=== PATIENT | female | born 1945 | race Caucasian/White ===

== ENCOUNTER → 2017-01-10 | Outpatient (CLI) | payer MEDICARE, OTHER ==
[2016-10-02 11:21] VITALS: BP 122/63
[~2017-01-10] MED LIST: APIX5TAB PO; ATOR20TA58 PO; INSU100C SQ; INSU100V8 SQ; METF500T4 PO; METO25TA9 PO; OLME40TA PO; OLME5TAB4 PO; QUET1TAB PO; QUET300T5 PO; ROPI1TAB2 PO; VORT20TA PO; VORT5TAB PO
--- NOTE | 2017-01-10 10:26 | RAD ---
DATE: 01/10/2017 EXAM: DIGITAL SCREEN BILAT W/CAD HISTORY: Routine screening COMPARISON: 12/28/2015 This study was interpreted with the benefit of Computerized Aided Detection (CAD). FINDINGS: There are scattered fibroglandular densities in the breasts. Stable small nodules are again noted in the left breast. No new or enlarging breast densities are seen. A couple of benign type calcifications are noted. No suspicious microcalcifications have developed. Small lymph node type densities are partially visualized in the left axillary region. IMPRESSION: Stable mammograms without evidence of malignancy. BI-RADS CATEGORY: 2 BENIGN FINDING(S) RECOMMENDED FOLLOW-UP: 12M 12 MONTH FOLLOW-UP PQRS compliance statement: Patient information was entered into a reminder system with a target due date for the next mammogram. Mammography is a sensitive method for finding small breast cancers, but it does not detect them all and is not a substitute for careful clinical examination. A negative mammogram does not negate a clinically suspicious finding and should not result in delay in biopsying a clinically suspicious abnormality. "Our facility is accredited by the [employer] Mammography Program."
== END | disposition home or self-care (01) ==
LOC: MAMMO 09:00
PROVIDERS: ATTEND Family Medicine
DX: Z12.31 Encounter for screening mammogram for malignant neoplasm of breast (principal)
CPT/HCPCS: G0202; 77067

== ENCOUNTER → 2017-06-25 | Outpatient (CLI) | payer MEDICARE, OTHER ==
[2016-10-02 11:21] VITALS: BP 122/63
[~2017-06-25] MED LIST changes: +METO-239 PO; -METO25TA9 PO; -OLME40TA PO; +OLME40TA12 PO
--- NOTE | 2017-06-25 12:20 | CARD ---
APPROVED REPORT EXAM: Two-dimensional and M-mode echocardiogram with Doppler and color Doppler. Other Information Quality : Average Rhythm : NSR INDICATION Atrial Fibrillation 2D DIMENSIONS RVDd2.6 (2.9-3.5cm)Left Atrium(2D)3.7 (1.6-4.0cm) IVSd1.5 (0.7-1.1cm)Aortic Root(2D)2.8 (2.0-3.7cm) LVDd4.1 (3.9-5.9cm)LVOT Diameter2.0 (1.8-2.4cm) PWd1.5 (0.7-1.1cm)LVDs3.0 (2.5-4.0cm) FS (%) 26.5 %SV38.4 ml LVEF(%)52.4 (>50%) Aortic Valve AoV Peak Ralph.285.8cm/sAoV VTI63.8cm AO Peak GR.41.0mmHgLVOT Peak Ralph.86.6cm/s LVOT VTI 18.14cmAO Mean GR.25mmHg DIOR (VMAX)0.23vl7GOD (VTI)0.80cm2 AI P 1/2 Esps309lu Mitral Valve MV E Iqwupoly24.0cm/sMV DECEL LYAQ839at MV A Imtxkgog459.7cm/sMV E Mean Gr.2mmHg MV XDP58soM/A Ratio0.7 MV A Yaomvgrx055fjIAI (PHT)2.35cm2 TDI E/Lateral E'12.9E/Medial E'18.5 Pulmonary Valve PV Peak Rzovflij78.3cm/sPV Peak Grad.2mmHg RVOT VTI11.2cm Tricuspid Valve TR P. Izwufzpz104lt/sRAP NHQBXMLO2lrUw TR Peak Gr.49urDhIUZZ13xdMq Pulmonary Vein S1 Gnkjsbqk84.4cm/sD2 Wkgmohvq59.4cm/s LEFT VENTRICLE The left ventricle is normal size. There is mild concentric left ventricular hypertrophy. Left ventri dayanara systolic function is low normal. The Ejection Fraction is 50-55%. There is normal LV segmental wa ll motion. Tissue Doppler imaging reveals mild left ventricular diastolic dysfunction. Transmitral Do ppler flow pattern is Grade I-abnormal relaxation pattern. There is no ventricular septal defect visu alized. RIGHT VENTRICLE The right ventricle is normal size. The right ventricular systolic function is normal. ATRIA The left atrium size is normal. The right atrium size is normal. The interatrial septum is intact wit h no evidence for an atrial septal defect or patent foramen ovale as noted on 2-D or Doppler imaging. AORTIC VALVE The aortic valve is calcified and displays decreased opening. The aortic valve is trileaflet. Doppler and Color Flow revealed trace to mild aortic regurgitation. Calculated aortic valve area is 0.8 cm2 with maximum pressure gradient of 41 mmHg and mean pressure gradient of 25 mmHg. Based on doppler tra cings, there is mild to moderate aortic stenosis, visually the valve appears moderately stenotic. The DIOR may be underestimated due to suboptimal image planes. MITRAL VALVE The mitral valve leaflets are calcified. There is no mitral valve stenosis. Doppler and Color Flow re vealed mild mitral regurgitation. TRICUSPID VALVE The tricuspid valve is normal in structure and function. Doppler and Color Flow revealed trace tricus pid regurgitation. The PA pressure was estimated at 29 mmHg. There is no tricuspid valve stenosis. PULMONIC VALVE The pulmonic valve is not well visualized. Doppler and Color Flow revealed no pulmonic valvular regur gitation. There is no pulmonic valvular stenosis. GREAT VESSELS The aortic root is normal in size. The ascending aorta is normal in size. Normal pulmonary venous isha w (Doppler). The IVC is normal in size and collapses >50% with inspiration. PERICARDIAL EFFUSION There is no evidence of significant pericardial effusion. Critical Notification Critical Value: No <Conclusion> Left ventricle systolic function is low normal. The Ejection Fraction is 50-55%. There is normal LV segmental wall motion. Calculated aortic valve area is 0.8 cm2 with maximum pressure gradient of 41 mmHg and mean pressure g radient of 25 mmHg. Based on doppler tracings, there is mild to moderate aortic stenosis, visually th e valve appears moderately stenotic. The DIOR may be underestimated due to suboptimal image planes. Doppler and Color Flow revealed mild mitral regurgitation. Doppler and Color Flow revealed trace to mild aortic regurgitation.
== END | disposition home or self-care (01) ==
LOC: ECHO 07:40
PROVIDERS: ATTEND Internal Medicine Cardiovascular Disease
DX: I08.3 Combined rheumatic disorders of mitral, aortic and tricuspid valves (principal); I48.0 Paroxysmal atrial fibrillation
CPT/HCPCS: 93306

== ENCOUNTER → 2018-01-07 | Outpatient (CLI) | payer MEDICARE, OTHER ==
[2018-01-07 11:01] LABS: FOLATE 20.78 ng/ml (3.2-20.0)
[2018-01-07 11:01] LABS: VITAMIN-B12 285 pg/mL (247-911)
[2018-01-07 12:24] LABS: SEDIMENTATION RATE 7 (0-25)
[2018-01-09 09:19] LABS: ALBUM 3.5 g/dL (2.9-4.4); ALPHA 1 0.3 g/dL (0.0-0.4); BETA 1.4 g/dL (0.7-1.3); GAMMA 1.2 g/dL (0.4-1.8); M-SPIKE Not Observed g/dL (Not Observed); PROTEIN TOTAL 7.4 g/dL (6.0-8.5); SPEP AG RATIO 0.9 (0.7-1.7)
== END | disposition home or self-care (01) ==
LOC: LAB 10:15
DX: G62.9 Polyneuropathy, unspecified (principal)
CPT/HCPCS: 36415; 82607; 82746; 84165; 85651

== ENCOUNTER → 2018-01-29 | Outpatient (CLI) | payer MEDICARE, OTHER | END | disposition home or self-care (01) | LOC: MAMMO 13:40 | DX: Z12.31 Encounter for screening mammogram for malignant neoplasm of breast (principal); I10 Essential (primary) hypertension; E11.9 Type 2 diabetes mellitus without complications; E78.5 Hyperlipidemia, unspecified | CPT/HCPCS: 77063; 77067 ==

== ENCOUNTER → 2018-02-12 | Outpatient (CLI) | payer MEDICARE, OTHER ==
[2018-02-12] MEDS: REGADENOSON 0.4 MG/5 ML DISP.SYRIN. IV (09:48)
== END | disposition home or self-care (01) ==
LOC: NM 15:02
DX: R07.89 Other chest pain (principal); I10 Essential (primary) hypertension; E11.9 Type 2 diabetes mellitus without complications
CPT/HCPCS: 78452; 93017; 96374; 96375; 96376; A9500; J2785

== ENCOUNTER 2018-05-29 06:29 | Outpatient (CLI) | payer MEDICARE, OTHER ==
[~2018-05-29] VITALS: Ht 165.1 cm; Wt 69.9 kg
[2018-05-29] VITALS (14 sets, daily range): BP systolic 128–190; BP diastolic 62–86
[~2018-05-29 06:29] MED LIST changes: +ACET325T9 PO; +AMLO5TAB4 PO; +ARIP2TAB3 PO; +BUPR150T15 PO; +CEFP200T PO; +DESV50TA PO; +FLEC50TA PO; +HYDR-2762 PO; -METF500T4 PO; +METF500T5 PO; +PROM118S5 PO
[2018-05-29] MEDS ORDERED: AMIT25TA PO (07:06)
[2018-05-29] MEDS ORDERED: LORA0.5T96 PO (07:06)
[2018-05-29] MEDS ORDERED: CYAN10005 PO (07:06)
[2018-05-29] MEDS ORDERED: ASPI325T8 PO (07:06)
[2018-05-29] MEDS ORDERED: DULO60CA6 PO (07:06)
[2018-05-29 07:11] LABS: HEMATOCRIT 44.4 % (36.0-47.0); HEMOGLOBIN 15.2 g/dL (12.0-15.5); RED BLOOD COUNT 5.1 x10^6/uL (3.50-5.40); RED CELL DISTRIBUTION WIDTH 13.2 % (11.5-14.5); WHITE BLOOD COUNT 7.4 x10^3/uL (4.0-11.0)
[2018-05-29 07:23] LABS: PROTHROMBIN TIME PATIENT 13.4 SEC (11.7-14.0)
[2018-05-29 07:28] LABS: CALCIUM 9.9 mg/dL (8.5-10.1); CREATININE 0.9 mg/dL (0.6-1.0); GFR 61.9; POTASSIUM 4.2 mmol/L (3.5-5.1)
[2018-05-29] MEDS ORDERED: LIDOCAINE 1% PF 30 ML VIAL. ONE (07:28)
[2018-05-29] MEDS ORDERED: IODIXANOL 320 MG/ML 100 ML VIAL. ONE ×2 (07:28→07:46)
[2018-05-29] MEDS ORDERED: fentaNYL PF VIAL 100 MCG/2 ML VIAL ONE (07:49)
[2018-05-29] MEDS ORDERED: NITROGLYCERIN 200 MCG/2 ML SYRINGE FOR CATH/VASC LAB. ONE (07:49)
[2018-05-29] MEDS ORDERED: MIDAZOLAM HCL/PF 5 MG/5 ML VIAL. ONE (07:49)
[2018-05-29] MEDS ORDERED: HEPARIN for IV BOLUS 10,000 UNIT/10 ML VIAL. ONE (07:49)
[2018-05-29] MEDS ORDERED: VERAPAMIL 5 MG/2 ML VIAL. ONE (07:49)
[2018-05-29] MEDS ORDERED: NITROGLYCERIN 200 MCG/2 ML SYRINGE FOR CATH/VASC LAB. IART ONE (08:00)
[2018-05-29] MEDS ORDERED: HEPARIN for IV BOLUS 10,000 UNIT/10 ML VIAL. IART ONE (08:00)
[2018-05-29] MEDS ORDERED: MIDAZOLAM HCL/PF 5 MG/5 ML VIAL. IV ONE (08:00)
[2018-05-29] MEDS ORDERED: VERAPAMIL 5 MG/2 ML VIAL. IART ONE (08:00)
[2018-05-29] MEDS ORDERED: IODIXANOL 320 MG/ML 100 ML VIAL. IART ONE (08:00)
[2018-05-29] MEDS ORDERED: LIDOCAINE 1% PF 30 ML VIAL. INJ ONE (08:00)
[2018-05-29] MEDS ORDERED: fentaNYL PF VIAL 100 MCG/2 ML VIAL IV ONE (08:00)
--- NOTE | 2018-05-29 08:59 | PDOC ---
MODERATE SEDATION ASSESSMENT RISKS/ALTERNATIVES Risks/Alternatives Risks and alternatives of this type of sedation and procedure discussed with: RISK/ALTERNATIVES: Patient H & P ON CHART H & P H & P on chart and reviewed for co-morbid conditions and appropriate labs. H&P ON CHART: Yes STATUS PREG STATUS ASSESSED: N/A MEDS/ALLERGIES REVIEWED Meds/Allergies Reviewed Medications and Allergies including time and route of recently administered narcotics and sedatives. MEDS/ALLERGIES REVIEWED: Yes ASA RATING ASA RATING: II AIRWAY ASSESSMENT Airway Assessment Airway patency, oral function limitations, presence of caps, crowns, dentures, partials, and ability to extend neck assessed. AIRWAY ASSESSMENT: Yes MALLAMPATI SCORE MALLAMPATI SCORE: II PRE-SEDATION ASSESSMENT PRE-SEDATION ASSESSMENT: Yes DONALD CASTRO MD May 29, 2018 08:59
[2018-05-29] MEDS ORDERED: CONTRAST GIVEN. MC PRN (09:00)
--- NOTE | 2018-05-29 09:29 | CARD ---
MR#: [id number] Date of Study: 05/29/2018 Ordering Physician: DONALD CASTRO Referring Physician: DONALD CASTRO Tech: RT Edwige (R) APPROVED REPORT Technologist: Radha Andres RT (R) Nurse: Keesha Hurley R.N. Procedure(s) performed: Left heart catheterization and selective coronary angiography via right trans radial approach Moderate sedation: 37 minutes INDICATION The indication(s) include : Preoperative evaluation, severe aortic stenosis scheduled for surgical ao rtic valve replacement. PROCEDURE NARRATIVE After explaining the risks, benefits and alternative options, informed consent was obtained from grant ent. Patient was brought to the cardiac Diabetes Physician and right wrist was prepped and draped in the usual fashion after confirming a positive modified Johnson's test. Arterial access was obtained in the righ t radial artery and a 6 [place] sheath was inserted. 6 [place] JL 3.5 and 6 [place] JR4 catheters were used to perform selective angiography of the left and right coronary arteries after initial attempts to engage these vessels using 6 [place] Otis catheter were unsuccessful.. Patient tolerated the pro cedure well. Hemostasis was achieved using TR band. There were no immediate complications. The fol lowing findings were noted. FINDINGS 1Coronary angiography: a. The left main coronary artery arose from the left sinus of Valsalva, gave rise to the left anteri or descending and left circumflex arteries and did not show any significant stenosis. b. The left anterior descending artery itself did not show any significant stenosis. The diagonal br anch showed 50% proximal segment stenosis. c. The left circumflex artery was a codominant vessel that did not show any significant stenosis. d. The right coronary artery was a codominant vessel arising from the right sinus of Valsalva that d id showed 80% stenosis in the proximal to midsegment. Conclusion Single-vessel coronary artery disease Recommendations Consider saphenous vein graft to the right coronary artery during surgical aortic valve replacement p rocedure. We will discuss with CT surgery. Signed by : Donald Castro, Electronically Approved : 05/29/2018 09:27:56
[2018-05-29] MEDS ORDERED: IV 1/2 NORMAL SALINE 1,000 ML IV SCH (09:30)
== END 2018-05-29 12:00 | disposition home or self-care (01) ==
LOC: CCL 06:29
PROVIDERS: ATTEND Internal Medicine Cardiovascular Disease
DX: I25.10 Atherosclerotic heart disease of native coronary artery without angina pectoris (principal); I35.0 Nonrheumatic aortic (valve) stenosis; Z79.01 Long term (current) use of anticoagulants; Z88.8 Allergy status to other drugs, medicaments and biological substances; Z98.42 Cataract extraction status, left eye; Z98.41 Cataract extraction status, right eye; Z96.1 Presence of intraocular lens; Z98.890 Other specified postprocedural states; E78.00 Pure hypercholesterolemia, unspecified; I48.91 Unspecified atrial fibrillation; I10 Essential (primary) hypertension; K21.9 Gastro-esophageal reflux disease without esophagitis; F31.9 Bipolar disorder, unspecified; F41.9 Anxiety disorder, unspecified; Z87.01 Personal history of pneumonia (recurrent); E11.42 Type 2 diabetes mellitus with diabetic polyneuropathy; K31.84 Gastroparesis; Z90.49 Acquired absence of other specified parts of digestive tract; Z90.710 Acquired absence of both cervix and uterus; Z87.440 Personal history of urinary (tract) infections; M19.90 Unspecified osteoarthritis, unspecified site; Z79.82 Long term (current) use of aspirin; Z79.4 Long term (current) use of insulin; Z79.899 Other long term (current) drug therapy; Z93.1 Gastrostomy status
CPT/HCPCS: 36415; 80048; 85027; 85610; 85730; 93454; 99152; 99153; C1769; C1892; J1644; J2250; J3010; J3490

== ENCOUNTER → 2018-06-16 | Outpatient (CLI) | payer MEDICARE, OTHER ==
[2018-05-29 12:06] VITALS: BP 157/85
[~2018-06-16] MED LIST changes: +AMIT25TA PO; +ASPI325T8 PO; +CYAN10005 PO; +DULO60CA6 PO; +LORA0.5T96 PO; +METF500T16 PO; -METF500T5 PO; +ROPI2TAB4 PO
[2018-06-16 12:17] LABS: BASO # 0.1 x10^3/uL (0.0-0.2); BASO % 1 % (0-3); EOS % 0 % (0-3); HEMATOCRIT 44.9 % (36.0-47.0); HEMOGLOBIN 15.5 g/dL (12.0-15.5); LYMPH # 2.5 x10^3/uL (1.0-4.8); LYMPH % 30 % (24-48); MEAN CORPUSCULAR HEMOGLOBIN 30 pg (25-35); MEAN CORPUSCULAR HGB CONC 34 g/dL (31-37); MEAN CORPUSCULAR VOLUME 87 fL (79-100); MONO # 0.4 x10^3/uL (0.0-1.1); MONO % 5 % (0-9); NEUT # 5.3 x10^3uL (1.8-7.7); NEUT % 64 % (31-73); PLATELET COUNT 162 x10^3/uL (140-400); RED BLOOD COUNT 5.19 x10^6/uL (3.50-5.40); RED CELL DISTRIBUTION WIDTH 13.3 % (11.5-14.5); WHITE BLOOD COUNT 8.4 x10^3/uL (4.0-11.0)
--- NOTE | 2018-06-16 12:22 | RAD ---
EXAM: CT Chest without IV contrast CLINICAL HISTORY: PRE OP AORTIC VALVE REPLACEMENT COMPARISON: Chest x-ray 04/18/2018 TECHNIQUE: CT of the chest without intravenous contrast. Axial, coronal and sagittal reformatted images were generated. ---PQRS compliance statement - One or more of the following individualized dose reduction techniques were utilized for this study: 1. Automated exposure control 2. Adjustment of the mA and/or kV according to patient size 3. Use of iterative reconstruction technique--- FINDINGS: Lack of intravenous contrast limits evaluation of solid organs, vasculature, and lymph nodes. Chest: Heart is not enlarged. Coronary artery calcifications are seen. No pericardial effusion. Prominent atherosclerotic calcifications are seen at the aortic root. The aortic root measures 2.7 cm in diameter. The ascending aorta measures approximately 3.1 cm at the level of the right pulmonary artery. The pulmonary artery trunk measures 2.8 cm. Atherosclerotic calcifications of the aorta are seen. No mediastinal or hilar lymphadenopathy by size criteria. Calcified mediastinal lymph nodes are seen. No axillary lymphadenopathy. No pleural effusion or pneumothorax. A 3 mm middle lobe lung nodule (image 38) is seen. A 3 mm fissural lung nodule is seen (image 34). A 4 mm right upper lobe lung nodule (image 30) is seen. 4 mm pleural-based right lower lobe lung nodule is noted. 3 mm left lower lobe lung nodule (image 39). Biapical pleural/parenchymal scarring/thickening is seen. Visualized Upper abdomen: Calcified splenic granuloma. Subcentimeter hypodense right hepatic lobe lesion is too small to characterize. Bones: Degenerative changes of the spine are seen. No definite aggressive osseous lesion is identified. IMPRESSION: 1. Atherosclerotic calcifications of the coronary arteries and aorta is seen prominent in the aortic root. 2. Numerous bilateral lung nodules are seen, 4 mm and smaller. Per Fleischner Society guidelines for incidentally found solid nodules measuring less than 6 mm, no follow-up is necessary if patient is considered at low risk for lung cancer. If patient is considered to be at high risk, such as with history of smoking, then CT follow-up in about 12 months can be considered. 3. Changes of chronic granulomatous disease with splenic granulomas and calcified mediastinal lymph nodes. Electronically signed by: Berny Stover MD (06/16/2018 12:18 PM) [id number]
[2018-06-16 12:32] LABS: ALBUMIN 3.7 g/dL (3.4-5.0); CREATININE 1.1 mg/dL (0.6-1.0); GFR 49.1; POTASSIUM 4.7 mmol/L (3.5-5.1); TOTAL BILIRUBIN 0.5 mg/dL (0.2-1.0); TOTAL PROTEIN 7.5 g/dL (6.4-8.2)
[2018-06-16 12:42] LABS: FREE T4 0.82 ng/dL (0.76-1.46); THYROID STIM HORMONE (TSH) 1.935 uIU/mL (0.358-3.74)
--- NOTE | 2018-06-16 13:41 | RAD ---
Chest, 2 views, 06/16/2018: HISTORY: Preop evaluation for aortic valve replacement surgery Comparison is made to a study from 04/18/2018. The heart size is normal. There appear to be minimal scattered parenchymal scars. No acute infiltrate is seen. There is a calcified lymph node in the lower mediastinum. There is no evidence of pleural fluid. IMPRESSION: No acute cardiopulmonary abnormality is detected. Electronically signed by: Evans Donovan MD (06/16/2018 1:38 PM) [facility]
[2018-06-16 14:12] LABS: ALBUMIN 3.8 g/dL (3.4-5.0); DIRECT BILIRUBIN 0.2 mg/dL (0.0-0.2); TOTAL BILIRUBIN 0.6 mg/dL (0.2-1.0); TOTAL PROTEIN 7.2 g/dL (6.4-8.2)
--- NOTE | 2018-06-16 16:56 | RAD ---
Carotid ultrasound, 06/16/2018: HISTORY: Preop evaluation for cardiac surgery Duplex evaluation of the carotid arteries and neck was performed including grayscale, color-flow and spectral Doppler analysis. There is mild intimal thickening bilaterally. No prominent focal plaque formation is seen. The peak systolic velocity in the right internal carotid artery is 67 cm/s with an end-diastolic velocity of 20 cm/s and an internal carotid to common carotid artery ratio of 0.9. On the left the peak systolic velocity in the internal carotid artery is 53 cm per sec with an end-diastolic velocity of 14 cm/s and an internal carotid to common carotid artery ratio of 0.6. These Doppler findings do not suggest significant stenosis. Antegrade flow is present in both vertebral arteries in the neck. IMPRESSION: No duplex evidence of a significant carotid stenosis in the neck. Note: Stenosis calculations for CT, MRA and conventional angiography are based upon determination of the distal ICA diameter in accordance with the NASCET methodology. Stenosis calculations for Doppler studies are derived from validated velocity criteria which are known to correlate with NASCET methodology of determining stenosis. Electronically signed by: Evans Donovan MD (06/16/2018 4:52 PM) [facility]
== END | disposition home or self-care (01) ==
LOC: SURGPAT 10:21
PROVIDERS: ATTEND Thoracic Surgery (Cardiothoracic Vascular Surgery)
DX: Z01.818 Encounter for other preprocedural examination (principal); I35.0 Nonrheumatic aortic (valve) stenosis; I25.10 Atherosclerotic heart disease of native coronary artery without angina pectoris; D71 Functional disorders of polymorphonuclear neutrophils; R91.8 Other nonspecific abnormal finding of lung field; I11.0 Hypertensive heart disease with heart failure; I50.9 Heart failure, unspecified; E11.9 Type 2 diabetes mellitus without complications; E78.00 Pure hypercholesterolemia, unspecified; J44.9 Chronic obstructive pulmonary disease, unspecified; I48.0 Paroxysmal atrial fibrillation; K21.9 Gastro-esophageal reflux disease without esophagitis; Z79.4 Long term (current) use of insulin; Z87.440 Personal history of urinary (tract) infections; Z87.891 Personal history of nicotine dependence; Z90.49 Acquired absence of other specified parts of digestive tract; Z90.710 Acquired absence of both cervix and uterus; Z68.26 Body mass index [BMI] 26.0-26.9, adult
CPT/HCPCS: 36415; 71046; 71250; 80053; 80076; 83036; 84439; 84443; 85025; 87641; 93880

== ENCOUNTER 2018-08-03 14:05 | Inpatient (IN) | payer MEDICARE, OTHER ==
[~2018-08-03] VITALS: Ht 165.1 cm; Wt 69.7 kg
[~2018-08-03 14:05] MED LIST changes: +FURO-69 PO; +INSU100I13 SQ; +METO25TA4 PO; +OXYC1TAB7 PO
[2018-08-03 16:12] LABS: BASO # 0.2 x10^3/uL (0.0-0.2); BASO % 2 % (0-3); EOS # 0.3 x10^3/uL (0.0-0.7); EOS % 3 % (0-3); HEMATOCRIT 36.1 % (36.0-47.0); HEMOGLOBIN 11.9 g/dL (12.0-15.5); LYMPH # 2.4 x10^3/uL (1.0-4.8); LYMPH % 27 % (24-48); MEAN CORPUSCULAR HEMOGLOBIN 27 pg (25-35); MEAN CORPUSCULAR HGB CONC 33 g/dL (31-37); MEAN CORPUSCULAR VOLUME 82 fL (79-100); MONO # 0.5 x10^3/uL (0.0-1.1); MONO % 5 % (0-9); NEUT # 5.6 x10^3uL (1.8-7.7); NEUT % 63 % (31-73); PLATELET COUNT 235 x10^3/uL (140-400); RED CELL DISTRIBUTION WIDTH 15.1 % (11.5-14.5); WHITE BLOOD COUNT 8.8 x10^3/uL (4.0-11.0)
[2018-08-03] MEDS ORDERED: INSULIN LISPRO 15 UNIT SQ PRN (16:30)
[2018-08-03 16:35] LABS: ALBUMIN 3.4 g/dL (3.4-5.0); ALBUMIN/GLOBULIN RATIO 0.8 (1.0-1.7); CALCIUM 9.7 mg/dL (8.5-10.1); CREATININE 0.9 mg/dL (0.6-1.0); GFR 61.9; POTASSIUM 4.4 mmol/L (3.5-5.1); TOTAL BILIRUBIN 0.5 mg/dL (0.2-1.0); TOTAL PROTEIN 7.7 g/dL (6.4-8.2)
[2018-08-03 16:55] LABS: BILIRUBIN,URINE NEGATIVE (NEG); CLARITY,URINE CLEAR; COLOR,URINE YELLOW; NITRITE,URINE NEGATIVE (NEG); PROTEIN,URINE NEGATIVE (NEG-TRACE); UROBILINOGEN,URINE 0.2 mg/dL (0.2 mg/dL)
[2018-08-03] MEDS ORDERED: DEXTROSE 50% 25 GM / 50ML DISP.SYRIN. IV PRN (17:00)
[2018-08-03 17:03] LABS: BARBITURATES NEG (NEG); BENZODIAZEPINES NEG (NEG); CANNABINOIDS NEG (NEG); METHADONE NEG (NEG); OPIATES NEG (NEG); PHENCYCLIDINE NEG (NEG)
--- NOTE | 2018-08-03 17:14 | RAD ---
CT head without intravenous contrast History: Fall, closed head injury, hallucinations. Comparison: CT head January 18, 2018. Technique: Axial images are obtained of the head from the skull base through the vertex without IV contrast. Exposure: One or more of the following individualized dose reduction techniques were utilized for this examination: 1. Automated exposure control 2. Adjustment of the mA and/or kV according to patient size 3. Use of iterative reconstruction technique Findings: The ventricles are appropriate in size, shape, and location for the patient's age. No obvious intracranial mass, mass-effect, midline shift, hemorrhage or obvious acute infarction is identified. Basilar cisterns are patent. Bone windows demonstrate no acute calvarial abnormality. The visualized paranasal sinuses appear clear. Previous partial right mastoidectomy is seen. Impression: No acute intracranial process. Please note that CT can be relatively insensitive to acute ischemic infarction for up to 24 hours after symptom onset. Electronically signed by: Ben Connolly MD (08/03/2018 5:10 PM) [id number]
[2018-08-03 17:23] LABS: BACTERIA,URINE 0 /HPF (0-FEW); RBC,URINE 0 /HPF (0-2); SQUAMOUS EPITHELIAL CELL,UR MOD /LPF
[2018-08-03 17:29] LABS: AMPHETAMINE/METHAMPHETAMINE NEG (NEG); COCAINE NEG (NEG)
--- NOTE | 2018-08-03 17:54 | PDOC2 ---
NEUROLOGY CONSULT Date of Admission Date of Admission DATE: 08/03/18 TIME: 17:42 Reason for Consult Reason for Consult: IMPRESSION: Metabolic encephalopathy. Hallucinations. Fall. Hypoxia. Chest pain. Pneumonia. AFib. CHF. CAD s/p CABG. Severe aortic stenosis. DM. HTN. HLD. GERD. Peripheral neuropathy. Degenerative spine disease. RECOMMENDATIONS/PLAN: HCT. CCT. EEG Lab: see orders. Treat medical and cardiac diseases. OT/PT. Discussed with her daughter at bedside on . HISTORY OF THE PRESENT ILLNESS: 72-y-old female patient with above medical and cardiac diseases had a fall while walking with her walker from inside of her house. She reported did not LOC, no projectile vomiting after fall. She felt her leg were weak after CABG and did not have much exercise for several months. She had hallucinations as seeing people and animals in room and people talked but she did not know what they were taking about. No focalized sensory or motor deficits noted. Per her daughter, she had hallucinations before after taking Narcotics and psychiatric medications, but were resolved. PAST MEDICAL HISTORY Cardiovascular: AFIB, CAD, HTN, Hyperlipidemia, Aortic stenosis Pulmonary: Asthma CENTRAL NERVOUS SYSTEM: Other (none) GI: GERD, Other (diabetic gastroparesis) Heme/Onc: Anemia NOS (post-operative) Hepatobiliary: No pertinent hx Psych: Anxiety, Depression Musculoskeletal: Osteoarthritis Rheumatologic: No pertinent hx Infectious disease: No pertinent hx ENT: Other (diabetic retinopathy) Renal/: No pertinent hx Endocrine: Diabetes (type II, poorly controlled) Dermatology: No pertinent hx PAST SURGICAL HISTORY Cholecystectomy, Cataract Removal, Hysterectomy, Other (right shoulder; PEG with removal; breast biopsies; repair of deviated septum) FAMILY HISTORY Adopted ALLERGY: Reviewed. MEDICATIONS: Refer to MAR SOCIAL HISTORY: Lives with her daughter at home. Denies current smoking, drinking, and illicit drug use. REVIEW OF SYSTEMS: Constitutional: No malnutrition, weight loss, cachexia. Head: No traumatic brain or head injury. Skin: No edema, or rash. Ear: No infection. Eyes: No vision loss or color blindness. Nose: No bleeding or purulent discharges. Hearing: Hearing decrease. Neck: No injury. Breast: No history of cancer, masses,or discharges. Cardiac: CAD, s/p CABG, AFib, HTN, HLD. Pulmonary: Hypoxia. GI: GERD. Urinary/genital: UTI. Endocrinologic: Diabetes Mellitus. Skeletomuscular: No muscular atrophy, deformity. Neurological: see HP. Psychiatric: Denies drug use/abuse. Otherwise, not [id number] review of systems. PHYSICAL EXAMINATION: General appearance is in subacute distress. HEENT: Normocephalic and nontraumatic. Eyes, nose, ears, and throat are unremarkable. Neck is supple. No lymphadenopathy. No bruits are heard over the carotid artery. No crepitus. Cardiovascular: S1, S2, regular rate and rhythm. Pulmonary: Clear to auscultation bilaterally. Abdomen: Bowel sounds are positive. Abdomen is soft, nontender, and nondistended. Extremities: No rash, lesions, or edema. No restriction of range of motion NEUROLOGICAL EXAMINATION: Awake. Oriented partially to time, but knew place and person. PERRL. EOMI. CN: no focal findings. Muscle tone: within normal. Muscle strength: 5- DTR: 2 UE, 2- at knee. Plantar reflex: Flexor response bilaterally Gait: not examined in bed. Sensory exam: no abnormal findings. No cerebellar signs elicited. F-T-N test fine. Current Medications Current Medications Current Medications Aspirin (Mack Aspirin) 325 mg DAILY PO ; Start 08/04/18 at 09:00 Cyanocobalamin (Vitamin B-12) 1,000 mcg DAILY PO ; Start 08/04/18 at 09:00 Insulin Glargine (Lantus) 35 units QHS SQ ; Start 08/03/18 at 21:00 Metoprolol Tartrate (Lopressor) 25 mg BID PO ; Start 08/03/18 at 21:00 Oxycodone/ Acetaminophen (Percocet 5/325) 1 tab PRN Q4HRS PRN PO MODERATE- SEVERE PAIN; Start 08/03/18 at 16:30 Aripiprazole (Abilify) 2 mg DAILY PO ; Start 08/04/18 at 09:00 Desvenlafaxine Succinate (Pristiq Er) 50 mg BID PO ; Start 08/03/18 at 21:00 Duloxetine HCl (Cymbalta) 120 mg DAILY PO ; Start 08/04/18 at 09:00 Non-Formulary Medication (Insulin Lispro (Humalog)) 15 unit DAILY PRN SQ SEE COMMENTS; Start 08/03/18 at 16:30; Stop 08/03/18 at 16:57; Status DC Metformin HCl (Glucophage) 500 mg QHS PO ; Start 08/03/18 at 21:00 Ropinirole HCl (Requip) 2 mg TID PO ; Start 08/03/18 at 21:00 Insulin Human Lispro (HumaLOG) 0-5 UNITS TIDWMEALS SQ ; Start 08/03/18 at 17:00 Dextrose (Dextrose 50%-Water Syringe) 12.5 gm PRN Q15MIN PRN IV SEE COMMENTS; Start 08/03/18 at 17:00 Bupropion HCl (Wellbutrin Sr) 150 mg BID PO ; Start 08/03/18 at 21:00 Celecoxib (CeleBREX) 200 mg DAILY PO ; Start 08/04/18 at 09:00 Atorvastatin Calcium (Lipitor) 20 mg QHS PO ; Start 08/03/18 at 21:00 Amitriptyline HCl (Elavil) 10 mg QHS PO ; Start 08/03/18 at 21:00 Losartan Potassium (Cozaar) 100 mg DAILY PO ; Start 08/04/18 at 09:00 Active Scripts Active Oxycodone-Acetaminophen 5-325 (Oxycodone Hcl/Acetaminophen) 1 Each Tablet 1 Tab PO PRN Q4HRS PRN Metoprolol Tartrate 25 Mg Tablet 25 Mg PO BID 30 Days Reported Lantus Solostar (Insulin Glargine,Hum.rec.anlog) 100 Unit/1 Ml Insuln.pen 35 Unit SQ QHS Ropinirole Hcl 2 Mg Tablet 2 Mg PO TID 30 Days Cymbalta (Duloxetine Hcl) 60 Mg Capsule.dr 120 Mg PO DAILY Vitamin B-12 (Cyanocobalamin (Vitamin B-12)) 1,000 Mcg Tablet 1 Tab PO DAILY Aspirin 325 Mg Tablet 1 Tab PO DAILY Abilify (Aripiprazole) 2 Mg Tablet 2 Mg PO DAILY Pristiq Er (Desvenlafaxine Succinate) 50 Mg Tab.er.24h 1 Tab PO BID Humalog (Insulin Lispro) 100 Unit/1 Ml Cartridge 15 Unit SQ DAILY PRN Metformin Hcl 500 Mg Tablet 1 Tab PO HS Allergies Allergies: Allergies Coded Allergies Type Severity Reaction Last Updated Verified adhesive tape Allergy Severe TEARS SKIN 06/23/18 Yes nitrous oxide Allergy Severe EYE DAMAGE 06/23/18 Yes zolpidem Allergy Intermediate 06/23/18 Yes ROS Review of System The patient denies any associated fevers, chills, headache, ear pain, rhinorrhea , sore throat, stiff neck, productive cough, chest pain, shortness of breath, back or flank pain, abdominal pain, nausea, vomiting, diarrhea, constipation, dysuria, rash, numbness, weakness, tingling, incontinence, difficulty ambulating, or diaphoresis. Physical Exam Physical Exam General: Well developed, well nourished, no acute distress, well appearing HEENT: Pupils equally round and reactive to light, EOMI, no discharge, normal conjunctiva Neck: Supple, no nuchal rigidity, no JVD, trachea midline, no tenderness Cardiac: RRR, no murmurs, no gallops, no rubs Chest/Lungs: CTAB, no wheeze, no rhonchi, no crackles Abdomen: soft, non-distended, no guarding, no peritoneal signs, non-tender Back: No tenderness Extremities: no edema, pulses intact, non-tender,capillary refill <3 sec bilateral upper and lower extremities, Neuro: Alert and oriented x 4, no focal deficits, normal speech Labs Labs Laboratory Tests Test 08/03/18 16:00 08/03/18 16:13 08/03/18 16:45 White Blood Count 8.8 x10^3/uL (4.0-11.0) Red Blood Count 4.40 x10^6/uL (3.50-5.40) Hemoglobin 11.9 g/dL (12.0-15.5) Hematocrit 36.1 % (36.0-47.0) Mean Corpuscular Volume 82 fL (79-100) Mean Corpuscular Hemoglobin 27 pg (25-35) Mean Corpuscular Hemoglobin Concent 33 g/dL (31-37) Red Cell Distribution Width 15.1 % (11.5-14.5) Platelet Count 235 x10^3/uL (140-400) Neutrophils (%) (Auto) 63 % (31-73) Lymphocytes (%) (Auto) 27 % (24-48) Monocytes (%) (Auto) 5 % (0-9) Eosinophils (%) (Auto) 3 % (0-3) Basophils (%) (Auto) 2 % (0-3) Neutrophils # (Auto) 5.6 x10^3uL (1.8-7.7) Lymphocytes # (Auto) 2.4 x10^3/uL (1.0-4.8) Monocytes # (Auto) 0.5 x10^3/uL (0.0-1.1) Eosinophils # (Auto) 0.3 x10^3/uL (0.0-0.7) Basophils # (Auto) 0.2 x10^3/uL (0.0-0.2) Sodium Level 136 mmol/L (136-145) Potassium Level 4.4 mmol/L (3.5-5.1) Chloride Level 99 mmol/L (98-107) Carbon Dioxide Level 30 mmol/L (21-32) Anion Gap 7 (6-14) Blood Urea Nitrogen 16 mg/dL (7-20) Creatinine 0.9 mg/dL (0.6-1.0) Estimated GFR (Cockcroft-Gault) 61.9 BUN/Creatinine Ratio 18 (6-20) Glucose Level 196 mg/dL (70-99) Calcium Level 9.7 mg/dL (8.5-10.1) Total Bilirubin 0.5 mg/dL (0.2-1.0) Aspartate Amino Transf (AST/SGOT) 12 U/L (15-37) Alanine Aminotransferase (ALT/SGPT) 16 U/L (14-59) Alkaline Phosphatase 123 U/L (46-116) Creatine Kinase 37 U/L (26-192) Total Protein 7.7 g/dL (6.4-8.2) Albumin 3.4 g/dL (3.4-5.0) Albumin/Globulin Ratio 0.8 (1.0-1.7) Glucose (Fingerstick) 183 mg/dL (70-99) Urine Collection Type Unknown Urine Color Yellow Urine Clarity Clear Urine pH 7.0 Urine Specific [place] 1.010 Urine Protein Negative mg/dL (NEG-TRACE) Urine Glucose (UA) Negative mg/dL (NEG) Urine Ketones (Stick) Negative mg/dL (NEG) Urine Blood Negative (NEG) Urine Nitrite Negative (NEG) Urine Bilirubin Negative (NEG) Urine Urobilinogen Dipstick 0.2 mg/dL (0.2 mg/dL) Urine Leukocyte Esterase Trace (NEG) Urine RBC 0 /HPF (0-2) Urine WBC 1-4 /HPF (0-4) Urine Squamous Epithelial Cells Mod /LPF Urine Bacteria 0 /HPF (0-FEW) Urine Opiates Screen Neg (NEG) Urine Methadone Screen Neg (NEG) Urine Barbiturates Neg (NEG) Urine Phencyclidine Screen Neg (NEG) Urine Amphetamine/Methamphetamine Neg (NEG) Urine Benzodiazepines Screen Neg (NEG) Urine Cocaine Screen Neg (NEG) Urine Cannabinoids Screen Neg (NEG) Urine Ethyl Alcohol Neg (NEG) Laboratory Tests Test 08/03/18 16:00 08/03/18 16:13 08/03/18 16:45 White Blood Count 8.8 x10^3/uL (4.0-11.0) Red Blood Count 4.40 x10^6/uL (3.50-5.40) Hemoglobin 11.9 g/dL (12.0-15.5) Hematocrit 36.1 % (36.0-47.0) Mean Corpuscular Volume 82 fL (79-100) Mean Corpuscular Hemoglobin 27 pg (25-35) Mean Corpuscular Hemoglobin Concent 33 g/dL (31-37) Red Cell Distribution Width 15.1 % (11.5-14.5) Platelet Count 235 x10^3/uL (140-400) Neutrophils (%) (Auto) 63 % (31-73) Lymphocytes (%) (Auto) 27 % (24-48) Monocytes (%) (Auto) 5 % (0-9) Eosinophils (%) (Auto) 3 % (0-3) Basophils (%) (Auto) 2 % (0-3) Neutrophils # (Auto) 5.6 x10^3uL (1.8-7.7) Lymphocytes # (Auto) 2.4 x10^3/uL (1.0-4.8) Monocytes # (Auto) 0.5 x10^3/uL (0.0-1.1) Eosinophils # (Auto) 0.3 x10^3/uL (0.0-0.7) Basophils # (Auto) 0.2 x10^3/uL (0.0-0.2) Sodium Level 136 mmol/L (136-145) Potassium Level 4.4 mmol/L (3.5-5.1) Chloride Level 99 mmol/L (98-107) Carbon Dioxide Level 30 mmol/L (21-32) Anion Gap 7 (6-14) Blood Urea Nitrogen 16 mg/dL (7-20) Creatinine 0.9 mg/dL (0.6-1.0) Estimated GFR (Cockcroft-Gault) 61.9 BUN/Creatinine Ratio 18 (6-20) Glucose Level 196 mg/dL (70-99) Calcium Level 9.7 mg/dL (8.5-10.1) Total Bilirubin 0.5 mg/dL (0.2-1.0) Aspartate Amino Transf (AST/SGOT) 12 U/L (15-37) Alanine Aminotransferase (ALT/SGPT) 16 U/L (14-59) Alkaline Phosphatase 123 U/L (46-116) Creatine Kinase 37 U/L (26-192) Total Protein 7.7 g/dL (6.4-8.2) Albumin 3.4 g/dL (3.4-5.0) Albumin/Globulin Ratio 0.8 (1.0-1.7) Glucose (Fingerstick) 183 mg/dL (70-99) Urine Collection Type Unknown Urine Color Yellow Urine Clarity Clear Urine pH 7.0 Urine Specific [place] 1.010 Urine Protein Negative mg/dL (NEG-TRACE) Urine Glucose (UA) Negative mg/dL (NEG) Urine Ketones (Stick) Negative mg/dL (NEG) Urine Blood Negative (NEG) Urine Nitrite Negative (NEG) Urine Bilirubin Negative (NEG) Urine Urobilinogen Dipstick 0.2 mg/dL (0.2 mg/dL) Urine Leukocyte Esterase Trace (NEG) Urine RBC 0 /HPF (0-2) Urine WBC 1-4 /HPF (0-4) Urine Squamous Epithelial Cells Mod /LPF Urine Bacteria 0 /HPF (0-FEW) Urine Opiates Screen Neg (NEG) Urine Methadone Screen Neg (NEG) Urine Barbiturates Neg (NEG) Urine Phencyclidine Screen Neg (NEG) Urine Amphetamine/Methamphetamine Neg (NEG) Urine Benzodiazepines Screen Neg (NEG) Urine Cocaine Screen Neg (NEG) Urine Cannabinoids Screen Neg (NEG) Urine Ethyl Alcohol Neg (NEG) ROLAND KING MD Aug 03, 2018 17:54
[2018-08-03] MEDS: INSULIN LISPRO 300 UNITS/3 ML INSULN.PEN. SQ SCH (18:08)
[2018-08-03 19:00] VITALS: BP 147/74
[2018-08-03] MEDS: METOPROLOL TART IMMED RELEASE 25 MG TABLET. PO SCH (21:05)
[2018-08-03] MEDS: rOPINIRole 1 MG TABLET. PO SCH (21:05)
[2018-08-03] MEDS: ATORVASTATIN CALCIUM 20 MG TABLET PO SCH (21:05)
[2018-08-03] MEDS: AMITRIPTYLINE HCL 10 MG TABLET. PO SCH (21:05)
[2018-08-03] MEDS: buPROPion SR 150 MG TABLET.SA PO SCH (21:05)
[2018-08-03] MEDS: metFORMIN 500 MG TABLET PO SCH (21:06)
[2018-08-03] MEDS: oxyCODONE/APAP 5/325 1 TAB TABLET PO PRN (21:07)
[2018-08-03] MEDS: INSULIN GLARGINE 300 UNITS/3 ML INSULN.PEN. SQ SCH (21:08)
--- NOTE | 2018-08-03 21:38 | HP ---
ADMIT DATE: 08/03/2018 CHIEF COMPLAINT AND HISTORY OF PRESENT ILLNESS: This 72-year-old white female who is well known to me, follows up in the office. The patient was seen with her daughter on the day of admission. 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 Since that point in time had been having some hallucinations, predominantly has been sort of seeing cats in the room that were not there as well as seeing things move that were not really moving. There was no loss of consciousness with the fall and there was no neurological change on her examination focally. However, with the mental status changes as well as the head injury, it was felt necessary to admit her for screening for infection, subdural hematoma, etc., and get neurological consultation. PAST MEDICAL HISTORY: Well documented in old charts, includes AFib. She has had a recent valve replacement with CABG. She has neuropathy, gastroparesis, depression, atrial fibrillation, diabetes, hypertension. MEDICATIONS: Brought with the patient, listed on the computer and have been addressed. ALLERGIES: SHE IS ALLERGIC TO AMBIEN. SOCIAL HISTORY: She is , nonsmoker, nondrinker, lives at home with her daughter and her , does not use drugs. FAMILY HISTORY: Noncontributory. REVIEW OF SYSTEMS: As mentioned above. PHYSICAL EXAMINATION: GENERAL: She is well-developed, well-nourished white female, in no acute distress. VITAL SIGNS: Stable. She is afebrile. HEAD, EYES, EARS, NOSE AND THROAT: Positive for glasses. There is some small amount of swelling in her left occipital scalp area from where she hit her head earlier. NECK: Supple, without any thyromegaly. CHEST: Clear to auscultation and percussion. HEART: Regular rate and rhythm without S3, S4 or murmur. ABDOMEN: Soft, nontender, without hepatosplenomegaly, mass. EXTREMITIES: Without cyanosis, clubbing, edema. NEUROLOGIC: Her neurological exam is nonfocal. IMPRESSION: Fall with head trauma, new onset hallucinations. PLAN: The patient has been admitted, Neuro has been consulted. Labs will be checked along with CT scanning of the head and the patient will be monitored, managed and treated appropriately. ZEINA RUBIO MD DR: MANUEL/carlo JOB#: [id number] / [id number]
[2018-08-03] MEDS: DESVENLAFAXINE 25 MG TAB.ER.24H PO SCH (21:43)
[2018-08-03 23:00] VITALS: BP 156/51
[2018-08-04 03:14] VITALS: BP 149/75
[2018-08-04 07:00] VITALS: BP 148/72
[2018-08-04] MEDS: INSULIN LISPRO 300 UNITS/3 ML INSULN.PEN. SQ SCH ×3 (08:00→18:37)
[2018-08-04] MEDS: DESVENLAFAXINE 25 MG TAB.ER.24H PO SCH (08:13)
[2018-08-04] MEDS: rOPINIRole 1 MG TABLET. PO SCH ×2 (08:13→17:06)
[2018-08-04] MEDS: buPROPion SR 150 MG TABLET.SA PO SCH (08:14)
[2018-08-04] MEDS: ARIPiprazole 2 MG TABLET PO SCH (08:14)
[2018-08-04] MEDS: CYANOCOBALAMIN (VITAMIN B-12) 1,000 MCG TABLET. PO SCH (08:58)
[2018-08-04] MEDS: CELECOXIB 100 MG CAPSULE. PO SCH (08:58)
[2018-08-04] MEDS: ASPIRIN 325 MG TABLET PO SCH (08:58)
[2018-08-04] MEDS: METOPROLOL TART IMMED RELEASE 25 MG TABLET. PO SCH (08:59)
[2018-08-04] MEDS: LOSARTAN POTASSIUM 50 MG TABLET. PO SCH (08:59)
--- NOTE | 2018-08-04 09:23 | PN ---
DATE: 08/04/2018 LOCATION: Room 536 SUBJECTIVE: The patient is awake and alert, has had no further hallucinations since admission that she is aware of. OBJECTIVE: VITAL SIGNS: Stable. She is afebrile. CHEST: Clear. HEART: Regular. ABDOMEN: Benign. NEUROLOGIC: Nonfocal. Lab survey is essentially normal with no evidence of infectious or toxicology issues, urinary tract infection, etc. CT scanning of the head is negative for acute event. Neurology consult is in and EEG is planned for today. IMPRESSION: 1. Mental status change with hallucinations of uncertain etiology following a fall with closed head trauma. 2. Multiple other problems including atherosclerotic heart disease, status post valve replacement, diabetes, neuropathy, depression. PLAN: Follow Neuro's lead after EEG. If there are no further hallucinations, then she would be ready for discharge relatively soon. ZEINA RUBIO MD DR: MANUEL/carlo JOB#: [id number] / [id number]
[2018-08-04 11:00] VITALS: BP 144/67
[2018-08-04] MEDS: DULoxetine HCL 30 MG CAPSULE.DR PO SCH (12:01)
[2018-08-04] MEDS: CHOLECALCIFEROL (VITAMIN D3) 5,000 UNIT CAPSULE PO SCH (12:01)
[2018-08-04] MEDS: CALCIUM CARBONATE 500 MG TABLET PO SCH (12:02)
--- NOTE | 2018-08-04 12:13 | EEG ---
DATE OF SERVICE: 08/04/2018 EEG NUMBER: [id number]. OBJECTIVE: This is a 72-year-old female patient with history of mental status changes and hallucination. EEG was requested to evaluate cerebral activity and to help rule out seizure. METHODS: Twenty electrodes were applied according to the international 10-20 electrode placement system. EKG monitoring, hyperventilation, intermittent photic stimulation, monopolar and bipolar montages are routinely utilized. The record was obtained on a digital system with video monitoring. FINDINGS: 1. Background: The patient was recorded in the awake and drowsy states. No actual sleep state was recorded. The overall background amplitude is 10-20 microvolts. A posterior dominant rhythm of 7-9 Hz is observed, but most time is in the 8 Hz range. 2. Abnormalities: No specific epileptiform discharge or electrographic seizure is seen. No focal or diffuse slowing. The amplitude is slightly higher in the right hemispherical area than the left side. 3. Activation: Hyperventilation was performed with good efforts and normal response. Intermittent photic stimulation was performed with photic driving. IMPRESSION: This EEG is a borderline study for the awake and drowsy states. No actual sleep state was recorded. The amplitude seems slightly higher in the right hemispherical area than the left side. No focal, lateralizing, specific epileptiform discharge or electrographic seizure is seen. ROLAND KING MD DR: CARLO/carlo JOB#: [id number] / [id number] REGAN
[2018-08-04 15:00] VITALS: BP 167/78
--- NOTE | 2018-08-04 15:14 | RAD ---
EXAM: CT CERVICAL SPINE WITHOUT IV CONTRAST CLINICAL HISTORY: Fall, evaluate for neck fracture, neck pain COMPARISON: None available. TECHNIQUE: Helical CT of the cervical spine was performed. Axial, coronal and sagittal reformatted images were also performed. PQRS compliance statement - One or more of the following individualized dose reduction techniques were utilized for this study: 1. Automated exposure control 2. Adjustment of the mA and/or kV according to patient size 3. Use of iterative reconstruction technique FINDINGS: Vertebral body heights are preserved. There is no evidence of acute cervical spine fracture. There is moderate C4-5, C5-6 and C6-7 intervertebral disc height loss. Small posterior endplate osteophytes are seen at these levels. No spondylolisthesis. Facet degenerative changes are seen with prominent at the left C7-T1. Straightening of the normal cervical lordosis. No spondylolisthesis. C2-C3: No significant central canal stenosis or neural foraminal narrowing. C3-C4: Very small central disc protrusion causes minimal if any central canal stenosis and no significant neural foraminal narrowing. C4-C5: Posterior disc osteophyte complex causes moderate central canal stenosis and mild bilateral neural foraminal narrowing. C5-C6: Posterior disc osteophyte complex with bilateral uncovertebral hypertrophy results in moderate central canal stenosis, moderate left neural foraminal narrowing and mild right neural foraminal narrowing. C6-C7: Posterior disc osteophyte complex, eccentric to the left with associated left uncovertebral hypertrophy causes mild central canal stenosis and mild left neural foraminal narrowing. C7-T1: No significant central canal stenosis or neural foraminal narrowing. IMPRESSION: 1. No evidence for acute fracture or subluxation. 2. Multilevel degenerative changes of the cervical spine most prominent at C4-5, C5-6 and C6-7 as described in detail above. Electronically signed by: Berny Stover MD (08/04/2018 3:11 PM) [id number]
--- NOTE | 2018-08-04 15:53 | PDOC ---
PROGRESS NOTES Assessment Assessment Metabolic encephalopathy. Hallucinations, visual and auditory. Fall. Hypoxia. Chest pain. Pneumonia. AFib. CHF. CAD s/p CABG. Severe aortic stenosis. DM. HTN. HLD. GERD. Peripheral neuropathy. Degenerative spine disease. RECOMMENDATIONS/PLAN: Brain MRI w/o contrast. Treat medical and cardiac diseases. OT/PT. Discussed with her daughter at bedside on . EEG on 08/03/18: No seizure activity. HISTORY OF THE PRESENT ILLNESS: 72-y-old female patient with above medical and cardiac diseases had a fall while walking with her walker from inside of her house. She reported did not LOC, no projectile vomiting after fall. She felt her leg were weak after CABG and did not have much exercise for several months. She had hallucinations as seeing people and animals in room and people talked but she did not know what they were taking about. No focalized sensory or motor deficits noted. Per her daughter, she had hallucinations before after taking Narcotics and psychiatric medications, but were resolved. She stated on 08/04/18 that she still had visual hallucinations 2 times this morning. PAST MEDICAL HISTORY Cardiovascular: AFIB, CAD, HTN, Hyperlipidemia, Aortic stenosis Pulmonary: Asthma CENTRAL NERVOUS SYSTEM: Other (none) GI: GERD, Other (diabetic gastroparesis) Heme/Onc: Anemia NOS (post-operative) Hepatobiliary: No pertinent hx Psych: Anxiety, Depression Musculoskeletal: Osteoarthritis Rheumatologic: No pertinent hx Infectious disease: No pertinent hx ENT: Other (diabetic retinopathy) Renal/: No pertinent hx Endocrine: Diabetes (type II, poorly controlled) Dermatology: No pertinent hx PAST SURGICAL HISTORY Cholecystectomy, Cataract Removal, Hysterectomy, Other (right shoulder; PEG with removal; breast biopsies; repair of deviated septum) FAMILY HISTORY Adopted ALLERGY: Reviewed. MEDICATIONS: Refer to MAR SOCIAL HISTORY: Lives with her daughter at home. Denies current smoking, drinking, and illicit drug use. REVIEW OF SYSTEMS: Constitutional: No malnutrition, weight loss, cachexia. Head: No traumatic brain or head injury. Skin: No edema, or rash. Ear: No infection. Eyes: No vision loss or color blindness. Nose: No bleeding or purulent discharges. Hearing: Hearing decrease. Neck: No injury. Breast: No history of cancer, masses,or discharges. Cardiac: CAD, s/p CABG, AFib, HTN, HLD. Pulmonary: Hypoxia. GI: GERD. Urinary/genital: UTI. Endocrinologic: Diabetes Mellitus. Skeletomuscular: No muscular atrophy, deformity. Neurological: see HP. Psychiatric: Denies drug use/abuse. Otherwise, not [id number] review of systems. PHYSICAL EXAMINATION: General appearance is in subacute distress. HEENT: Normocephalic and nontraumatic. Eyes, nose, ears, and throat are unremarkable. Neck is supple. No lymphadenopathy. No bruits are heard over the carotid artery. No crepitus. Cardiovascular: S1, S2, regular rate and rhythm. Pulmonary: Clear to auscultation bilaterally. Abdomen: Bowel sounds are positive. Abdomen is soft, nontender, and nondistended. Extremities: No rash, lesions, or edema. No restriction of range of motion NEUROLOGICAL EXAMINATION: Awake. Oriented partially to time, but knew place and person. PERRL. EOMI. CN: no focal findings. Muscle tone: within normal. Muscle strength: 5- DTR: 2 UE, 2- at knee. Plantar reflex: Flexor response bilaterally Gait: not examined in bed. Sensory exam: no abnormal findings. No cerebellar signs elicited. F-T-N test fine. Objective Objective Vital Signs Date Time Temp Pulse Resp B/P (MAP) Pulse Ox O2 Delivery O2 Flow Rate FiO2 08/04/18 15:00 97.9 79 18 167/78 (107) 97 Room Air 97.9 Intake and Output 08/04/18 07:00 Intake Total 300 ml Output Total 300 ml Balance 0 ml Intake Oral 300 ml Output Urine Total 300 ml # Voids 4 Vitals Signs Vitals VS - Last 72 Hours, by Label Date Time Temp Pulse Resp B/P (MAP) Pulse Ox O2 Delivery O2 Flow Rate FiO2 08/04/18 15:00 97.9 79 18 167/78 (107) 97 Room Air 97.9 08/04/18 11:00 97.5 75 18 144/67 (92) 98 Room Air 97.5 08/04/18 08:59 74 148/72 08/04/18 08:59 74 148/72 08/04/18 08:00 Room Air 08/04/18 07:00 96.8 74 17 148/72 (97) 95 Room Air 96.8 08/04/18 03:14 97.7 73 20 149/75 (99) 93 Room Air 97.7 08/03/18 23:00 98.1 82 20 156/51 (86) 95 Room Air 98.1 08/03/18 22:07 95 08/03/18 21:07 Room Air 08/03/18 21:05 89 147/74 08/03/18 20:00 Room Air 08/03/18 19:00 98.0 89 20 147/74 (98) 95 Room Air 98.0 Laboratory Laboratory Laboratory Tests Test 08/03/18 16:00 08/03/18 16:13 08/03/18 16:45 08/03/18 20:31 White Blood Count 8.8 x10^3/uL (4.0-11.0) Red Blood Count 4.40 x10^6/uL (3.50-5.40) Hemoglobin 11.9 g/dL (12.0-15.5) Hematocrit 36.1 % (36.0-47.0) Mean Corpuscular Volume 82 fL (79-100) Mean Corpuscular Hemoglobin 27 pg (25-35) Mean Corpuscular Hemoglobin Concent 33 g/dL (31-37) Red Cell Distribution Width 15.1 % (11.5-14.5) Platelet Count 235 x10^3/uL (140-400) Neutrophils (%) (Auto) 63 % (31-73) Lymphocytes (%) (Auto) 27 % (24-48) Monocytes (%) (Auto) 5 % (0-9) Eosinophils (%) (Auto) 3 % (0-3) Basophils (%) (Auto) 2 % (0-3) Neutrophils # (Auto) 5.6 x10^3uL (1.8-7.7) Lymphocytes # (Auto) 2.4 x10^3/uL (1.0-4.8) Monocytes # (Auto) 0.5 x10^3/uL (0.0-1.1) Eosinophils # (Auto) 0.3 x10^3/uL (0.0-0.7) Basophils # (Auto) 0.2 x10^3/uL (0.0-0.2) Sodium Level 136 mmol/L (136-145) Potassium Level 4.4 mmol/L (3.5-5.1) Chloride Level 99 mmol/L (98-107) Carbon Dioxide Level 30 mmol/L (21-32) Anion Gap 7 (6-14) Blood Urea Nitrogen 16 mg/dL (7-20) Creatinine 0.9 mg/dL (0.6-1.0) Estimated GFR (Cockcroft-Gault) 61.9 BUN/Creatinine Ratio 18 (6-20) Glucose Level 196 mg/dL (70-99) Calcium Level 9.7 mg/dL (8.5-10.1) Total Bilirubin 0.5 mg/dL (0.2-1.0) Aspartate Amino Transf (AST/SGOT) 12 U/L (15-37) Alanine Aminotransferase (ALT/SGPT) 16 U/L (14-59) Alkaline Phosphatase 123 U/L (46-116) Creatine Kinase 37 U/L (26-192) Total Protein 7.7 g/dL (6.4-8.2) Albumin 3.4 g/dL (3.4-5.0) Albumin/Globulin Ratio 0.8 (1.0-1.7) 25-Hydroxy Vitamin D Total 16.1 ng/mL (30-100) Glucose (Fingerstick) 183 mg/dL (70-99) 230 mg/dL (70-99) Urine Collection Type Unknown Urine Color Yellow Urine Clarity Clear Urine pH 7.0 Urine Specific [place] 1.010 Urine Protein Negative mg/dL (NEG-TRACE) Urine Glucose (UA) Negative mg/dL (NEG) Urine Ketones (Stick) Negative mg/dL (NEG) Urine Blood Negative (NEG) Urine Nitrite Negative (NEG) Urine Bilirubin Negative (NEG) Urine Urobilinogen Dipstick 0.2 mg/dL (0.2 mg/dL) Urine Leukocyte Esterase Trace (NEG) Urine RBC 0 /HPF (0-2) Urine WBC 1-4 /HPF (0-4) Urine Squamous Epithelial Cells Mod /LPF Urine Bacteria 0 /HPF (0-FEW) Urine Opiates Screen Neg (NEG) Urine Methadone Screen Neg (NEG) Urine Barbiturates Neg (NEG) Urine Phencyclidine Screen Neg (NEG) Urine Amphetamine/Methamphetamine Neg (NEG) Urine Benzodiazepines Screen Neg (NEG) Urine Cocaine Screen Neg (NEG) Urine Cannabinoids Screen Neg (NEG) Urine Ethyl Alcohol Neg (NEG) Test 08/04/18 07:13 08/04/18 11:13 Glucose (Fingerstick) 121 mg/dL (70-99) 199 mg/dL (70-99) Medication Medications Current Medications Amitriptyline HCl (Elavil) 10 mg QHS PO Last administered on 08/03/18at 21:05; Start 08/03/18 at 21:00 Aripiprazole (Abilify) 2 mg DAILY PO Last administered on 08/04/18at 08:14; Start 08/04/18 at 09:00 Aspirin (Mack Aspirin) 325 mg DAILY PO Last administered on 08/04/18at 08:58; Start 08/04/18 at 09:00 Atorvastatin Calcium (Lipitor) 20 mg QHS PO Last administered on 08/03/18 21: 05; Start 08/03/18 at 21:00 Bupropion HCl (Wellbutrin Sr) 150 mg BID PO Last administered on 08/04/18 08: 14; Start 08/03/18 at 21:00 Calcium Carbonate/ Glycine (Oscal) 500 mg BID PO Last administered on at 12:02; Start 08/04/18 at 11:00 Celecoxib (CeleBREX) 200 mg DAILY PO Last administered on 08/04/18at 08:58; Start 08/04/18 at 09:00 Cyanocobalamin (Vitamin B-12) 1,000 mcg DAILY PO Last administered on 08:58; Start 08/04/18 at 09:00 Desvenlafaxine Succinate (Pristiq Er) 50 mg BID PO Last administered on at 08:13; Start 08/03/18 at 21:00 Dextrose (Dextrose 50%-Water Syringe) 12.5 gm PRN Q15MIN PRN IV SEE COMMENTS; Start 08/03/18 at 17:00 Duloxetine HCl (Cymbalta) 120 mg DAILY PO Last administered on 08/04/18at 12:01 ; Start 08/04/18 at 09:00 Insulin Glargine (Lantus) 35 units QHS SQ Last administered on 08/03/18at 21:08 ; Start 08/03/18 at 21:00 Insulin Human Lispro (HumaLOG) 0-5 UNITS TIDWMEALS SQ Last administered on at 12:10; Start 08/03/18 at 17:00 Losartan Potassium (Cozaar) 100 mg DAILY PO Last administered on 08/04/18at 08: 59; Start 08/04/18 at 09:00 Metformin HCl (Glucophage) 500 mg QHS PO Last administered on 08/03/18at 21:06 ; Start 08/03/18 at 21:00 Metoprolol Tartrate (Lopressor) 25 mg BID PO Last administered on 08/04/18at 08 :59; Start 08/03/18 at 21:00 Non-Formulary Medication (Insulin Lispro (Humalog)) 15 unit DAILY PRN SQ SEE COMMENTS; Start 08/03/18 at 16:30; Stop 08/03/18 at 16:57; Status DC Oxycodone/ Acetaminophen (Percocet 5/325) 1 tab PRN Q4HRS PRN PO MODERATE- SEVERE PAIN Last administered on 08/03/18at 21:07; Start 08/03/18 at 16:30 Ropinirole HCl (Requip) 2 mg TID PO Last administered on 08/04/18at 08:13; Start 08/03/18 at 21:00 Vitamin D (Vitamin D3) 5,000 unit DAILY PO Last administered on 08/04/18at 12: 01; Start 08/04/18 at 11:00 Comment Review of Relevant I have reviewed the following items raul (where applicable) has been applied. ROLAND KING MD Aug 04, 2018 15:53
[2018-08-04 19:00] VITALS: BP 158/63
[2018-08-04 23:00] VITALS: BP 153/66
[2018-08-05] VITALS (8 sets, daily range): BP systolic 138–171; BP diastolic 63–80
[2018-08-05] MEDS: oxyCODONE/APAP 5/325 1 TAB TABLET PO PRN ×2 (00:07→21:50)
[2018-08-05] MEDS: ATORVASTATIN CALCIUM 20 MG TABLET PO SCH ×2 (00:07→21:51)
[2018-08-05] MEDS: AMITRIPTYLINE HCL 10 MG TABLET. PO SCH ×2 (00:07→21:50)
[2018-08-05] MEDS: CALCIUM CARBONATE 500 MG TABLET PO SCH ×3 (00:08→21:50)
[2018-08-05] MEDS: buPROPion SR 150 MG TABLET.SA PO SCH ×3 (00:08→21:49)
[2018-08-05] MEDS: rOPINIRole 1 MG TABLET. PO SCH ×4 (00:08→21:51)
[2018-08-05] MEDS: metFORMIN 500 MG TABLET PO SCH ×2 (00:08→21:50)
[2018-08-05] MEDS: DESVENLAFAXINE 25 MG TAB.ER.24H PO SCH ×3 (00:08→21:49)
[2018-08-05] MEDS: METOPROLOL TART IMMED RELEASE 25 MG TABLET. PO SCH ×3 (00:11→21:51)
[2018-08-05] MEDS: INSULIN GLARGINE 300 UNITS/3 ML INSULN.PEN. SQ SCH ×2 (00:14→21:59)
[2018-08-05] MEDS: INSULIN LISPRO 300 UNITS/3 ML INSULN.PEN. SQ SCH ×3 (08:00→17:00)
[2018-08-05] MEDS: ARIPiprazole 2 MG TABLET PO SCH (09:40)
[2018-08-05] MEDS: CELECOXIB 100 MG CAPSULE. PO SCH (09:41)
[2018-08-05] MEDS: CHOLECALCIFEROL (VITAMIN D3) 5,000 UNIT CAPSULE PO SCH (09:41)
[2018-08-05] MEDS: CYANOCOBALAMIN (VITAMIN B-12) 1,000 MCG TABLET. PO SCH (09:41)
[2018-08-05] MEDS: ASPIRIN 325 MG TABLET PO SCH (09:42)
[2018-08-05] MEDS: DULoxetine HCL 30 MG CAPSULE.DR PO SCH (09:42)
--- NOTE | 2018-08-05 12:02 | RAD ---
MRI of the brain without contrast 08/05/2018 Clinical History: Weakness. Recent falls. Mental status changes. Hallucinations. Technique: Unenhanced T1-weighted sagittal and axial, T2-weighted axial and coronal and FLAIR, gradient echo and diffusion-weighted axial images of the brain were obtained. Findings: Comparison is made to the patient's CT scan of the head dated 08/03/2018. There is generalized parenchymal atrophy. Patchy, confluent and multiple small focal areas of increased signal intensity are seen within the periventricular and subcortical white matter of both cerebral hemispheres along with the viola on the FLAIR and T2-weighted images consistent with areas of small vessel ischemic disease. Two rounded areas of markedly decreased signal intensity are seen involving the right cerebral hemispheres on the gradient echo images. These measure 4 to 5 mm in greatest diameter. There is no surrounding edema or associated mass effect. These are felt to most likely represent cavernous angiomas. A 1 cm oval-shaped area of restricted diffusion is seen involving the anterior right parietal lobe. This is consistent with an area of acute ischemia/infarction. There is mild surrounding edema without evidence significant mass effect. No additional acute parenchymal abnormality is seen. No extra-axial fluid collection is noted. Mild mucosal thickening is seen scattered throughout the paranasal sinuses. There is a minimal right mastoid effusion. Normal flow voids are seen within the major vascular structures surrounding the brain parenchyma. Impression: 1 cm area of restricted diffusion is seen involving the right parietal lobe consistent with an area of acute ischemia/infarction. There is mild surrounding edema without evidence of significant mass effect. The patient's nurse was notified of this finding. Electronically signed by: Tone Mckeon MD (08/05/2018 11:59 AM) [email or web address]
--- NOTE | 2018-08-05 14:53 | RAD ---
Carotid ultrasound, 08/05/2018: HISTORY: CVA Duplex evaluation of the carotid arteries and neck was performed including grayscale, color-flow and spectral Doppler analysis. There is mild smooth plaquing at both carotid bifurcations. The peak systolic velocity in the right internal carotid artery is 83 cm/s with an end-diastolic velocity of 13 cm/s and an internal carotid to common carotid artery ratio 1.1. On the left the peak systolic velocity in the internal carotid artery is 79 cm/s with an end-diastolic velocity of 20 cm/s and an internal carotid to common carotid artery ratio of 0.9. These Doppler findings do not suggest significant stenosis. Antegrade flow is present in both vertebral arteries in the neck. IMPRESSION: Mild atherosclerotic plaquing at both carotid bifurcations with underlying luminal narrowing in the 0-50 percent diameter range bilaterally. Note: Stenosis calculations for CT, MRA and conventional angiography are based upon determination of the distal ICA diameter in accordance with the NASCET methodology. Stenosis calculations for Doppler studies are derived from validated velocity criteria which are known to correlate with NASCET methodology of determining stenosis. Electronically signed by: Evans Donovan MD (08/05/2018 2:50 PM) [facility]
--- NOTE | 2018-08-05 15:19 | PDOC ---
PROGRESS NOTES Assessment Assessment Metabolic encephalopathy. Acute/subacute 1 cm right parietal infarct. Hallucinations, visual and auditory. Fall. Hypoxia. Chest pain. Pneumonia. AFib. CHF. CAD s/p CABG. Severe aortic stenosis. DM. HTN. HLD. GERD. Mild pulmonary hypertension. Peripheral neuropathy. Degenerative spine disease. RECOMMENDATIONS/PLAN: Continue ASA 325 mg daily. Continue Lipitor 20 mg HS. Continue Vit D and Ca++ supplement. Treat medical and cardiac diseases. OT/PT. Rehab as needed. Discussed with her daughter at bedside on . EEG on 08/03/18: No seizure activity. Brain MRI on 08/05/18: see above stroke. CT: no acute findings. CTA: negative. Echo performed on 07/26/18: SONAM 35. HISTORY OF THE PRESENT ILLNESS: 72-y-old female patient with above medical and cardiac diseases had a fall while walking with her walker from inside of her house. She reported did not LOC, no projectile vomiting after fall. She felt her leg were weak after CABG and did not have much exercise for several months. She had hallucinations as seeing people and animals in room and people talked but she did not know what they were taking about. No focalized sensory or motor deficits noted. Per her daughter, she had hallucinations before after taking Narcotics and psychiatric medications, but were resolved. She stated on 08/04/18 that she still had visual hallucinations 2 times this morning. PAST MEDICAL HISTORY Cardiovascular: AFIB, CAD, HTN, Hyperlipidemia, Aortic stenosis Pulmonary: Asthma CENTRAL NERVOUS SYSTEM: Other (none) GI: GERD, Other (diabetic gastroparesis) Heme/Onc: Anemia NOS (post-operative) Hepatobiliary: No pertinent hx Psych: Anxiety, Depression Musculoskeletal: Osteoarthritis Rheumatologic: No pertinent hx Infectious disease: No pertinent hx ENT: Other (diabetic retinopathy) Renal/: No pertinent hx Endocrine: Diabetes (type II, poorly controlled) Dermatology: No pertinent hx PAST SURGICAL HISTORY Cholecystectomy, Cataract Removal, Hysterectomy, Other (right shoulder; PEG with removal; breast biopsies; repair of deviated septum) FAMILY HISTORY Adopted ALLERGY: Reviewed. MEDICATIONS: Refer to MAR SOCIAL HISTORY: Lives with her daughter at home. Denies current smoking, drinking, and illicit drug use. REVIEW OF SYSTEMS: Constitutional: No malnutrition, weight loss, cachexia. Head: No traumatic brain or head injury. Skin: No edema, or rash. Ear: No infection. Eyes: No vision loss or color blindness. Nose: No bleeding or purulent discharges. Hearing: Hearing decrease. Neck: No injury. Breast: No history of cancer, masses,or discharges. Cardiac: CAD, s/p CABG, AFib, HTN, HLD. Pulmonary: Hypoxia. GI: GERD. Urinary/genital: UTI. Endocrinologic: Diabetes Mellitus. Skeletomuscular: No muscular atrophy, deformity. Neurological: see HP. Psychiatric: Denies drug use/abuse. Otherwise, not [id number] review of systems. PHYSICAL EXAMINATION: General appearance is in subacute distress. HEENT: Normocephalic and nontraumatic. Eyes, nose, ears, and throat are unremarkable. Neck is supple. No lymphadenopathy. No bruits are heard over the carotid artery. No crepitus. Cardiovascular: S1, S2, seemed irregular rate and rhythm. Pulmonary: Clear to auscultation bilaterally. Abdomen: Bowel sounds are positive. Abdomen is soft, nontender, and nondistended. Extremities: No rash, lesions, or edema. No restriction of range of motion NEUROLOGICAL EXAMINATION: Awake. Oriented partially to time, but knew place and person. PERRL. EOMI. CN: no focal findings. Muscle tone: within normal. Muscle strength: 5- DTR: 2 UE, 2- at knee. Plantar reflex: Flexor response bilaterally Gait: Able to walk with a walker. Sensory exam: no abnormal findings. No cerebellar signs elicited. F-T-N test fine. Objective Objective Vital Signs Date Time Temp Pulse Resp B/P (MAP) Pulse Ox O2 Delivery O2 Flow Rate FiO2 08/05/18 11:00 98.2 77 18 165/70 (101) 98 Room Air 98.2 Intake and Output 08/05/18 07:00 Intake Total 1700 ml Balance 1700 ml Intake Oral 1700 ml # Voids 9 Vitals Signs Vitals VS - Last 72 Hours, by Label Date Time Temp Pulse Resp B/P (MAP) Pulse Ox O2 Delivery O2 Flow Rate FiO2 08/05/18 11:00 98.2 77 18 165/70 (101) 98 Room Air 98.2 08/05/18 09:41 83 165/77 08/05/18 08:00 Room Air 08/05/18 07:00 98.2 83 18 165/77 (106) 100 Room Air 98.2 08/05/18 03:00 97.9 76 18 155/74 (101) 96 Room Air 97.9 08/05/18 01:07 18 94 Room Air 08/05/18 00:11 81 158/63 08/05/18 00:07 18 94 Room Air 08/04/18 23:00 98.5 78 18 153/66 (95) 96 Room Air 98.5 08/04/18 20:00 Room Air 08/04/18 19:00 98.1 81 18 158/63 (94) 94 Room Air 98.1 08/04/18 15:00 97.9 79 18 167/78 (107) 97 Room Air 97.9 08/04/18 11:00 97.5 75 18 144/67 (92) 98 Room Air 97.5 08/04/18 08:59 74 148/72 08/04/18 08:59 74 148/72 08/04/18 08:00 Room Air 08/04/18 07:00 96.8 74 17 148/72 (97) 95 Room Air 96.8 Laboratory Laboratory Laboratory Tests Test 08/04/18 16:18 08/04/18 21:49 08/05/18 08:07 08/05/18 12:40 Glucose (Fingerstick) 159 mg/dL (70-99) 151 mg/dL (70-99) 76 mg/dL (70-99) 133 mg/dL (70-99) Comment Review of Relevant I have reviewed the following items raul (where applicable) has been applied. ROLAND KING MD Aug 05, 2018 15:19
[2018-08-05] MEDS: LOSARTAN POTASSIUM 50 MG TABLET. PO SCH (17:41)
--- NOTE | 2018-08-05 22:40 | PN ---
DATE: 08/05/2018 LOCATION: She is in room 536. SUBJECTIVE: The patient is awake, alert, in bed, expecting an MRI of the head today. OBJECTIVE: VITAL SIGNS: Stable. She is afebrile. Sugars have been decent. CHEST: Clear. HEART: Regular. ABDOMEN: Benign. Nursing notes that she is extremely unsteady on her feet when trying to get up out of the bed, fell backwards at least 4-5 times despite even having a hold of a walker. Imaging of her cervical spine by CT yesterday shows evidence of degenerative disease. EEG showed no seizure activity. Her only hallucinations at this point in time are things moving, that should not be, like the right hand of Rayo on the crucifix in her room; if she looks at it for a while, it begins to move. She has, however, not seen anything that is not there since admission like she was at home, including people and cats. IMPRESSION: 1. Mental status change with hallucinations of uncertain etiology, following fall with a closed head trauma. 2. Atherosclerotic heart disease. 3. Status post valve replacement. 4. Diabetes. 5. Neuropathy. 6. Depression. 7. Mobility deficits. PLAN: Agree with neurological workup. Therapy will evaluate for safety and try to figure out how to be able to have her get up and around safely. ZEINA RUBIO MD DR: MANUEL/carlo JOB#: [id number] / [id number]
[2018-08-06 03:00] VITALS: BP 128/55
[2018-08-06 07:00] VITALS: BP 177/78
[2018-08-06] MEDS: ARIPiprazole 2 MG TABLET PO SCH (10:24)
[2018-08-06] MEDS: CELECOXIB 100 MG CAPSULE. PO SCH (10:24)
[2018-08-06] MEDS: ASPIRIN 325 MG TABLET PO SCH (10:25)
[2018-08-06] MEDS: METOPROLOL TART IMMED RELEASE 25 MG TABLET. PO SCH ×2 (10:25→21:15)
[2018-08-06] MEDS: rOPINIRole 1 MG TABLET. PO SCH ×3 (10:25→21:16)
[2018-08-06] MEDS: DESVENLAFAXINE 25 MG TAB.ER.24H PO SCH ×2 (10:25→21:16)
[2018-08-06] MEDS: DULoxetine HCL 30 MG CAPSULE.DR PO SCH (10:26)
[2018-08-06] MEDS: LOSARTAN POTASSIUM 50 MG TABLET. PO SCH (10:27)
[2018-08-06] MEDS: buPROPion SR 150 MG TABLET.SA PO SCH (10:27)
[2018-08-06] MEDS: CHOLECALCIFEROL (VITAMIN D3) 5,000 UNIT CAPSULE PO SCH (10:27)
[2018-08-06] MEDS: CYANOCOBALAMIN (VITAMIN B-12) 1,000 MCG TABLET. PO SCH (10:27)
[2018-08-06] MEDS: CALCIUM CARBONATE 500 MG TABLET PO SCH ×2 (10:28→21:15)
[2018-08-06] MEDS: INSULIN LISPRO 300 UNITS/3 ML INSULN.PEN. SQ SCH ×3 (10:30→17:00)
[2018-08-06 11:00] VITALS: BP 176/84
--- NOTE | 2018-08-06 11:18 | PDOC2 ---
GABRIELA VALERIO FISHER HAND LINE 08/06/18 1118: CARDIAC CONSULT DATE OF CONSULT Date of Consult DATE: 08/06/18 TIME: 11:06 REASON FOR CONSULT Reason for Consult: History of AFIB, CVA Need for anticoagulation therapy? REFERRING PHYSICIAN Referring Physician: Dr. Lino SOURCE Source: Chart review, Patient HISTORY OF PRESENT ILLNESS HISTORY OF PRESENT ILLNESS This is a 72 yo female know to use from outpatient clinic. Presented secondary to fall and mental status changes. Patient reports experiencing multiple falls over the last 6 months. Occurring more frequently, now. Most recently, fell in the bathroom and hit the back of her head. Denies any LOC. Has been experiencing hallucinations since, which is why she came to the hospital for further evaluation. Reports her legs generally get weak/give out and she falls. Has no warning prior to fall. Denies any precipitating dizziness, diaphoresis, palpitations, or chest pain. Sustained yet another fall yesterday, hitting head. No LOC. Brain MRI notable for acute infarct of the right parietal lobe. Consultation was obtained given history of PAFIB and acute CVA; need for anticoagulation therapy. PAST MEDICAL HISTORY Past Medical History Cardiovascular: PAFIB, CAD, HTN, Hyperlipidemia, Aortic stenosis Pulmonary: Asthma CENTRAL NERVOUS SYSTEM: Other (none) GI: GERD, Other (diabetic gastroparesis) Heme/Onc: Anemia NOS (post-operative) Hepatobiliary: No pertinent hx Psych: Anxiety, Depression Musculoskeletal: Osteoarthritis Rheumatologic: No pertinent hx Infectious disease: No pertinent hx ENT: Other (diabetic retinopathy) Renal/: No pertinent hx Endocrine: Diabetes (type II, poorly controlled) Dermatology: No pertinent hx PAST SURGICAL HISTORY Past Surgical History Cholecystectomy, Cataract Removal, Hysterectomy, Other (right shoulder; PEG with removal; breast biopsies; repair of deviated septum, bioprosthetic aortic valve replacement with bypass surgery last month.) FAMILY HISTORY Family History Adopted SOCIAL HISTORY Social History Smoke: No ALCOHOL: none Drugs: None Lives: with Family ALLERGIES ALLERGIES: Coded Allergies: adhesive tape (Verified Allergy, Severe, TEARS SKIN, 06/23/18) zolpidem (Verified Allergy, Intermediate, 06/23/18) nitrous oxide (Verified Adverse Reaction, Severe, EYE DAMAGE, 08/06/18) HAS HOLE IN EYE FROM MACULAR DEGENERATION ROS Review of System 14 point ROS conducted with pertinent positives noted above in HPI. PHYSICAL EXAM General: Alert, Oriented X3, Cooperative, No acute distress HEENT: Mucous membr. moist/pink Lungs: Clear to auscultation Heart: Regular rate, Normal S1, Normal S2, Other (3/6 systolic murmur) Abdomen: Soft, No tenderness Extremities: No edema, Normal pulses Skin: No breakdown, No significant lesion Neuro: Normal speech, Sensation intact Psych/Mental Status: Mental status NL, Mood NL MUSCULOSKELETAL: Osteoarthritic changes both hands VITALS VITALS Vital Signs Date Time Temp Pulse Resp B/P (MAP) Pulse Ox O2 Delivery O2 Flow Rate FiO2 08/06/18 10:27 91 177/78 08/06/18 07:00 97.8 18 96 Room Air 97.8 LABS Lab: Laboratory Tests Test 08/05/18 12:40 08/05/18 17:30 08/05/18 20:23 08/06/18 01:31 Glucose (Fingerstick) 133 mg/dL (70-99) 151 mg/dL (70-99) 147 mg/dL (70-99) 55 mg/dL (70-99) Test 08/06/18 01:44 08/06/18 07:35 Glucose (Fingerstick) 153 mg/dL (70-99) 177 mg/dL (70-99) ECHOCARDIOGRAM ECHOCARDIOGRAM <Conclusion> The left ventricle is normal size. The left ventricular systolic function is normal and the ejection fraction is within normal range. The Ejection Fraction is 55-60%. There is mild to moderate concentric left ventricular hypertrophy. Normal function of a bioprothetic aortic valve. Calculated aortic valve area is 2.13 cm2 with maximum pressure gradient of 22 mmHg and mean pressure gradient of 12 mmHg. Doppler and Color-flow revealed mild mitral regurgitation. Doppler and Color Flow revealed mild tricuspid regurgitation. There is mild pulmonary hypertension. The PA pressure was estimated at 35 mmHg. DATE: 07/26/18 1432 STRESS TEST STRESS TEST Conclusion 1. Regadenoson cardioisotope stress test did not show any evidence of ischemia or infarct. 2. Normal left ventricular systolic function with ejection fraction calculated at 73%. 3. Low risk for cardiac events. DATE: 02/12/18 1205 HEART CATH HEART CATH FINDINGS 1Coronary angiography: a. The left main coronary artery arose from the left sinus of Valsalva, gave rise to the left anterior descending and left circumflex arteries and did not show any significant stenosis. b. The left anterior descending artery itself did not show any significant stenosis. The diagonal branch showed 50% proximal segment stenosis. c. The left circumflex artery was a codominant vessel that did not show any significant stenosis. d. The right coronary artery was a codominant vessel arising from the right sinus of Valsalva that did showed 80% stenosis in the proximal to midsegment. Conclusion Single-vessel coronary artery disease Recommendations Consider saphenous vein graft to the right coronary artery during surgical aortic valve replacement procedure. We will discuss with CT surgery. DATE: 05/29/18926 ASSESSMENT/PLAN ASSESSMENT/PLAN 1. Mechanical fall with head injury; reporting multiple recent falls 2. Metabolic encephalopathy; continues to have hallucinations. 3. Acute right parietal lobe CVA; neuro following 4. PAFIB; presently SR with controlled rate 5. CAD s/p single-vessel CABG with SVG to RCA (06/2018). Stable. 6. Severe s/p bioprosthetic AVR (06/2018) 7. Hypertension; slightly elevated 8. Hyperlipidemia; statin 9. Diabetes, II. as per PCP 10. Anxiety/depression. Continue present treatment Recommendations Continue secondary prevention measures Follow neuro recommendations Not a candidate for OAC given weakness/multiple recent falls and head injury/ mass effect. Recommend ASA for stroke prevention Consider referral to [facility] for Watchman device for JENN closure DONALD CASTRO MD 08/06/18 1728: CARDIAC CONSULT ASSESSMENT/PLAN ASSESSMENT/PLAN Patient seen and examined. Agree with IMPACT HAMMER OPERATOR's assessment and plan. Agree that patient is not a good candidate for long-term anticoagulation secondary to fall risk Plan for outpatient consideration of left atrial appendage closure for stroke prophylaxis Continue management of acute CVA per neurology team Recent 2-D echo showed normal LV function and normally functioning bioprosthetic aortic valve CAD status clinically stable Thank you for your consultation GABRIELA VALERIO APRN Aug 06, 2018 11:18 DONALD CASTRO MD Aug 06, 2018 17:28
[2018-08-06 15:00] VITALS: BP_SYST 152; BP_SYST 164; BP_SYST 170; BP_DIAS 66; BP_DIAS 72; BP_DIAS 78
--- NOTE | 2018-08-06 15:38 | PDOC ---
PROGRESS NOTES Assessment Assessment Metabolic encephalopathy. Acute/subacute 1 cm right parietal infarct. Hallucinations, visual and auditory. Fall. Hypoxia. Chest pain. Pneumonia. AFib. CHF. CAD s/p CABG. Severe aortic stenosis. DM. HTN. HLD. GERD. Mild pulmonary hypertension. Peripheral neuropathy. Degenerative spine disease. RECOMMENDATIONS/PLAN: Continue ASA 325 mg daily. Continue Lipitor 20 mg HS. Continue Vit D and Ca++ supplement. Treat medical and cardiac diseases. Rehab. Discussed with her daughter at bedside on . EEG on 08/03/18: No seizure activity. Brain MRI on 08/05/18: see above stroke. CT: no acute findings. CTA: negative. Echo performed on 07/26/18: PA 35. HISTORY OF THE PRESENT ILLNESS: 72-y-old female patient with above medical and cardiac diseases had a fall while walking with her walker from inside of her house. She reported did not LOC, no projectile vomiting after fall. She felt her leg were weak after CABG and did not have much exercise for several months. She had hallucinations as seeing people and animals in room and people talked but she did not know what they were taking about. No focalized sensory or motor deficits noted. Per her daughter, she had hallucinations before after taking Narcotics and psychiatric medications, but were resolved. She stated on 08/04/18 that she still had visual hallucinations 2 times this morning. PAST MEDICAL HISTORY Cardiovascular: AFIB, CAD, HTN, Hyperlipidemia, Aortic stenosis Pulmonary: Asthma CENTRAL NERVOUS SYSTEM: Other (none) GI: GERD, Other (diabetic gastroparesis) Heme/Onc: Anemia NOS (post-operative) Hepatobiliary: No pertinent hx Psych: Anxiety, Depression Musculoskeletal: Osteoarthritis Rheumatologic: No pertinent hx Infectious disease: No pertinent hx ENT: Other (diabetic retinopathy) Renal/: No pertinent hx Endocrine: Diabetes (type II, poorly controlled) Dermatology: No pertinent hx PAST SURGICAL HISTORY Cholecystectomy, Cataract Removal, Hysterectomy, Other (right shoulder; PEG with removal; breast biopsies; repair of deviated septum) FAMILY HISTORY Adopted ALLERGY: Reviewed. MEDICATIONS: Refer to [facility] SOCIAL HISTORY: Lives with her daughter at home. Denies current smoking, drinking, and illicit drug use. REVIEW OF SYSTEMS: Constitutional: No malnutrition, weight loss, cachexia. Head: No traumatic brain or head injury. Skin: No edema, or rash. Ear: No infection. Eyes: No vision loss or color blindness. Nose: No bleeding or purulent discharges. Hearing: Hearing decrease. Neck: No injury. Breast: No history of cancer, masses,or discharges. Cardiac: CAD, s/p CABG, AFib, HTN, HLD. Pulmonary: Hypoxia. GI: GERD. Urinary/genital: UTI. Endocrinologic: Diabetes Mellitus. Skeletomuscular: No muscular atrophy, deformity. Neurological: see HP. Psychiatric: Denies drug use/abuse. Otherwise, not [id number] review of systems. PHYSICAL EXAMINATION: General appearance is in subacute distress. HEENT: Normocephalic and nontraumatic. Eyes, nose, ears, and throat are unremarkable. Neck is supple. No lymphadenopathy. No bruits are heard over the carotid artery. No crepitus. Cardiovascular: S1, S2, seemed irregular rate and rhythm. Pulmonary: Clear to auscultation bilaterally. Abdomen: Bowel sounds are positive. Abdomen is soft, nontender, and nondistended. Extremities: No rash, lesions, or edema. No restriction of range of motion NEUROLOGICAL EXAMINATION: Awake. Oriented to time, place and person. PERRL. EOMI. CN: no focal findings. Muscle tone: within normal. Muscle strength: 5 UE, 4+ LE DTR: 2 UE, 2- at knee. Plantar reflex: Flexor response bilaterally Gait: Able to walk with a walker. Sensory exam: no abnormal findings. No cerebellar signs elicited. F-T-N test fine. Objective Objective Vital Signs Date Time Temp Pulse Resp B/P (MAP) Pulse Ox O2 Delivery O2 Flow Rate FiO2 08/06/18 11:00 97.8 79 18 176/84 (114) 99 Room Air 97.8 Intake and Output 08/06/18 07:00 Intake Total 1080 ml Output Total 800 ml Balance 280 ml Intake Oral 1080 ml Output Urine Total 800 ml # Voids 6 Vitals Signs Vitals VS - Last 72 Hours, by Label Date Time Temp Pulse Resp B/P (MAP) Pulse Ox O2 Delivery O2 Flow Rate FiO2 08/06/18 11:00 97.8 79 18 176/84 (114) 99 Room Air 97.8 08/06/18 10:27 91 177/78 08/06/18 10:25 91 177/78 08/06/18 07:00 97.8 91 18 177/78 (111) 96 Room Air 97.8 08/06/18 03:00 97.9 82 17 128/55 (79) 95 Room Air 97.9 08/05/18 23:10 80 153/63 (93) 94 Room Air 08/05/18 23:05 79 149/72 (97) 95 Room Air 08/05/18 23:00 97.1 81 17 171/80 (110) 95 Room Air 97.1 08/05/18 22:50 18 99 Room Air 08/05/18 21:51 90 174/89 08/05/18 21:50 18 99 Room Air 08/05/18 20:00 Room Air 08/05/18 19:00 98.3 83 17 138/77 (97) 96 Room Air 98.3 08/05/18 17:41 89 177/90 08/05/18 15:00 98.2 79 18 166/73 (104) 99 Room Air 98.2 08/05/18 11:00 98.2 77 18 165/70 (101) 98 Room Air 98.2 08/05/18 09:41 83 165/77 08/05/18 08:00 Room Air 08/05/18 07:00 98.2 83 18 165/77 (106) 100 Room Air 98.2 Laboratory Laboratory Laboratory Tests Test 08/05/18 17:30 08/05/18 20:23 08/06/18 01:31 08/06/18 01:44 Glucose (Fingerstick) 151 mg/dL (70-99) 147 mg/dL (70-99) 55 mg/dL (70-99) 153 mg/dL (70-99) Test 08/06/18 07:35 08/06/18 11:47 Glucose (Fingerstick) 177 mg/dL (70-99) 138 mg/dL (70-99) Comment Review of Relevant I have reviewed the following items raul (where applicable) has been applied. ROLAND KING MD Aug 06, 2018 15:38
[2018-08-06 19:00] VITALS: BP_SYST 134; BP_SYST 165; BP_SYST 175; BP_DIAS 57; BP_DIAS 79; BP_DIAS 88
[2018-08-06] MEDS: INSULIN GLARGINE 300 UNITS/3 ML INSULN.PEN. SQ SCH (21:00)
[2018-08-06] MEDS: metFORMIN 500 MG TABLET PO SCH (21:15)
[2018-08-06] MEDS: AMITRIPTYLINE HCL 10 MG TABLET. PO SCH (21:16)
[2018-08-06] MEDS: ATORVASTATIN CALCIUM 20 MG TABLET PO SCH (21:22)
--- NOTE | 2018-08-06 22:03 | PN ---
DATE: 08/06/2018 LOCATION: She is in room 536. SUBJECTIVE: The patient is awake, alert, getting ready to eat breakfast. Denies any specific complaints; however, feels like her balance is significantly worse than it was a week ago and is very unsteady on her feet. Nursing is present and states she is a 2-person transfer. OBJECTIVE: VITAL SIGNS: Stable. She is afebrile. Blood pressures have a tendency to be more on the high side. She is taking herb for the same and may need more meds before discharge for her blood pressure. CHEST: Clear. HEART: Regular. ABDOMEN: Benign. NEUROLOGIC: Nonfocal. Sugars have been good with some hypoglycemia this morning per nursing. Brain MRI yesterday showed a right parietal infarct 1 cm that is new. Carotid Doppler showed no significant narrowing. She does have a history of AFib, but I believe it was after her CABG and valve replacement and question with the CVA is whether she needs to be still on any sort of anticoagulation for the same and I will ask Cardiology for their opinion on the same here today. She has been placed on night monitor because of the same. Physical therapy assessments and visits are ongoing with recommendations for discharge to an acute rehab facility following discharge. IMPRESSION: 1. Acute parietal cerebrovascular accident as likely cause of presentation with mental status change and hallucinations and marked decrease in balance, which she had a significant problem before with her diabetic neuropathy. 2. Atherosclerotic heart disease. 3. Status post valve replacement. 4. Diabetes. 5. Neuropathy. 6. Depression. PLAN: Continue therapy at this point in time. We will ask Cardiology for needs for anticoagulation. night monitor is in place. Therapy is ongoing and expect acute rehabilitation following discharge. ZEINA RUBIO MD DR: MANUEL/carlo JOB#: [id number] / [id number]
[2018-08-06 23:00] VITALS: BP 163/78
[2018-08-07 02:58] VITALS: BP 160/80
[2018-08-07 07:00] VITALS: BP 182/77
[2018-08-07] MEDS: INSULIN LISPRO 300 UNITS/3 ML INSULN.PEN. SQ SCH ×3 (08:00→17:00)
[2018-08-07] MEDS: ARIPiprazole 2 MG TABLET PO SCH (09:18)
[2018-08-07] MEDS: CALCIUM CARBONATE 500 MG TABLET PO SCH ×2 (09:18→20:56)
[2018-08-07] MEDS: CYANOCOBALAMIN (VITAMIN B-12) 1,000 MCG TABLET. PO SCH (09:19)
[2018-08-07] MEDS: DESVENLAFAXINE 25 MG TAB.ER.24H PO SCH ×2 (09:19→20:57)
[2018-08-07] MEDS: rOPINIRole 1 MG TABLET. PO SCH ×3 (09:19→20:56)
[2018-08-07] MEDS: CELECOXIB 100 MG CAPSULE. PO SCH (09:19)
[2018-08-07] MEDS: ASPIRIN 325 MG TABLET PO SCH (09:19)
[2018-08-07] MEDS: CHOLECALCIFEROL (VITAMIN D3) 5,000 UNIT CAPSULE PO SCH (09:19)
[2018-08-07] MEDS: METOPROLOL TART IMMED RELEASE 25 MG TABLET. PO SCH ×2 (09:20→20:57)
[2018-08-07] MEDS: DULoxetine HCL 30 MG CAPSULE.DR PO SCH (09:20)
[2018-08-07] MEDS: LOSARTAN POTASSIUM 50 MG TABLET. PO SCH (09:21)
[2018-08-07] MEDS: amLODIPine BESYLATE 2.5 MG TABLET PO SCH (09:26)
--- NOTE | 2018-08-07 10:31 | PDOC ---
PRATIBHA MURDOCK DEWATERING FILTERING SUPERVISOR 08/07/18 1031: CARDIO Progress Notes Date and Time Date of Service 08/07/2018 Time of Evaluation 1020 Subjective Subjective: No Chest Pain, No shortness of breath, No Palpitations Vitals Vitals Vital Signs Date Time Temp Pulse Resp B/P (MAP) Pulse Ox O2 Delivery O2 Flow Rate FiO2 08/07/18 09:26 93 182/77 08/07/18 07:00 97.8 18 99 Room Air 97.8 Weight Weight [ ] Input and Output Intake and Output Intake and Output 08/07/18 07:00 Intake Total 900 ml Output Total 200 ml Balance 700 ml Intake Oral 900 ml Output Urine Total 200 ml # Voids 3 Laboratory Labs Laboratory Tests Test 08/06/18 11:47 08/06/18 16:20 08/06/18 20:53 08/07/18 08:19 Glucose (Fingerstick) 138 mg/dL (70-99) 63 mg/dL (70-99) 154 mg/dL (70-99) 89 mg/dL (70-99) Microbiology Micro Microbiology 08/03/18 Urine Culture - Final, Complete 08/03/18 Urine Culture Result 1 (MANUEL) - Final, Complete Physical Exam HEENT: Neck Supple W Full Motion Chest: Symmetric LUNGS: Clear to Auscultation Heart: S1S2, RRR (SR) Assessment Assessment BP 180 may increase norvasc. Acute CVA with edema 1. Mechanical fall with closed head injury/cerebral edema; reporting multiple recent falls 2. Metabolic encephalopathy; continues to have hallucinations. and remains to have it 3. Acute right parietal lobe CVA; neuro following 4. PAFIB; maintaining SR 5. CAD s/p single-vessel CABG with SVG to RCA (06/2018). Stable. 6. Severe s/p bioprosthetic AVR (06/2018), stable 7. Hypertension; labile 8. Hyperlipidemia; statin 9. Diabetes, II. as per PCP 10. Anxiety/depression. Continue present treatment Recommendations 1. LAAO recommend, referral as an outpt 2. Continue secondary prevention measures 3. Follow neuro recommendations 4. Recommend ASA for stroke prevention, poor candidate for OAC/NOAC 5. If BP remains labile then may increase norvasc. 7. follow up as an outpt. DONALD CASTRO MD 08/07/18 1537: CARDIO Progress Notes Assessment Assessment Patient seen and examined. Agree with LEARNING DESIGN SPECIALIST's assessment and plan. Patient is not a good candidate for long-term anticoagulation secondary to fall risk Plan for outpatient consideration of left atrial appendage closure for stroke prophylaxis Continue management of acute CVA per neurology team Recent 2-D echo showed normal LV function and normally functioning bioprosthetic aortic valve CAD status clinically stable Continue current medical regimen PRATIBHA MURDOCK APRN Aug 07, 2018 10:31 DONALD CASTRO MD Aug 07, 2018 15:37
[2018-08-07 11:00] VITALS: BP 155/64
[2018-08-07 15:00] VITALS: BP 154/71
--- NOTE | 2018-08-07 16:09 | PDOC ---
PROGRESS NOTES Assessment Assessment Metabolic encephalopathy. Acute/subacute 1 cm right parietal infarct. Hallucinations, visual and auditory. Fall. Hypoxia. Chest pain. Pneumonia. AFib. CHF. CAD s/p CABG. Severe aortic stenosis. DM. HTN. HLD. GERD. Mild pulmonary hypertension. Peripheral neuropathy. Degenerative spine disease. RECOMMENDATIONS/PLAN: Continue ASA 325 mg daily. Continue Lipitor 20 mg HS. Continue Vit D and Ca++ supplement. Treat medical and cardiac diseases. Rehab. Discussed with her daughter in great detail at bedside on 08/07/2018. EEG on 08/03/18: No seizure activity. Brain MRI on 08/05/18: see above stroke. CT: no acute findings. CTA: negative. Echo performed on 07/26/18: PA 35. HISTORY OF THE PRESENT ILLNESS: 72-y-old female patient with above medical and cardiac diseases had a fall while walking with her walker from inside of her house. She reported did not LOC, no projectile vomiting after fall. She felt her leg were weak after CABG and did not have much exercise for several months. She had hallucinations as seeing people and animals in room and people talked but she did not know what they were taking about. No focalized sensory or motor deficits noted. Per her daughter, she had hallucinations before after taking Narcotics and psychiatric medications, but were resolved. She stated on 08/04/18 that she still had visual hallucinations 2 times in the morning. PAST MEDICAL HISTORY Cardiovascular: AFIB, CAD, HTN, Hyperlipidemia, Aortic stenosis Pulmonary: Asthma CENTRAL NERVOUS SYSTEM: Other (none) GI: GERD, Other (diabetic gastroparesis) Heme/Onc: Anemia NOS (post-operative) Hepatobiliary: No pertinent hx Psych: Anxiety, Depression Musculoskeletal: Osteoarthritis Rheumatologic: No pertinent hx Infectious disease: No pertinent hx ENT: Other (diabetic retinopathy) Renal/: No pertinent hx Endocrine: Diabetes (type II, poorly controlled) Dermatology: No pertinent hx PAST SURGICAL HISTORY Cholecystectomy, Cataract Removal, Hysterectomy, Other (right shoulder; PEG with removal; breast biopsies; repair of deviated septum) FAMILY HISTORY Adopted ALLERGY: Reviewed. MEDICATIONS: Refer to MAR SOCIAL HISTORY: Lives with her daughter at home. Denies current smoking, drinking, and illicit drug use. REVIEW OF SYSTEMS: Constitutional: No malnutrition, weight loss, cachexia. Head: No traumatic brain or head injury. Skin: No edema, or rash. Ear: No infection. Eyes: No vision loss or color blindness. Nose: No bleeding or purulent discharges. Hearing: Hearing decrease. Neck: No injury. Breast: No history of cancer, masses,or discharges. Cardiac: CAD, s/p CABG, AFib, HTN, HLD. Pulmonary: Hypoxia. GI: GERD. Urinary/genital: UTI. Endocrinologic: Diabetes Mellitus. Skeletomuscular: No muscular atrophy, deformity. Neurological: see HP. Psychiatric: Denies drug use/abuse. Otherwise, not [id number] review of systems. PHYSICAL EXAMINATION: General appearance is in no acute distress. HEENT: Normocephalic and nontraumatic. Eyes, nose, ears, and throat are unremarkable. Neck is supple. No lymphadenopathy. No bruits are heard over the carotid artery. No crepitus. Cardiovascular: S1, S2, seemed irregular rate and rhythm. Pulmonary: Clear to auscultation bilaterally. Abdomen: Bowel sounds are positive. Abdomen is soft, nontender, and nondistended. Extremities: No rash, lesions, or edema. No restriction of range of motion NEUROLOGICAL EXAMINATION: Awake. Oriented to time, place and person. PERRL. EOMI. CN: no focal findings. Muscle tone: within normal. Muscle strength: 5 UE, 4+ LE DTR: 2 UE, 2- at knee. Plantar reflex: Flexor response bilaterally Gait: Able to walk with a walker. Sensory exam: no abnormal findings. No cerebellar signs elicited. F-T-N test fine. Objective Objective Vital Signs Date Time Temp Pulse Resp B/P (MAP) Pulse Ox O2 Delivery O2 Flow Rate FiO2 08/07/18 15:00 98.5 83 18 154/71 (98) 95 Room Air 98.5 Intake and Output 08/07/18 07:00 Intake Total 900 ml Output Total 200 ml Balance 700 ml Intake Oral 900 ml Output Urine Total 200 ml # Voids 3 Vitals Signs Vitals VS - Last 72 Hours, by Label Date Time Temp Pulse Resp B/P (MAP) Pulse Ox O2 Delivery O2 Flow Rate FiO2 08/07/18 15:00 98.5 83 18 154/71 (98) 95 Room Air 98.5 08/07/18 11:00 98.0 80 20 155/64 (94) 98 Room Air 98.0 08/07/18 09:26 93 182/77 08/07/18 09:21 93 182/77 08/07/18 09:20 93 182/77 08/07/18 08:00 Room Air 08/07/18 07:00 97.8 93 18 182/77 (112) 99 Room Air 97.8 08/07/18 02:58 98.3 82 18 160/80 (106) 96 Room Air 98.3 08/06/18 23:00 98.5 84 18 163/78 (106) 96 Room Air 98.5 08/06/18 21:15 94 153/63 08/06/18 20:00 Room Air 08/06/18 19:00 98.5 97 18 175/88 (117) 94 Room Air 98.5 08/06/18 19:00 99 134/57 (82) 08/06/18 19:00 95 165/79 (107) 08/06/18 15:00 91 152/72 (98) 95 08/06/18 15:00 90 170/66 (100) 97 08/06/18 15:00 97.7 82 18 164/78 (106) 96 Room Air 97.7 08/06/18 11:00 97.8 79 18 176/84 (114) 99 Room Air 97.8 08/06/18 10:27 91 177/78 08/06/18 10:25 91 177/78 08/06/18 07:00 97.8 91 18 177/78 (111) 96 Room Air 97.8 Laboratory Laboratory Laboratory Tests Test 08/06/18 16:20 08/06/18 20:53 08/07/18 08:19 08/07/18 11:52 Glucose (Fingerstick) 63 mg/dL (70-99) 154 mg/dL (70-99) 89 mg/dL (70-99) 153 mg/dL (70-99) Microbiology 08/03/18 Urine Culture - Final, Complete 08/03/18 Urine Culture Result 1 (MANUEL) - Final, Complete Medication Medications Current Medications Amlodipine Besylate (Norvasc) 2.5 mg DAILY PO Last administered on 08/07/18at 09:26; Start 08/07/18 at 09:00 Comment Review of Relevant I have reviewed the following items raul (where applicable) has been applied. ROLAND KING MD Aug 07, 2018 16:09
[2018-08-07 19:00] VITALS: BP 149/68
--- NOTE | 2018-08-07 19:54 | PN ---
DATE: 08/07/2018 LOCATION: She is in room 536. SUBJECTIVE: The patient is awake, alert, is aware of her extreme difficulties with ambulation, is sore on her left wrist and has bruising there from one of the most recent falls. OBJECTIVE: GENERAL: The patient has continued to have hallucinations throughout the day, yesterday seeing Rayo and at other times seeing myself and her daughter in the room when we are not there. She is awake, alert; however, completely oriented at this point in time. VITAL SIGNS: Stable. She is afebrile. Blood pressures were still somewhat elevated and low dose amlodipine will be added. CHEST: Clear. HEART: Regular. ABDOMEN: Benign. Cardiology consult recommended no anticoagulation due to the high fall risk and a possible Watchman procedure at some point as an outpatient. Therapy believes that she would be best served in an inpatient rehab setting and we will ask social insurance analyst to evaluate for the same. IMPRESSION: 1. Right parietal cerebrovascular accident. 2. Hallucinations. 3. Diabetes with good blood sugars. 4. Status post aortic valve replacement with tissue valve. 5. Atherosclerotic heart disease. 6. Neuropathy. 7. Depression. PLAN: We will evaluate for inpatient rehab. Wellbutrin has been held, although for the possibility of it causing hallucinations, which I doubt as she has taken in the past without problems, but has been recently restarted. ZEINA RUBIO MD DR: MANUEL/carlo JOB#: [id number] / [id number]
[2018-08-07] MEDS: AMITRIPTYLINE HCL 10 MG TABLET. PO SCH (20:56)
[2018-08-07] MEDS: metFORMIN 500 MG TABLET PO SCH (20:57)
[2018-08-07] MEDS: oxyCODONE/APAP 5/325 1 TAB TABLET PO PRN (20:57)
[2018-08-07] MEDS: ATORVASTATIN CALCIUM 20 MG TABLET PO SCH (20:58)
[2018-08-07] MEDS: INSULIN GLARGINE 300 UNITS/3 ML INSULN.PEN. SQ SCH (21:05)
[2018-08-07 23:00] VITALS: BP 150/78
[2018-08-08 03:00] VITALS: BP 139/77
[2018-08-08 07:00] VITALS: BP 136/70
[2018-08-08] MEDS: INSULIN LISPRO 300 UNITS/3 ML INSULN.PEN. SQ SCH ×2 (08:00→12:10)
[2018-08-08] MEDS: DULoxetine HCL 30 MG CAPSULE.DR PO SCH (08:33)
[2018-08-08] MEDS: amLODIPine BESYLATE 2.5 MG TABLET PO SCH (08:33)
[2018-08-08] MEDS: ASPIRIN 325 MG TABLET PO SCH (08:33)
[2018-08-08] MEDS: CHOLECALCIFEROL (VITAMIN D3) 5,000 UNIT CAPSULE PO SCH (08:33)
[2018-08-08] MEDS: CALCIUM CARBONATE 500 MG TABLET PO SCH (08:33)
[2018-08-08] MEDS: CELECOXIB 100 MG CAPSULE. PO SCH (08:33)
[2018-08-08] MEDS: rOPINIRole 1 MG TABLET. PO SCH (08:33)
[2018-08-08] MEDS: DESVENLAFAXINE 25 MG TAB.ER.24H PO SCH (08:34)
[2018-08-08] MEDS: LOSARTAN POTASSIUM 50 MG TABLET. PO SCH (08:34)
[2018-08-08] MEDS: CYANOCOBALAMIN (VITAMIN B-12) 1,000 MCG TABLET. PO SCH (08:34)
[2018-08-08] MEDS: METOPROLOL TART IMMED RELEASE 25 MG TABLET. PO SCH (08:34)
[2018-08-08] MEDS: ARIPiprazole 2 MG TABLET PO SCH (08:35)
--- NOTE | 2018-08-08 09:45 | PDOC ---
Provider Note Provider Note [id number] FROILAN CHILDERS MD Aug 08, 2018 09:45
--- NOTE | 2018-08-08 09:47 | DISCH ---
DISCHARGE DISCHARGE INFORMATION: CONDITION ON DISCHARGE: Stable CODE STATUS: Code Status: Full CORRECTION: SNF STAY <30 DAYS: Yes POST DISCHARGE ORDERS: ACTIVITY ORDERS: Activity as tolerated WEIGHT BEARING STATUS: No restrictions DIET AFTER DISCHARGE: ADA WOUND/INCISION CARE: No wound care needed CHECKS AFTER DISCHARGE: CHECKS AFTER DISCHARGE: Check blood press - daily, Check blood sugar, ac/hs, Weigh Yourself Daily FOLLOW-UP: PHYSICIAN FOLLOW-UP: PRN TREATMENT/EQUIPMENT ORDERS: ADAPTIVE EQUIPMENT NEEDED: None Physical Therapy For: Evalulation/Treatment Occupational Therapy For: Evaluation/Treatment DISCHARGE MEDICATIONS: Home Meds Active Scripts Oxycodone Hcl/Acetaminophen (OXYCODONE-ACETAMINOPHEN 5-325) 1 Each Tablet, 1 TAB PO PRN Q4HRS PRN for MILD PAIN, #10 TAB 0 Refills Prov:ADELINA CARTER MEDICAL AFFAIRS MANAGER 06/30/18 Metoprolol Tartrate (METOPROLOL TARTRATE) 25 Mg Tablet, 25 MG PO BID for 30 Days , #60 TAB 3 Refills Prov:ADELINA CARTER MEDICAL AFFAIRS MANAGER 06/30/18 Reported Medications Insulin Glargine,Hum.rec.anlog (LANTUS SOLOSTAR) 100 Unit/1 Ml Insuln.pen, 35 UNIT SQ QHS, #15 ML 3 Refills 07/24/18 Ropinirole Hcl (ROPINIROLE HCL) 2 Mg Tablet, 2 MG PO TID for 30 Days, #90 TAB 06/16/18 Duloxetine Hcl (CYMBALTA) 60 Mg Capsule.dr, 120 MG PO DAILY, CAP 05/29/18 Cyanocobalamin (Vitamin B-12) (VITAMIN B-12) 1,000 Mcg Tablet, 1 TAB PO DAILY, # 30 TAB 5 Refills 05/29/18 Aspirin (ASPIRIN) 325 Mg Tablet, 1 TAB PO DAILY, #90 TAB 3 Refills 05/29/18 Aripiprazole (ABILIFY) 2 Mg Tablet, 2 MG PO DAILY, TAB 01/19/18 Desvenlafaxine Succinate (PRISTIQ ER) 50 Mg Tab.er.24h, 1 TAB PO BID, #30 TAB 5 Refills 01/19/18 Insulin Lispro (HUMALOG) 100 Unit/1 Ml Cartridge, 15 UNIT SQ DAILY PRN for SEE COMMENTS, EACH 07/11/16 Metformin Hcl (METFORMIN HCL) 500 Mg Tablet, 1 TAB PO HS for RESTLESS LEG, #60 TAB 3 Refills 07/11/16 FROILAN CHILDERS MD Aug 08, 2018 09:47
[2018-08-08 11:00] VITALS: BP 159/71
--- NOTE | 2018-08-08 12:05 | DS ---
DATE OF DISCHARGE: 08/08/2018 HOSPITAL SUMMARY: This is a 72-year-old white female who came in with some mild left-sided weakness and there was a 1 cm right parietal infarct noted. The initial CT scan was normal. The MRI showed a 1 cm area of infarct in the right parietal lobe. Carotid Dopplers showed no surgical stenosis. Chemistry profile was unremarkable, except for somewhat labile blood sugars. Vitamin D level mildly low at 16. GFR was 61. CBC was normal. Urine drug screen was negative. Urine culture had no growth. She was seen by Neurology and Cardiology and because of some hallucinations, Dr. Lino stopped the Wellbutrin, though she appears to be lucid and very conversant at this time. She is on Pristiq, high-dose Cymbalta and Abilify as well as the Wellbutrin, so this may be a medication/serotonin issue and I will reduce the Cymbalta dose to 60 mg as well. FINAL DIAGNOSES: 1. Acute cerebrovascular accident with left-sided hemiparesis. 2. Type 2 diabetes mellitus, insulin dependent. 3. Auditory and visual hallucinations, likely medication induced. OPERATIONS, PROCEDURES AND COMPLICATIONS: None. CONSULTATIONS: Dr. Wilson and Dr. Webb. DISPOSITION: She will continue on aspirin daily, even though the stroke occurred on the aspirin. She has a history of paroxysmal atrial fibrillation and has been off Eliquis since open heart surgery and this was not resumed during the hospital stay, which she remains in sinus rhythm at this time. Cymbalta dose reduced to 60 mg; otherwise, all medications remain the same. Diabetic diet. Activity as tolerated. Prognosis is guarded. FROILAN CHILDERS MD DR: JANE/carlo JOB#: [id number] / [id number]
[2018-08-08] MEDS ORDERED: INSULIN GLARGINE 300 UNITS/3 ML INSULN.PEN. SQ SCH (21:00)
[2018-08-09] MEDS ORDERED: DULoxetine HCL 30 MG CAPSULE.DR PO SCH (09:00)
== END 2018-08-08 13:55 | DRG 64 ==
LOC: 5 NORTH 14:56
PROVIDERS: ADMIT Family Medicine; ATTEND Family Medicine
DX: I63.9 Cerebral infarction, unspecified (principal); G93.41 Metabolic encephalopathy; J18.9 Pneumonia, unspecified organism; G81.94 Hemiplegia, unspecified affecting left nondominant side; S09.90XA Unspecified injury of head, initial encounter; W18.39XA Other fall on same level, initial encounter; M19.90 Unspecified osteoarthritis, unspecified site; E11.319 Type 2 diabetes mellitus with unspecified diabetic retinopathy without macular edema; I48.0 Paroxysmal atrial fibrillation; E78.5 Hyperlipidemia, unspecified; F32.9 Major depressive disorder, single episode, unspecified; I27.20 Pulmonary hypertension, unspecified; I25.10 Atherosclerotic heart disease of native coronary artery without angina pectoris; R09.02 Hypoxemia; F41.9 Anxiety disorder, unspecified; I11.0 Hypertensive heart disease with heart failure; Y93.01 Activity, walking, marching and hiking; R29.6 Repeated falls; E11.42 Type 2 diabetes mellitus with diabetic polyneuropathy; I50.9 Heart failure, unspecified; J45.909 Unspecified asthma, uncomplicated; K21.9 Gastro-esophageal reflux disease without esophagitis; I35.0 Nonrheumatic aortic (valve) stenosis; Z95.1 Presence of aortocoronary bypass graft; Y99.8 Other external cause status; Y92.091 Bathroom in other non-institutional residence as the place of occurrence of the external cause; Z90.49 Acquired absence of other specified parts of digestive tract; Z90.710 Acquired absence of both cervix and uterus; Z98.49 Cataract extraction status, unspecified eye; Z79.4 Long term (current) use of insulin; Z95.3 Presence of xenogenic heart valve; Z86.73 Personal history of transient ischemic attack (TIA), and cerebral infarction without residual deficits; Z79.82 Long term (current) use of aspirin; Z88.8 Allergy status to other drugs, medicaments and biological substances; Z79.899 Other long term (current) drug therapy
CPT/HCPCS: 36415; 70450; 70551; 72125; 80053; 80307; 81001; 82306; 82550; 82962; 85025; 87086; 93880; 95816; J1815; J7042; 97110; 97116; 97530; 97535; G0479

== ENCOUNTER → 2018-12-17 | Outpatient (CLI) | payer MEDICARE, OTHER ==
[~2018-12-17] MED LIST changes: +AMIT10TA PO; +ASPI-630 PO; +CALC500T31 PO; +GABA600T7 PO; -HYDR-2762 PO; +HYDR-2765 PO; +INSU100V13 SQ; +LOSA100T14 PO; +METO50TA6 PO; +REGADENOSON 0.4 MG/5 ML DISP.SYRIN. IV ONE
[2018-12-17 09:42] LABS: CALCIUM 9.8 mg/dL (8.5-10.1); CREATININE 1.2 mg/dL (0.6-1.0); GFR 44.3; POTASSIUM 4.7 mmol/L (3.5-5.1)
--- NOTE | 2018-12-17 10:11 | CARD ---
MR#: [id number] Date of Study: 12/17/2018 Ordering Physician: DONALD CASTRO, Referring Physician: DONALD CASTRO, Tech: Kera Su APPROVED REPORT EXAM: Two-dimensional and M-mode echocardiogram with Doppler and color Doppler. Other Information Quality : AverageHR: 118bpm INDICATION Atrial Fibrillation Aortic Valve Replacemnent Surgery/Intervention Status/Post Aortic Valve Replacement: Bioprosthetic Type: Bovine Date: 06/23/18 RISK FACTORS Hypertension Hyperlipidemia Diabetes 2D DIMENSIONS RVDd2.4 (2.9-3.5cm)Left Atrium(2D)3.0 (1.6-4.0cm) IVSd1.3 (0.7-1.1cm)Aortic Root(2D)2.8 (2.0-3.7cm) LVDd3.8 (3.9-5.9cm)LVOT Diameter2.0 (1.8-2.4cm) PWd1.0 (0.7-1.1cm)LVDs2.7 (2.5-4.0cm) FS (%) 29.3 %SV34.3 ml LVEF(%)57.0 (>50%) Aortic Valve AoV Peak Ralph.265.2cm/sAoV VTI39.3cm AO Peak GR.28.1mmHgLVOT Peak Ralph.178.4cm/s LVOT VTI 28.47cmAO Mean GR.15mmHg DIOR (VMAX)1.99jn1ZDJ (VTI)2.19cm2 Pulmonary Valve PV Peak Hdlzhpbp830.7cm/sPV Peak Grad.7mmHg Tricuspid Valve TR P. Jkmecduy569qu/sRAP RGVZMQVU3ilEs TR Peak Gr.33ntKwPOCD63ejUg Pulmonary Vein S1 Tjetgmci77.3cm/sD2 Xuavccqq91.1cm/s PVa miyqnguz27ppjt LEFT VENTRICLE The left ventricle is normal size. There is mild to moderate concentric left ventricular hypertrophy. The left ventricular systolic function is normal and the ejection fraction is within normal range. T he Ejection Fraction is 60-65%. There is normal LV segmental wall motion. Septal motion suggestive of prior CABG. Diastology indeterminate due to atrial fibrillation. RIGHT VENTRICLE The right ventricle is normal size. There is normal right ventricular wall thickness. The right ventr icular systolic function is normal. ATRIA The left atrium size is normal. The right atrium size is normal. The interatrial septum is intact wit h no evidence for an atrial septal defect or patent foramen ovale as noted on 2-D or Doppler imaging. AORTIC VALVE Doppler and Color Flow revealed no significant aortic regurgitation. There is no significant aortic v alvular stenosis. Calculated aortic valve area is 2 cm2 with maximum pressure gradient of 28 mmHg and mean pressure gradient of 15 mmHg. There is a bovine aortic valve prosthesis. The prosthesis is not well visualized. MITRAL VALVE The mitral valve is thickened but opens well. There is no evidence of mitral valve prolapse. There is no mitral valve stenosis. Doppler and Color-flow revealed trace mitral regurgitation. TRICUSPID VALVE The tricuspid valve is normal in structure and function. Doppler and Color Flow revealed trace tricus pid regurgitation. There is no tricuspid valve stenosis. PULMONIC VALVE Doppler and Color Flow revealed no pulmonic valvular regurgitation. There is no pulmonic valvular theresa nosis. GREAT VESSELS The aortic root is normal in size. The IVC is normal in size and collapses >50% with inspiration. PERICARDIAL EFFUSION There is no evidence of significant pericardial effusion. Critical Notification Critical Value: No <Conclusion> The left ventricular systolic function is normal and the ejection fraction is within normal range. Th e Ejection Fraction is 60-65%. There is normal LV segmental wall motion. Septal motion suggestive of prior CABG. There is no significant aortic valvular stenosis. Calculated aortic valve area is 2 cm2 with maximum pressure gradient of 28 mmHg and mean pressure gradient of 15 mmHg. Signed by : Joe Cardenas, Electronically Approved : 12/17/2018 10:11:23
--- NOTE | 2018-12-17 13:05 | RAD ---
MR#: [id number] Date of Study: 12/17/2018 Ordering Physician: DONALD CASTRO, Referring Physician: STEPHANIE BLAKELY Tech: CATHI Page, ARRT (R) (N) APPROVED REPORT Test Type: Pharmacological Stress Nurse/Tech: Frieda Gilman RN Test Indications: Paroxysmal Afib Cardiac History: Hypertension, Diabetes, 06/2018 Aortic Valve replacement and Bypass, Stroke Medications: See Electronic Medical Record Medical History: See Electronic Medical Record Resting ECG: Sinus Tachycardia Resting Heart Rate: 114 bpm Resting Blood Pressure: 185/85mmHg Pretest Chest Pain: No chest pain Nurse/Tech Notes S1S2, Lungs CTA Consent: The procedure was explained to the patient in lay terms. Informed consent was witnessed. Ankur eout was entered into CH4[facility]. History and Stress Test performed by RT Annabelle (Maik) (N) Pharm. Details Pharmacologic stress testing was performed using 0.4mg per 5ml of regadenoson given intravenously ove r 7-10 seconds. Stress Symptoms Dyspnea, chest pain 3/10 throbbing pain center of chest, chest pain and dyspnea resolved by the end o f test. POST EXERCISE Reason for Termination: Infusion complete Max HR: 124 bpm Max Blood Pressure: 167/82mmHg Blood Pressure response to exercise: Normal blood pressure response during stress. Chest Pain: Yes. 3/10 throbbing pain center of chest, resolved by end of test. Arrhythmia: No. ST Change: No. INTERPRETATION Stress EKG Conclusion: Baseline EKG showed sinus rhythm, LAFB and LVH. Non diagnostic changes at pea k stress. No arrhythmias. Imaging Protocol IMAGE PROTOCOL: Rest Tc-99m/stress Tc-99m 1 day Rest: Stress: Viability: Radiopharm.Tc99m BakmaiasvIc24d Sestamibi Vtdy40qVb 31mCi Img Date 12/17/2018 12/17/2018 Inj-Img Gaxx39vdq. 60min. Rest Admin Site:IV - Left AntecubitalAdministrator:RT Annabelle (Maik)(N) Stress Admin Site: IV - Left AntecubitalAdministrator: Lorne Roe, RT (R)(N) STRESS DATA End Diast. Vol.42.0mlLVEDV index BSA24.0ml End Syst. Vol.12.0mlLVESV index BSA7.0ml Myocardial Mass83.0gEject. Qsuqcffc59.0% Stress Scores Regional WT2.00Summed WT21.00 Regional WM0.00Summed WM14.00 Study quality was good. Left Ventricular size was Normal at Rest and Stress. Lung uptake was . Left Ventricular ejection fraction is 64%. The rest and stress images show normal perfusion, normal contraction and thickening. LV Perf. Quant 17 Seg. SSS0.00 17 Seg. SRS0.00 17 Seg. SDS0.00 Stress Defect Extent (% LAD)0.00Rest Defect Extent (% LAD)0.00Rev. Defect Extent (% LAD)0.00 Stress Defect Extent (% LCX) 0.00Rest Defect Extent (% LCX)0.00Rev. Defect Extent (% LCX)0.00 Stress Defect Extent (% RCA)0.00Rest Defect Extent (% RCA)0.00Rev. Defect Extent (% RCA)0.00 Stress Defect Extent (% RASHARD)0.00Rest Defect Extent (% RASHARD)0.00Rev. Defect Extent (% RASHARD)0.00 Conclusion 1. Regadenoson cardioisotope stress test did not show any evidence of ischemia or infarct. 2. Normal left ventricular systolic function with ejection fraction calculated at 64%. 3. Low risk for cardiac events. Signed by : Donald Castro, Electronically Approved : 12/17/2018 13:04:03
== END | disposition home or self-care (01) ==
LOC: EDBD → ECHO 08:07
PROVIDERS: ATTEND Internal Medicine Cardiovascular Disease
DX: I48.0 Paroxysmal atrial fibrillation (principal); I10 Essential (primary) hypertension; E11.9 Type 2 diabetes mellitus without complications; Z95.2 Presence of prosthetic heart valve
CPT/HCPCS: 36415; 78452; 80048; 84443; 93017; 93306; 96374; A9500; J2785

== ENCOUNTER → 2018-12-17 | Outpatient (CLI) | payer MEDICARE, OTHER ==
[~2018-12-17] MED LIST changes: -REGADENOSON 0.4 MG/5 ML DISP.SYRIN. IV ONE
--- NOTE | 2018-12-17 09:47 | RAD ---
AP and Lateral Views of the Chest 12/17/2018 12:00 AM Indication: short of breath and chest pain Comparison: Chest radiograph July 24, 2018 Findings: Diffuse interstitial coarsening is stable. There is no pneumothorax or pleural effusion. No focal consolidative infiltrate is seen. Heart size is normal. Prior median sternotomy and aortic valve repair noted. Probable calcified granuloma in the right upper lung is unchanged. No acute osseous abnormalities are seen. IMPRESSION: No radiographic evidence of acute cardiopulmonary process Electronically signed by: Artie Cabezas MD (12/17/2018 9:44 AM) [facility]
== END | disposition home or self-care (01) ==
LOC: EDBD → RAD 08:19
PROVIDERS: ATTEND Family Medicine
DX: R07.9 Chest pain, unspecified (principal); R06.02 Shortness of breath
CPT/HCPCS: 71046

== ENCOUNTER → 2018-12-22 | Outpatient (CLI) | payer MEDICARE, OTHER ==
--- NOTE | 2018-12-22 14:16 | RAD ---
DATE: 12/22/2018 EXAM: MAMMO SHIRLEY MARCELINA STERLING, BREAST RIGHT HISTORY: Medial right breast pain COMPARISON: 01/29/2018 This study was interpreted with the benefit of Computerized Aided Detection (CAD). Breast Density: SCATTERED The breast parenchyma shows scattered fibroglandular densities. Breast parenchyma level B. FINDINGS: 2-D and 3-D tomosynthesis imaging was performed in CC and MLO projections. 2 smooth left breast nodules are unchanged. No new or enlarging breast densities are seen. Benign type calcifications are present. No suspicious microcalcifications have developed. Right breast ultrasound, 12/22/2018: A targeted ultrasound exam of the medial aspect of the right breast was performed in the region of the patient's pain. No mass or unusual fluid collection is seen. IMPRESSION: 1. Stable mammograms without evidence of malignancy. 2. The targeted ultrasound exam of the right breast reveals no abnormality BI-RADS CATEGORY: 2 BENIGN FINDING(S) RECOMMENDED FOLLOW-UP: 12M 12 MONTH FOLLOW-UP PQRS compliance statement: Patient information was entered into a reminder system with a target due date for the next mammogram. Mammography is a sensitive method for finding small breast cancers, but it does not detect them all and is not a substitute for careful clinical examination. A negative mammogram does not negate a clinically suspicious finding and should not result in delay in biopsying a clinically suspicious abnormality. "Our facility is accredited by the [employer] Mammography Program."
== END | disposition home or self-care (01) ==
LOC: EDBD → MAMMO 12:34
PROVIDERS: ATTEND Family Medicine
DX: N63.20 Unspecified lump in the left breast, unspecified quadrant (principal); N64.4 Mastodynia
CPT/HCPCS: 76641; 77066; G0279; 77062

== ENCOUNTER 2018-12-29 23:02 | Emergency (ER) | payer MEDICARE, OTHER ==
[~2018-12-29] VITALS: Ht 165.1 cm; Wt 72.6 kg
[~2018-12-29 23:02] MED LIST changes: -AMIT10TA PO; -ASPI-630 PO; -CALC500T31 PO; -GABA600T7 PO; -INSU100V13 SQ; -LOSA100T14 PO; -METO50TA6 PO
[2018-12-29 23:10] VITALS: BP 160/71
[2018-12-29] MEDS ORDERED: LIDOCAINE 1%/EPI 1:100,000 20 ML VIAL. INJ ONE (23:45)
[2018-12-29] MEDS ORDERED: HYDROcodone/APAP 5/325MG 1 TAB TABLET ONE (23:58)
[2018-12-30] MEDS ORDERED: TRANEXAMIC ACID 1,000 MG/10 ML VIAL. TOP ONE
[2018-12-30] MEDS ORDERED: HYDROcodone/APAP 5/325MG 1 TAB TABLET PO ONE (00:30)
--- NOTE | 2018-12-30 04:43 | PHYS DOC ---
Past Medical History Past Medical History: A-Fib, Depression, Diabetes-Type II, Hypertension, Other Additional Past Medical Histor: gastroparesis, HEART MURMUR, NEUROPATHY , CABG , VALVE REPLACE Past Surgical History: Cholecystectomy, Hysterectomy, Other Additional Past Surgical Histo: G-tube, CATARACT SURGEY, RT SHOULDER, DEVIATED SEPTUM, CABG Alcohol Use: None Drug Use: None Adult General Chief Complaint Chief Complaint: POST-OP PROBLEM HPI HPI Patient is a 73 year old f with cc of bleeding from recently told tooth a few hours ago she has been on Dasia Karley for a few days. She tried to put pressure on it but still bleeding. Mild to moderate dull jaw pain no fever no complaints Review of Systems Review of Systems Constitutional: Denies fever or chills [] Eyes: Denies change in visual acuity, redness, or eye pain [] HENT: Denies nasal congestion or sore throat [] Respiratory: Denies cough or shortness of breath [] Cardiovascular: No additional information not addressed in HPI [] GI: Denies abdominal pain, nausea, vomiting, bloody stools or diarrhea [] Musculoskeletal: Denies back pain or joint pain [] All other systems were reviewed and found to be within normal limits, except as documented in this note. Current Medications Current Medications Current Medications Medications (Trade) Dose Ordered Sig/Juan Miguel Start Time Stop Time Status Last Admin Dose Admin Acetaminophen/ Hydrocodone Bitart (Lortab 5/325) 1 tab STK-MED ONCE 12/29/18 23:58 12/29/18 23:59 DC Lidocaine/ Epinephrine (LIDOCAINE 1%-EPI 1:100,000 Multi-Dose) 20 ml 1X ONCE 12/29/18 23:45 12/29/18 23:46 DC 12/30/18 00:20 20 ML Tranexamic Acid (Cyklokapron) 1,000 mg 1X ONCE 12/30/18 00:00 12/30/18 00:01 DC 12/30/18 00:30 1,000 MG Allergies Allergies Allergies Coded Allergies Type Severity Reaction Last Updated Verified adhesive tape Allergy Severe TEARS SKIN 06/23/18 Yes zolpidem Allergy Intermediate 06/23/18 Yes nitrous oxide Adverse Reaction Severe EYE DAMAGE 08/06/18 Yes Physical Exam Physical Exam Constitutional: Well developed, well nourished, no acute distress, non-toxic appearance. [] HENT: Normocephalic, atraumatic, there is recent tooth extraction noted on bilateral upper maxillary molar areas right upper molar there is a root it is actively bleeding Eyes: PERRLA, EOMI, conjunctiva normal, no discharge. [] Neck: Normal range of motion, no tenderness, supple, no stridor. [] Pulmonary: Normal respiratory effort no increased work of breathing no obvious chest wall trauma Back: No tenderness, no CVA tenderness. [] Extremities: No tenderness, no cyanosis, no clubbing, ROM intact, no edema. [] Neurologic: Alert and oriented X 3, normal motor function, normal sensory function, no focal deficits noted. [] Psychologic: Affect normal, judgement normal, mood normal. [] Current Patient Data Vital Signs Vital Signs Date Time Temp Pulse Resp B/P (MAP) Pulse Ox O2 Delivery O2 Flow Rate FiO2 12/30/18 00:01 20 97 Room Air 12/29/18 23:10 96.6 72 160/71 (100) 96.6 Lab Values Laboratory Tests Test 12/30/18 01:49 Glucose (Fingerstick) 271 mg/dL (70-99) H EKG EKG [] Radiology/Procedures Radiology/Procedures [] Course & Med Decision Making Course & Med Decision Making Pertinent Labs and Imaging studies reviewed. (See chart for details) []We performed manual pressure for a total 40 minutes with a combination of TX A and Gelfoam and ultimately did achieve good hemostasis patient was reassured counseling minimize any trauma for the next 12-24 hours. Dragon Disclaimer Dragon Disclaimer This electronic medical record was generated, in whole or in part, using a voice recognition dictation system. Departure Departure Impression: Primary Impression: Gums, bleeding Disposition: HOME, SELF-CARE Condition: STABLE Additional Instructions: Thank you for coming to the emergency room the bleeding has stopped please do not eat or drink anything or touch the area for at least 12 hours VALENTÍN BULLARD MD Dec 30, 2018 04:43
[2019-02-03] MEDS ORDERED: INSU100I13 SQ (08:29)
== END 2018-12-30 01:53 | disposition home or self-care (01) ==
LOC: EDBD → ER 23:02
DX: K06.8 Other specified disorders of gingiva and edentulous alveolar ridge (principal); R68.84 Jaw pain; I48.91 Unspecified atrial fibrillation; F32.9 Major depressive disorder, single episode, unspecified; I10 Essential (primary) hypertension; E11.43 Type 2 diabetes mellitus with diabetic autonomic (poly)neuropathy; Z90.49 Acquired absence of other specified parts of digestive tract; Z90.710 Acquired absence of both cervix and uterus; Z95.1 Presence of aortocoronary bypass graft; Z88.8 Allergy status to other drugs, medicaments and biological substances; K31.84 Gastroparesis
CPT/HCPCS: 82962; 96372; 99284; J3490

== ENCOUNTER 2019-02-01 10:35 | Inpatient (IN) | payer MEDICARE, OTHER ==
[~2019-02-01] VITALS: Ht 165.1 cm; Wt 72.7 kg
[2019-02-01 12:30] VITALS: BP 154/76
[2019-02-01] MEDS ORDERED: DEXTROSE 50% 25 GM / 50ML DISP.SYRIN. IV PRN (12:45)
[2019-02-01] MEDS ORDERED: AMIT10TA PO (13:06)
[2019-02-01] MEDS ORDERED: ASPI-630 PO (13:06)
[2019-02-01] MEDS ORDERED: APIX5TAB PO (13:06)
[2019-02-01] MEDS ORDERED: ATOR20TA58 PO (13:06)
[2019-02-01] MEDS ORDERED: GABA600T7 PO (13:06)
[2019-02-01] MEDS ORDERED: CALC500T31 PO (13:06)
[2019-02-01] MEDS ORDERED: LOSA100T14 PO (13:06)
[2019-02-01] MEDS ORDERED: METO50TA6 PO (13:06)
[2019-02-01] MEDS ORDERED: INSU100V13 SQ (13:23)
--- NOTE | 2019-02-01 13:26 | NUR ---
Pt arrived to unit as direct admission from Physician's office. Pt stated she fell yesterday over walker. Feels weak today and went to doctor's office. Who after listening to her heart and lungs, advised her to come straight to hospital. Pt oriented to room and unit routines. Applied heart monitor, pt in sinus rhythm. No complaints of chest pain or shortness of breath. Will continue to monitor.
[2019-02-01] MEDS: INSULIN LISPRO 300 UNITS/3 ML INSULN.PEN. SQ SCH ×2 (13:59→17:41)
[2019-02-01 14:00] LABS: BASO # 0.1 x10^3/uL (0.0-0.2); BASO % 1 % (0-3); EOS % 0 % (0-3); HEMATOCRIT 45.6 % (36.0-47.0); HEMOGLOBIN 15.1 g/dL (12.0-15.5); LYMPH # 3.4 x10^3/uL (1.0-4.8); LYMPH % 33 % (24-48); MEAN CORPUSCULAR HEMOGLOBIN 29 pg (25-35); MEAN CORPUSCULAR HGB CONC 33 g/dL (31-37); MEAN CORPUSCULAR VOLUME 86 fL (79-100); MONO # 0.5 x10^3/uL (0.0-1.1); MONO % 5 % (0-9); NEUT # 6.3 x10^3uL (1.8-7.7); NEUT % 62 % (31-73); PLATELET COUNT 145 x10^3/uL (140-400); RED CELL DISTRIBUTION WIDTH 14.1 % (11.5-14.5); WHITE BLOOD COUNT 10.3 x10^3/uL (4.0-11.0)
[2019-02-01] MEDS: CALCIUM CARBONATE 500 MG TABLET PO SCH (14:00)
[2019-02-01] MEDS: CYANOCOBALAMIN (VITAMIN B-12) 1,000 MCG TABLET. PO SCH (14:00)
[2019-02-01] MEDS: METOPROLOL TART IMMED RELEASE 50 MG TABLET. PO SCH ×2 (14:00→21:11)
[2019-02-01] MEDS: AMITRIPTYLINE HCL 10 MG TABLET. PO SCH (14:00)
[2019-02-01] MEDS: DULoxetine HCL 30 MG CAPSULE.DR PO SCH (14:00)
[2019-02-01] MEDS: LOSARTAN POTASSIUM 50 MG TABLET. PO SCH (14:00)
[2019-02-01] MEDS: ASPIRIN CHEWABLE 81 MG TABLET. PO SCH (14:00)
[2019-02-01] MEDS: ARIPiprazole 2 MG TABLET PO SCH (14:00)
[2019-02-01 14:06] LABS: CALCIUM 10.6 mg/dL (8.5-10.1); CREATININE 1.3 mg/dL (0.6-1.0); GFR 40.4; POTASSIUM 5.4 mmol/L (3.5-5.1)
--- NOTE | 2019-02-01 14:26 | PDOC2 ---
GABRIELA VALERIO PARADI TENDER 02/01/19 1426: CARDIAC CONSULT DATE OF CONSULT Date of Consult DATE: 02/01/19 TIME: 14:18 REASON FOR CONSULT Reason for Consult: Suspected arrhythmia REFERRING PHYSICIAN Referring Physician: Dr. Lino SOURCE Source: Chart review, Patient HISTORY OF PRESENT ILLNESS HISTORY OF PRESENT ILLNESS This is a 73 yo female, who presented as a direct admit from Dr. Lino secondary to weakness, fall, hyperglycemia, and suspected arrhythmia. Patient reports history of intermittent dizziness since having aortic valve surgery last year. Yesterday, patient reports that every time she got up to walk and take a couple of steps, she would have dizziness and palpitations. Her legs would weaken and give out. Blood sugars and blood pressures have been elevated. Yesterday, HR was noted at 49 at one period when she was dizzy. BS was 599 this morning. Denies any chest pain, SOA, diaphoresis, or nausea/vomiting. HR is presently near 100 at rest. Reports compliance with medications. PAST MEDICAL HISTORY Past Medical History Cardiovascular: PAFIB, CAD, HTN, Hyperlipidemia, Aortic stenosis Pulmonary: Asthma CENTRAL NERVOUS SYSTEM: Other (none) GI: GERD, Other (diabetic gastroparesis) Heme/Onc: Anemia NOS (post-operative) Hepatobiliary: No pertinent hx Psych: Anxiety, Depression Musculoskeletal: Osteoarthritis Rheumatologic: No pertinent hx Infectious disease: No pertinent hx ENT: Other (diabetic retinopathy) Renal/: No pertinent hx Endocrine: Diabetes (type II, poorly controlled) Dermatology: No pertinent hx PAST SURGICAL HISTORY Past Surgical History Cholecystectomy, Cataract Removal, Hysterectomy, Other (right shoulder; PEG with removal; breast biopsies; repair of deviated septum, bioprosthetic aortic valve replacement with bypass surgery last month.) FAMILY HISTORY Family History: Adopted SOCIAL HISTORY Social History Smoke: No ALCOHOL: none Drugs: None Lives: with Family CURRENT MEDICATIONS CURRENT MEDICATIONS Current Medications Medications (Trade) Dose Ordered Sig/Juan Miguel Route PRN Reason Start Time Stop Time Status Last Admin Dose Admin Insulin Human Lispro (HumaLOG) 15 units TIDWMEALS SQ 02/01/19 14:00 02/01/19 13:59 ALLERGIES ALLERGIES: Coded Allergies: adhesive tape (Verified Allergy, Severe, TEARS SKIN, 06/23/18) zolpidem (Verified Allergy, Intermediate, 06/23/18) nitrous oxide (Verified Adverse Reaction, Severe, EYE DAMAGE, 08/06/18) HAS HOLE IN EYE FROM MACULAR DEGENERATION ROS Review of System 14 point ROS conducted with pertinent positives noted above in HPI. PHYSICAL EXAM PHYSICAL EXAM General: Alert, Oriented X3, Cooperative, No acute distress HEENT: Mucous membr. moist/pink Lungs: Clear to auscultation Heart: Regular rate, Normal S1, Normal S2, Other (3/6 systolic murmur) Abdomen: Soft, No tenderness Extremities: No edema, Normal pulses Skin: No breakdown, No significant lesion Neuro: Normal speech, Sensation intact Psych/Mental Status: Mental status NL, Mood NL MUSCULOSKELETAL: Osteoarthritic changes both hands VITALS VITALS Vital Signs Date Time Temp Pulse Resp B/P (MAP) Pulse Ox O2 Delivery O2 Flow Rate FiO2 02/01/19 12:30 97.6 93 18 154/76 (102) 97 Room Air 97.6 LABS Lab: Laboratory Tests Test 02/01/19 12:22 02/01/19 13:55 Glucose (Fingerstick) 414 mg/dL (70-99) White Blood Count 10.3 x10^3/uL (4.0-11.0) Red Blood Count 5.30 x10^6/uL (3.50-5.40) Hemoglobin 15.1 g/dL (12.0-15.5) Hematocrit 45.6 % (36.0-47.0) Mean Corpuscular Volume 86 fL (79-100) Mean Corpuscular Hemoglobin 29 pg (25-35) Mean Corpuscular Hemoglobin Concent 33 g/dL (31-37) Red Cell Distribution Width 14.1 % (11.5-14.5) Platelet Count 145 x10^3/uL (140-400) Neutrophils (%) (Auto) 62 % (31-73) Lymphocytes (%) (Auto) 33 % (24-48) Monocytes (%) (Auto) 5 % (0-9) Eosinophils (%) (Auto) 0 % (0-3) Basophils (%) (Auto) 1 % (0-3) Neutrophils # (Auto) 6.3 x10^3uL (1.8-7.7) Lymphocytes # (Auto) 3.4 x10^3/uL (1.0-4.8) Monocytes # (Auto) 0.5 x10^3/uL (0.0-1.1) Eosinophils # (Auto) 0.0 x10^3/uL (0.0-0.7) Basophils # (Auto) 0.1 x10^3/uL (0.0-0.2) Sodium Level 133 mmol/L (136-145) Potassium Level 5.4 mmol/L (3.5-5.1) Chloride Level 96 mmol/L (98-107) Carbon Dioxide Level 33 mmol/L (21-32) Anion Gap 4 (6-14) Blood Urea Nitrogen 26 mg/dL (7-20) Creatinine 1.3 mg/dL (0.6-1.0) Estimated GFR (Cockcroft-Gault) 40.4 Glucose Level 400 mg/dL (70-99) Calcium Level 10.6 mg/dL (8.5-10.1) ECHOCARDIOGRAM ECHOCARDIOGRAM <Conclusion> The left ventricle is normal size. The left ventricular systolic function is normal and the ejection fraction is within normal range. The Ejection Fraction is 55-60%. There is mild to moderate concentric left ventricular hypertrophy. Normal function of a bioprothetic aortic valve. Calculated aortic valve area is 2.13 cm2 with maximum pressure gradient of 22 mmHg and mean pressure gradient of 12 mmHg. Doppler and Color-flow revealed mild mitral regurgitation. Doppler and Color Flow revealed mild tricuspid regurgitation. There is mild pulmonary hypertension. The PA pressure was estimated at 35 mmHg. DATE: 07/26/18 1432 STRESS TEST STRESS TEST Conclusion 1. Regadenoson cardioisotope stress test did not show any evidence of ischemia or infarct. 2. Normal left ventricular systolic function with ejection fraction calculated at 73%. 3. Low risk for cardiac events. DATE: 02/12/18 1205 HEART CATH HEART CATH FINDINGS 1Coronary angiography: a. The left main coronary artery arose from the left sinus of Valsalva, gave rise to the left anterior descending and left circumflex arteries and did not show any significant stenosis. b. The left anterior descending artery itself did not show any significant stenosis. The diagonal branch showed 50% proximal segment stenosis. c. The left circumflex artery was a codominant vessel that did not show any significant stenosis. d. The right coronary artery was a codominant vessel arising from the right sinus of Valsalva that did showed 80% stenosis in the proximal to midsegment. Conclusion Single-vessel coronary artery disease Recommendations Consider saphenous vein graft to the right coronary artery during surgical aortic valve replacement procedure. We will discuss with CT surgery. DATE: 05/29/1827 ASSESSMENT/PLAN ASSESSMENT/PLAN 1. Weakness/falls/dizziness 2. PAFIB; presently SR. Patient reports tachycardiac/palpitations yesterday with activity. On Eliquis for stroke prophylaxis 3. CAD s/p single-vessel CABG with SVG to RCA (06/2018). Stable 4. Severe s/p bioprosthetic AVR (06/2018) 5. PAM 6. Hyperkalemia 7. Hypertension; slightly elevated 8. Hyperlipidemia; statin 9. Diabetes, II. uncontrolled. as per PCP 10. H/o right parietal lobe CVA Recommendations EKG TSH Orthostatic HR/BP If no significant orthostatic hypotension noted, increase BB for better rate control Echo to assess LV systolic function and aortic valve Secondary prevention measures Overall poor candidate for OAC given recurrent fall. Eliquis was initially discontinued, but resume due to acute CVA. R/b of ASA versus and Eliquis discussed with patient. Would like to discuss further with PCP. Consider outpatient referral for JENN closure device. DONALD CASTRO MD 02/01/192056: CARDIAC CONSULT ASSESSMENT/PLAN ASSESSMENT/PLAN Patient seen and examined. Agree with PROGRAM DIRECTOR AIR TALENT's assessment and plan. Check orthostatics CAD and AVR status appear stable Check 2D echo to assess bioprosthetic valve function Plan outpatient event monitor to assess arrhythmia burden Agree with outpatient referral for JENN closure by EP Thank you for your consultation GABRIELA VALERIO APRN Feb 01, 2019 14:26 DONALD CASTRO MD Feb 01, 2019 20:57
--- NOTE | 2019-02-01 14:33 | EKG ---
[facility] [address] [place] [address] Test Date: 2019-02-01 Test Time: 14:27:12 Pat Name: TEJAS RICE Department: Room: 207 1 Gender: F Preventive Maintenance Coordinator: JYOTI : 1945 Requested By: ZEINA RUBIO Order Number: [id number] Reading MD: Joe Cardenas MD Measurements Intervals [place] Rate: 92 P: -58 DC: 126 QRS: -42 QRSD: 104 T: 131 QT: 358 QTc: 447 Interpretive Statements SUPRAVENTRICULAR RHYTHM LEFT ATRIAL ABNORMALITY ABNORMAL LEFT AXIS DEVIATION LVH WITH REPOLARIZATION ABNORMALITY CANNOT RULE OUT LATERAL ISCHEMIA Electronically Signed On 02-05-2019 14:53:17 CDT by Joe Cardenas MD
[2019-02-01 15:00] VITALS: BP 133/63
[2019-02-01] MEDS: rOPINIRole 1 MG TABLET. PO SCH ×2 (15:28→21:10)
[2019-02-01] MEDS: GABAPENTIN 300 MG CAPSULE. PO SCH ×2 (15:28→21:11)
[2019-02-01 17:03] LABS: BILIRUBIN,URINE NEGATIVE (NEG); CLARITY,URINE CLEAR; COLOR,URINE YELLOW; NITRITE,URINE NEGATIVE (NEG); PROTEIN,URINE NEGATIVE (NEG-TRACE); UROBILINOGEN,URINE 0.2 mg/dL (0.2 mg/dL)
[2019-02-01 17:14] LABS: BACTERIA,URINE FEW /HPF (0-FEW); RBC,URINE 0 /HPF (0-2); SQUAMOUS EPITHELIAL CELL,UR OCC /LPF
[2019-02-01] MEDS: metFORMIN 500 MG TABLET PO SCH (17:38)
[2019-02-01 18:15] LABS: CHOLESTEROL/HDL RATIO 4.9
[2019-02-01 19:40] VITALS: BP 117/56
--- NOTE | 2019-02-01 20:24 | HP ---
ADMIT DATE: CHIEF COMPLAINT AND HISTORY OF PRESENT ILLNESS: This is a 73-year-old white female is well known to me from followup in the office. The patient was seen in the office on the day of admission with several complaints including a fall, the day prior to admission, she was quite weak at times with walking with shortness of breath with exertion, had noticed her balance seemed to be worse. She had had another fall a few days prior to the one yesterday. After one of the falls, she checked her vital signs on her machine and found her pulse to be at 149. She has had other times where she is seen recently at this level or higher. Her average blood sugar as we were trying to adjust insulin levels over the last 7 days has been 489. With this combination, we thought that she probably was having some sort of arrhythmia, likely AFib, which she has had before. She was admitted for telemetry monitoring, cardiological consultation and insulin adjustment to try to get her sugars under control. PAST MEDICAL HISTORY: Remarkable for longstanding diabetes mellitus, which has been less than optimally controlled at times due to her depression and not taking medicines on a regular basis. She has a history of paroxysmal AFib. She is status post aortic valve replacement with a tissue valve. She has hyperlipidemia, hypertension, musculoskeletal chest pain following her open heart surgery. She has bipolar depression. She has peripheral neuropathy with balance issues as a result of that as well as some restless legs syndrome. MEDICATIONS: Brought with the patient, listed on the computer and have been addressed. I am going to increase her long-acting insulin at 50 units at bedtime, first orders. ALLERGIES: HER ALLERGIES INCLUDE INSULIN. SOCIAL HISTORY: She is , nonsmoker, nondrinker, does not use drugs. Lives at home with her daughter and son in [facility]. FAMILY HISTORY: Noncontributory. REVIEW OF SYSTEMS: Those mentioned above. PHYSICAL EXAMINATION: GENERAL: She is well-developed, well-nourished white female, in no acute distress at rest in my office. VITAL SIGNS: Blood pressure is 159/95, pulse is 92 and regular, O2 sat is 99. HEENT: Look for glasses. NECK: Supple, without any thyromegaly. CHEST: Clear to auscultation and percussion. HEART: Regular rate and rhythm without S3, S4 or murmur. ABDOMEN: Soft, nontender, without hepatosplenomegaly or masses. EXTREMITIES: Without cyanosis, clubbing or edema. NEUROLOGIC: Other than the neuropathy findings are intact. IMPRESSION: 1. Recent falls with decreased balance and spells of shortness of breath and weakness associated with tachycardia as evidenced by her blood pressure machine at home, likely related to atrial fibrillation with her history. 2. Extreme hyperglycemia as the patient reportedly taking her medicines as directed. 3. Multiple other problems listed above. PLAN: The patient will be admitted. Insulin will be adjusted to control sugars. Cardiology will be asked to see her in consultation. Therapy will be asked to evaluate her. She will be maintained on telemetry, looking for any arrhythmias and the patient will be monitored, managed and treated appropriately. ZEINA RUBIO MD DR: MANUEL/carlo JOB#: [id number] / [id number]
[2019-02-01] MEDS ORDERED: INSULIN GLARGINE 300 UNITS/3 ML INSULN.PEN. SQ SCH (21:00)
[2019-02-01] MEDS: APIXABAN 5 MG TABLET. PO SCH (21:10)
[2019-02-01] MEDS: ATORVASTATIN CALCIUM 20 MG TABLET PO SCH (21:10)
[2019-02-01] MEDS: DESVENLAFAXINE 25 MG TAB.ER.24H PO SCH (21:10)
[2019-02-01 22:50] VITALS: BP 130/66
[2019-02-02] VITALS (13 sets, daily range): BP systolic 84–167; BP diastolic 49–75
[2019-02-02] MEDS: rOPINIRole 1 MG TABLET. PO SCH ×3 (09:00→20:26)
[2019-02-02] MEDS: DULoxetine HCL 30 MG CAPSULE.DR PO SCH (09:00)
[2019-02-02] MEDS: ARIPiprazole 2 MG TABLET PO SCH (09:00)
[2019-02-02] MEDS: LOSARTAN POTASSIUM 50 MG TABLET. PO SCH (09:03)
[2019-02-02] MEDS: CALCIUM CARBONATE 500 MG TABLET PO SCH (09:03)
[2019-02-02] MEDS: GABAPENTIN 300 MG CAPSULE. PO SCH ×3 (09:04→20:25)
[2019-02-02] MEDS: APIXABAN 5 MG TABLET. PO SCH ×2 (09:04→20:25)
[2019-02-02] MEDS: METOPROLOL TART IMMED RELEASE 50 MG TABLET. PO SCH ×2 (09:04→20:31)
[2019-02-02] MEDS: metFORMIN 500 MG TABLET PO SCH ×2 (09:04→17:00)
[2019-02-02] MEDS: CYANOCOBALAMIN (VITAMIN B-12) 1,000 MCG TABLET. PO SCH (09:04)
[2019-02-02] MEDS: AMITRIPTYLINE HCL 10 MG TABLET. PO SCH (09:05)
[2019-02-02] MEDS: DESVENLAFAXINE 25 MG TAB.ER.24H PO SCH ×2 (09:05→20:25)
[2019-02-02] MEDS: ASPIRIN CHEWABLE 81 MG TABLET. PO SCH (09:05)
[2019-02-02] MEDS: INSULIN LISPRO 300 UNITS/3 ML INSULN.PEN. SQ SCH ×3 (09:12→16:57)
--- NOTE | 2019-02-02 11:27 | CARD ---
MR#: [id number] Date of Study: 02/02/2019 Ordering Physician: GABRIELA VALERIO, Referring Physician: ZEINA RUBIO Tech: Justa Allen [facility] APPROVED REPORT EXAM: LIMITED Two-dimensional and M-mode echocardiogram with Doppler and color Doppler. Other Information Quality : AverageHR: 98bpm Rhythm : Other INDICATION Aortic Valve Disease 2D DIMENSIONS RVDd2.7 (2.9-3.5cm)Left Atrium(2D)3.2 (1.6-4.0cm) IVSd1.5 (0.7-1.1cm)Aortic Root(2D)2.4 (2.0-3.7cm) LVDd3.3 (3.9-5.9cm)LVOT Diameter1.8 (1.8-2.4cm) PWd1.0 (0.7-1.1cm)LVDs2.2 (2.5-4.0cm) FS (%) 33.8 %SV27.3 ml LVEF(%)63.9 (>50%) Aortic Valve AoV Peak Ralph.256.6cm/sAoV VTI39.7cm AO Peak GR.26.3mmHgLVOT Peak Ralph.138.4cm/s AO Mean GR.16mmHgAVA (VMAX)1.33cm2 DIOR (VTI)1.40cm2 Mitral Valve MV E Suaujrjp86.8cm/sMV E Peak Gr.6mmHg MV DECEL [id number] A Ortjoqqf117.4cm/s MV E Mean Gr.3mmHgE/A Ratio0.5 LEFT VENTRICLE The left ventricle cavity is small. There is mild to moderate concentric left ventricular hypertrophy . The left ventricular systolic function is normal. The Ejection Fraction is 60-65%. Septal motion co nsistent with post-operative state. RIGHT VENTRICLE The right ventricle is normal size. There is normal right ventricular wall thickness. The right ventr icular systolic function is normal. ATRIA The left atrium size is normal. The right atrium size is normal. The interatrial septum is intact wit h no evidence for an atrial septal defect or patent foramen ovale as noted on 2-D or Doppler imaging. AORTIC VALVE Aortic valve is prosthetic. Doppler and Color Flow revealed no significant aortic regurgitation. Ther e is no significant aortic valvular stenosis. Calculated aortic valve area is 1.4cm2 with maximum pre ssure gradient of 26 mmHg and mean pressure gradient of 17 mmHg. There is a Bovine aortic valve prost hesis. The prosthetic aortic valve appears well seated. Bioprosthesis leaflets are not well visualize d. MITRAL VALVE Mitral annular calcification is moderate. There is no evidence of mitral valve prolapse. There is no mitral valve stenosis. TRICUSPID VALVE The tricuspid valve is normal in structure and function. Doppler and Color Flow revealed no tricuspid valve regurgitation noted. There is no tricuspid valve prolapse or vegetation. There is no tricuspid valve stenosis. PULMONIC VALVE The pulmonic valve is not well visualized. GREAT VESSELS The aortic root is normal in size. The ascending aorta is normal in size. PERICARDIAL EFFUSION There is no evidence of significant pericardial effusion. Critical Notification Critical Value: No <Conclusion> The left ventricular systolic function is normal. The Ejection Fraction is 60-65%. Septal motion consistent with post-operative state. Bioprosthetic aortic valve appears well seated and functioning well. There is no evidence of significant pericardial effusion. Signed by : Mateus Webb, Electronically Approved : 02/02/2019 11:26:49
--- NOTE | 2019-02-02 12:16 | PDOC ---
PRATIBHA MURDOCK SNOW TECHNICIAN 02/02/19 1216: CARDIO Progress Notes Date and Time Date of Service 02/02/2019 Time of Evaluation 1200 Subjective Subjective: No Chest Pain, No shortness of breath, No Palpitations Vitals Vitals Vital Signs Date Time Temp Pulse Resp B/P (MAP) Pulse Ox O2 Delivery O2 Flow Rate FiO2 02/02/19 11:03 102 95/55 (68) 02/02/19 11:01 97.9 16 98 Room Air 97.9 Weight Weight [ ] Input and Output Intake and Output Intake and Output 02/02/19 07:00 Intake Total 200 ml Output Total 225 ml Balance -25 ml Intake Oral 200 ml Output Urine Total 225 ml Laboratory Labs Laboratory Tests Test 02/01/19 12:22 02/01/19 13:55 02/01/19 15:54 02/01/19 16:34 Glucose (Fingerstick) 414 mg/dL (70-99) 366 mg/dL (70-99) White Blood Count 10.3 x10^3/uL (4.0-11.0) Red Blood Count 5.30 x10^6/uL (3.50-5.40) Hemoglobin 15.1 g/dL (12.0-15.5) Hematocrit 45.6 % (36.0-47.0) Mean Corpuscular Volume 86 fL (79-100) Mean Corpuscular Hemoglobin 29 pg (25-35) Mean Corpuscular Hemoglobin Concent 33 g/dL (31-37) Red Cell Distribution Width 14.1 % (11.5-14.5) Platelet Count 145 x10^3/uL (140-400) Neutrophils (%) (Auto) 62 % (31-73) Lymphocytes (%) (Auto) 33 % (24-48) Monocytes (%) (Auto) 5 % (0-9) Eosinophils (%) (Auto) 0 % (0-3) Basophils (%) (Auto) 1 % (0-3) Neutrophils # (Auto) 6.3 x10^3uL (1.8-7.7) Lymphocytes # (Auto) 3.4 x10^3/uL (1.0-4.8) Monocytes # (Auto) 0.5 x10^3/uL (0.0-1.1) Eosinophils # (Auto) 0.0 x10^3/uL (0.0-0.7) Basophils # (Auto) 0.1 x10^3/uL (0.0-0.2) Sodium Level 133 mmol/L (136-145) Potassium Level 5.4 mmol/L (3.5-5.1) Chloride Level 96 mmol/L (98-107) Carbon Dioxide Level 33 mmol/L (21-32) Anion Gap 4 (6-14) Blood Urea Nitrogen 26 mg/dL (7-20) Creatinine 1.3 mg/dL (0.6-1.0) Estimated GFR (Cockcroft-Gault) 40.4 Glucose Level 400 mg/dL (70-99) Calcium Level 10.6 mg/dL (8.5-10.1) Triglycerides Level 244 mg/dL (0-150) Cholesterol Level 168 mg/dL (0-200) LDL Cholesterol, Calculated 85 mg/dL (0-100) VLDL Cholesterol, Calculated 49 mg/dL (0-40) Non-HDL Cholesterol Calculated 134 mg/dL (0-129) HDL Cholesterol 34 mg/dL (40-60) Cholesterol/HDL Ratio 4.9 Thyroid Stimulating Hormone (TSH) 0.644 uIU/mL (0.358-3.74) Urine Color Yellow Urine Clarity Clear Urine pH 5.0 Urine Specific [place] >=1.030 Urine Protein Negative mg/dL (NEG-TRACE) Urine Glucose (UA) >=1000 mg/dL (NEG) Urine Ketones (Stick) Negative mg/dL (NEG) Urine Blood Negative (NEG) Urine Nitrite Negative (NEG) Urine Bilirubin Negative (NEG) Urine Urobilinogen Dipstick 0.2 mg/dL (0.2 mg/dL) Urine Leukocyte Esterase Negative (NEG) Urine RBC 0 /HPF (0-2) Urine WBC 1-4 /HPF (0-4) Urine Squamous Epithelial Cells Occ /LPF Urine Bacteria Few /HPF (0-FEW) Test 02/01/19 20:54 02/02/19 07:20 Glucose (Fingerstick) 217 mg/dL (70-99) 249 mg/dL (70-99) Physical Exam HEENT: Neck Supple W Full Motion Chest: Symmetric LUNGS: Clear to Auscultation Heart: S1S2, RRR Abdomen: Soft N/T Extremities: No Calf Tenderness Neurology: alert, oriented, follow commands Assessment Assessment 1. Weakness/falls/dizziness: possibly r/t to orthostasis + 2. PAFIB; presently SR. Patient reports tachycardiac/palpitations yesterday with activity. On Eliquis for stroke prophylaxis 3. CAD s/p single-vessel CABG with SVG to RCA (06/2018). Stable 4. Severe s/p bioprosthetic AVR (06/2018): EF nml, AV stable. 5. PAM/hyperkalemia 6. Hypertension; controlled 8. Hyperlipidemia; statin 9. Diabetes, II. uncontrolled. as per PCP 10. H/o right parietal lobe CVA Recommendations 1. Compression stockings, abd binder. IVF. Decrease losartan and note BP trend. 2. BMP and Mg stat. Hold ARB and metop if BP is low and K is still up. Check Mg 3. Secondary prevention measures 4. Overall poor candidate for OAC given recurrent falls. Eliquis was initially discontinued, but resume due to acute CVA. Continue eliquis for now 5. Will refer to EP for JENN closure device as she is not a good candidate for alf anticoagulation. DONALD CASTRO MD 02/03/19 0952: CARDIO Progress Notes Assessment Assessment Patient seen and examined 02/02/19. Agree with STENCILING MACHINE TENDER's assessment and plan. CAD, AVR status clinically stable Maintaining sinus rhythm Plan for outpatient referral to EP for JENN occlusion PRATIBHA MURDOCK SNOW TECHNICIAN Feb 02, 2019 12:16 DONALD CASTRO MD Feb 03, 2019 09:52
[2019-02-02 13:06] LABS: CALCIUM 10.5 mg/dL (8.5-10.1); CREATININE 1.2 mg/dL (0.6-1.0); GFR 44.3
--- NOTE | 2019-02-02 14:53 | NUR ---
SS following for discharge planning. SS reviewed pt chart. Pt is from home and is currently on room air. PT/OT ordered. SS will await PT/OT evaluations and recommendations and will proceed accordingly.
--- NOTE | 2019-02-02 14:58 | PN ---
DATE: 02/02/2019 LOCATION: She is in room 207. SUBJECTIVE: The patient is awake, alert, has no current symptoms, lying in bed. OBJECTIVE: VITAL SIGNS: Stable. She is afebrile. No significant arrhythmias since admission. Initial CBC was within normal limits. Blood sugar on admission was 414 and does come down overnight with increase in the amount of insulin with a fasting sugar of 249 this morning. This will be increased once again. CHEST: Clear. HEART: Regular. ABDOMEN: Benign. Cardiology help appreciated. ASSESSMENT: 1. Spells of weakness and fall, likely related arrhythmia with tachycardia during the spells. 2. Extreme hyperglycemia, improving. PLAN: Await cardiology's final input, therapy to evaluate increased her long-acting insulin tonight further up this to 60. ZEINA RUBIO MD DR: MANUEL/carlo JOB#: [id number] / [id number]
[2019-02-02] MEDS ORDERED: ANTI-COAG MONITOR BY PHARMACY. MC PRN (15:30)
[2019-02-02] MEDS ORDERED: MAGNESIUM SULFATE 2GM 50 ML IV ONE (15:30)
[2019-02-02] MEDS: ATORVASTATIN CALCIUM 20 MG TABLET PO SCH (20:26)
[2019-02-02] MEDS: INSULIN GLARGINE 300 UNITS/3 ML INSULN.PEN. SQ SCH (20:39)
[2019-02-03] VITALS (9 sets, daily range): BP systolic 121–163; BP diastolic 57–82
[2019-02-03] MEDS: INSULIN LISPRO 300 UNITS/3 ML INSULN.PEN. SQ SCH ×3 (08:00→17:00)
[2019-02-03] MEDS ORDERED: INSU100I13 SQ (08:29)
--- NOTE | 2019-02-03 08:30 | SNU/HH DC ---
DISCHARGE ORDERS DISCHARGE INFORMATION: DISCHARGE DATE: Feb 03, 2019 CONDITION ON DISCHARGE: Stable CODE STATUS: Code Status: Full PRISON: SNF STAY <30 DAYS: Yes HOSPICE: HOSPICE: No HOSPICE EVAL & TREAT: No LTAC: ADMIT TO LTAC: No POST DISCHARGE ORDERS: ACTIVITY ORDERS: Activity as tolerated WEIGHT BEARING STATUS: No restrictions DIET AFTER DISCHARGE: ADA WOUND/INCISION CARE: No wound care needed CHECKS AFTER DISCHARGE: CHECKS AFTER DISCHARGE: Check blood press - daily, Check blood sugar, ac/hs, Weigh Yourself Daily TREATMENT/EQUIPMENT ORDERS: ADAPTIVE EQUIPMENT NEEDED: None Physical Therapy For: Evalulation/Treatment Occupational Therapy For: Evaluation/Treatment DISCHARGE MEDICATIONS: Home Meds Reported Medications Insulin Detemir (LEVEMIR) 100 Unit/1 Ml Vial, 50 UNIT SQ HS for , VIAL 02/01/19 Amitriptyline Hcl (AMITRIPTYLINE HCL) 10 Mg Tablet, 10 MG PO DAILY for , TAB 02/01/19 Calcium Carbonate (CALCIUM CARBONATE) 500 Mg Tablet, 500 MG PO DAILY for , TAB 02/01/19 Metoprolol Tartrate (METOPROLOL TARTRATE) 50 Mg Tablet, 50 MG PO BID for FOR HYPERTENSION, #60 TAB 0 Refills 02/01/19 Apixaban (ELIQUIS) 5 Mg Tablet, 5 MG PO BID for , TAB 02/01/19 Losartan Potassium (LOSARTAN POTASSIUM) 100 Mg Tablet, 100 MG PO DAILY for HYPERTENSION, TAB 02/01/19 Atorvastatin Calcium (ATORVASTATIN CALCIUM) 20 Mg Tablet, 20 MG PO HS for FOR CHOLESTEROL, #30 TAB 0 Refills 02/01/19 Gabapentin (GABAPENTIN) 600 Mg Tablet, 300 MG PO TID for NEUROGENIC PAIN, TAB 02/01/19 Aspirin (ASPIRIN) 81 Mg Tab.chew, 81 MG PO DAILY for , TAB.CHEW 02/01/19 Insulin Glargine,Hum.rec.anlog (LANTUS SOLOSTAR) 100 Unit/1 Ml Insuln.pen, 35 UNIT SQ QHS, #15 ML 3 Refills 07/24/18 Ropinirole Hcl (ROPINIROLE HCL) 2 Mg Tablet, 2 MG PO TID for 30 Days, #90 TAB 06/16/18 Cyanocobalamin (Vitamin B-12) (VITAMIN B-12) 1,000 Mcg Tablet, 1 TAB PO DAILY, #30 TAB 5 Refills 05/29/18 Aripiprazole (ABILIFY) 2 Mg Tablet, 2 MG PO DAILY, TAB 01/19/18 Desvenlafaxine Succinate (PRISTIQ ER) 50 Mg Tab.er.24h, 100 MG PO BID for , #30 TAB 5 Refills 01/19/18 Insulin Lispro (HUMALOG) 100 Unit/1 Ml Cartridge, 15 UNIT SQ TIDAC PRN for SEE COMMENTS, EACH 07/11/16 Metformin Hcl (METFORMIN HCL) 500 Mg Tablet, 1 TAB PO BID for , #60 TAB 3 Refills 07/11/16 Discontinued Reported Medications Aspirin (ASPIRIN) 325 Mg Tablet, 1 TAB PO DAILY, #90 TAB 3 Refills 05/29/18 ZEINA RUBIO MD Feb 03, 2019 08:30
[2019-02-03] MEDS: rOPINIRole 1 MG TABLET. PO SCH ×3 (08:48→20:56)
[2019-02-03] MEDS: CYANOCOBALAMIN (VITAMIN B-12) 1,000 MCG TABLET. PO SCH (08:48)
[2019-02-03] MEDS: ASPIRIN CHEWABLE 81 MG TABLET. PO SCH (08:48)
[2019-02-03] MEDS: CALCIUM CARBONATE 500 MG TABLET PO SCH (08:48)
[2019-02-03] MEDS: metFORMIN 500 MG TABLET PO SCH ×2 (08:48→17:26)
[2019-02-03] MEDS: DESVENLAFAXINE 25 MG TAB.ER.24H PO SCH ×2 (08:48→20:56)
[2019-02-03] MEDS: AMITRIPTYLINE HCL 10 MG TABLET. PO SCH (08:49)
[2019-02-03] MEDS: APIXABAN 5 MG TABLET. PO SCH ×2 (08:49→20:56)
[2019-02-03] MEDS: METOPROLOL TART IMMED RELEASE 50 MG TABLET. PO SCH ×2 (08:49→20:56)
[2019-02-03] MEDS: LOSARTAN POTASSIUM 25 MG TABLET. PO SCH (08:50)
[2019-02-03] MEDS: GABAPENTIN 300 MG CAPSULE. PO SCH ×3 (08:50→20:56)
[2019-02-03] MEDS: ARIPiprazole 2 MG TABLET PO SCH (09:47)
--- NOTE | 2019-02-03 11:05 | NUR ---
SS following up with discharge planning. PT/OT recommended senior care unit. Discharge order on the chart for senior care unit. SS met with pt to discuss senior care unit. Pt reported that her first choice is [facility], ; fax [phone], and her second choice is [facility], ; fax [phone]. SS phoned and faxed referral to both facilities and both facilities accepted. Pt will need one more midnight in the hospital. Komal from [facility] reported that they could accept pt tomorrow, 02/04/2019. Pt's RN notified.
--- NOTE | 2019-02-03 11:49 | PDOC ---
CARDIO Progress Notes Date and Time Date of Service 02/03/19 Time of Evaluation 1050 Subjective Subjective: No Chest Pain, No shortness of breath, No Palpitations Vitals Vitals Vital Signs Date Time Temp Pulse Resp B/P (MAP) Pulse Ox O2 Delivery O2 Flow Rate FiO2 02/03/19 10:55 98.1 64 14 121/57 (78) 97 98.1 02/03/19 08:00 Room Air Weight Weight [ ] Input and Output Intake and Output Intake and Output 02/03/19 07:00 Intake Total 1200 ml Output Total 700 ml Balance 500 ml Intake Oral 1200 ml Output Urine Total 700 ml # Voids 2 Laboratory Labs Laboratory Tests Test 02/02/19 12:05 02/02/19 12:40 02/02/19 15:23 02/02/19 16:33 Glucose (Fingerstick) 209 mg/dL (70-99) 84 mg/dL (70-99) 123 mg/dL (70-99) Sodium Level 138 mmol/L (136-145) Potassium Level 4.0 mmol/L (3.5-5.1) Chloride Level 100 mmol/L (98-107) Carbon Dioxide Level 32 mmol/L (21-32) Anion Gap 6 (6-14) Blood Urea Nitrogen 25 mg/dL (7-20) Creatinine 1.2 mg/dL (0.6-1.0) Estimated GFR (Cockcroft-Gault) 44.3 Glucose Level 207 mg/dL (70-99) Calcium Level 10.5 mg/dL (8.5-10.1) Magnesium Level 1.6 mg/dL (1.8-2.4) Test 02/02/19 20:32 02/03/19 08:16 02/03/19 11:22 Glucose (Fingerstick) 241 mg/dL (70-99) 121 mg/dL (70-99) 179 mg/dL (70-99) Physical Exam HEENT: Neck Supple W Full Motion Chest: Symmetric LUNGS: Clear to Auscultation Heart: S1S2, RRR Abdomen: Soft N/T Extremities: No Calf Tenderness Neurology: alert, oriented, follow commands Assessment Assessment 1. Weakness/falls/dizziness 2. Orthostatic hypotension 2. PAFIB; presently SR. On Eliquis for stroke prophylaxis 3. CAD s/p single-vessel CABG with SVG to RCA (06/2018). Stable 4. Severe s/p bioprosthetic AVR (06/2018): EF nml, AV stable. 5. PAM/hyperkalemia. improved 6. Hypertension; controlled 8. Hyperlipidemia; statin 9. Diabetes, II. uncontrolled. as per PCP 10. H/o right parietal lobe CVA Recommendations Secondary prevention measures BB for rate control Compression stockings. Abdominal binder PRN Continue Eliquis for now; will refer to EP for JENN closure device as she is not a good candidate for fpc anticoagulation. GABRIELA VALERIO APRN Feb 03, 2019 11:49
--- NOTE | 2019-02-03 13:58 | PN ---
DATE: 02/03/2019 SUBJECTIVE: She is in room 207. SUBJECTIVE: The patient is awake, alert, denies any current complaints. OBJECTIVE: VITAL SIGNS: Stable. She is afebrile. She has had some significant orthostatic changes on testing and has an abdominal binder in place per Cardiology today for the same. She has had no arrhythmias to date. CHEST: Clear. HEART: Regular. ABDOMEN: Benign. LABORATORY DATA: Sugars have been much better and we would leave her current doses of insulin. She did get as low as 84 yesterday and felt somewhat hypoglycemic with this. IMPRESSION: 1. Weakness with falls and tachycardia, orthostatic versus arrhythmia driven. 2. Diabetes with extreme hyperglycemia, much improved. PLAN: Continue present care. We will put in a SNU evaluation as Therapy recommends the same. Otherwise, same. ZEINA RUBIO MD DR: MANUEL/carlo JOB#: [id number] / [id number]
[2019-02-03] MEDS: ATORVASTATIN CALCIUM 20 MG TABLET PO SCH (20:56)
[2019-02-03] MEDS: INSULIN GLARGINE 300 UNITS/3 ML INSULN.PEN. SQ SCH (21:00)
[2019-02-03] MEDS: ACETAMINOPHEN 325 MG TABLET. PO PRN (23:33)
[2019-02-04 03:00] VITALS: BP 155/92
[2019-02-04 07:00] VITALS: BP 135/58
--- NOTE | 2019-02-04 07:57 | PDOC ---
Provider Note Provider Note [id number] FROILAN CHILDERS MD Feb 04, 2019 07:57
[2019-02-04] MEDS: INSULIN LISPRO 300 UNITS/3 ML INSULN.PEN. SQ SCH ×3 (08:00→17:31)
[2019-02-04] MEDS: GABAPENTIN 300 MG CAPSULE. PO SCH ×2 (08:41→14:07)
[2019-02-04] MEDS: ARIPiprazole 2 MG TABLET PO SCH (08:41)
[2019-02-04] MEDS: ASPIRIN CHEWABLE 81 MG TABLET. PO SCH (08:41)
[2019-02-04] MEDS: rOPINIRole 1 MG TABLET. PO SCH ×2 (08:41→14:07)
[2019-02-04] MEDS: DESVENLAFAXINE 25 MG TAB.ER.24H PO SCH (08:41)
[2019-02-04] MEDS: AMITRIPTYLINE HCL 10 MG TABLET. PO SCH (08:42)
[2019-02-04] MEDS: CYANOCOBALAMIN (VITAMIN B-12) 1,000 MCG TABLET. PO SCH (08:42)
[2019-02-04] MEDS: LOSARTAN POTASSIUM 25 MG TABLET. PO SCH (08:42)
[2019-02-04] MEDS: metFORMIN 500 MG TABLET PO SCH ×2 (08:42→17:05)
[2019-02-04] MEDS: APIXABAN 5 MG TABLET. PO SCH (08:42)
[2019-02-04] MEDS: METOPROLOL TART IMMED RELEASE 50 MG TABLET. PO SCH (08:42)
[2019-02-04] MEDS: CALCIUM CARBONATE 500 MG TABLET PO SCH (08:43)
--- NOTE | 2019-02-04 10:20 | NUR ---
SS following up with discharge planning. Discharge order on the chart for [facility]. Dr. Burroughs finalized medications but has not completed the discharge continuing plan of care since medications have been finalized to show the correct medications. SS will await updated discharge continuing plan of care and will proceed accordingly. Case chemical waste management technician and management notified.
[2019-02-04 10:45] VITALS: BP 119/56
--- NOTE | 2019-02-04 11:13 | DS ---
DATE OF DISCHARGE: 02/04/2019 HOSPITAL SUMMARY: A 73-year-old white female with history of atrial fibrillation, came in with weakness and fatigue and blood pressure was mildly low. Her potassium was elevated at 5.4 on admission with BUN of 26, creatinine 1.3 and these improved with just reducing the losartan dose. TSH normal. Blood sugars were high on admission, but increasing insulin doses brought her sugars down very nicely. No new x-rays were done. She was seen by Cardiology and medications were continued and she was felt to be appropriate for rehab transfer for supportive care. She takes Eliquis for chronic atrial fibrillation and is considering a left atrial closure procedure as she is not a particularly good candidate for long-term anticoagulation. FINAL DIAGNOSES: 1. Severe hyperkalemia secondary to medications. 2. Poorly controlled type 2 diabetes mellitus. 3. Paroxysmal atrial fibrillation. OPERATIONS, PROCEDURES, COMPLICATIONS: None. CONSULTATIONS: Dr. Cobb's group. DISPOSITION: All meds remain the same, Eliquis for anticoagulation and insulin is ordered, rehab transfer when bed available. FROILAN CHILDERS MD DR: JANE/carlo JOB#: [id number] / [id number]
[2019-02-04] MEDS: ACETAMINOPHEN 325 MG TABLET. PO PRN (14:07)
[2019-02-04 15:00] VITALS: BP 138/63
--- NOTE | 2019-02-04 15:00 | NUR ---
SS following up with discharge planning. SS received notification from [facility] that bed is no longer available. SS met with pt and daughter in room and notified and they reported that they would now like to go to [facility], ; fax [phone]. [facility] and they reported that they would accept paper medication reconciliation for pt. Pt's RN completed tov orders. SS phoned and faxed discharge orders to [facility], ; fax [phone]. Pt will discharge today and go to [facility] at 1700[facility] Pt, pt's daughter, and pt's RN notified.
--- NOTE | 2019-02-04 18:32 | NUR ---
At 1815 called [facility] to receive update on transportation. Received return call that transportation dispatcher is 30 minutes away.
--- NOTE | 2019-02-04 19:14 | NUR ---
Discharge Note: NIKOLAS RICE JONESBOROUGH Discharge instructions reviewed with [facility]. All questions have been answered and understanding verbalized. Discontinued lines and drains: Peripheral IV intact. Patient discharged to [facility] with via Wheelchair
== END 2019-02-04 19:00 | DRG 682 ==
LOC: 2 NORTH 12:00
PROVIDERS: ADMIT Family Medicine; ATTEND Family Medicine
DX: N17.9 Acute kidney failure, unspecified (principal); E11.00 Type 2 diabetes mellitus with hyperosmolarity without nonketotic hyperglycemic-hyperosmolar coma (NKHHC); F31.30 Bipolar disorder, current episode depressed, mild or moderate severity, unspecified; E87.5 Hyperkalemia; I48.0 Paroxysmal atrial fibrillation; I95.1 Orthostatic hypotension; E11.65 Type 2 diabetes mellitus with hyperglycemia; F41.9 Anxiety disorder, unspecified; M19.90 Unspecified osteoarthritis, unspecified site; I10 Essential (primary) hypertension; E78.5 Hyperlipidemia, unspecified; G25.81 Restless legs syndrome; J45.909 Unspecified asthma, uncomplicated; K21.9 Gastro-esophageal reflux disease without esophagitis; K31.84 Gastroparesis; E11.43 Type 2 diabetes mellitus with diabetic autonomic (poly)neuropathy; I25.10 Atherosclerotic heart disease of native coronary artery without angina pectoris; I48.2 Chronic atrial fibrillation; E11.319 Type 2 diabetes mellitus with unspecified diabetic retinopathy without macular edema; E11.42 Type 2 diabetes mellitus with diabetic polyneuropathy; T50.905A Adverse effect of unspecified drugs, medicaments and biological substances, initial encounter; Y92.89 Other specified places as the place of occurrence of the external cause; Z95.3 Presence of xenogenic heart valve; Z88.8 Allergy status to other drugs, medicaments and biological substances; Z90.710 Acquired absence of both cervix and uterus; Z98.49 Cataract extraction status, unspecified eye; Z95.1 Presence of aortocoronary bypass graft; Z91.048 Other nonmedicinal substance allergy status; Z79.01 Long term (current) use of anticoagulants; Z86.73 Personal history of transient ischemic attack (TIA), and cerebral infarction without residual deficits
CPT/HCPCS: 36415; 80048; 80061; 81001; 82962; 83735; 84443; 85025; 93005; 93308; 93320; 93325; J1815; J3475; 97110; 97116; 97530; 97535

== ENCOUNTER → 2019-03-18 | Outpatient (CLI) | payer MEDICARE, OTHER ==
[~2019-03-18] MED LIST changes: +AMIT10TA PO; +ASPI-630 PO; +CALC500T31 PO; +CONTRAST GIVEN. MC PRN; +GABA600T7 PO; +INSU100V13 SQ; +IOHEXOL 240 MG/ML 50ML VIAL. PO ONE; +IOHEXOL 300 MG/ML 100ML VIAL. IV ONE; +LOSA100T14 PO; +METO50TA6 PO
--- NOTE | 2019-03-18 15:12 | RAD ---
CT ABD PELV W/ORAL IV CONTRAST Indication: Left lower quadrant pain for 2 months. Exposure: One or more of the following individualized dose reduction techniques were utilized for this examination: 1. Automated exposure control 2. Adjustment of the mA and/or kV according to patient size 3. Use of iterative reconstruction technique. Technique: Intravenous contrast was given. Oral contrast was given. No prior study for comparison FINDINGS: Lung bases are clear. Mild coronary calcifications. Liver unremarkable. Spleen unremarkable with small granulomatous calcifications. No adrenal mass. Pancreas appears unremarkable. Kidneys demonstrate symmetric enhancement. Kidneys demonstrate a slightly lobulated morphology. No evidence of hydronephrosis. No evidence of adrenal mass. Gallbladder not visualized. Aorta is calcified without aneurysm. No significant pathologic lymph node enlargement. No significant small bowel distention. Colonic diverticulosis. Moderate retained stool in the colon. No evidence of acute colitis. The appendix appears normal. No significant effusion or evidence of pneumoperitoneum. Urinary bladder appears unremarkable. No evidence of pelvic mass. Vertebral body height is intact. There are mild degenerative changes of the spine. Mild degenerative changes at the skeletal pelvis. IMPRESSION: 1. Diverticulosis without evidence of acute colitis. 2. Mild retained stool throughout the colon and rectum. Electronically signed by: Ben Camara MD (03/18/2019 3:09 PM) [facility]
== END | disposition home or self-care (01) ==
LOC: CT 13:12
PROVIDERS: ATTEND Family Medicine
DX: K57.30 Diverticulosis of large intestine without perforation or abscess without bleeding (principal); K56.41 Fecal impaction; I25.10 Atherosclerotic heart disease of native coronary artery without angina pectoris; I70.0 Atherosclerosis of aorta; M47.819 Spondylosis without myelopathy or radiculopathy, site unspecified; E11.9 Type 2 diabetes mellitus without complications
CPT/HCPCS: 74177; Q9966; Q9967

== ENCOUNTER → 2019-04-23 | Outpatient (CLI) | payer MEDICARE, OTHER ==
[2019-04-06 12:54] VITALS: BP 165/70
[~2019-04-23] MED LIST changes: +ASPI81TA59 PO; +CELE200C PO; -CONTRAST GIVEN. MC PRN; +CYAN-25 PO; -CYAN10005 PO; +INSU100I27 SQ; -IOHEXOL 240 MG/ML 50ML VIAL. PO ONE; -IOHEXOL 300 MG/ML 100ML VIAL. IV ONE; +LOSA1TAB25 PO; +MIDO2.5T PO
--- NOTE | 2019-04-23 12:50 | RESP ---
DATE OF SERVICE: 04/23/2019 ATTENDING PHYSICIAN: Dr. Lino. The patient's FVC was 2.57, which is 83% predicted; FEV1 1.87, which is 80% predicted; FEF 25-75 was 69% predicted. The FEV1/FVC ratio was normal. No bronchodilators were given. Lung volume showed increased total lung capacity of 132% predicted and residual volume of 215% predicted. Diffusion capacity is normal. IMPRESSION: 1. Only small airway dysfunction observed on spirometry. 2. No bronchodilators given. 3. Lung volumes consistent with hyperinflation and air trapping. 4. Normal diffusion capacity. SANTOSH KEENE MD DR: BEN/carlo JOB#: [id number] / [id number] ZEINA Ghosh MD, SABATO MD
== END | disposition home or self-care (01) ==
LOC: PF 08:24
PROVIDERS: ATTEND Family Medicine
DX: R06.02 Shortness of breath (principal); Z77.22 Contact with and (suspected) exposure to environmental tobacco smoke (acute) (chronic); Z95.1 Presence of aortocoronary bypass graft
CPT/HCPCS: 94010; 94729

== ENCOUNTER 2019-04-26 08:36 | Outpatient (CLI) | payer MEDICARE, OTHER ==
[2019-04-26] VITALS (10 sets, daily range): BP systolic 103–145; BP diastolic 49–68
[~2019-04-26] VITALS: Ht 165.1 cm; Wt 70.3 kg
[2019-04-26 08:59] LABS: RED BLOOD COUNT 5.06 x10^6/uL (3.50-5.40); WHITE BLOOD COUNT 9.3 x10^3/uL (4.0-11.0)
[2019-04-26 09:06] LABS: CALCIUM 10.1 mg/dL (8.5-10.1); CREATININE 1.2 mg/dL (0.6-1.0); GFR 44.3; POTASSIUM 4.1 mmol/L (3.5-5.1)
[2019-04-26 09:18] LABS: PROTHROMBIN TIME PATIENT 14.1 SEC (11.7-14.0)
[2019-04-26] MEDS ORDERED: LIDOCAINE 1% PF 2 ML VIAL. ONE (10:10)
[2019-04-26] MEDS ORDERED: LIDOCAINE 1% Multi-Dose 20 ML VIAL. ONE (10:14)
[2019-04-26] MEDS ORDERED: fentaNYL PF VIAL 100 MCG/2 ML VIAL ONE (10:18)
[2019-04-26] MEDS ORDERED: MIDAZOLAM HCL/PF 5 MG/5 ML VIAL. ONE (10:18)
[2019-04-26] MEDS ORDERED: IODIXANOL 320 MG/ML 100 ML VIAL. ONE (10:32)
[2019-04-26] MEDS ORDERED: IODIXANOL 320 MG/ML 100 ML VIAL. IART ONE (10:45)
[2019-04-26] MEDS ORDERED: fentaNYL PF VIAL 100 MCG/2 ML VIAL IV ONE (10:45)
[2019-04-26] MEDS ORDERED: LIDOCAINE 1% Multi-Dose 20 ML VIAL. INJ ONE (10:45)
[2019-04-26] MEDS ORDERED: MIDAZOLAM HCL/PF 5 MG/5 ML VIAL. IV ONE (10:45)
--- NOTE | 2019-04-26 11:38 | CARD ---
MR#: [id number] Date of Study: 04/26/2019 Ordering Physician: DONALD CASTRO, Referring Physician: DONALD CASTRO Tech: RT Edwige (R) APPROVED REPORT Technologist: Radha Andres RT (R) Nurse: Keehsa Hurley R.N. Procedure(s) performed: Right and left heart catheterization, selective coronary and bypass graft ang iography Fluoro time: 9.6 min Dose: 91Kaff0 Contrast: 106cc Moderate sedation: 48min INDICATION The indication(s) include : Refractory dyspnea on exertion of uncertain etiology. [facility] Clinical Frailty Scale [facility] Clinical Frailty Scale: Mildly Frail Heart Failure Heart Failure: No PROCEDURE NARRATIVE After explaining the risks, benefits and alternative options, informed consent was obtained from grant ent. Patient was brought to the cardiac [facility] and her right groin was prepped and draped in the us ual fashion. 20 mL of 2% lidocaine was infiltrated into the skin and subcutaneous tissues for local a nesthesia. Arterial and venous accesses were obtained in the right common femoral artery and vein res pectively and 6 and 8 [place]er sheaths inserted. A 7.5 [place]er Deposit-Aj catheter was advanced under flu oroscopy guidance and intracardiac pressures, oxygen saturations and cardiac output by thermodilution method were measured. Subsequently, 6 [place]er JL 4 and 6 [place] JR4 catheters placed to perform selec tive angiography of the left and right coronary arteries. 6 [place] multipurpose catheter was used to engage what looked like stub of completely occluded saphenous vein graft to the right coronary artery and angiography was performed. 6 [place] pigtail catheter was positioned in the ascending aorta and a ortogram was performed to make sure we were not missing any grafts. Left ventriculography was not per formed since recent 2-D echo showed LVEF 55-60%. Patient part of the procedure well. Hemostasis was a chieved using Angio-Seal and manual compression. There were no immediate complications. FINDINGS A. RIGHT HEART CATHTERIZATION 1. Intracardiac pressures: Mean right atrial pressure 9 mmHg, right ventricular pressure 36/6 mmHg, pulmonary artery pressure 43/11 mmHg with a mean PA pressure of 25 mmHg and pulmonary capillary wedg e pressure of 13 mmHg. 2. Oxygen saturations: Right atrium 67.4%, pulmonary artery 69.3% and femoral arterial sheath 93.5% . No evidence of intracardiac shunt. 3. Cardiac output by thermodilution method 3.47 L/m and by Lanie method 3.4 L/m. B. LEFT HEART CATHETERIZATION Coronary and bypass graft angiography 1. The left main coronary artery arose from the left sinus of Valsalva, gave rise to the left anteri or descending and left circumflex arteries and did not show any significant stenosis. 2. The left anterior descending artery did not show any significant stenosis. 3. The left circumflex artery was a large caliber vessel and showed 30% stenosis in the second obtus e marginal branch. 4. The right coronary artery was a small to medium caliber vessel that showed 70% stenosis in the mi dsegment. 5. The saphenous vein graft to the right coronary artery is completely occluded proximally. Conclusion 1. 70% stenosis involving small to medium caliber right coronary artery with complete chronic occlus ion of saphenous vein graft to the right coronary artery. No significant lesions involving the left a nterior descending artery or the large caliber left circumflex artery were noted. 2. No significant pulmonary hypertension. 3. No evidence of intracardiac shunt. 4. Normal left ventricle systolic function on recent 2-D echo. Recommendations Medical Therapy Signed by : Donald Castro, Electronically Approved : 04/26/2019 11:38:21
[2019-04-26] MEDS ORDERED: IV 1/2 NORMAL SALINE 1,000 ML IV SCH (11:39)
--- NOTE | 2019-04-26 11:39 | PDOC ---
MODERATE SEDATION ASSESSMENT RISKS/ALTERNATIVES Risks/Alternatives Risks and alternatives of this type of sedation and procedure discussed with: RISK/ALTERNATIVES: Patient H & P ON CHART H & P H & P on chart and reviewed for co-morbid conditions and appropriate labs. H&P ON CHART: Yes STATUS PREG STATUS ASSESSED: N/A MEDS/ALLERGIES REVIEWED Meds/Allergies Reviewed Medications and Allergies including time and route of recently administered narcotics and sedatives. MEDS/ALLERGIES REVIEWED: Yes ASA RATING ASA RATING: III AIRWAY ASSESSMENT Airway Assessment Airway patency, oral function limitations, presence of caps, crowns, dentures, partials, and ability to extend neck assessed. AIRWAY ASSESSMENT: Yes MALLAMPATI SCORE MALLAMPATI SCORE: II PRE-SEDATION ASSESSMENT PRE-SEDATION ASSESSMENT: Yes DONALD CASTRO MD Apr 26, 2019 11:39
[2019-04-26] MEDS ORDERED: NITROGLYCERIN SUBLINGUAL 0.4 MG BOTTLE OF 25. SL PRN (11:45)
--- NOTE | 2019-04-26 13:15 | NUR ---
Nursing Pt from flat to sitting position, after 2 hour flat period. Pt alert and oriented x 3, c/o some pain at groin site. Groin site soft, no hematoma or bleeding noted. PAUL RN
--- NOTE | 2019-04-26 14:20 | NUR ---
Discharge Note: TEJAS RICE Discharge instructions and discharge home medications reviewed with Patient and a copy given. All questions have been answered and understanding verbalized. The following instructions and handouts were given: groin site care, sedation, angioseal information Discontinued lines and drains: IV site from R forearm intact. R groin site dressing dry and intact. Walker taken to car by daughter. Patient discharged to home with daughter via wheelchair. PAUL NOBLE Addendum: 04/26/19 at 1443 by EDI ARRIETA RN Amended: Links added.
== END 2019-04-26 14:30 | disposition home or self-care (01) ==
LOC: CCL 08:36
PROVIDERS: ATTEND Internal Medicine Cardiovascular Disease
DX: I25.810 Atherosclerosis of coronary artery bypass graft(s) without angina pectoris (principal); I10 Essential (primary) hypertension; E78.00 Pure hypercholesterolemia, unspecified; E11.40 Type 2 diabetes mellitus with diabetic neuropathy, unspecified; I48.91 Unspecified atrial fibrillation; F32.9 Major depressive disorder, single episode, unspecified; E11.319 Type 2 diabetes mellitus with unspecified diabetic retinopathy without macular edema; Z95.1 Presence of aortocoronary bypass graft; Z90.49 Acquired absence of other specified parts of digestive tract; Z90.710 Acquired absence of both cervix and uterus; Z98.49 Cataract extraction status, unspecified eye; Z96.1 Presence of intraocular lens; Z88.8 Allergy status to other drugs, medicaments and biological substances
CPT/HCPCS: 36415; 80048; 85027; 85610; 93461; 93567; 99152; 99153; C1760; C1769; C1773; C1892; J1644; J2250; J3010; Q9967; 93457; G0269; C1771

== ENCOUNTER → 2019-07-30 | Outpatient (CLI) | payer MEDICARE, OTHER ==
[2019-06-17 11:10] VITALS: BP 153/79
[~2019-07-30] MED LIST changes: +INSU100I11 SQ
--- NOTE | 2019-07-30 09:24 | RAD ---
LUMBAR SPINE WO CONTRAST Date: 07/30/2019 8:15 AM Indication: Low back pain with left lower extremity radiculopathy Comparison: Lumbar spine radiograph 03/29/2018. MRI 05/06/2014. Technique: Multi-planar multi-weighted magnetic resonance imaging of the lumbar spine was performed without intravenous contrast using the standard lumbar spine protocol. FINDINGS: The lumbar spine is normally aligned. No acute fracture. The intervertebral discs are normal. Scattered vertebral body hemangiomas. The conus terminates at a normal level. No abnormal signal is seen within the visualized distal spinal cord. No clumping of intrathecal nerve roots. No soft tissue abnormality in the visualized abdomen or pelvis. T12-L1: No facet arthropathy. No significant spinal stenosis or neural foraminal narrowing. L1-L2: No facet arthropathy. No significant spinal stenosis or neural foraminal narrowing. L2-L3: No facet arthropathy. No significant spinal stenosis or neural foraminal narrowing. L3-L4: Mild facet arthropathy. No significant spinal stenosis or neural foraminal narrowing. L4-L5: Disc bulge. Moderate facet arthropathy. Ligament flavum thickening. Mild spinal stenosis. A 4 mm synovial cyst projects into the left neural foramen from the facet joint and abuts the exiting left L4 nerve root. Mild left neural foraminal narrowing. L5-S1: Annular tear. Moderate facet arthropathy. No significant spinal stenosis or neural foraminal narrowing. IMPRESSION: Mild lumbar spondylosis, detailed level by level above. Of note, a small synovial cyst projecting into the left neural foramen at L4-5 abuts the exiting left L4 nerve root. Correlate for left L4 radiculopathy. Electronically signed by: Reece Zhang MD (07/30/2019 9:21 AM) [facility]
== END | disposition home or self-care (01) ==
LOC: MRI 08:16
PROVIDERS: ATTEND Family Medicine
DX: M51.16 Intervertebral disc disorders with radiculopathy, lumbar region (principal); M48.061 Spinal stenosis, lumbar region without neurogenic claudication; M12.88 Other specific arthropathies, not elsewhere classified, other specified site; M47.26 Other spondylosis with radiculopathy, lumbar region; M71.38 Other bursal cyst, other site
CPT/HCPCS: 72148

== ENCOUNTER → 2019-08-25 | Outpatient (CLI) | payer MEDICARE, OTHER ==
[2019-06-17 11:10] VITALS: BP 153/79
[~2019-08-25] MED LIST changes: +CLOP75TA PO; +DOCU-109 PO; +HYDR-3164 PO; +SOTA80TA48 PO
[2019-08-25 13:19] LABS: BASO # 0.1 x10^3/uL (0.0-0.2); BASO % 1 % (0-3); EOS % 0 % (0-3); HEMATOCRIT 43.8 % (36.0-47.0); HEMOGLOBIN 14.9 g/dL (12.0-15.5); LYMPH # 2.9 x10^3/uL (1.0-4.8); LYMPH % 33 % (24-48); MEAN CORPUSCULAR HEMOGLOBIN 29 pg (25-35); MEAN CORPUSCULAR HGB CONC 34 g/dL (31-37); MEAN CORPUSCULAR VOLUME 86 fL (79-100); MONO # 0.3 x10^3/uL (0.0-1.1); MONO % 4 % (0-9); NEUT # 5.4 x10^3/uL (1.8-7.7); NEUT % 62 % (31-73); PLATELET COUNT 157 x10^3/uL (140-400); RED BLOOD COUNT 5.09 x10^6/uL (3.50-5.40); RED CELL DISTRIBUTION WIDTH 13.5 % (11.5-14.5); WHITE BLOOD COUNT 8.7 x10^3/uL (4.0-11.0)
[2019-08-25 13:34] LABS: ALBUMIN 3.6 g/dL (3.4-5.0); ALBUMIN/GLOBULIN RATIO 0.9 (1.0-1.7); CALCIUM 9.5 mg/dL (8.5-10.1); GFR 54.7; POTASSIUM 3.4 mmol/L (3.5-5.1); TOTAL BILIRUBIN 0.8 mg/dL (0.2-1.0); TOTAL PROTEIN 7.7 g/dL (6.4-8.2)
[2019-08-27 00:07] LABS: HEMOGLOBIN A1C 8.7 % (4.8-5.6)
== END | disposition home or self-care (01) ==
LOC: SURGPAT 12:27
PROVIDERS: ATTEND Neurological Surgery
DX: Z01.818 Encounter for other preprocedural examination (principal); M71.38 Other bursal cyst, other site; M54.16 Radiculopathy, lumbar region; Z88.8 Allergy status to other drugs, medicaments and biological substances
CPT/HCPCS: 36415; 80053; 83036; 85025; 87641

== ENCOUNTER → 2019-09-21 | Outpatient (CLI) | payer MEDICARE, OTHER ==
[2019-08-30 14:51] VITALS: BP 156/86
--- NOTE | 2019-09-22 10:22 | RAD ---
Examination: CT CHEST WO CONTRAST History: Lung nodule Comparison/Correlation: 06/16/2018, 04/02/2019 CT chest without contrast Findings: Axial images of the chest were obtained without contrast. Sagittal and coronal reformatted images were provided. Sternal wires are present. Sternal wires are present. Prosthetic aortic valve is present. Mitral annular calcification noted. Loop recorder device is noted at the anterior left mid thoracic level. Tracheobronchial tree is unremarkable. No pneumothorax. No pleural or pericardial effusion. There is a 0.34 cm diameter at the anterior left apical region similar in size. Right apical pleural thickening is noted. Partially visualized upper abdomen is unremarkable. Nonenlarged upper abdominal lymph nodes are stable. The Calcified granulomas visible in the spleen. Calcific density anterior to the gastroesophageal junction is present. Bony structures are unremarkable. Impression: Groundglass infiltrate previously described involving the left upper lung as resolved. No suspicious new infiltrate. PQRS Compliance Statement: One or more of the following individualized dose reduction techniques were utilized for this examination: 1. Automated exposure control 2. Adjustment of the mA and/or kV according to patient size 3. Use of iterative reconstruction technique Electronically signed by: Jordan Latham MD (09/22/2019 10:19 AM) [facility]
== END ==
LOC: CT 11:23
PROVIDERS: ATTEND Internal Medicine Pulmonary Disease
DX: R91.1 Solitary pulmonary nodule (principal); I34.8 Other nonrheumatic mitral valve disorders; I13.0 Hypertensive heart and chronic kidney disease with heart failure and stage 1 through stage 4 chronic kidney disease, or unspecified chronic kidney disease; E11.22 Type 2 diabetes mellitus with diabetic chronic kidney disease; I50.9 Heart failure, unspecified; N18.3 Chronic kidney disease, stage 3 (moderate); E11.40 Type 2 diabetes mellitus with diabetic neuropathy, unspecified; E03.9 Hypothyroidism, unspecified
CPT/HCPCS: 71250

== ENCOUNTER → 2020-05-25 | Outpatient (CLI) | payer MEDICARE, OTHER ==
[2020-02-29 08:17] VITALS: BP 120/74
[~2020-05-25] MED LIST changes: +AMLO5TAB10 PO; -ROPI1TAB2 PO; +ROPI1TAB4 PO; +ROPI2TAB10 PO; -ROPI2TAB4 PO
--- NOTE | 2020-05-25 14:34 | RAD ---
DATE: 05/25/2020 9:12 AM EXAM: MAMMO SHIRLEY SCREENING BILATERAL HISTORY: Screening COMPARISON: 12/22/2018, 01/29/2018 Bilateral CC and MLO views of the breasts were performed. Bilateral breast tomosynthesis was performed in CC and MLO projections. FINDINGS: Breast Density: FATTY The Breast Parenchyma is primarily fatty replaced. Breast parenchyma level density A. Left breast event monitor newly evident No suspicious masses, microcalcifications or architectural distortion is present to suggest malignancy in either breast. The visualized axillae are unremarkable. IMPRESSION: No mammographic evidence of malignancy. BI-RADS CATEGORY: 1 NEGATIVE RECOMMENDED FOLLOW-UP: 12M 12 MONTH FOLLOW-UP Annual screening mammography is recommended, unless clinically indicated sooner based on symptoms or change in physical exam. PQRS compliance statement: Patient information was entered into a reminder system with a target due date for the next mammogram. Mammography is a sensitive method for finding small breast cancers, but it does not detect them all and is not a substitute for careful clinical examination. A negative mammogram does not negate a clinically suspicious finding and should not result in delay in biopsying a clinically suspicious abnormality. "Our facility is accredited by the [employer] Mammography Program."
== END | disposition home or self-care (01) ==
LOC: MAMMO 08:58
PROVIDERS: ATTEND Family Medicine
DX: Z12.31 Encounter for screening mammogram for malignant neoplasm of breast (principal)
CPT/HCPCS: 77063; 77067

== ENCOUNTER 2020-05-29 17:32 | Inpatient (IN) | payer MEDICARE, OTHER ==
[~2020-05-29] VITALS: Ht 165.1 cm; Wt 79.6 kg
[2020-05-29 18:48] LABS: BASO # 0.1 x10^3/uL (0.0-0.2); BASO % 1 % (0-3); EOS % 0 % (0-3); HEMATOCRIT 41.7 % (36.0-47.0); LYMPH # 3.1 x10^3/uL (1.0-4.8); LYMPH % 39 % (24-48); MEAN CORPUSCULAR HEMOGLOBIN 29 pg (25-35); MEAN CORPUSCULAR HGB CONC 34 g/dL (31-37); MEAN CORPUSCULAR VOLUME 88 fL (79-100); MONO # 0.4 x10^3/uL (0.0-1.1); MONO % 5 % (0-9); NEUT # 4.3 x10^3/uL (1.8-7.7); NEUT % 55 % (31-73); PLATELET COUNT 125 x10^3/uL (140-400); RED BLOOD COUNT 4.76 x10^6/uL (3.50-5.40); RED CELL DISTRIBUTION WIDTH 14.9 % (11.5-14.5); WHITE BLOOD COUNT 7.9 x10^3/uL (4.0-11.0)
--- NOTE | 2020-05-29 18:53 | PHYS DOC ---
Past Medical History Past Medical History: A-Fib, Depression, Diabetes-Type II, Hypertension, Other Additional Past Medical Histor: gastroparesis,HEART MURMUR,NEUROPATHY,VALVE REPLACE,MACULAR DEGENERATION Past Surgical History: Angioplasty, Cholecystectomy, Coronary Bypass Surgery, Hysterectomy, Other Additional Past Surgical Histo: G-tube,CATARACT,RT SHOULDER,DEVIATED SEPTUM,LOOP RECORDER Smoking Status: Never Smoker Alcohol Use: None Drug Use: None General Adult EDM: Chief Complaint: NEURO SYMPTOMS/DEFICITS HPI: HPI: Patient is a 74 year old female who presents with complaints of headache. Patient is a very pleasant 74-year-old female who is brought in by EMS after her daughter became concerned that she was having another stroke. Patient tells me that at 7 PM last night she was sitting in her chair when she developed a headache. She reports the headache is bifrontal, sharp and throbbing, associated with photophobia and nausea. Patient states that she has not ever had a headache like this before and infrequently gets headaches. Patient denied any fever, chills or sweats. Patient did state that when she stepped when she stood up she felt dizzy. Her dizziness is described as disequilibrium type. Patient also reported visual disturbances including her visual villanueva flipping over on themselves 180 degrees then 90 degrees and then double vision. Patient denied any scotoma, shapes colors or lines. The headache and the visual disturbances having at the same time. Those have now resolved but the headache continues. Patient has a history of coronary artery disease and has had a previous "TIA". Patient denies any cough, chest pain, abdominal pain, vomiting or diarrhea, fever, chills or sweats change in urination. Review of Systems: Review of Systems: Constitutional: Denies fever or chills. [] Eyes: Denies change in visual acuity. [] HENT: Denies nasal congestion or sore throat. [] Respiratory: Denies cough or shortness of breath. [] Cardiovascular: Denies chest pain or edema. [] GI: Denies abdominal pain, nausea, vomiting, bloody stools or diarrhea. [] : Denies dysuria. [] Musculoskeletal: Denies back pain or joint pain. [] Integument: Denies rash. [] Neurologic: See HPI. [] Endocrine: Denies polyuria or polydipsia. [] Lymphatic: Denies swollen glands. [] Psychiatric: Denies depression or anxiety. [] Heart Score: Risk Factors: Risk Factors: DM, Current or recent (<one month) smoker, HTN, HLP, family history of CAD, obesity. Risk Scores: Score 0 - 3: 2.5% MACE over next 6 weeks - Discharge Home Score 4 - 6: 20.3% MACE over next 6 weeks - Admit for Clinical Observation Score 7 - 10: 72.7% MACE over next 6 weeks - Early Invasive Strategies Allergies: Allergies: Allergies Coded Allergies Type Severity Reaction Last Updated Verified adhesive tape Allergy Severe TEARS SKIN 08/30/19 Yes zolpidem Allergy Intermediate 08/30/19 Yes nitrous oxide Adverse Reaction Severe EYE DAMAGE 08/30/19 Yes Physical Exam: PE: Constitutional: Well developed, well nourished, no acute distress, non-toxic appearance. [] HENT: Normocephalic, atraumatic, bilateral external ears normal, oropharynx moist, no oral exudates, nose normal. [] Eyes: PERRLA, EOMI, conjunctiva normal, no discharge. No nystagmus [] Neck: Normal range of motion, no tenderness, supple, no stridor. [] Cardiovascular:Heart rate regular rhythm, grade 1/6 systolic murmur, no S3 or S4, pulses 1 out of 2 dorsalis pedis bilaterally [] Lungs & Thorax: Bilateral breath sounds clear to auscultation [] Abdomen: Bowel sounds normal, soft, no tenderness, no masses, no pulsatile richard s. [] Skin: Warm, dry, no erythema, no rash. [] Back: No tenderness, no CVA tenderness. [] Extremities: No tenderness, no cyanosis, no clubbing, ROM intact, trace edema. [] Neurologic: Alert and oriented X 3, normal motor function, normal sensory function, no focal deficits noted. [] Psychologic: Affect normal, judgement normal, mood normal. [] Current Patient Data: Labs: Laboratory Tests Test 05/29/20 17:45 Glucose (Fingerstick) 314 mg/dL (70-99) H Vital Signs: Vital Signs Date Time Temp Pulse Resp B/P (MAP) Pulse Ox O2 Delivery O2 Flow Rate FiO2 05/29/20 17:32 98.3 74 16 199/88 (125) 97 Room Air 98.3 EKG: EKG: Heart rate 70 bpm, normal sinus rhythm, left axis deviation, left anterior fascicular block, LVH with repolarization abnormality, abnormal ECG [] Radiology/Procedures: Radiology/Procedures: [] Course & Med Decision Making: Course & Med Decision Making Pertinent Labs and Imaging studies reviewed. (See chart for details) 2034 -the patient was seen and reevaluated. Patient has had improvement on and almost complete resolution of her headache. However given the visual disturbances even though they do sound like a complex migraine we will go ahead and seek admission for MRI 2049-patient was seen and reevaluated. I discussed the case with Dr. Roland her primary care physician. He asked for a neuro consult. I discussed all pertinent CT laboratory and history and physical data. [] Dragon Disclaimer: Dragon Disclaimer: This electronic medical record was generated, in whole or in part, using a voice recognition dictation system. Departure Departure Impression: Primary Impression: Classic migraine with aura Qualified Codes: G43.119 - Migraine with aura, intractable, without status migrainosus Additional Impressions: Hypertensive urgency Diplopia Disposition: ADMITTED INPATIENT Condition: IMPROVED Referrals: ZEINA RUBIO MD (PCP) Justicifation of Admission Dx: Justifications for Admission: Justification of Admission Dx: Yes Hypertension: Cresendo Worsening of Sym NIHSS Stroke Scale NIH Stroke Scale: NIH Stroke Scale Response (Comments) Value Level of Consciousness: 0 Alert/Responsive 0 LOC Questions: 0 Answers both correctly 0 LOC Commands: 0 Performs both tasks 0 Best Gaze: 0 Normal 0 Visual: 0 No visual loss 0 Facial Palsy: 0 Normal, symmetrical 0 Motor - Left Arm 0 No drift 0 Motor - Right Arm 0 No drift 0 Motor - Left Leg 0 No drift 0 Motor: Right Leg 0 No drift 0 Limb Ataxia: 0 Absent 0 Sensory: 0 No loss 0 Best Language: 0 Normal 0 Dysathria: 0 Normal 0 Extinction and Inattention: 0 Normal 0 Total 0 FREIDA DON MD May 29, 2020 18:53
[2020-05-29 19:02] LABS: CALCIUM 9.3 mg/dL (8.5-10.1); CREATININE 0.9 mg/dL (0.6-1.0); GFR 61.5; POTASSIUM 4.5 mmol/L (3.5-5.1)
[2020-05-29 19:06] LABS: PROTHROMBIN TIME PATIENT 12.6 SEC (11.7-14.0)
[2020-05-29 19:08] LABS: ALBUMIN 3.1 g/dL (3.4-5.0); ALBUMIN/GLOBULIN RATIO 0.8 (1.0-1.7); TOTAL BILIRUBIN 0.4 mg/dL (0.2-1.0); TOTAL PROTEIN 6.8 g/dL (6.4-8.2)
--- NOTE | 2020-05-29 19:08 | RAD ---
STUDY: CT head without contrast INDICATION: Double vision. COMPARISON: 02/26/2020 TECHNIQUE: Axial CT imaging through the head without the use of intravenous contrast. Sagittal and coronal reformats were obtained. One or more of the following individualized dose reduction techniques were utilized for this examination: 1. Automated exposure control 2. Adjustment of the mA and/or kV according to patient size 3. Use of iterative reconstruction technique. FINDINGS: No acute intracranial hemorrhage. No mass effect, midline shift or hydrocephalus. Parenchymal volume loss with ex vacuo ventricular prominence is unchanged. No significant progression in the extent of scattered subcortical white matter low-attenuation. Intracranial atherosclerotic calcifications. No newly seen abnormality involving the orbits. Sequela of right mastoidectomy. Normally aerated mastoid air cells on the left. The middle ears are normally aerated. No layering fluid within the visualized paranasal sinuses. Intact calvarium. IMPRESSION: 1. No acute abnormality by CT to account for the patient's symptoms. 2. Chronic findings, as discussed above, are no different from 02/26/2020. Electronically signed by: FREDDY CORTES MD (05/29/2020 7:05 PM) [id number]
--- NOTE | 2020-05-29 19:16 | RAD ---
EXAM: CHEST PA LATERAL INDICATION: Reason: Stroke protocol / Spl. Instructions: / History: . TECHNIQUE: PA and lateral views COMPARISON: 06/10/2019 chest x-ray FINDINGS: Post AVR surgical changes are redemonstrated. A left atrial appendage occlusion device is newly appreciated. Stable event monitor in the left medial breast. The heart size is normal. The great vessels appear unremarkable. There is no hilar or mediastinal mass. The lungs are clear. There is no pleural effusion or pneumothorax. There are no significant osseous abnormalities. IMPRESSION: No active cardiopulmonary disease. Electronically signed by: India Lazcano MD (05/29/2020 7:12 PM) [facility] [place]
[2020-05-29 19:17] LABS: BILIRUBIN,URINE NEGATIVE (NEG); CLARITY,URINE CLEAR; COLOR,URINE YELLOW; NITRITE,URINE NEGATIVE (NEG); PROTEIN,URINE NEGATIVE (NEG-TRACE); UROBILINOGEN,URINE 0.2 mg/dL (0.2 mg/dL)
[2020-05-29 19:27] LABS: BACTERIA,URINE FEW /HPF (0-FEW); RBC,URINE 0 /HPF (0-2); SQUAMOUS EPITHELIAL CELL,UR MANY /LPF; WBC,URINE >40 /HPF (0-4)
[2020-05-29 19:28] LABS: HYALINE CASTS, URINE OCCASIONAL /HPF
[2020-05-29] MEDS ORDERED: LABETALOL 20 MG/4 ML DISP.SYRIN. IVP ONE (20:45)
[2020-05-29] MEDS ORDERED: INSULIN LISPRO 300 UNITS/3 ML VIAL. SQ ONE (20:45)
--- NOTE | 2020-05-29 23:30 | NUR ---
The patient, TEJAS RICE, 74 y/o, F admitted by ZEINA RUBIO MD, was given written information regarding hospital policies, unit procedures and contact persons. Patient was transferred to this room via wheelchair, assisted by ED staff. Valuables were checked and noted. patient is currently laying in bed talking on the room phone. patient denies any needs at this time. this RN will continue to monitor the patient at this time.
[2020-05-30 03:00] VITALS: BP 165/78
[2020-05-30 07:00] VITALS: BP 152/68
--- NOTE | 2020-05-30 07:54 | EKG ---
[facility] [address] [place] [address] Test Date: 2020-05-29 Test Time: 17:42:00 Pat Name: TEJAS RICE Department: Room: Gender: F Carver Hand: : 1945 Requested By: FREIDA DON Order Number: [id number] Reading MD: Measurements Intervals [place] Rate: 70 P: 52 DC: 184 QRS: -47 QRSD: 104 T: 93 QT: 408 QTc: 443 Interpretive Statements SINUS RHYTHM ABNORMAL LEFT AXIS DEVIATION LEFT ANTERIOR FASCICULAR BLOCK LVH WITH REPOLARIZATION ABNORMALITY ABNORMAL ECG RI6.02 No previous ECG available for comparison
--- NOTE | 2020-05-30 08:25 | HP ---
ADMIT DATE: ADMISSION HISTORY AND PHYSICAL CHIEF COMPLAINT AND HISTORY OF PRESENT ILLNESS: This 74-year-old white female is well known to me from followup in the office. The patient's symptoms started the day prior to admission where she in the afternoon was getting out of the chair and had double vision, was off balance and her daughter had trouble understanding her speech. She laid down after being helped to the bedroom by her daughter and within an hour or so, symptoms were pretty much resolved. She then had symptoms on the day of admission that were similar along with numbness of both arms or both sides of her lips and developed a right-sided headache, which was not pounding, but more pressure, but severe and unlike anything she has ever had before. She was admitted through the Emergency Room with the diagnosis of migraine, which she does not have a history of. PAST MEDICAL HISTORY: Remarkable for atrial fibrillation for which she has had a Watchman procedure. She has a history of depression, anxiety, type 2 diabetes, hypertension, neuropathy, diabetic retinopathy, macular degeneration, prior CABG with heart valve replacement, gastroparesis. PAST SURGICAL HISTORY: She has had a prior cholecystectomy, hysterectomy, cataract surgery, prior G-tube. MEDICATIONS: Brought with the patient, listed on the computer and have been addressed. ALLERGIES: SHE IS ALLERGIC TO NITROUS OXIDE, AMBIEN AND ADHESIVE TAPE. SOCIAL HISTORY: She is , nonsmoker, nondrinker, does not abuse drugs. Lives at home with her daughter who is very supportive. FAMILY HISTORY: Noncontributory. REVIEW OF SYSTEMS: As mentioned above. PHYSICAL EXAMINATION: GENERAL: She is a well-developed, well-nourished white female, in no acute distress. VITAL SIGNS: Blood pressures have been elevated since admission, otherwise vitals are stable. HEAD, EYES, EARS, NOSE AND THROAT: Remarkable for glasses. NECK: Supple without adenopathy or thyromegaly. CHEST: Clear to auscultation and percussion. HEART: Regular rate and rhythm without S3, S4, significant murmur. ABDOMEN: Soft, nontender, without hepatosplenomegaly or masses. EXTREMITIES: Without cyanosis, clubbing, edema. NEUROLOGIC: She is intact. LABORATORY DATA: Initial lab is primarily remarkable for a possible urinary tract infection, but she has no symptomatology related to the same. CBC is essentially unremarkable. CMP is remarkable for an albumin of 3.1 and elevated blood sugar of over 300 on admission. Coagulation studies are within normal limits. Urinalysis shows greater than 40 white blood cells per high-power field and she is leukocyte esterase positive. IMPRESSION: Neurological symptomatology as above, which would be consistent with a possible vertebrobasilar event. Headache does make migraine possible. This is all associated with some elevated blood pressure in addition. PLAN: Neurology consultation to help sort this out. Initial CT head is negative for bleed, etc. The patient will be monitored, managed and treated appropriately. ZEINA RUBIO MD DR: MANUEL/carlo JOB#: [id number] / [id number]
[2020-05-30] MEDS: GABAPENTIN 300 MG CAPSULE. PO SCH ×3 (09:00→21:47)
[2020-05-30] MEDS ORDERED: IOHEXOL 300 MG/ML 100ML VIAL. IV ONE (09:00)
[2020-05-30] MEDS ORDERED: CONTRAST GIVEN. MC PRN (09:15)
[2020-05-30 11:08] VITALS: BP 146/68
--- NOTE | 2020-05-30 12:13 | PDOC2 ---
NEUROLOGY CONSULT Date of Service DOS: DATE: 05/30/20 TIME: 12:02 Reason for Consult Reason for Consult: Stroke symptoms Referring Physician Referring Physician: Dr. Lino Source Source: Chart review, Patient History of Present Illness History of Present Illness The patient is a 74-year-old right-handed female brought in by emergency medical services to the emergency department yesterday. At 7 PM the night before she was sitting in her chair when she developed a headache, bifrontal, throbbing, with photophobia and nausea. She has never had migraines. When she got up she had some disequilibrium, visual disturbances with visual villanueva flipping over themselves 180, then 90, then diplopia. There was no numbness, weakness, dysarthria, dysphagia, or cognitive change. She has had a transient ischemic attack in the past, as well as a right parietal stroke.. I follow her in the office for diabetic neuropathy, orthostasis, and gait disorder. Past Medical History Cardiovascular: AFIB, CAD, HTN, Hyperlipidemia, Aortic stenosis CENTRAL NERVOUS SYSTEM: Periperal neuropathy, Other (Restless legs) GI: Other ( gastroparesis) ENT: Other ( diabetic retinopathy) Endocrine: Diabetes Past Surgical History Past Surgical History: Cholecystectomy, CABG, Hysterectomy, Other ( breast biopsy, jejunostomy, deviated septum, pyeloroplasty, diabetic retinopathy surgery, aortic valve replacement, loop recorder, lumbar) Family History Family History: No pertinent hx Social History Social History , no alcohol or tobacco Current Medications Current Medications Current Medications Insulin Human Lispro (HumaLOG) 5 units 1X ONCE SQ Last administered on 05/29/20at 20:53; Start 05/29/20 at 20:45; Stop 05/29/20 at 20:46; Status DC Labetalol HCl (Normodyne Iv Push) 20 mg 1X ONCE IVP Last administered on 05/29/20at 20:48; Start 05/29/20 at 20:45; Stop 05/29/20 at 20:46; Status DC Amlodipine Besylate (Norvasc) 5 mg DAILY PO ; Start 05/30/20 at 09:00 Aripiprazole (Abilify) 5 mg DAILY PO ; Start 05/30/20 at 09:00 Aspirin (Aspirin Chewable) 81 mg DAILY PO ; Start 05/30/20 at 09:00 Atorvastatin Calcium (Lipitor) 20 mg HS PO ; Start 05/30/20 at 21:00 Calcium Carbonate/ Glycine (Oscal) 500 mg DAILY PO ; Start 05/30/20 at 09:00 Metformin HCl (Glucophage) 500 mg BIDWMEALS PO ; Start 05/30/20 at 08:30 Sotalol HCl (Betapace) 80 mg BID PO ; Start 05/30/20 at 09:00 Desvenlafaxine Succinate (Pristiq Er) 100 mg BID PO ; Start 05/30/20 at 09:00 Gabapentin (Neurontin) 300 mg TID PO ; Start 05/30/20 at 09:00 Insulin Glargine (Lantus Syringe) 50 unit QHS SQ ; Start 05/30/20 at 21:00 Ropinirole HCl (Requip) 1 mg QHS PO ; Start 05/30/20 at 21:00 Iohexol (Omnipaque 300 Mg/ml) 75 ml 1X ONCE IV Last administered on 05/30/20at 09:00; Start 05/30/20 at 09:00; Stop 05/30/20 at 09:01; Status DC Info (CONTRAST GIVEN -- Rx MONITORING) 1 each PRN DAILY PRN MC SEE COMMENTS; Start 05/30/20 at 09:15; Stop 06/01/20 at 09:14 Active Scripts Active Amlodipine Besylate 5 Mg Tablet 5 Mg PO DAILY 30 Days Clopidogrel (Clopidogrel Bisulfate) 75 Mg Tablet 75 Mg PO DAILY 30 Days Reported Sotalol (Sotalol Hcl) 80 Mg Tablet 1 Tab PO BID Levemir Flextouch (Insulin Detemir) 100 Unit/1 Ml Insuln.pen 50 Unit SQ HS Calcium Carbonate 500 Mg Tablet 500 Mg PO DAILY Atorvastatin Calcium 20 Mg Tablet 20 Mg PO HS Gabapentin 600 Mg Tablet 300 Mg PO TID Aspirin 81 Mg Tab.chew 81 Mg PO DAILY Ropinirole Hcl 2 Mg Tablet 1 Mg PO HS 30 Days Abilify (Aripiprazole) 2 Mg Tablet 5 Mg PO DAILY Pristiq Er (Desvenlafaxine Succinate) 50 Mg Tab.er.24h 200 Mg PO DAILY Metformin Hcl 500 Mg Tablet 1 Tab PO BID Allergies Allergies: Coded Allergies: adhesive tape (Verified Allergy, Severe, TEARS SKIN, 08/30/19) zolpidem (Verified Allergy, Intermediate, 08/30/19) nitrous oxide (Verified Adverse Reaction, Severe, EYE DAMAGE, 08/30/19) HAS HOLE IN EYE FROM MACULAR DEGENERATION ROS Review of System Negative for fever, chills, weight loss, shortness of breath, chest pain, indigestion, hematochezia, melena, and dysuria. Full 14-point review of systems is negative. Physical Exam Physical Examination General: Well-developed, well-nourished white female in no acute distress HEENT: Normocephalic andatraumatic. Temporal arteriespulsatile and nontender.Fundosc opic exam unremarkable Neck: Supple without bruit, no meningismus Musculoskeletal: Stability:see neurologic. Gait exam:see neurologic. Tone:see neurologic.Strength:see neurologic. Neurological: Mental Status:intact, orientation, memory, attention span/concentration, language, fund of knowledge normal. Cranial Nerves:Pupils equal and reactive to light, extraocular movements areintact, visual villanueva are full to confrontation. Facial sensation is normal. There is no facial asymmetry. Vestibulo-ocular reflex is intact. Palate elevates and tongue protrudes in midline. All other cranial related problems are negative except as mentioned before.Reflexes:0-1+ and symmetric with flexor plantar responses. Motor:5/5 strength with normal tone and bulk. Coordination:Finger-nose finger and ahch-du-[id number] testing are normal. Rapid alternating movements and fine finger movements are intact. Gait: not tested, usually uses a walker. Sensory: stocking loss. Vitals VITALS Vital Signs Date Time Temp Pulse Resp B/P (MAP) Pulse Ox O2 Delivery O2 Flow Rate FiO2 05/30/20 11:08 97.9 72 18 146/68 (94) 95 Room Air 97.9 Labs Labs Laboratory Tests Test 05/29/20 17:45 05/29/20 17:55 05/29/20 19:05 05/29/20 20:52 Glucose (Fingerstick) 314 mg/dL (70-99) 218 mg/dL (70-99) White Blood Count 7.9 x10^3/uL (4.0-11.0) Red Blood Count 4.76 x10^6/uL (3.50-5.40) Hemoglobin 14.0 g/dL (12.0-15.5) Hematocrit 41.7 % (36.0-47.0) Mean Corpuscular Volume 88 fL (79-100) Mean Corpuscular Hemoglobin 29 pg (25-35) Mean Corpuscular Hemoglobin Concent 34 g/dL (31-37) Red Cell Distribution Width 14.9 % (11.5-14.5) Platelet Count 125 x10^3/uL (140-400) Neutrophils (%) (Auto) 55 % (31-73) Lymphocytes (%) (Auto) 39 % (24-48) Monocytes (%) (Auto) 5 % (0-9) Eosinophils (%) (Auto) 0 % (0-3) Basophils (%) (Auto) 1 % (0-3) Neutrophils # (Auto) 4.3 x10^3/uL (1.8-7.7) Lymphocytes # (Auto) 3.1 x10^3/uL (1.0-4.8) Monocytes # (Auto) 0.4 x10^3/uL (0.0-1.1) Eosinophils # (Auto) 0.0 x10^3/uL (0.0-0.7) Basophils # (Auto) 0.1 x10^3/uL (0.0-0.2) Prothrombin Time 12.6 SEC (11.7-14.0) Prothromb Time International Ratio 1.0 (0.8-1.1) Activated Partial Thromboplast Time 37 SEC (24-38) Sodium Level 138 mmol/L (136-145) Potassium Level 4.5 mmol/L (3.5-5.1) Chloride Level 100 mmol/L (98-107) Carbon Dioxide Level 32 mmol/L (21-32) Anion Gap 6 (6-14) Blood Urea Nitrogen 12 mg/dL (7-20) Creatinine 0.9 mg/dL (0.6-1.0) Estimated GFR (Cockcroft-Gault) 61.5 BUN/Creatinine Ratio 13 (6-20) Glucose Level 344 mg/dL (70-99) Calcium Level 9.3 mg/dL (8.5-10.1) Total Bilirubin 0.4 mg/dL (0.2-1.0) Aspartate Amino Transf (AST/SGOT) 17 U/L (15-37) Alanine Aminotransferase (ALT/SGPT) 25 U/L (14-59) Alkaline Phosphatase 99 U/L (46-116) Troponin I Quantitative < 0.017 ng/mL (0.000-0.055) Total Protein 6.8 g/dL (6.4-8.2) Albumin 3.1 g/dL (3.4-5.0) Albumin/Globulin Ratio 0.8 (1.0-1.7) Urine Collection Type Void Urine Color Yellow Urine Clarity Clear Urine pH 5.0 (<5.0-8.0) Urine Specific [place] 1.020 (1.000-1.030) Urine Protein Negative mg/dL (NEG-TRACE) Urine Glucose (UA) >=1000 mg/dL (NEG) Urine Ketones (Stick) Negative mg/dL (NEG) Urine Blood Negative (NEG) Urine Nitrite Negative (NEG) Urine Bilirubin Negative (NEG) Urine Urobilinogen Dipstick 0.2 mg/dL (0.2 mg/dL) Urine Leukocyte Esterase Moderate (NEG) Urine RBC 0 /HPF (0-2) Urine WBC >40 /HPF (0-4) Urine Squamous Epithelial Cells Many /LPF Urine Bacteria Few /HPF (0-FEW) Urine Hyaline Casts Occasional /HPF Urine Mucus Slight /LPF Test 05/30/20 08:21 05/30/20 11:21 Glucose (Fingerstick) 268 mg/dL (70-99) 233 mg/dL (70-99) Laboratory Tests Test 05/29/20 17:45 05/29/20 17:55 05/29/20 19:05 05/29/20 20:52 Glucose (Fingerstick) 314 mg/dL (70-99) 218 mg/dL (70-99) White Blood Count 7.9 x10^3/uL (4.0-11.0) Red Blood Count 4.76 x10^6/uL (3.50-5.40) Hemoglobin 14.0 g/dL (12.0-15.5) Hematocrit 41.7 % (36.0-47.0) Mean Corpuscular Volume 88 fL (79-100) Mean Corpuscular Hemoglobin 29 pg (25-35) Mean Corpuscular Hemoglobin Concent 34 g/dL (31-37) Red Cell Distribution Width 14.9 % (11.5-14.5) Platelet Count 125 x10^3/uL (140-400) Neutrophils (%) (Auto) 55 % (31-73) Lymphocytes (%) (Auto) 39 % (24-48) Monocytes (%) (Auto) 5 % (0-9) Eosinophils (%) (Auto) 0 % (0-3) Basophils (%) (Auto) 1 % (0-3) Neutrophils # (Auto) 4.3 x10^3/uL (1.8-7.7) Lymphocytes # (Auto) 3.1 x10^3/uL (1.0-4.8) Monocytes # (Auto) 0.4 x10^3/uL (0.0-1.1) Eosinophils # (Auto) 0.0 x10^3/uL (0.0-0.7) Basophils # (Auto) 0.1 x10^3/uL (0.0-0.2) Prothrombin Time 12.6 SEC (11.7-14.0) Prothromb Time International Ratio 1.0 (0.8-1.1) Activated Partial Thromboplast Time 37 SEC (24-38) Sodium Level 138 mmol/L (136-145) Potassium Level 4.5 mmol/L (3.5-5.1) Chloride Level 100 mmol/L (98-107) Carbon Dioxide Level 32 mmol/L (21-32) Anion Gap 6 (6-14) Blood Urea Nitrogen 12 mg/dL (7-20) Creatinine 0.9 mg/dL (0.6-1.0) Estimated GFR (Cockcroft-Gault) 61.5 BUN/Creatinine Ratio 13 (6-20) Glucose Level 344 mg/dL (70-99) Calcium Level 9.3 mg/dL (8.5-10.1) Total Bilirubin 0.4 mg/dL (0.2-1.0) Aspartate Amino Transf (AST/SGOT) 17 U/L (15-37) Alanine Aminotransferase (ALT/SGPT) 25 U/L (14-59) Alkaline Phosphatase 99 U/L (46-116) Troponin I Quantitative < 0.017 ng/mL (0.000-0.055) Total Protein 6.8 g/dL (6.4-8.2) Albumin 3.1 g/dL (3.4-5.0) Albumin/Globulin Ratio 0.8 (1.0-1.7) Urine Collection Type Void Urine Color Yellow Urine Clarity Clear Urine pH 5.0 (<5.0-8.0) Urine Specific [place] 1.020 (1.000-1.030) Urine Protein Negative mg/dL (NEG-TRACE) Urine Glucose (UA) >=1000 mg/dL (NEG) Urine Ketones (Stick) Negative mg/dL (NEG) Urine Blood Negative (NEG) Urine Nitrite Negative (NEG) Urine Bilirubin Negative (NEG) Urine Urobilinogen Dipstick 0.2 mg/dL (0.2 mg/dL) Urine Leukocyte Esterase Moderate (NEG) Urine RBC 0 /HPF (0-2) Urine WBC >40 /HPF (0-4) Urine Squamous Epithelial Cells Many /LPF Urine Bacteria Few /HPF (0-FEW) Urine Hyaline Casts Occasional /HPF Urine Mucus Slight /LPF Test 05/30/20 08:21 05/30/20 11:21 Glucose (Fingerstick) 268 mg/dL (70-99) 233 mg/dL (70-99) Images Images CT head without contrast INDICATION: Double vision. COMPARISON: 02/26/2020 TECHNIQUE: Axial CT imaging through the head without the use of intravenous contrast. Sagittal and coronal reformats were obtained. One or more of the following individualized dose reduction techniques were utilized for this examination: 1. Automated exposure control 2. Adjustment of the mA and/or kV according to patient size 3. Use of iterative reconstruction technique. FINDINGS: No acute intracranial hemorrhage. No mass effect, midline shift or hydrocephalus. Parenchymal volume loss with ex vacuo ventricular prominence is unchanged. No significant progression in the extent of scattered subcortical white matter low-attenuation. Intracranial atherosclerotic calcifications. No newly seen abnormality involving the orbits. Sequela of right mastoidectomy. Normally aerated mastoid air cells on the left. The middle ears are normally aerated. No layering fluid within the visualized paranasal sinuses. Intact calvarium. IMPRESSION: 1. No acute abnormality by CT to account for the patient's symptoms. 2. Chronic findings, as discussed above, are no different from 02/26/2020. Assessment/Plan Assessment/Plan Impression: Strange neurological symptoms explained by vertebrobasilar insufficiency or new onset migraine, no obvious metabolic disturbance to explain. She has returned her baseline exam. Diabetic neuropathy Restless legs Orthostatic hypotension Recommendations: She presented far outside the window to consider alteplase She cannot have an MRI because of her cardiac recorder CT angiogram Continue aspirin and statin She follows closely with her short piece handler, is due for a DHEERAJ repeat in July, I see no need to repeat that here. She is not a good candidate for long-term anticoagulation given her gait disorder, anyway. Thus, if patient is stable and CT angiogram unremarkable, she can be discharged as soon as later today Follow-up with me as scheduled on 07/21/20. Thank you for letting me help the patient's care. JAMES ABDI MD May 30, 2020 12:13
[2020-05-30] MEDS: ARIPiprazole 5 MG TABLET PO SCH (12:41)
[2020-05-30] MEDS: amLODIPine BESYLATE 5 MG TABLET PO SCH (12:41)
[2020-05-30] MEDS: SOTALOL 80 MG TABLET. PO SCH ×2 (12:41→21:47)
[2020-05-30] MEDS: ASPIRIN CHEWABLE 81 MG TABLET. PO SCH (12:41)
[2020-05-30] MEDS: metFORMIN 500 MG TABLET PO SCH ×2 (12:41→17:07)
[2020-05-30] MEDS: CALCIUM CARBONATE 500 MG TABLET PO SCH (12:41)
[2020-05-30] MEDS: DESVENLAFAXINE 25 MG TAB.ER.24H PO SCH ×2 (12:42→21:47)
--- NOTE | 2020-05-30 13:44 | RAD ---
EXAM: 1. CTA HEAD WITH AND WITHOUT CONTRAST. 2. CTA NECK WITH AND WITHOUT CONTRAST. HISTORY: Vertebrobasilar transient ischemic attack. TECHNIQUE: Computed tomographic angiography of the head and neck was performed before and after the intravenous administration of iodinated contrast. Three-dimensional reconstructions were also performed. One or more of the following individualized dose reduction techniques were utilized for this examination: 1. Automated exposure control. 2. Adjustment of the mA and/or kV according to patient size. 3. Use of iterative reconstruction technique. COMPARISON: None. FINDINGS: Angiographic findings: There is an aberrant right subclavian artery passing posterior to the esophagus. There is a common origin of the common carotid arteries. There are mild atherosclerotic calcifications along the aortic arch without arch vessel stenosis. Both common carotid arteries are patent without stenosis. Both internal carotid arteries are patent without stenosis. The external carotid systems are patent. There are moderate atherosclerotic calcifications along the left distal vertebral artery at the foramen magnum resulting in only mild stenosis. The left vertebral artery is dominant. Both contribute to the basilar. The basilar artery is patent. The left P1 segment is small. There is a dual supply to the left posterior cerebral artery from the P1 segment. There is moderate stenosis along the left posterior communicating artery. There is also moderate to severe stenosis along the left proximal P2 segment. The right posterior cerebral artery also has a dual supply mostly from the posterior communicating artery. There is no clear stenosis. There are mild atherosclerotic calcifications along the cavernous internal carotid arteries without stenosis. The middle cerebral arteries are patent. The anterior cerebral arteries are patent. The anterior communicating artery is visualized. Nonangiographic findings: There is no intracranial hemorrhage. Mild hypoattenuation within the periventricular white matter indicates mild chronic small vessel ischemic white matter change. The ventricles are normal in size and position. The paranasal sinuses appear clear. There are changes of bilateral cataract surgery. There are changes of right partial mastoidectomy. Bone windows reveal median sternotomy changes. The lung apices demonstrate biapical pleural-parenchymal scarring with small nodular foci measuring <4 mm, likely benign. The parotid glands and submandibular glands are unremarkable. Small nodules bilaterally in the thyroid measures <5 mm and are likely benign. There are no laryngeal or pharyngeal masses. There are no pathologically enlarged lymph nodes. IMPRESSION: 1. Mild stenosis along the left distal vertebral artery. 2. Multifocal stenosis along the left posterior communicating artery and P2 segment is up to moderate/severe. 3. Aberrant right subclavian artery passing posterior to the esophagus. Common origin of the common carotid arteries. PQRS Compliance Statement - Stenosis calculations for CT, MR and conventional angiography are based upon measurement of the distal ICA diameter in accordance with the NASCET methodology. Stenosis calculations for carotid ultrasound studies are derived from validated velocity criteria which are known to correlate with the NASCET methodology. Electronically signed by: Yesenia Licea MD (05/30/2020 1:41 PM) [id number]
[2020-05-30] MEDS ORDERED: ACETAMINOPHEN 325 MG TABLET. PO PRN (14:15)
[2020-05-30 15:00] VITALS: BP 147/84
--- NOTE | 2020-05-30 17:28 | NUR ---
SW following. Reviewed chart and discussed with RN. Pt from home with family. Spoke with pt who stated her daughter, son-in-law and 2 grandchildren live with her. Pt on oral medications. Pt on room air. PT recommendation is for HH at discharge. SW to follow.
[2020-05-30 19:00] VITALS: BP 177/74
--- NOTE | 2020-05-30 19:29 | NUR ---
Called Dr. Lino's office to make him aware patient was okay to discharge per neurology. No answer, left a message with the office. Still awaiting a call back.
[2020-05-30] MEDS ORDERED: INSULIN GLARGINE SYRINGE. SQ SCH (21:00)
[2020-05-30] MEDS ORDERED: rOPINIRole 1 MG TABLET. PO SCH (21:00)
[2020-05-30] MEDS ORDERED: ATORVASTATIN CALCIUM 20 MG TABLET PO SCH (21:00)
--- NOTE | 2020-05-30 21:54 | NUR ---
Pt does not want full dose of 50 units of Lantus this HS. She only wants 35 units. Pharmacy notified of new dose for this HS, new label sent up and dose verified with another RN.
[2020-05-30] MEDS ORDERED: INSULIN GLARGINE SYRINGE. SQ ONE (22:00)
[2020-05-30 23:00] VITALS: BP 153/87
[2020-05-31 07:00] VITALS: BP 139/66
[2020-05-31 08:28] LABS: CHOLESTEROL/HDL RATIO 3.6
[2020-05-31] MEDS: CALCIUM CARBONATE 500 MG TABLET PO SCH (08:45)
[2020-05-31] MEDS: ARIPiprazole 5 MG TABLET PO SCH (08:45)
[2020-05-31] MEDS: SOTALOL 80 MG TABLET. PO SCH (08:45)
[2020-05-31] MEDS: metFORMIN 500 MG TABLET PO SCH (08:45)
[2020-05-31] MEDS: DESVENLAFAXINE 25 MG TAB.ER.24H PO SCH (08:45)
[2020-05-31] MEDS: GABAPENTIN 300 MG CAPSULE. PO SCH (08:45)
[2020-05-31] MEDS: amLODIPine BESYLATE 5 MG TABLET PO SCH (08:45)
[2020-05-31] MEDS: ASPIRIN CHEWABLE 81 MG TABLET. PO SCH (08:45)
--- NOTE | 2020-05-31 10:10 | PDOC ---
PROGRESS NOTES Objective Vital Signs Date Time Temp Pulse Resp B/P (MAP) Pulse Ox O2 Delivery O2 Flow Rate FiO2 05/31/20 08:45 69 139/66 05/31/20 08:05 Room Air 05/31/20 07:00 97.9 17 97 97.9 Intake and Output 05/31/20 07:00 Output Total 351 ml Balance -351 ml Output Urine Total 351 ml # Voids 3 # Bowel Movements 1 Review of Relevant I have reviewed the following items raul (where applicable) has been applied. Labs Laboratory Tests Test 05/29/20 17:45 05/29/20 17:55 05/29/20 19:05 05/29/20 20:52 Glucose (Fingerstick) 314 mg/dL (70-99) 218 mg/dL (70-99) White Blood Count 7.9 x10^3/uL (4.0-11.0) Red Blood Count 4.76 x10^6/uL (3.50-5.40) Hemoglobin 14.0 g/dL (12.0-15.5) Hematocrit 41.7 % (36.0-47.0) Mean Corpuscular Volume 88 fL (79-100) Mean Corpuscular Hemoglobin 29 pg (25-35) Mean Corpuscular Hemoglobin Concent 34 g/dL (31-37) Red Cell Distribution Width 14.9 % (11.5-14.5) Platelet Count 125 x10^3/uL (140-400) Neutrophils (%) (Auto) 55 % (31-73) Lymphocytes (%) (Auto) 39 % (24-48) Monocytes (%) (Auto) 5 % (0-9) Eosinophils (%) (Auto) 0 % (0-3) Basophils (%) (Auto) 1 % (0-3) Neutrophils # (Auto) 4.3 x10^3/uL (1.8-7.7) Lymphocytes # (Auto) 3.1 x10^3/uL (1.0-4.8) Monocytes # (Auto) 0.4 x10^3/uL (0.0-1.1) Eosinophils # (Auto) 0.0 x10^3/uL (0.0-0.7) Basophils # (Auto) 0.1 x10^3/uL (0.0-0.2) Prothrombin Time 12.6 SEC (11.7-14.0) Prothromb Time International Ratio 1.0 (0.8-1.1) Activated Partial Thromboplast Time 37 SEC (24-38) Sodium Level 138 mmol/L (136-145) Potassium Level 4.5 mmol/L (3.5-5.1) Chloride Level 100 mmol/L (98-107) Carbon Dioxide Level 32 mmol/L (21-32) Anion Gap 6 (6-14) Blood Urea Nitrogen 12 mg/dL (7-20) Creatinine 0.9 mg/dL (0.6-1.0) Estimated GFR (Cockcroft-Gault) 61.5 BUN/Creatinine Ratio 13 (6-20) Glucose Level 344 mg/dL (70-99) Calcium Level 9.3 mg/dL (8.5-10.1) Total Bilirubin 0.4 mg/dL (0.2-1.0) Aspartate Amino Transf (AST/SGOT) 17 U/L (15-37) Alanine Aminotransferase (ALT/SGPT) 25 U/L (14-59) Alkaline Phosphatase 99 U/L (46-116) Troponin I Quantitative < 0.017 ng/mL (0.000-0.055) Total Protein 6.8 g/dL (6.4-8.2) Albumin 3.1 g/dL (3.4-5.0) Albumin/Globulin Ratio 0.8 (1.0-1.7) Urine Collection Type Void Urine Color Yellow Urine Clarity Clear Urine pH 5.0 (<5.0-8.0) Urine Specific [place] 1.020 (1.000-1.030) Urine Protein Negative mg/dL (NEG-TRACE) Urine Glucose (UA) >=1000 mg/dL (NEG) Urine Ketones (Stick) Negative mg/dL (NEG) Urine Blood Negative (NEG) Urine Nitrite Negative (NEG) Urine Bilirubin Negative (NEG) Urine Urobilinogen Dipstick 0.2 mg/dL (0.2 mg/dL) Urine Leukocyte Esterase Moderate (NEG) Urine RBC 0 /HPF (0-2) Urine WBC >40 /HPF (0-4) Urine Squamous Epithelial Cells Many /LPF Urine Bacteria Few /HPF (0-FEW) Urine Hyaline Casts Occasional /HPF Urine Mucus Slight /LPF Test 05/30/20 08:21 05/30/20 11:21 05/30/20 20:46 05/31/20 03:57 Glucose (Fingerstick) 268 mg/dL (70-99) 233 mg/dL (70-99) 186 mg/dL (70-99) Triglycerides Level 149 mg/dL (0-150) Cholesterol Level 153 mg/dL (0-200) LDL Cholesterol, Calculated 81 mg/dL (0-100) VLDL Cholesterol, Calculated 30 mg/dL (0-40) Non-HDL Cholesterol Calculated 111 mg/dL (0-129) HDL Cholesterol 42 mg/dL (40-60) Cholesterol/HDL Ratio 3.6 Test 05/31/20 07:32 Glucose (Fingerstick) 170 mg/dL (70-99) Laboratory Tests Test 05/30/20 11:21 05/30/20 20:46 05/31/20 03:57 05/31/20 07:32 Glucose (Fingerstick) 233 mg/dL (70-99) 186 mg/dL (70-99) 170 mg/dL (70-99) Triglycerides Level 149 mg/dL (0-150) Cholesterol Level 153 mg/dL (0-200) LDL Cholesterol, Calculated 81 mg/dL (0-100) VLDL Cholesterol, Calculated 30 mg/dL (0-40) Non-HDL Cholesterol Calculated 111 mg/dL (0-129) HDL Cholesterol 42 mg/dL (40-60) Cholesterol/HDL Ratio 3.6 Microbiology 05/29/20 Urine Culture - Final, Complete Medications Current Medications Insulin Human Lispro (HumaLOG) 5 units 1X ONCE SQ Last administered on 05/29/20at 20:53; Start 05/29/20 at 20:45; Stop 05/29/20 at 20:46; Status DC Labetalol HCl (Normodyne Iv Push) 20 mg 1X ONCE IVP Last administered on 05/29/20at 20:48; Start 05/29/20 at 20:45; Stop 05/29/20 at 20:46; Status DC Amlodipine Besylate (Norvasc) 5 mg DAILY PO Last administered on 05/31/20at 08:45; Start 05/30/20 at 09:00 Aripiprazole (Abilify) 5 mg DAILY PO Last administered on 05/31/20at 08:45; Start 05/30/20 at 09:00 Aspirin (Aspirin Chewable) 81 mg DAILY PO Last administered on 05/31/20 08:45; Start 05/30/20 at 09:00 Atorvastatin Calcium (Lipitor) 20 mg HS PO Last administered on 05/30/20at 21:47; Start 05/30/20 at 21:00 Calcium Carbonate/ Glycine (Oscal) 500 mg DAILY PO Last administered on 05/31/20 08:45; Start 05/30/20 at 09:00 Metformin HCl (Glucophage) 500 mg BIDWMEALS PO Last administered on 05/31/20at 08:45; Start 05/30/20 at 08:30 Sotalol HCl (Betapace) 80 mg BID PO Last administered on 05/31/20 08:45; Start 05/30/20 at 09:00 Desvenlafaxine Succinate (Pristiq Er) 100 mg BID PO Last administered on 05/31/20 08:45; Start 05/30/20 at 09:00 Gabapentin (Neurontin) 300 mg TID PO Last administered on 05/31/20at 08:45; Start 05/30/20 at 09:00 Insulin Glargine (Lantus Syringe) 50 unit QHS SQ ; Start 05/30/20 at 21:00 Ropinirole HCl (Requip) 1 mg QHS PO Last administered on 05/30/20 21:47; Start 05/30/20 at 21:00 Iohexol (Omnipaque 300 Mg/ml) 75 ml 1X ONCE IV Last administered on 05/30/20at 09:00; Start 05/30/20 at 09:00; Stop 05/30/20 at 09:01; Status DC Info (CONTRAST GIVEN -- Rx MONITORING) 1 each PRN DAILY PRN MC SEE COMMENTS; Start 05/30/20 at 09:15; Stop 06/01/20 at 09:14 Acetaminophen (Tylenol) 650 mg PRN Q6HRS PRN PO MILD PAIN / TEMP > 100.3'F Last administered on 05/30/20at 14:11; Start 05/30/20 at 14:15 Insulin Glargine (Lantus Syringe) 35 unit 1X ONCE SQ Last administered on 05/30/20at 22:00; Start 05/30/20 at 22:00; Stop 05/30/20 at 22:01; Status DC Active Scripts Active Amlodipine Besylate 5 Mg Tablet 5 Mg PO DAILY 30 Days Clopidogrel (Clopidogrel Bisulfate) 75 Mg Tablet 75 Mg PO DAILY 30 Days Reported Levemir Flextouch (Insulin Detemir) 100 Unit/1 Ml Insuln.pen 50 Unit SQ HS Calcium Carbonate 500 Mg Tablet 500 Mg PO DAILY Atorvastatin Calcium 20 Mg Tablet 20 Mg PO HS Gabapentin 600 Mg Tablet 300 Mg PO TID Aspirin 81 Mg Tab.chew 81 Mg PO DAILY Ropinirole Hcl 2 Mg Tablet 1 Mg PO HS 30 Days Abilify (Aripiprazole) 2 Mg Tablet 5 Mg PO DAILY Pristiq Er (Desvenlafaxine Succinate) 50 Mg Tab.er.24h 200 Mg PO DAILY Metformin Hcl 500 Mg Tablet 1 Tab PO BID Vitals/I & O Vital Sign - Last 24 Hours 05/30/20 05/30/20 05/30/20 05/30/20 11:08 12:41 12:41 15:00 Temp 97.9 98.1 97.9 98.1 Pulse 72 72 72 67 Resp 18 16 B/P (MAP) 146/68 (94) 146/68 146/68 147/84 (105) Pulse Ox 95 99 O2 Delivery Room Air Room Air 05/30/20 05/30/20 05/30/20 05/30/20 19:00 19:55 21:47 23:00 Temp 98.0 97.9 98.0 97.9 Pulse 71 71 64 Resp 20 20 B/P (MAP) 177/74 (108) 177/74 153/87 (109) Pulse Ox 97 97 O2 Delivery Room Air Room Air Room Air 05/31/20 05/31/20 05/31/20 05/31/20 07:00 08:05 08:45 08:45 Temp 97.9 97.9 Pulse 69 69 69 Resp 17 B/P (MAP) 139/66 (90) 139/66 139/66 Pulse Ox 97 O2 Delivery Room Air Room Air Intake and Output 05/30/20 05/30/20 05/31/20 15:00 23:00 07:00 Output Total 350 ml 1 ml Balance -350 ml -1 ml Justicifation of Admission Dx: Justifications for Admission: Justification of Admission Dx: Yes Hypertension: [place] Worsening of Sym JAMES ABDI MD May 31, 2020 10:09
--- NOTE | 2020-05-31 10:14 | PDOC ---
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 Diabetic neuropathy Restless legs Orthostatic hypotension Plan Add cl[facility]idogrel[facility] Continue aspirin and statin She follows closely with her credentialing assistant, is due for a DHEERAJ repeat in July, I see no need to repeat that here. She is not a good candidate for long-term anticoagulation given her gait disorder, anyway. I discussed with neurologist, Dr. Burns, yesterday, who recommended medical therapy and patient will follow-up in stroke clinic as an outpatient, she has phone number to make her own appointment Follow-up with me as scheduled on 07/21/20. Subjective Symptoms have all resolved Objective Vital Signs Date Time Temp Pulse Resp B/P (MAP) Pulse Ox O2 Delivery O2 Flow Rate FiO2 05/31/20 08:45 69 139/66 05/31/20 08:05 Room Air 05/31/20 07:00 97.9 17 97 97.9 Intake and Output 05/31/20 07:00 Output Total 351 ml Balance -351 ml Output Urine Total 351 ml # Voids 3 # Bowel Movements 1 PHYSICAL EXAM Alert. Oriented to time, place and person. PERRL. EOMI. CN: no focal findings. Muscle tone: normal. Muscle strength: 5/5 DTR: 0-1+ Plantar reflex: flexor Gait: not examined in bed. Sensory exam: stocking loss. No cerebellar signs elicited. Review of Relevant I have reviewed the following items raul (where applicable) has been applied. Labs Laboratory Tests Test 05/29/20 17:45 05/29/20 17:55 05/29/20 19:05 05/29/20 20:52 Glucose (Fingerstick) 314 mg/dL (70-99) 218 mg/dL (70-99) White Blood Count 7.9 x10^3/uL (4.0-11.0) Red Blood Count 4.76 x10^6/uL (3.50-5.40) Hemoglobin 14.0 g/dL (12.0-15.5) Hematocrit 41.7 % (36.0-47.0) Mean Corpuscular Volume 88 fL (79-100) Mean Corpuscular Hemoglobin 29 pg (25-35) Mean Corpuscular Hemoglobin Concent 34 g/dL (31-37) Red Cell Distribution Width 14.9 % (11.5-14.5) Platelet Count 125 x10^3/uL (140-400) Neutrophils (%) (Auto) 55 % (31-73) Lymphocytes (%) (Auto) 39 % (24-48) Monocytes (%) (Auto) 5 % (0-9) Eosinophils (%) (Auto) 0 % (0-3) Basophils (%) (Auto) 1 % (0-3) Neutrophils # (Auto) 4.3 x10^3/uL (1.8-7.7) Lymphocytes # (Auto) 3.1 x10^3/uL (1.0-4.8) Monocytes # (Auto) 0.4 x10^3/uL (0.0-1.1) Eosinophils # (Auto) 0.0 x10^3/uL (0.0-0.7) Basophils # (Auto) 0.1 x10^3/uL (0.0-0.2) Prothrombin Time 12.6 SEC (11.7-14.0) Prothromb Time International Ratio 1.0 (0.8-1.1) Activated Partial Thromboplast Time 37 SEC (24-38) Sodium Level 138 mmol/L (136-145) Potassium Level 4.5 mmol/L (3.5-5.1) Chloride Level 100 mmol/L (98-107) Carbon Dioxide Level 32 mmol/L (21-32) Anion Gap 6 (6-14) Blood Urea Nitrogen 12 mg/dL (7-20) Creatinine 0.9 mg/dL (0.6-1.0) Estimated GFR (Cockcroft-Gault) 61.5 BUN/Creatinine Ratio 13 (6-20) Glucose Level 344 mg/dL (70-99) Calcium Level 9.3 mg/dL (8.5-10.1) Total Bilirubin 0.4 mg/dL (0.2-1.0) Aspartate Amino Transf (AST/SGOT) 17 U/L (15-37) Alanine Aminotransferase (ALT/SGPT) 25 U/L (14-59) Alkaline Phosphatase 99 U/L (46-116) Troponin I Quantitative < 0.017 ng/mL (0.000-0.055) Total Protein 6.8 g/dL (6.4-8.2) Albumin 3.1 g/dL (3.4-5.0) Albumin/Globulin Ratio 0.8 (1.0-1.7) Urine Collection Type Void Urine Color Yellow Urine Clarity Clear Urine pH 5.0 (<5.0-8.0) Urine Specific [place] 1.020 (1.000-1.030) Urine Protein Negative mg/dL (NEG-TRACE) Urine Glucose (UA) >=1000 mg/dL (NEG) Urine Ketones (Stick) Negative mg/dL (NEG) Urine Blood Negative (NEG) Urine Nitrite Negative (NEG) Urine Bilirubin Negative (NEG) Urine Urobilinogen Dipstick 0.2 mg/dL (0.2 mg/dL) Urine Leukocyte Esterase Moderate (NEG) Urine RBC 0 /HPF (0-2) Urine WBC >40 /HPF (0-4) Urine Squamous Epithelial Cells Many /LPF Urine Bacteria Few /HPF (0-FEW) Urine Hyaline Casts Occasional /HPF Urine Mucus Slight /LPF Test 05/30/20 08:21 05/30/20 11:21 05/30/20 20:46 05/31/20 03:57 Glucose (Fingerstick) 268 mg/dL (70-99) 233 mg/dL (70-99) 186 mg/dL (70-99) Triglycerides Level 149 mg/dL (0-150) Cholesterol Level 153 mg/dL (0-200) LDL Cholesterol, Calculated 81 mg/dL (0-100) VLDL Cholesterol, Calculated 30 mg/dL (0-40) Non-HDL Cholesterol Calculated 111 mg/dL (0-129) HDL Cholesterol 42 mg/dL (40-60) Cholesterol/HDL Ratio 3.6 Test 05/31/20 07:32 Glucose (Fingerstick) 170 mg/dL (70-99) Laboratory Tests Test 05/30/20 11:21 05/30/20 20:46 05/31/20 03:57 05/31/20 07:32 Glucose (Fingerstick) 233 mg/dL (70-99) 186 mg/dL (70-99) 170 mg/dL (70-99) Triglycerides Level 149 mg/dL (0-150) Cholesterol Level 153 mg/dL (0-200) LDL Cholesterol, Calculated 81 mg/dL (0-100) VLDL Cholesterol, Calculated 30 mg/dL (0-40) Non-HDL Cholesterol Calculated 111 mg/dL (0-129) HDL Cholesterol 42 mg/dL (40-60) Cholesterol/HDL Ratio 3.6 Microbiology 05/29/20 Urine Culture - Final, Complete Medications Current Medications Insulin Human Lispro (HumaLOG) 5 units 1X ONCE SQ Last administered on 05/29/20at 20:53; Start 05/29/20 at 20:45; Stop 05/29/20 at 20:46; Status DC Labetalol HCl (Normodyne Iv Push) 20 mg 1X ONCE IVP Last administered on 05/29/20at 20:48; Start 05/29/20 at 20:45; Stop 05/29/20 at 20:46; Status DC Amlodipine Besylate (Norvasc) 5 mg DAILY PO Last administered on 05/31/20at 08:45; Start 05/30/20 at 09:00 Aripiprazole (Abilify) 5 mg DAILY PO Last administered on 05/31/20at 08:45; Start 05/30/20 at 09:00 Aspirin (Aspirin Chewable) 81 mg DAILY PO Last administered on 05/31/20at 08:45; Start 05/30/20 at 09:00 Atorvastatin Calcium (Lipitor) 20 mg HS PO Last administered on 05/30/20at 21:47; Start 05/30/20 at 21:00 Calcium Carbonate/ Glycine (Oscal) 500 mg DAILY PO Last administered on 05/31/20at 08:45; Start 05/30/20 at 09:00 Metformin HCl (Glucophage) 500 mg BIDWMEALS PO Last administered on 05/31/20at 08:45; Start 05/30/20 at 08:30 Sotalol HCl (Betapace) 80 mg BID PO Last administered on 05/31/20at 08:45; Start 05/30/20 at 09:00 Desvenlafaxine Succinate (Pristiq Er) 100 mg BID PO Last administered on 05/31/20at 08:45; Start 05/30/20 at 09:00 Gabapentin (Neurontin) 300 mg TID PO Last administered on 05/31/20at 08:45; Start 05/30/20 at 09:00 Insulin Glargine (Lantus Syringe) 50 unit QHS SQ ; Start 05/30/20 at 21:00 Ropinirole HCl (Requip) 1 mg QHS PO Last administered on 05/30/20at 21:47; Start 05/30/20 at 21:00 Iohexol (Omnipaque 300 Mg/ml) 75 ml 1X ONCE IV Last administered on 05/30/20at 09:00; Start 05/30/20 at 09:00; Stop 05/30/20 at 09:01; Status DC Info (CONTRAST GIVEN -- Rx MONITORING) 1 each PRN DAILY PRN MC SEE COMMENTS; Start 05/30/20 at 09:15; Stop 06/01/20 at 09:14 Acetaminophen (Tylenol) 650 mg PRN Q6HRS PRN PO MILD PAIN / TEMP > 100.3'F Last administered on 05/30/20at 14:11; Start 05/30/20 at 14:15 Insulin Glargine (Lantus Syringe) 35 unit 1X ONCE SQ Last administered on 05/30/20at 22:00; Start 05/30/20 at 22:00; Stop 05/30/20 at 22:01; Status DC Active Scripts Active Amlodipine Besylate 5 Mg Tablet 5 Mg PO DAILY 30 Days Clopidogrel (Clopidogrel Bisulfate) 75 Mg Tablet 75 Mg PO DAILY 30 Days Reported Levemir Flextouch (Insulin Detemir) 100 Unit/1 Ml Insuln.pen 50 Unit SQ HS Calcium Carbonate 500 Mg Tablet 500 Mg PO DAILY Atorvastatin Calcium 20 Mg Tablet 20 Mg PO HS Gabapentin 600 Mg Tablet 300 Mg PO TID Aspirin 81 Mg Tab.chew 81 Mg PO DAILY Ropinirole Hcl 2 Mg Tablet 1 Mg PO HS 30 Days Abilify (Aripiprazole) 2 Mg Tablet 5 Mg PO DAILY Pristiq Er (Desvenlafaxine Succinate) 50 Mg Tab.er.24h 200 Mg PO DAILY Metformin Hcl 500 Mg Tablet 1 Tab PO BID Vitals/I & O Vital Sign - Last 24 Hours 05/30/20 05/30/20 05/30/20 05/30/20 11:08 12:41 12:41 15:00 Temp 97.9 98.1 97.9 98.1 Pulse 72 72 72 67 Resp 18 16 B/P (MAP) 146/68 (94) 146/68 146/68 147/84 (105) Pulse Ox 95 99 O2 Delivery Room Air Room Air 05/30/20 05/30/20 05/30/20 05/30/20 19:00 19:55 21:47 23:00 Temp 98.0 97.9 98.0 97.9 Pulse 71 71 64 Resp 20 20 B/P (MAP) 177/74 (108) 177/74 153/87 (109) Pulse Ox 97 97 O2 Delivery Room Air Room Air Room Air 05/31/20 05/31/20 05/31/20 05/31/20 07:00 08:05 08:45 08:45 Temp 97.9 97.9 Pulse 69 69 69 Resp 17 B/P (MAP) 139/66 (90) 139/66 139/66 Pulse Ox 97 O2 Delivery Room Air Room Air Intake and Output 05/30/20 05/30/20 05/31/20 15:00 23:00 07:00 Output Total 350 ml 1 ml Balance -350 ml -1 ml Justicifation of Admission Dx: Justifications for Admission: Justification of Admission Dx: Yes Hypertension: Cresendo Worsening of Sym JAMES ABDI MD May 31, 2020 10:14
[2020-05-31 10:38] VITALS: BP 150/75
--- NOTE | 2020-05-31 10:52 | NUR ---
JEAN PAUL following. Reviewed chart and discussed with RN. Spoke with pt who is ready for discharge home today with HH from [facility]. JEAN PAUL completed Patient Choice of Vendor form. JEAN PAUL phoned and faxed clinicals and discharge orders to [facility], , (fax). No further SW needs at this time. Addendum: 05/31/20 at 1552 by ROBERTO REAVES JEAN PAUL confirmed with [facility] that orders were received.
--- NOTE | 2020-05-31 11:00 | NUR ---
Discharge Note: Patient was discharged home with home health, patient is currently open with [facility]. Patients IV's were discontinued without any complications per FRANK. Patients daughter at the bedside at the time of discharge education. Patient was given discharge summary/instructions, follow-ups, and educational materials. Patients new Plavix prescription was sent over to patients preferred pharmacy. Patient was educated on stroke/TIA. Patient and daughter did not have any further question or concerns. Patient was taken down to the main entrance via wheelchair with all personal belongings, accompanied by FRANK Worthy.
[2020-05-31] MEDS ORDERED: CLOPIDOGREL BISULFATE 75 MG TABLET PO SCH (12:00)
--- NOTE | 2020-05-31 13:55 | SNU/HH DC ---
DISCHARGE WITH HOME HEALTH DISCHARGE INFORMATION: Discharge Date: May 31, 2020 Final Diagnosis: Problems Medical Problems: (1) Classic migraine with aura Status: Acute (2) Diplopia Status: Acute (3) Hypertensive urgency Status: Acute Condition on Discharge: Stable CODE STATUS: Code Status: Full HOME HEALTH: Face to Face: I certify this patient is under my care and that I, or a nurse practitioner or physician's equal opportunity assistant working with me, had a face to face encounter that meets the physician face to face encounter requirements with this patient on 05/31/20. Medical Complications: CVA, DM, Falls Mcfp For: Assess Cardiopulm Status, Assess & Educate Safety, Assess/Skilled Observatio RN For Eval/Treatment: Yes Physical Therapy For: Evalulation/Treatment Occupational Therapy For: Evaluation/Treatment Pt Meets Homebound Status: Poor coordination w/ amb., Limited distance walking POST DISCHARGE ORDERS: Activity Instructions for Disc: Activity as tolerated, Avoid exertion Weight Bearing Status after Di: No restrictions Bathing Instructions: Shower-keep dressing dry DIET AFTER DISCHARGE: ADA Wound/Incision Care: Ice to area for comfort, Keep wound/cast CDI CHECKS AFTER DISCHARGE: Checks after discharge: Check blood press - daily, Check blood sugar, ac/hs FOLLOW-UP: Follow up with: Dr. Colbert on July 21, 2020 Follow Up With: Primary care in 1-2 weeks TREATMENT/EQUIPMENT ORDERS: Adaptive Equipment Issued: Carter Almaraz CERTIFICATION STATEMENT: Certification Statement: Certification Statement: Based on the above finding, I certify that this patient is confined to the home and needs intermittent chcf care, physical therapy and/or speech therapy, or continues to need occupational therapy.~ This patient is under my care, and I have initiated the establishment of the plan of care.~ This patient will be followed by myself or a community physician who will periodically review the plan of care. Home Meds Active Scripts Amlodipine Besylate (AMLODIPINE BESYLATE) 5 Mg Tablet, 5 MG PO DAILY for hyperte nsion for 30 Days, #30 TAB Prov:ZEINA RUBIO MD 02/29/20 Clopidogrel Bisulfate (CLOPIDOGREL) 75 Mg Tablet, 75 MG PO DAILY for anti platelet for 30 Days, #30 TAB Prov:ZEINA RUBIO MD 02/29/20 Reported Medications Sotalol Hcl (SOTALOL) 80 Mg Tablet, 1 TAB PO BID for htn, #180 TAB 3 Refills 08/30/19 Insulin Detemir (Levemir Flextouch) 100 Unit/1 Ml Insuln.pen, 50 UNIT SQ HS for DM, SYR 04/02/19 Calcium Carbonate (CALCIUM CARBONATE) 500 Mg Tablet, 500 MG PO DAILY for BONES, HLD, TAB 02/01/19 Atorvastatin Calcium (ATORVASTATIN CALCIUM) 20 Mg Tablet, 20 MG PO HS for FOR CHOLESTEROL, #30 TAB 0 Refills 02/01/19 Gabapentin (GABAPENTIN) 600 Mg Tablet, 300 MG PO TID for NEUROGENIC PAIN, TAB 02/01/19 Aspirin (ASPIRIN) 81 Mg Tab.chew, 81 MG PO DAILY for CAD, TAB.CHEW 02/01/19 Ropinirole Hcl (ROPINIROLE HCL) 2 Mg Tablet, 1 MG PO HS for restless leg for 30 Days, #15 TAB 06/16/18 Aripiprazole (ABILIFY) 2 Mg Tablet, 5 MG PO DAILY for mood disorders , TAB 01/19/18 Desvenlafaxine Succinate (PRISTIQ ER) 50 Mg Tab.er.24h, 200 MG PO DAILY for MOOD DISORDER, #30 TAB 5 Refills 01/19/18 Metformin Hcl (METFORMIN HCL) 500 Mg Tablet, 1 TAB PO BID for DM, #60 TAB 3 Refills 07/11/16 ZEINA RUBIO MD May 31, 2020 13:55
--- NOTE | 2020-05-31 14:46 | DS ---
DATE OF DISCHARGE: 05/31/2020 PRIMARY DIAGNOSES: Vertebrobasilar insufficiency with double vision, dysphasia. 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 CHIEF COMPLAINT AND HISTORY OF PRESENT ILLNESS: This 74-year-old white female admitted through the Emergency Room. History is consistent with vertebrobasilar insufficiency versus a migraine with aura. SUMMARY OF STAY: The patient was admitted. Symptomatology resolved. Blood pressures were improved with blood pressure medicines. Neurology saw her and ordered a CTA of brain showing mild stenosis of the left distal vertebral artery and multifocal stenoses along the left posterior communicating artery P2 segment of ____ level. She felt this was most likely her problem and I wanted her to see the stroke people at on discharge recommended addition of Plavix to her regimen and the patient was discharged on the . DISPOSITION: The patient is discharged to home health, to continue following ADA diet. ACTIVITY: As tolerate. Office next week Resume regular home medicines plus Plavix 75 daily will be added to her regimen. ZEINA RUBIO MD DR: MANUEL/carlo JOB#: [id number] / [id number]
== END 2020-05-31 10:52 | disposition home health service (06) | DRG 69 ==
LOC: ER 18:12 → 5 NORTH 21:40 → OBSVTOIN 05-30 19:29
PROVIDERS: ADMIT Family Medicine; ATTEND Family Medicine
DX: G45.0 Vertebro-basilar artery syndrome (principal); G43.119 Migraine with aura, intractable, without status migrainosus; I48.91 Unspecified atrial fibrillation; F32.9 Major depressive disorder, single episode, unspecified; F41.9 Anxiety disorder, unspecified; I10 Essential (primary) hypertension; E11.43 Type 2 diabetes mellitus with diabetic autonomic (poly)neuropathy; E11.319 Type 2 diabetes mellitus with unspecified diabetic retinopathy without macular edema; I16.0 Hypertensive urgency; I25.10 Atherosclerotic heart disease of native coronary artery without angina pectoris; E78.5 Hyperlipidemia, unspecified; G25.81 Restless legs syndrome; I95.1 Orthostatic hypotension; R47.02 Dysphasia; Z95.2 Presence of prosthetic heart valve; Z93.1 Gastrostomy status; Z90.49 Acquired absence of other specified parts of digestive tract; Z90.710 Acquired absence of both cervix and uterus; Z95.1 Presence of aortocoronary bypass graft; Z86.73 Personal history of transient ischemic attack (TIA), and cerebral infarction without residual deficits; Z98.49 Cataract extraction status, unspecified eye; Z88.8 Allergy status to other drugs, medicaments and biological substances; Z91.048 Other nonmedicinal substance allergy status
CPT/HCPCS: 36415; 70450; 70496; 70498; 71046; 80053; 80061; 81001; 82962; 84484; 85025; 85610; 85730; 87086; 93005; 96372; 96374; G0378; G0379; J1815; J3490; Q9967; 92610-GN; 97530-GP; 99285-25

== ENCOUNTER 2020-06-14 12:29 | Inpatient (IN) | payer MEDICARE, OTHER ==
[~2020-06-14] VITALS: Ht 165.1 cm; Wt 73.5 kg
[2020-06-14 13:43] LABS: BASO # 0.1 x10^3/uL (0.0-0.2); BASO % 1 % (0-3); EOS % 0 % (0-3); HEMATOCRIT 45.4 % (36.0-47.0); HEMOGLOBIN 15.4 g/dL (12.0-15.5); LYMPH # 2.8 x10^3/uL (1.0-4.8); LYMPH % 29 % (24-48); MEAN CORPUSCULAR HEMOGLOBIN 30 pg (25-35); MEAN CORPUSCULAR HGB CONC 34 g/dL (31-37); MEAN CORPUSCULAR VOLUME 88 fL (79-100); MONO # 0.4 x10^3/uL (0.0-1.1); MONO % 4 % (0-9); NEUT # 6.4 x10^3/uL (1.8-7.7); NEUT % 66 % (31-73); PLATELET COUNT 145 x10^3/uL (140-400); RED BLOOD COUNT 5.16 x10^6/uL (3.50-5.40); RED CELL DISTRIBUTION WIDTH 14.2 % (11.5-14.5); WHITE BLOOD COUNT 9.7 x10^3/uL (4.0-11.0)
[2020-06-14 13:50] LABS: CALCIUM 9.9 mg/dL (8.5-10.1); GFR 54.5; POTASSIUM 3.9 mmol/L (3.5-5.1)
[2020-06-14 13:57] LABS: ALBUMIN 3.7 g/dL (3.4-5.0); ALBUMIN/GLOBULIN RATIO 0.9 (1.0-1.7); MAGNESIUM 1.7 mg/dL (1.8-2.4); PROTHROMBIN TIME PATIENT 13.7 SEC (11.7-14.0); TOTAL BILIRUBIN 0.9 mg/dL (0.2-1.0); TOTAL PROTEIN 7.8 g/dL (6.4-8.2)
--- NOTE | 2020-06-14 14:02 | RAD ---
Single AP view of the chest. Comparison: 05/29/2020. Indication: Chest pain Findings: Sternotomy wires and valvular plasty changes are reidentified. Implanted loop recorder device is again seen. The heart is not enlarged. There is no pneumothorax or effusion. No air space or interstitial disease. Impression: 1. No acute cardiopulmonary process. Electronically signed by: Song Mejía MD (06/14/2020 1:59 PM) [id number]
[2020-06-14] MEDS ORDERED: ONDANSETRON PF 4 MG/2 ML VIAL. IVP ONE (14:45)
[2020-06-14] MEDS ORDERED: IV NORMAL SALINE 1000ML BAG 1,000 ML IV ONE (14:45)
[2020-06-14] MEDS ORDERED: IOHEXOL 300 MG/ML 100ML VIAL. IV ONE (15:00)
[2020-06-14] MEDS ORDERED: CONTRAST GIVEN. MC PRN (15:00)
[2020-06-14] MEDS ORDERED: MAGNESIUM SULFATE 2GM 50 ML IV ONE (15:00)
--- NOTE | 2020-06-14 16:13 | RAD ---
Exam: CT of abdomen and pelvis with contrast INDICATION: Abdominal pain, nausea and vomiting TECHNIQUE: Sequential axial images through the abdomen and pelvis obtained following the administration of 60 mL of Omni 300 IV contrast. Sagittal and coronal reformatted images were reconstructed from the axial data and reviewed. Comparisons: 03/18/2019 FINDINGS: Heart size is normal. No pericardial effusion. Visualized lung bases are clear. No pleural effusion. Liver, spleen, pancreas and adrenals are unremarkable. Gallbladder surgically absent. Kidneys demonstrate symmetric enhancement. No perinephric inflammation or hydronephrosis. No renal or ureteral calculi are identified. Bladder is distended. Uterus is not enlarged. No abnormal adnexal mass. There is extensive diverticulosis noted at the sigmoid colon. There is diffuse wall thickening in this area. Remainder of the large and small bowel are unremarkable. Appendix is normal. No free intra-abdominal air or fluid. Abdominal aorta has a normal course and caliber. Abdominal vasculature is patent. No enlarged abdominal lymph nodes are identified. No suspicious osseous lesions or acute fractures. IMPRESSION: Diverticulosis with wall thickening at the sigmoid colon, may relate to mild diverticulitis. Remainder of the large and small bowel are unremarkable. Exposure: One or more of the following in the visualized dose reduction techniques were utilized for this examination: 1. Automated exposure control 2. Adjustment of the MA and/or KV according to patient size 3. Use of iterative of reconstructive technique Electronically signed by: Cee Drew MD (06/14/2020 4:10 PM) [id number]
--- NOTE | 2020-06-14 16:18 | PHYS DOC ---
Past Medical History Past Medical History: A-Fib, Depression, Diabetes-Type II, Hypertension, Other Additional Past Medical Histor: gastroparesis,HEART MURMUR,NEUROPATHY,VALVE REPLACE,MACULAR DEGENERATION (CHRISTIANNE MARIE DO) Past Surgical History: Angioplasty, Cholecystectomy, Coronary Bypass Surgery, Hysterectomy, Other Additional Past Surgical Histo: G-tube,CATARACT,RT SHOULDER,DEVIATED SEPTUM,LOOP RECORDER (CHRISTIANNE MARIE DO) Smoking Status: Never Smoker Alcohol Use: None Drug Use: None (CHRISTIANNE MARIE DO) General Adult EDM: Chief Complaint: CHEST PAIN HPI: HPI: Patient is a 74 year old female who was taken here by EMS from home due to substernal chest pain started earlier today. Patient says she also had nausea vomiting and upper abdominal pain with diarrhea for 2 days. Patient says she was not able to keep anything down, she had not been able take her medication. Patient had transesophageal echocardiogram done at [facility] 2 days ago. Patient was tested negative for COVID-19 then. Patient denies any cough or fever. Patient denies any chest pain at this time. Patient has history of diabetes, hypertension, coronary artery disease, afib. (CHRISTIANNE MARIE DO) Review of Systems: Review of Systems: Constitutional: Denies fever or chills. [] Eyes: Denies change in visual acuity. [] HENT: Denies nasal congestion or sore throat. [] Respiratory: Denies cough or shortness of breath. [] Cardiovascular: Positive for chest pain, no edema GI: Positive for abdominal pain, nausea vomiting, diarrhea. : Denies dysuria. [] Musculoskeletal: Denies back pain or joint pain. [] Integument: Denies rash. [] Neurologic: Denies headache, focal weakness or sensory changes. [] Endocrine: Denies polyuria or polydipsia. [] Lymphatic: Denies swollen glands. [] Psychiatric: Denies depression or anxiety. [] (CHRISTIANNE MARIE DO) Heart Score: HEART Score for Chest Pain: HEART Score for Chest Pain Response (Comments) Value History Moderately Suspicious 1 ECG Nonspecific Repolarizatio 1 Age > 65 2 Risk Factors >3 Risk Factors or Hx CAD 2 Troponin < Normal Limit 0 Total 6 Risk Factors: Risk Factors: DM, Current or recent (<one month) smoker, HTN, HLP, family history of CAD, obesity. Risk Scores: Score 0 - 3: 2.5% MACE over next 6 weeks - Discharge Home Score 4 - 6: 20.3% MACE over next 6 weeks - Admit for Clinical Observation Score 7 - 10: 72.7% MACE over next 6 weeks - Early Invasive Strategies (CHRISTIANNE MARIE DO) HEART Score for Chest Pain: HEART Score for Chest Pain Response (Comments) Value History Moderately Suspicious 1 ECG Nonspecific Repolarizatio 1 Age > 65 2 Risk Factors >3 Risk Factors or Hx CAD 2 Troponin < Normal Limit 0 Total 6 Current Medications: Current Medications Medications (Trade) Dose Ordered Sig/Juan Miguel Start Time Stop Time Status Last Admin Dose Admin Info (CONTRAST GIVEN -- Rx MONITORING) 1 each PRN DAILY PRN 06/14/20 15:00 06/16/20 14:59 Iohexol (Omnipaque 300 Mg/ml) 60 ml 1X ONCE 06/14/20 15:00 06/14/20 15:01 DC 06/14/20 15:27 60 ML Magnesium Sulfate 50 ml @ 25 mls/hr 1X ONCE 06/14/20 15:00 06/14/20 16:59 06/14/20 15:46 25 MLS/HR Ondansetron HCl (Zofran) 4 mg 1X ONCE 06/14/20 14:45 06/14/20 14:46 DC 06/14/20 15:46 4 MG Sodium Chloride 1,000 ml @ 1,000 mls/hr 1X ONCE 06/14/20 14:45 06/14/20 15:44 DC 06/14/20 15:46 1,000 MLS/HR (CHRISTIANNE MARIE DO) Allergies: Allergies: Allergies Coded Allergies Type Severity Reaction Last Updated Verified adhesive tape Allergy Severe TEARS SKIN 08/30/19 Yes zolpidem Allergy Intermediate 08/30/19 Yes nitrous oxide Adverse Reaction Severe EYE DAMAGE 08/30/19 Yes (CHRISTIANNE MARIE DO) Physical Exam: PE: Constitutional: Well developed, well nourished, no acute distress, non-toxic appearance. [] HENT: Normocephalic, atraumatic, bilateral external ears normal, oropharynx moist, no oral exudates, nose normal. [] Eyes: PERRLA, EOMI, conjunctiva normal, no discharge. [] Neck: Normal range of motion, no tenderness, supple, no stridor. [] Cardiovascular:Heart rate regular rhythm, no murmur [] Lungs & Thorax: Bilateral breath sounds clear to auscultation [] Abdomen: Bowel sounds normal, soft, there is tenderness at epigastric area, no masses, no pulsatile masses. [] Skin: Warm, dry, no erythema, no rash. [] Back: No tenderness, no CVA tenderness. [] Extremities: No tenderness, no cyanosis, no clubbing, ROM intact, no edema. [] Neurologic: Alert and oriented X 3, normal motor function, normal sensory function, no focal deficits noted. [] Psychologic: Affect normal, judgement normal, mood normal. [] (CHRISTIANNE MARIE DO) Current Patient Data: Labs: Laboratory Tests Test 06/14/20 13:25 White Blood Count 9.7 x10^3/uL (4.0-11.0) Red Blood Count 5.16 x10^6/uL (3.50-5.40) Hemoglobin 15.4 g/dL (12.0-15.5) Hematocrit 45.4 % (36.0-47.0) Mean Corpuscular Volume 88 fL (79-100) Mean Corpuscular Hemoglobin 30 pg (25-35) Mean Corpuscular Hemoglobin Concent 34 g/dL (31-37) Red Cell Distribution Width 14.2 % (11.5-14.5) Platelet Count 145 x10^3/uL (140-400) Neutrophils (%) (Auto) 66 % (31-73) Lymphocytes (%) (Auto) 29 % (24-48) Monocytes (%) (Auto) 4 % (0-9) Eosinophils (%) (Auto) 0 % (0-3) Basophils (%) (Auto) 1 % (0-3) Neutrophils # (Auto) 6.4 x10^3/uL (1.8-7.7) Lymphocytes # (Auto) 2.8 x10^3/uL (1.0-4.8) Monocytes # (Auto) 0.4 x10^3/uL (0.0-1.1) Eosinophils # (Auto) 0.0 x10^3/uL (0.0-0.7) Basophils # (Auto) 0.1 x10^3/uL (0.0-0.2) Prothrombin Time 13.7 SEC (11.7-14.0) Prothrombin Time INR 1.1 (0.8-1.1) Activated Partial Thromboplast Time 39 SEC (24-38) H Sodium Level 140 mmol/L (136-145) Potassium Level 3.9 mmol/L (3.5-5.1) Chloride Level 101 mmol/L (98-107) Carbon Dioxide Level 31 mmol/L (21-32) Anion Gap 8 (6-14) Blood Urea Nitrogen 11 mg/dL (7-20) Creatinine 1.0 mg/dL (0.6-1.0) Estimated GFR (Cockcroft-Gault) 54.5 BUN/Creatinine Ratio 11 (6-20) Glucose Level 269 mg/dL (70-99) H Calcium Level 9.9 mg/dL (8.5-10.1) Magnesium Level 1.7 mg/dL (1.8-2.4) L Total Bilirubin 0.9 mg/dL (0.2-1.0) Aspartate Amino Transferase (AST) 25 U/L (15-37) Alanine Aminotransferase (ALT) 22 U/L (14-59) Alkaline Phosphatase 112 U/L (46-116) Troponin I Quantitative < 0.017 ng/mL (0.000-0.055) EQ-Qrl-E-Type Natriuretic Peptide 1133 pg/mL (0-124) H Total Protein 7.8 g/dL (6.4-8.2) Albumin 3.7 g/dL (3.4-5.0) Albumin/Globulin Ratio 0.9 (1.0-1.7) L Lipase 129 U/L (73-393) Laboratory Tests 06/14/20 13:25 Laboratory Tests 06/14/20 13:25 Vital Signs: Vital Signs Date Time Temp Pulse Resp B/P (MAP) Pulse Ox O2 Delivery O2 Flow Rate FiO2 06/14/20 12:54 98.7 73 18 218/90 (132) 99 Room Air 98.7 (CHRISTIANNE MARIE DO) EKG: EKG: [] (CHRISTIANNE MARIE DO) Radiology/Procedures: Radiology/Procedures: [] (CHRISTIANNE MARIE DO) Course & Med Decision Making: Course & Med Decision Making Pertinent Labs and Imaging studies reviewed. (See chart for details) Patient's care was transferred over to Dr. MORFIN AT [facility]. (CHRISTIANNE MARIE DO) Course & Med Decision Making I have received signout on the patient's emergency department care from Dr. Marie. We discussed the history, physical exam findings, completed and pending laboratory results and imaging studies. We have also discussed the current treatment plan and expected clinical course. Please refer to further update notes for additional information regarding the patient's final diagnosis and disposition. CT imaging does reveal findings consistent with mild diverticulitis. Labs have been grossly unremarkable. Patient does note she has had intermittent exertional chest pain over the past several days. I do estimate the patient is a moderate risk heart score. I do feel she would benefit from hospitalization and further work-up of her chest pain. She is in agreement with this. She currently remains chest pain-free. She will be given a dose of Augmentin while in the emergency department for her diverticulitis. Appropriate for hospitalization. (MANJINDER MORFIN DO) Dragon Disclaimer: Kitty Disclaimer: This electronic medical record was generated, in whole or in part, using a voice recognition dictation system. (CHRISTIANNE MARIE DO) Departure Departure Impression: Primary Impression: CHEST PAIN, UNSPECIFIED Additional Impression: Diverticulitis Disposition: ADMITTED INPATIENT Condition: STABLE Referrals: ZEINA RUBIO MD (PCP) Justicifation of Admission Dx: Justifications for Admission: Justification of Admission Dx: Yes Hypertension: Cresendo Worsening of Sym (CHRISTIANNE MARIE DO) Justification of Admission Dx: Yes Angina: Cresendo Worsening of Sym (MANJINDER MORFIN DO) CHRISTIANNE MARIE DO Jun 14, 2020 16:18 MANJINDER MORFIN DO Jun 14, 2020 17:29
[2020-06-14 17:01] LABS: BILIRUBIN,URINE NEGATIVE (NEG); CLARITY,URINE CLEAR; COLOR,URINE YELLOW; NITRITE,URINE NEGATIVE (NEG); PROTEIN,URINE NEGATIVE (NEG-TRACE); UROBILINOGEN,URINE 0.2 mg/dL (0.2 mg/dL)
[2020-06-14 17:17] LABS: BACTERIA,URINE FEW /HPF (0-FEW); RBC,URINE 0 /HPF (0-2); SQUAMOUS EPITHELIAL CELL,UR MANY /LPF; WBC,URINE 20-40 /HPF (0-4)
[2020-06-14] MEDS ORDERED: AMOXICILLIN/K CLAV 875/125MG TABLET. PO ONE (17:30)
[2020-06-14] MEDS ORDERED: ONDANSETRON PF 4 MG/2 ML VIAL. IV PRN (18:00)
--- NOTE | 2020-06-14 20:00 | NUR ---
Admit from ED via [facility] to [facility] room 204. A/O x 4. Pleasant. Moves all extremities but reports generalized weakness. Transferred from bed to [facility] with 2 person lift assist. Reports unable to take home medications because of nausea for 2 days. UTI Dx in ED. Augmentin PO given in ED. Denies Chest pain or SOB on admit but reports CP and SOB off and on for 2 days as well. Orientated to room and call light. Reviewed POC to include tele monitoring, lab draws and out of bed with assist. Instructed to use call light for assist out of bed. Verbalized understanding. Resting in bed with call light at hand.
[2020-06-14 20:27] VITALS: BP 204/84
--- NOTE | 2020-06-14 21:03 | NUR ---
Daughter, Hillary Fair, , Reports Patient's Plavix on hold until tooth extraction completed Jul 06, 2020. Patient having 11 teeth extracted in preparation for dentures. Hillary also reports patient does not take Norvasc or antihypertensive medications because of history of orthostatic hypotension. Patient had DHEERAJ and COVID testing done at [facility] Friday for preparation as well for teeth extraction. Reports COVID negative and DHEERAJ WNL.
[2020-06-14] MEDS ORDERED: DESV100T PO (21:07)
[2020-06-14] MEDS ORDERED: MULT-658 PO (21:08)
[2020-06-14] MEDS ORDERED: QUET50TA5 PO (21:09)
[2020-06-14] MEDS ORDERED: PREG150C PO (21:09)
--- NOTE | 2020-06-14 21:25 | NUR ---
Spoke to Dr Appl. Ho to order home medication list.
[2020-06-14] MEDS: PREGABALIN 75 MG CAPSULE PO SCH (22:19)
[2020-06-14] MEDS: rOPINIRole 1 MG TABLET. PO SCH (22:20)
[2020-06-14] MEDS: DESVENLAFAXINE 25 MG TAB.ER.24H PO SCH (22:20)
[2020-06-14] MEDS: ATORVASTATIN CALCIUM 20 MG TABLET PO SCH (22:20)
[2020-06-14] MEDS: QUEtiapine 25 MG TABLET. PO SCH (22:20)
[2020-06-14] MEDS: SOTALOL 80 MG TABLET. PO SCH (22:21)
[2020-06-14 22:38] VITALS: BP 184/96
--- NOTE | 2020-06-14 22:51 | NUR ---
Gave Zofran for c/o nausea. Tolerated taking HS meds. Resting in bed. Call light at hand.
[2020-06-15 03:04] VITALS: BP 143/73
[2020-06-15 04:32] LABS: CALCIUM 9.1 mg/dL (8.5-10.1); GFR 54.5; POTASSIUM 3.7 mmol/L (3.5-5.1)
[2020-06-15 04:56] LABS: BASO # 0.1 x10^3/uL (0.0-0.2); BASO % 1 % (0-3); EOS % 0 % (0-3); HEMATOCRIT 43.3 % (36.0-47.0); HEMOGLOBIN 14.7 g/dL (12.0-15.5); LYMPH # 2.9 x10^3/uL (1.0-4.8); LYMPH % 30 % (24-48); MEAN CORPUSCULAR HEMOGLOBIN 30 pg (25-35); MEAN CORPUSCULAR HGB CONC 34 g/dL (31-37); MEAN CORPUSCULAR VOLUME 88 fL (79-100); MONO # 0.6 x10^3/uL (0.0-1.1); MONO % 6 % (0-9); NEUT # 6.1 x10^3/uL (1.8-7.7); NEUT % 63 % (31-73); PLATELET COUNT 131 x10^3/uL (140-400); RED BLOOD COUNT 4.93 x10^6/uL (3.50-5.40); RED CELL DISTRIBUTION WIDTH 14.1 % (11.5-14.5); WHITE BLOOD COUNT 9.7 x10^3/uL (4.0-11.0)
--- NOTE | 2020-06-15 06:10 | EKG ---
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
[2020-06-15 07:00] VITALS: BP 119/56
--- NOTE | 2020-06-15 08:46 | PDOC2 ---
PRATIBHA MURDOCK BUSINESS MANAGEMENT SPECIALIST 06/15/20 0846: CARDIAC CONSULT DATE OF CONSULT Date of Consult DATE: 06/15/20 TIME: 08:26 REASON FOR CONSULT Reason for Consult: ACS r/o REFERRING PHYSICIAN Referring Physician: Teresa SOURCE Source: Chart review, Patient HISTORY OF PRESENT ILLNESS HISTORY OF PRESENT ILLNESS This is a pleasant 74 yo female admitted for complains her chest pounding and abdominal pain. Reports that since Friday and more so after her DHEERAJ Friday she started having abdominal pain, no vomiting but with nausea and watery stools. She has been having LLQ abd tenderness. She has not taken her meds including her sotalol due to her GI symptoms. Upon admission her BP has been noted very high. Actually at home she was noted by HH with SBP at 212 and advised to go home. Denies any SOA or palpitations. No recent falls or injury. She does admit constipation with 3-4 days apart BM at a time despite being on laxative. She had a TIA few weeks ago as well and has hx of PAFIB but has had LAAO. She is on ASA and plavix but plavix has been held due to DHEERAJ and upcoming teeth extractions 07/06 and was told by his EP to be able to resume afterwards. She is now off her midodrine for 6 days now. also was told that she may need surgery for her left carotid due to significant blockage and has been referred.. Presently no CP, SOA and no significnat rhythm changes but still having abd pain. PAST MEDICAL HISTORY Past Medical History Cardiovascular: PAFIB (on sotalol and recently noted with low burden), CAD, HTN, Hyperlipidemia, Aortic stenosis, orthostasis, carotid artery disease Pulmonary: Asthma CENTRAL NERVOUS SYSTEM: Vertebrobasilar insufficiency, RLS, DPN, CVA, TIA GI: GERD, Other (diabetic gastroparesis) Heme/Onc: Anemia NOS (post-operative) Hepatobiliary: No pertinent hx Psych: Anxiety, Depression Musculoskeletal: Osteoarthritis Rheumatologic: No pertinent hx Infectious disease: No pertinent hx ENT: Other (diabetic retinopathy), periodontal disease Renal/: No pertinent hx Endocrine: Diabetes (type II, poorly controlled) Dermatology: No pertinent hx PAST SURGICAL HISTORY Past Surgical History Cholecystectomy, Cataract Removal, Hysterectomy, Other (right shoulder; PEG with removal; breast biopsies; repair of deviated septum, bioprosthetic aortic valve replacement with bypass surgery 06/23/2018, Watchmans device FAMILY HISTORY Family History adopted SOCIAL HISTORY Smoke: No ALCOHOL: none Drugs: None Lives: with Family CURRENT MEDICATIONS CURRENT MEDICATIONS Current Medications Medications (Trade) Dose Ordered Sig/Juan Miguel Route PRN Reason Start Time Stop Time Status Last Admin Dose Admin Magnesium Sulfate 50 ml @ 25 mls/hr 1X ONCE IV 06/14/20 15:00 06/14/20 16:59 DC 06/14/20 15:46 Ondansetron HCl (Zofran) 4 mg 1X ONCE IVP 06/14/20 14:45 06/14/20 14:46 DC 06/14/20 15:46 Sodium Chloride 1,000 ml @ 1,000 mls/hr 1X ONCE IV 06/14/20 14:45 06/14/20 15:44 DC 06/14/20 15:46 Iohexol (Omnipaque 300 Mg/ml) 60 ml 1X ONCE IV 06/14/20 15:00 06/14/20 15:01 DC 06/14/20 15:27 Amoxicillin/ Clavulanate Potassium (Augmentin 875/ 125mg) 1 tab 1X ONCE PO 06/14/20 17:30 06/14/20 17:31 DC 06/14/20 18:13 Ondansetron HCl (Zofran) 4 mg PRN Q8HRS PRN IV NAUSEA/VOMITING 06/14/20 18:00 06/15/20 17:59 06/14/20 20:21 Atorvastatin Calcium (Lipitor) 20 mg HS PO 06/14/20 21:30 06/14/20 22:20 Sotalol HCl (Betapace) 80 mg BID PO 06/14/20 21:30 06/14/20 22:21 Desvenlafaxine Succinate (Pristiq Er) 100 mg BID PO 06/14/20 21:30 06/14/20 22:20 Pregabalin (Lyrica) 150 mg BID PO 06/14/20 21:30 06/14/20 22:19 Quetiapine Fumarate (SEROquel) 50 mg HS PO 06/14/20 21:30 06/14/20 22:20 Ropinirole HCl (Requip) 1 mg HS PO 06/14/20 21:30 06/14/20 22:20 ALLERGIES ALLERGIES: Coded Allergies: adhesive tape (Verified Allergy, Severe, TEARS SKIN, 08/30/19) zolpidem (Verified Allergy, Intermediate, 08/30/19) nitrous oxide (Verified Adverse Reaction, Severe, EYE DAMAGE, 08/30/19) HAS HOLE IN EYE FROM MACULAR DEGENERATION PHYSICAL EXAM General: Alert, Oriented X3, Cooperative, No acute distress HEENT: Atraumatic, Mucous membr. moist/pink Lungs: Clear to auscultation, Normal air movement Heart: Regular rate (SR), Normal S1, Normal S2, Other (3/6 systolic murmur to LLS border) Abdomen: Soft, Other (LLQ tenderness) Extremities: No cyanosis, No edema Skin: No breakdown, No significant lesion Neuro: Normal speech, Sensation intact Psych/Mental Status: Mental status NL, Mood NL MUSCULOSKELETAL: Osteoarthritic changes both hands VITALS/I&O VITALS/I&O: Vital Signs Date Time Temp Pulse Resp B/P (MAP) Pulse Ox O2 Delivery O2 Flow Rate FiO2 06/15/20 03:04 98.0 80 18 143/73 (96) 92 Room Air 98.0 I & O 06/14/20 06/14/20 06/15/20 15:00 23:00 07:00 Intake Total 1050 ml 0 ml Balance 1050 ml 0 ml LABS Lab: Laboratory Tests Test 06/14/20 13:25 06/14/20 16:47 06/15/20 03:24 06/15/20 07:22 White Blood Count 9.7 x10^3/uL (4.0-11.0) 9.7 x10^3/uL (4.0-11.0) Red Blood Count 5.16 x10^6/uL (3.50-5.40) 4.93 x10^6/uL (3.50-5.40) Hemoglobin 15.4 g/dL (12.0-15.5) 14.7 g/dL (12.0-15.5) Hematocrit 45.4 % (36.0-47.0) 43.3 % (36.0-47.0) Mean Corpuscular Volume 88 fL (79-100) 88 fL (79-100) Mean Corpuscular Hemoglobin 30 pg (25-35) 30 pg (25-35) Mean Corpuscular Hemoglobin Concent 34 g/dL (31-37) 34 g/dL (31-37) Red Cell Distribution Width 14.2 % (11.5-14.5) 14.1 % (11.5-14.5) Platelet Count 145 x10^3/uL (140-400) 131 x10^3/uL (140-400) L Neutrophils (%) (Auto) 66 % (31-73) 63 % (31-73) Lymphocytes (%) (Auto) 29 % (24-48) 30 % (24-48) Monocytes (%) (Auto) 4 % (0-9) 6 % (0-9) Eosinophils (%) (Auto) 0 % (0-3) 0 % (0-3) Basophils (%) (Auto) 1 % (0-3) 1 % (0-3) Neutrophils # (Auto) 6.4 x10^3/uL (1.8-7.7) 6.1 x10^3/uL (1.8-7.7) Lymphocytes # (Auto) 2.8 x10^3/uL (1.0-4.8) 2.9 x10^3/uL (1.0-4.8) Monocytes # (Auto) 0.4 x10^3/uL (0.0-1.1) 0.6 x10^3/uL (0.0-1.1) Eosinophils # (Auto) 0.0 x10^3/uL (0.0-0.7) 0.0 x10^3/uL (0.0-0.7) Basophils # (Auto) 0.1 x10^3/uL (0.0-0.2) 0.1 x10^3/uL (0.0-0.2) Prothrombin Time 13.7 SEC (11.7-14.0) Prothrombin Time INR 1.1 (0.8-1.1) Activated Partial Thromboplast Time 39 SEC (24-38) H Sodium Level 140 mmol/L (136-145) 139 mmol/L (136-145) Potassium Level 3.9 mmol/L (3.5-5.1) 3.7 mmol/L (3.5-5.1) Chloride Level 101 mmol/L (98-107) 103 mmol/L (98-107) Carbon Dioxide Level 31 mmol/L (21-32) 29 mmol/L (21-32) Anion Gap 8 (6-14) 7 (6-14) Blood Urea Nitrogen 11 mg/dL (7-20) 9 mg/dL (7-20) Creatinine 1.0 mg/dL (0.6-1.0) 1.0 mg/dL (0.6-1.0) Estimated GFR (Cockcroft-Gault) 54.5 54.5 BUN/Creatinine Ratio 11 (6-20) Glucose Level 269 mg/dL (70-99) H 208 mg/dL (70-99) H Calcium Level 9.9 mg/dL (8.5-10.1) 9.1 mg/dL (8.5-10.1) Magnesium Level 1.7 mg/dL (1.8-2.4) L Total Bilirubin 0.9 mg/dL (0.2-1.0) Aspartate Amino Transferase (AST) 25 U/L (15-37) Alanine Aminotransferase (ALT) 22 U/L (14-59) Alkaline Phosphatase 112 U/L (46-116) Troponin I Quantitative < 0.017 ng/mL (0.000-0.055) DU-Ftq-U-Type Natriuretic Peptide 1133 pg/mL (0-124) H Total Protein 7.8 g/dL (6.4-8.2) Albumin 3.7 g/dL (3.4-5.0) Albumin/Globulin Ratio 0.9 (1.0-1.7) L Lipase 129 U/L (73-393) Urine Collection Type Unknown Urine Color Yellow Urine Clarity Clear Urine pH 7.0 (<5.0-8.0) Urine Specific [place] 1.020 (1.000-1.030) Urine Protein Negative mg/dL (NEG-TRACE) Urine Glucose (UA) 100 mg/dL (NEG) Urine Ketones (Stick) Trace mg/dL (NEG) Urine Blood Negative (NEG) Urine Nitrite Negative (NEG) Urine Bilirubin Negative (NEG) Urine Urobilinogen Dipstick 0.2 mg/dL (0.2 mg/dL) Urine Leukocyte Esterase Large (NEG) Urine RBC 0 /HPF (0-2) Urine WBC 20-40 /HPF (0-4) Urine Squamous Epithelial Cells Many /LPF Urine Bacteria Few /HPF (0-FEW) Glucose (Fingerstick) 191 mg/dL (70-99) H Laboratory Tests 06/14/20 13:25 06/15/20 03:24 Laboratory Tests 06/14/20 13:25 06/15/20 03:24 ASSESSMENT/PLAN ASSESSMENT/PLAN 1. Atypical chest pain: doubt ACS. EKG with limb lead reversal. Trops nml. potentially from uncontrolled HTN pain and missed meds 2. HTN urgency 3. Orthostasis: off midodrine in the last week. Possible SH-OH syndrome 4. Sigmoid diverticulitis with abd pain with nausea and diarrhea and hx of gastroparesis 5. Pyuria: per PCP 6. DM2: BG uncontrolled 7. PAFIB: recently noted with low burden with sotalol use 8. S/P LAAO 9. S/P CABG with bioprosthetic AVR: clnically stable 10. Hx of CAD and 11. Hx of CVA with recent TIA and carotid artery disease: referred to vascular Recommendations 1. Obtain DHEERAJ done at [facility] from Friday Was told her test was normal. Repeat EKG 2. Continue secondary prevention measures if able to take PO. Continue sotalol and ECASA. Plavix being held due to upcoming teeth extraction 3. Consult GI 4. Check orthostatic readings DONALD CASTRO MD 06/15/201939: CARDIAC CONSULT ASSESSMENT/PLAN ASSESSMENT/PLAN Patient seen and examined. Agree with TROMBONE SLIDE ASSEMBLER's assessment and plan. CP very atypical, reproducible to palpation and most prob musculoskeletal CAD s/p CABG, bioprosthetic AVR status clinically stable PAF s/p LAAO since patient poor candidate for mcfp AC BP better controlled but orthostatics positive. We will start kesha Thank you for your consultation PRATIBHA MURDOCK APRN Jun 15, 2020 08:46 DONALD CASTRO MD Jun 15, 2020 19:40
[2020-06-15] MEDS: SOTALOL 80 MG TABLET. PO SCH ×2 (08:49→20:34)
[2020-06-15] MEDS: metFORMIN 500 MG TABLET PO SCH ×2 (08:49→17:21)
[2020-06-15] MEDS: MULTIVITAMIN with MINERAL TABLET. PO SCH (08:49)
[2020-06-15] MEDS: DESVENLAFAXINE 25 MG TAB.ER.24H PO SCH ×2 (08:49→20:33)
[2020-06-15] MEDS: ARIPiprazole 5 MG TABLET PO SCH (08:50)
[2020-06-15] MEDS: PREGABALIN 75 MG CAPSULE PO SCH ×2 (08:50→20:35)
[2020-06-15] MEDS: ASPIRIN CHEWABLE 81 MG TABLET. PO SCH (08:50)
[2020-06-15 09:09] LABS: CHOLESTEROL/HDL RATIO 3.2
--- NOTE | 2020-06-15 09:12 | EKG ---
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
[2020-06-15 11:00] VITALS: BP 103/55
--- NOTE | 2020-06-15 11:27 | PDOC2 ---
GI CONSULT Date of Service: DATE: 06/15/20 TIME: 11:27 HPI: HPI: 74 y/o female - history from pt and daughter. Diarrhea since Friday after DHEERAJ - resolved now. Also some periumbilical pain - similar to chronic/recurrent pain. Also heartburn. No n/v, dysphagia, hematochezia, melena, or weight loss. H/o constipation. EGD 02/2013 (Dr. Yates): Schatzki's ring (dialted to 54Fr), nroma mucosa in esophagus, non-erosive gastritis (no biopsy), and normal mucosa in duodenum. Colonoscopy >10 years ago, recalls no significant findings. S/p cholecystectomy. H/o gastroparesis (GES in 06/2013 w/ T / time of 199 minutes) - previously on e-mycin (caused diarrhea), Reglan (notes say caused constipation, daughter says recently caused diarrhea), and Domperidone (which she does not recall). S/p G and J tube placement x 2 and pyloroplasty - fell out, not interested in replacing. On ASA. Daughter says supposed to start Plavix for recent TIA but on hold to h ave teeth pulled. PMH: PMH: A Fib, CAD, HTN, HLD, , orthostasis, asthma, vertebrobasilar insufficiency, RLS, CVA, GERD, gastroparesis, anxiety, depression, OA, DM cholecystectomy, cataract removal, hysterectomy, right shoulder surgery, G and J tube placement, pyloroplasty and CURTIS, breast biopsies, repair of deviated septum, AVR and bypass FH: Family History: No pertinent hx Social History: Smoke: No ALCOHOL: none Drugs: None ROS: GEN: Denies fevers, chills, sweats HEENT: Denies blurred vision, sore throat CV: Denies chest pain RESP: Denies shortness of air, cough GI: Per HPI : Denies hematuria, dysuria ENDO: Denies weight changes NEURO: Denies confusion, dizziness MSK: +weakness SKIN: Denies jaundice, pruritus Vitals: Vitals: Vital Signs Date Time Temp Pulse Resp B/P (MAP) Pulse Ox O2 Delivery O2 Flow Rate FiO2 06/15/20 11:00 98.0 98 16 103/55 (71) 91 Room Air 98.0 Labs: Labs: Laboratory Tests Test 06/14/20 13:25 06/14/20 16:47 06/15/20 03:24 06/15/20 07:22 White Blood Count 9.7 x10^3/uL (4.0-11.0) 9.7 x10^3/uL (4.0-11.0) Red Blood Count 5.16 x10^6/uL (3.50-5.40) 4.93 x10^6/uL (3.50-5.40) Hemoglobin 15.4 g/dL (12.0-15.5) 14.7 g/dL (12.0-15.5) Hematocrit 45.4 % (36.0-47.0) 43.3 % (36.0-47.0) Mean Corpuscular Volume 88 fL (79-100) 88 fL (79-100) Mean Corpuscular Hemoglobin 30 pg (25-35) 30 pg (25-35) Mean Corpuscular Hemoglobin Concent 34 g/dL (31-37) 34 g/dL (31-37) Red Cell Distribution Width 14.2 % (11.5-14.5) 14.1 % (11.5-14.5) Platelet Count 145 x10^3/uL (140-400) 131 x10^3/uL (140-400) Neutrophils (%) (Auto) 66 % (31-73) 63 % (31-73) Lymphocytes (%) (Auto) 29 % (24-48) 30 % (24-48) Monocytes (%) (Auto) 4 % (0-9) 6 % (0-9) Eosinophils (%) (Auto) 0 % (0-3) 0 % (0-3) Basophils (%) (Auto) 1 % (0-3) 1 % (0-3) Neutrophils # (Auto) 6.4 x10^3/uL (1.8-7.7) 6.1 x10^3/uL (1.8-7.7) Lymphocytes # (Auto) 2.8 x10^3/uL (1.0-4.8) 2.9 x10^3/uL (1.0-4.8) Monocytes # (Auto) 0.4 x10^3/uL (0.0-1.1) 0.6 x10^3/uL (0.0-1.1) Eosinophils # (Auto) 0.0 x10^3/uL (0.0-0.7) 0.0 x10^3/uL (0.0-0.7) Basophils # (Auto) 0.1 x10^3/uL (0.0-0.2) 0.1 x10^3/uL (0.0-0.2) Prothrombin Time 13.7 SEC (11.7-14.0) Prothromb Time International Ratio 1.1 (0.8-1.1) Activated Partial Thromboplast Time 39 SEC (24-38) Sodium Level 140 mmol/L (136-145) 139 mmol/L (136-145) Potassium Level 3.9 mmol/L (3.5-5.1) 3.7 mmol/L (3.5-5.1) Chloride Level 101 mmol/L (98-107) 103 mmol/L (98-107) Carbon Dioxide Level 31 mmol/L (21-32) 29 mmol/L (21-32) Anion Gap 8 (6-14) 7 (6-14) Blood Urea Nitrogen 11 mg/dL (7-20) 9 mg/dL (7-20) Creatinine 1.0 mg/dL (0.6-1.0) 1.0 mg/dL (0.6-1.0) Estimated GFR (Cockcroft-Gault) 54.5 54.5 BUN/Creatinine Ratio 11 (6-20) Glucose Level 269 mg/dL (70-99) 208 mg/dL (70-99) Calcium Level 9.9 mg/dL (8.5-10.1) 9.1 mg/dL (8.5-10.1) Magnesium Level 1.7 mg/dL (1.8-2.4) Total Bilirubin 0.9 mg/dL (0.2-1.0) Aspartate Amino Transf (AST/SGOT) 25 U/L (15-37) Alanine Aminotransferase (ALT/SGPT) 22 U/L (14-59) Alkaline Phosphatase 112 U/L (46-116) Troponin I Quantitative < 0.017 ng/mL (0.000-0.055) < 0.017 ng/mL (0.000-0.055) JL-Vex-A-Type Natriuretic Peptide 1133 pg/mL (0-124) Total Protein 7.8 g/dL (6.4-8.2) Albumin 3.7 g/dL (3.4-5.0) Albumin/Globulin Ratio 0.9 (1.0-1.7) Lipase 129 U/L (73-393) Urine Collection Type Unknown Urine Color Yellow Urine Clarity Clear Urine pH 7.0 (<5.0-8.0) Urine Specific [place] 1.020 (1.000-1.030) Urine Protein Negative mg/dL (NEG-TRACE) Urine Glucose (UA) 100 mg/dL (NEG) Urine Ketones (Stick) Trace mg/dL (NEG) Urine Blood Negative (NEG) Urine Nitrite Negative (NEG) Urine Bilirubin Negative (NEG) Urine Urobilinogen Dipstick 0.2 mg/dL (0.2 mg/dL) Urine Leukocyte Esterase Large (NEG) Urine RBC 0 /HPF (0-2) Urine WBC 20-40 /HPF (0-4) Urine Squamous Epithelial Cells Many /LPF Urine Bacteria Few /HPF (0-FEW) Triglycerides Level 108 mg/dL (0-150) Cholesterol Level 116 mg/dL (0-200) LDL Cholesterol, Calculated 58 mg/dL (0-100) VLDL Cholesterol, Calculated 22 mg/dL (0-40) Non-HDL Cholesterol Calculated 80 mg/dL (0-129) HDL Cholesterol 36 mg/dL (40-60) Cholesterol/HDL Ratio 3.2 Glucose (Fingerstick) 191 mg/dL (70-99) Allergies: Coded Allergies: adhesive tape (Verified Allergy, Severe, TEARS SKIN, 08/30/19) zolpidem (Verified Allergy, Intermediate, 08/30/19) nitrous oxide (Verified Adverse Reaction, Severe, EYE DAMAGE, 08/30/19) HAS HOLE IN EYE FROM MACULAR DEGENERATION Medications: Current Medications Medications (Trade) Dose Ordered Sig/Juan Miguel Route PRN Reason Start Time Stop Time Status Last Admin Dose Admin Magnesium Sulfate 50 ml @ 25 mls/hr 1X ONCE IV 06/14/20 15:00 06/14/20 16:59 DC 06/14/20 15:46 Ondansetron HCl (Zofran) 4 mg 1X ONCE IVP 06/14/20 14:45 9/2/20 14:46 DC 06/14/20 15:46 Sodium Chloride 1,000 ml @ 1,000 mls/hr 1X ONCE IV 06/14/20 14:45 06/14/20 15:44 DC 06/14/20 15:46 Iohexol (Omnipaque 300 Mg/ml) 60 ml 1X ONCE IV 06/14/20 15:00 06/14/20 15:01 DC 06/14/20 15:27 Amoxicillin/ Clavulanate Potassium (Augmentin 875/ 125mg) 1 tab 1X ONCE PO 06/14/20 17:30 06/14/20 17:31 DC 06/14/20 18:13 Ondansetron HCl (Zofran) 4 mg PRN Q8HRS PRN IV NAUSEA/VOMITING 06/14/20 18:00 06/15/20 17:59 06/14/20 20:21 Aripiprazole (Abilify) 5 mg DAILY PO 06/15/20 09:00 06/15/20 08:50 Aspirin (Aspirin Chewable) 81 mg DAILYWBKFT PO 06/15/20 08:00 06/15/20 08:50 Atorvastatin Calcium (Lipitor) 20 mg HS PO 06/14/20 21:30 06/14/20 22:20 Metformin HCl (Glucophage) 500 mg BIDWMEALS PO 06/15/20 08:00 06/15/20 08:49 Sotalol HCl (Betapace) 80 mg BID PO 06/14/20 21:30 06/15/20 08:49 Desvenlafaxine Succinate (Pristiq Er) 100 mg BID PO 06/14/20 21:30 06/15/20 08:49 Multivitamins (Thera M Plus) 1 tab DAILY PO 06/15/20 09:00 06/15/20 08:49 Pregabalin (Lyrica) 150 mg BID PO 06/14/20 21:30 06/15/20 08:50 Quetiapine Fumarate (SEROquel) 50 mg HS PO 06/14/20 21:30 06/14/20 22:20 Ropinirole HCl (Requip) 1 mg HS PO 06/14/20 21:30 06/14/20 22:20 Imaging: Imaging: CXR Impression: 1. No acute cardiopulmonary process. CT A/P IMPRESSION: Diverticulosis with wall thickening at the sigmoid colon, may relate to mild diverticulitis. Remainder of the large and small bowel are unremarkable. PE: GEN: NAD HEENT: Atraumatic, PERRL LUNGS: CTAB HEART: RRR ABD: NABS, S, mild periumbilical discomfort EXTREMITY: No edema SKIN: No rashes, no jaundice NEURO/PSYCH: A & O 3 A/P: A/P: Chest pain, HTN, diarrhea (resolved?), periumbilical pain, heartburn UTI, hypomagnesemia Abnormal CT - diverticulosis with wall thickening at the sigmoid colon, may relate to mild diverticulitis H/o gastroparesis s/p G and J tube placement/removal, pyloroplasty S/p cholecystectomy H/o A Fib, CAD, CVA, AVR DM, - on ASA, ?supposed to start Plavix -- Tolerating regular diet. Add antibiotics - given Augmentin in ER - will review w/ Dr. Yates. Add acid-bottom turner. Check stool studies if diarrhea recurs. Outpt colonsocopy. MARCUS MORRISSEY Jun 15, 2020 11:27
[2020-06-15] MEDS ORDERED: DEXTROSE 50% 25 GM / 50ML DISP.SYRIN. IV PRN (12:15)
[2020-06-15] MEDS: FAMOTIDINE 20 MG TABLET. PO SCH ×2 (12:24→20:35)
[2020-06-15] MEDS: INSULIN LISPRO 300 UNITS/3 ML VIAL. SQ SCH ×2 (12:28→17:00)
--- NOTE | 2020-06-15 13:11 | NUR ---
SS following for discharge planning. SS reviewed pt chart and discussed with pt RN. Pt is from home with family and is currently on room air. Pt has had [facility], ; fax [phone]. SS will continue to follow for discharge planning.
[2020-06-15 15:00] VITALS: BP_SYST 100; BP_SYST 110; BP_SYST 61; BP_SYST 91; BP_DIAS 40; BP_DIAS 46; BP_DIAS 47
[2020-06-15] MEDS: AMOXICILLIN/K CLAV 875/125MG TABLET. PO SCH (15:05)
[2020-06-15] MEDS ORDERED: INSU100V13 SQ (18:05)
[2020-06-15] MEDS ORDERED: INSU100V6 SQ (18:05)
[2020-06-15 19:32] VITALS: BP 127/58
[2020-06-15] MEDS: FLUDROCORTISONE 0.1 MG TABLET PO SCH (20:33)
[2020-06-15] MEDS: rOPINIRole 1 MG TABLET. PO SCH (20:34)
[2020-06-15] MEDS: QUEtiapine 25 MG TABLET. PO SCH (20:34)
[2020-06-15] MEDS: ATORVASTATIN CALCIUM 20 MG TABLET PO SCH (20:35)
--- NOTE | 2020-06-15 20:43 | NUR ---
Patient scanned her glucose monitoring device in left upper arm and reports Glucose of 270 this evening. Patient agreed to 40 unit Lantus SQ administration as ordered.
[2020-06-15] MEDS ORDERED: INSULIN GLARGINE SYRINGE. SQ SCH (21:00)
--- NOTE | 2020-06-15 21:31 | HP ---
ADMIT DATE: 06/15/2020 CHIEF COMPLAINT AND HISTORY OF PRESENT ILLNESS: This 74-year-old white female, is well known to from followup in the office. The patient was admitted through the Emergency Room after being brought by ambulance after a visit by her home health nurse, finding her to have accelerated hypertension and some chest pain. The patient does admit that she has not been taking her medicines for the last few days as she "forgot." It would seem likely that the accelerated hypertension and chest pain are one of the same, although there is some reproducibility of the chest pain by palpation suggesting musculoskeletal component. PAST MEDICAL HISTORY: Remarkable for atrial fibrillation, for which she has had a Watchman procedure, being a poor anticoagulation candidate. She has a history of longstanding depression, diabetes, hypertension, gastroparesis, prior heart valve replacement. She has neuropathy, macular degeneration as well as diabetic retinopathy. Has had prior angioplasties, cholecystectomy, CABG and valve replacement, hysterectomy, cataract surgery, G-tube for a period of time for the gastroparesis. MEDICATIONS: Brought with the patient, listed on the computer and have been addressed. ALLERGIES: SHE IS ALLERGIC TO ADHESIVE TAPE, NITROUS OXIDE, AND AMBIEN. SOCIAL HISTORY: She is , lives at home with her daughter and her . She is a nonsmoker, nondrinker. Does not use drugs. FAMILY HISTORY: Noncontributory. REVIEW OF SYSTEMS: As mentioned above. She does not feel like she has had any shortness of breath associated with this. Denies any cough, fevers, chills, sweats, etc. PHYSICAL EXAMINATION: GENERAL: She is well-developed, well-nourished white female, in no acute distress. VITAL SIGNS: Reveal elevated blood pressures, otherwise normal. HEAD, EYES, EARS, NOSE AND THROAT: Remarkable for glasses. NECK: Supple without bruit or thyromegaly. CHEST: Clear to auscultation and percussion. HEART: Regular rate and rhythm without S3, S4, significant murmur. ABDOMEN: Soft, nontender, without hepatosplenomegaly or masses. She does have some left lower quadrant tenderness without guarding or rebound. EXTREMITIES: Without cyanosis, clubbing, edema. NEUROLOGIC: She is intact. LABORATORY DATA: Initial lab shows a CBC that is unremarkable. Troponin is likewise unremarkable. Chemistry panel is remarkable for an elevated glucose and a slightly low magnesium. BNP is mildly elevated at 1133. PT and PTT are unremarkable. Urinalysis shows 20-40 white blood cells with large leukocyte esterase. IMAGING: Chest x-ray shows no acute changes and abdomen and pelvis CT shows some thickening of the sigmoid colon and diverticulosis, felt to be possibly mild diverticulitis. IMPRESSION: 1. Accelerated hypertension, chest pain, likely due to the same, probable mild diverticulitis. 2. Multiple problems listed above. PLAN: We will continue the patient on the Augmentin for the diverticulitis. Cardiology as well as GI input will be solicited and the patient will be monitored, managed and treated appropriately. ZEINA RUBIO MD DR: MANUEL/carlo JOB#: [id number] / [id number]
[2020-06-15 22:33] VITALS: BP 107/56
[2020-06-16 02:50] VITALS: BP 140/50
[2020-06-16 07:00] VITALS: BP 132/57
[2020-06-16] MEDS: INSULIN LISPRO 300 UNITS/3 ML VIAL. SQ SCH (08:00)
[2020-06-16] MEDS ORDERED: FLUD0.1T PO (08:03)
[2020-06-16] MEDS ORDERED: AMOX1TAB11 PO (08:03)
--- NOTE | 2020-06-16 08:05 | SNU/HH DC ---
DISCHARGE WITH HOME HEALTH DISCHARGE INFORMATION: Discharge Date: Jun 16, 2020 Final Diagnosis: Problems Medical Problems: (1) Abdominal pain Status: Acute (2) Diverticulitis Status: Acute (3) R07.9 Status: Acute Condition on Discharge: Stable CODE STATUS: Code Status: Full HOME HEALTH: Face to Face: I certify this patient is under my care and that I, or a nurse practitioner or physician's talent acquisition assistant working with me, had a face to face encounter that meets the physician face to face encounter requirements with this patient on 06/16/20. Nursing Home For: Assess & Educate Safety, Assess/Skilled Observatio, Diabetic Care, Medication Management RN For Eval/Treatment: Yes Physical Therapy For: Evalulation/Treatment Occupational Therapy For: Evaluation/Treatment Pt Meets Homebound Status: Poor coordination w/ amb., Unsteady balance w/ amb,, Limited distance walking POST DISCHARGE ORDERS: Activity Instructions for Disc: Activity as tolerated, Avoid exertion Weight Bearing Status after Di: No restrictions Bathing Instructions: Shower-keep dressing dry DIET AFTER DISCHARGE: ADA Wound/Incision Care: Ice to area for comfort, Keep wound/cast CDI CHECKS AFTER DISCHARGE: Checks after discharge: Check blood press - daily, Check blood sugar, ac/hs TREATMENT/EQUIPMENT ORDERS: Adaptive Equipment Issued: None, Walker CERTIFICATION STATEMENT: Certification Statement: Certification Statement: Based on the above finding, I certify that this patient is confined to the home and needs intermittent senior living care, physical therapy and/or speech therapy, or continues to need occupational therapy.~ This patient is under my care, and I have initiated the establishment of the plan of care.~ This patient will be followed by myself or a community physician who will periodically review the plan of care. Home Meds Active Scripts Fludrocortisone Acetate (FLUDROCORTISONE ACETATE) 0.1 Mg Tablet, 0.1 MG PO DAILY for orthostasis for 30 Days, #30 TAB Prov:ZEINA RUBIO MD 06/16/20 Amoxicillin/Potassium Clav (AMOX TR-K CLV 875-125 MG TAB) 1 Each Tablet, 1 TAB PO BID for diverticulitis for 7 Days, #14 TAB Prov:ZEINA RUBIO MD 06/16/20 Reported Medications Insulin Lispro (HUMALOG) 100 Unit/1 Ml Vial, 15 UNIT SQ TIDWMEALS for DM, VIAL 06/15/20 Insulin Detemir (LEVEMIR) 100 Unit/1 Ml Vial, 40 UNIT SQ HS for DM, VIAL 06/15/20 Quetiapine Fumarate (SEROQUEL) 50 Mg Tablet, 50 MG PO HS for sleep, TAB 06/14/20 Pregabalin (LYRICA) 150 Mg Capsule, 150 MG PO BID for neuropathy for 30 Days, CAP 06/14/20 Multivits-Min/Fa/Lycopene/Lut (CENTRUM SILVER TABLET) 1 Each Tablet, 1 EACH PO DAILY for supplement, TAB 06/14/20 Desvenlafaxine Succinate (PRISTIQ ER) 100 Mg Tab.er.24h, 100 MG PO BID for Depression, TAB.SR 06/14/20 Sotalol Hcl (SOTALOL) 80 Mg Tablet, 1 TAB PO BID for htn, #180 TAB 3 Refills 08/30/19 Atorvastatin Calcium (ATORVASTATIN CALCIUM) 20 Mg Tablet, 20 MG PO HS for FOR CHOLESTEROL, #30 TAB 0 Refills 02/01/19 Aspirin (ASPIRIN) 81 Mg Tab.chew, 81 MG PO DAILY for CAD, TAB.CHEW 02/01/19 Ropinirole Hcl (ROPINIROLE HCL) 2 Mg Tablet, 1 MG PO HS for restless leg for 30 Days, #15 TAB 06/16/18 Aripiprazole (ABILIFY) 2 Mg Tablet, 5 MG PO DAILY for mood disorders , TAB 01/19/18 Metformin Hcl (METFORMIN HCL) 500 Mg Tablet, 1 TAB PO BID for DM, #60 TAB 3 Refills 07/11/16 ZEINA RUBIO MD Jun 16, 2020 08:05
[2020-06-16] MEDS: ASPIRIN CHEWABLE 81 MG TABLET. PO SCH (08:12)
[2020-06-16] MEDS: FAMOTIDINE 20 MG TABLET. PO SCH (08:13)
[2020-06-16] MEDS: MULTIVITAMIN with MINERAL TABLET. PO SCH (08:13)
[2020-06-16] MEDS: metFORMIN 500 MG TABLET PO SCH (08:13)
[2020-06-16] MEDS: SOTALOL 80 MG TABLET. PO SCH (08:13)
[2020-06-16] MEDS: DESVENLAFAXINE 25 MG TAB.ER.24H PO SCH (08:13)
[2020-06-16] MEDS: ARIPiprazole 5 MG TABLET PO SCH (08:14)
[2020-06-16] MEDS: AMOXICILLIN/K CLAV 875/125MG TABLET. PO SCH (08:14)
[2020-06-16] MEDS: PREGABALIN 75 MG CAPSULE PO SCH (08:14)
[2020-06-16] MEDS: FLUDROCORTISONE 0.1 MG TABLET PO SCH (08:14)
--- NOTE | 2020-06-16 08:26 | PDOC ---
PRATIBHA MURDOCK NURSE WOUND CARE 06/16/20 0826: CARDIO Progress Notes Date and Time Date of Service 06/16/2020 Time of Evaluation 0950 Subjective Subjective: No Chest Pain, No shortness of breath, No Palpitations, Other (wants to go home) Vitals Vitals Vital Signs Date Time Temp Pulse Resp B/P (MAP) Pulse Ox O2 Delivery O2 Flow Rate FiO2 06/16/20 08:13 89 140/50 06/16/20 02:50 97.7 18 97 Room Air 97.7 Weight Weight [ ] Input and Output Intake and Output Intake and Output 06/16/20 06:59 Intake Total 950 ml Output Total 1000 ml Balance -50 ml Intake Oral 950 ml Output Urine Total 1000 ml Physical Exam HEENT: Neck Supple W Full Motion Chest: Symmetric LUNGS: Clear to Auscultation Heart: S1S2, RRR (SR) Abdomen: Soft N/T Extremities: No Edema, No Calf Tenderness Neurology: alert, oriented, follow commands Assessment Assessment 1. Atypical chest pain: doubt ACS. none further since BP is controlled 2. HTN urgency: controlled 3. Orthostasis: remains 4. Sigmoid diverticulitis with abd pain with nausea and diarrhea and hx of gastroparesis, per GI 5. Pyuria: per PCP 6. DM2 7. PAFIB: recently noted with low burden with sotalol use 8. S/P LAAO 9. S/P CABG with bioprosthetic AVR: clnically stable 10. Hx of CAD and 11. Hx of CVA with recent TIA and carotid artery disease: referred to vascular Recommendations 1. Florinef, Discussed and to start on mechanical compressions (abd binder and cedric hose). If orthostasis remains then may consider decreasing sotalol daily and could be given at HS. Discussed HBPM. 2. Continue secondary prevention measures. Plavix being held due to upcoming teeth extraction 3. Follow up with EP in 2 weeks [address] scheduled and Dr. Castro in July Justicifation of Admission Dx: Justifications for Admission: Justification of Admission Dx: Yes Angina: Cresendo Worsening of Sym Hypertension: Cresendo Worsening of Sym DONALD CASTRO MD 06/17/20 0823: CARDIO Progress Notes Assessment Assessment Patient seen and examined 06/16/20. Agree with RESIDENTIAL BUILDING INSPECTOR's assessment and plan. 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 Continue [facility] for orthostasi Follow up as scheduled PRATIBHA MURDOCK APRN Jun 16, 2020 08:26 DONALD CASTRO MD Jun 17, 2020 08:23
[2020-06-16 11:00] VITALS: BP 128/56
--- NOTE | 2020-06-16 11:21 | NUR ---
DISCHERGED PATIENT TO HOME. DISCHARGE INSTRUCTIONS GIVEN. PIV AND HEART MONITOR REMOVED. ESCORTED PATIENT OFF UNIT PER WHEELCHAIR INTO A PRIVATE VEHICLE.
--- NOTE | 2020-06-16 11:34 | PDOC ---
Date of Service: DATE: 06/16/20 TIME: 11:30 Subjective: Subjective: Feels better, says going home. (I saw her prior to discharge) Objective: Vital Signs: Vital Signs Date Time Temp Pulse Resp B/P (MAP) Pulse Ox O2 Delivery O2 Flow Rate FiO2 06/16/20 08:13 89 140/50 06/16/20 08:00 Room Air 06/16/20 07:00 97.5 16 98 97.5 Labs: URINE CULTURE Final Final >100,000 CFU/ML Three or more organisms isolated. PE: GEN: NAD LUNGS: CTAB HEART: RRR ABD: NABS, S/ND/NT NEURO/PSYCH: A & O 3 A/P: Diverticulitis, ?UTI H/o gastroparesis H/o A Fib, CAD, CVA, AVR - on ASA, ?supposed to start Plavix -- Dc per primary on PO atbx. Follow-up for colonoscopy as outpt - our office will arrange. Justicifation of Admission Dx: Justifications for Admission: Justification of Admission Dx: Yes Angina: Cresendo Worsening of Sym Hypertension: Cresendo Worsening of Sym MARCUS MORRISSEY Jun 16, 2020 11:34
--- NOTE | 2020-06-16 22:36 | DS ---
DATE OF DISCHARGE: 06/16/2020 PRIMARY DIAGNOSIS: Chest pain related to accelerated hypertension. ADDITIONAL DIAGNOSES: Noncompliance with meds prior to admission, history of atrial fibrillation, atherosclerotic heart disease with prior bypass, prior valve replacement, diabetes with retinopathy and neuropathy, gastroparesis, diverticulitis. CHIEF COMPLAINT AND HISTORY OF PRESENT ILLNESS: This is a 74-year-old white female admitted through the Emergency Room after a visit by her home health nurse finding accelerated hypertension and chest pain. The patient does admit that she had not been taking her medicines for the last few days as she forgot. Thus it seemed to be that the accelerated hypertension resulted in chest pain are one of the same, although there is some musculoskeletal chest tenderness at the time of admission in addition. SUMMARY OF STAY: The patient was admitted. Home meds were started. Blood pressures became down nicely. She had no further chest pain. She did have orthostasis and Cardiology added Florinef at discharge. Sugars which were initially quite elevated, came down dramatically with reinstitution of her home meds. Her coagulation studies were normal. She did have 20-40 white blood cells and large amount of leukocyte esterase on her urine with culture showing 2 more organisms consistent with contamination. cultures to follow up on organism . She was pushing for discharge and this was felt that she was able to do this. The patient was felt to have a mild diverticulitis during the stay on the basis of exam and CT findings and was treated with Augmentin and was improved symptomatically and her pain resolved at the time of discharge. DISPOSITION: The patient is discharged to home. She is discharged on ADA diet. ACTIVITY: As tolerated. FOLLOWUP: Office in 1 week. DISCHARGE MEDICATIONS: Listed on the medication reconciliation and addressed. They included her regular home meds plus Florinef 0.1 mg daily and Augmentin 875/125 b.i.d. for the next [address] ZEINA RUBIO MD DR: MANUEL/carlo JOB#: [id number] / [id number]
== END 2020-06-16 11:20 | disposition home health service (06) | DRG 305 ==
LOC: ER 12:29 → ED HOLD 18:43 → 2 NORTH 18:44
PROVIDERS: ADMIT Family Medicine; ATTEND Family Medicine
DX: I16.0 Hypertensive urgency (principal); K57.32 Diverticulitis of large intestine without perforation or abscess without bleeding; I10 Essential (primary) hypertension; R07.89 Other chest pain; Z20.828 Contact with and (suspected) exposure to other viral communicable diseases; E11.40 Type 2 diabetes mellitus with diabetic neuropathy, unspecified; E11.319 Type 2 diabetes mellitus with unspecified diabetic retinopathy without macular edema; F32.9 Major depressive disorder, single episode, unspecified; F41.9 Anxiety disorder, unspecified; K21.9 Gastro-esophageal reflux disease without esophagitis; M19.90 Unspecified osteoarthritis, unspecified site; K59.00 Constipation, unspecified; I48.0 Paroxysmal atrial fibrillation; J45.909 Unspecified asthma, uncomplicated; I25.10 Atherosclerotic heart disease of native coronary artery without angina pectoris; E78.5 Hyperlipidemia, unspecified; G25.81 Restless legs syndrome; R82.81 Pyuria; E11.43 Type 2 diabetes mellitus with diabetic autonomic (poly)neuropathy; K31.84 Gastroparesis; Z91.048 Other nonmedicinal substance allergy status; Z91.14 Patient's other noncompliance with medication regimen; Z79.82 Long term (current) use of aspirin; Z95.3 Presence of xenogenic heart valve; Z79.02 Long term (current) use of antithrombotics/antiplatelets; Z90.710 Acquired absence of both cervix and uterus; Z90.49 Acquired absence of other specified parts of digestive tract; Z95.1 Presence of aortocoronary bypass graft; Z98.49 Cataract extraction status, unspecified eye; Z88.8 Allergy status to other drugs, medicaments and biological substances; Z86.73 Personal history of transient ischemic attack (TIA), and cerebral infarction without residual deficits
CPT/HCPCS: 36415; 71045; 74177; 80048; 80053; 80061; 81001; 82962; 83690; 83735; 83880; 84484; 85025; 85610; 85730; 87086; 93005; 96365; 96366; 96375; J1815; J2405; J3475; J7030; Q9967; 97530-GO; 97530-GP; 99285-25; G0378

== ENCOUNTER 2020-07-24 15:33 | Emergency (ER) | payer MEDICARE, OTHER ==
[~2020-07-24] VITALS: Ht 165.1 cm; Wt 75.0 kg
[~2020-07-24 15:33] MED LIST changes: +AMLO-186 PO; -AMLO5TAB10 PO; +AMOX1TAB11 PO; +DESV100T PO; +FLUD0.1T PO; +INSU100V6 SQ; +MULT-658 PO; +PREG150C PO; +QUET50TA5 PO
[2020-07-24] MEDS ORDERED: KETOROLAC 15 MG/ML VIAL. IVP ONE (17:00)
[2020-07-24 17:10] LABS: BASO # 0.1 x10^3/uL (0.0-0.2); BASO % 1 % (0-3); EOS % 0 % (0-3); HEMATOCRIT 47.2 % (36.0-47.0); HEMOGLOBIN 15.9 g/dL (12.0-15.5); LYMPH # 3.3 x10^3/uL (1.0-4.8); LYMPH % 33 % (24-48); MEAN CORPUSCULAR HEMOGLOBIN 29 pg (25-35); MEAN CORPUSCULAR HGB CONC 34 g/dL (31-37); MEAN CORPUSCULAR VOLUME 87 fL (79-100); MONO # 0.6 x10^3/uL (0.0-1.1); MONO % 6 % (0-9); NEUT # 6.1 x10^3/uL (1.8-7.7); NEUT % 60 % (31-73); PLATELET COUNT 134 x10^3/uL (140-400); RED BLOOD COUNT 5.43 x10^6/uL (3.50-5.40); WHITE BLOOD COUNT 10.1 x10^3/uL (4.0-11.0)
[2020-07-24 17:43] LABS: CALCIUM 10.1 mg/dL (8.5-10.1); GFR 54.5; POTASSIUM 3.8 mmol/L (3.5-5.1)
[2020-07-24 17:49] LABS: ALBUMIN 3.6 g/dL (3.4-5.0); ALBUMIN/GLOBULIN RATIO 1.1 (1.0-1.7); TOTAL BILIRUBIN 0.9 mg/dL (0.2-1.0); TOTAL PROTEIN 6.9 g/dL (6.4-8.2)
[2020-07-24 18:11] LABS: BILIRUBIN,URINE SMALL (NEG); CLARITY,URINE CLEAR; COLOR,URINE YELLOW; NITRITE,URINE NEGATIVE (NEG); PROTEIN,URINE 100 mg/dL (NEG-TRACE)
[2020-07-24] MEDS ORDERED: CONTRAST GIVEN. MC PRN (18:15)
[2020-07-24] MEDS ORDERED: IOHEXOL 300 MG/ML 100ML VIAL. IV ONE (18:15)
[2020-07-24 18:19] LABS: BACTERIA,URINE FEW /HPF (0-FEW)
--- NOTE | 2020-07-24 18:22 | RAD ---
Examination: CT HEAD WO CONTRAST History: Reason: HEADACHE / Spl. Instructions: / History: Comparison/Correlation: 05/29/2020 CT head without contrast Findings: Axial images of the head were obtained without contrast. Atrophy and mild chronic ischemic change noted. No intracranial hemorrhage, midline shift, or mass effect. Postoperative findings involving the right maxillary sinus medial wall partially seen. Right-sided trevor bullosa present. Impression: No acute process. PQRS Compliance Statement: One or more of the following individualized dose reduction techniques were utilized for this examination: 1. Automated exposure control 2. Adjustment of the mA and/or kV according to patient size 3. Use of iterative reconstruction technique Electronically signed by: Jordan Latham MD (07/24/2020 6:20 PM) [facility]
--- NOTE | 2020-07-24 18:57 | RAD ---
EXAM: CT ABDOMEN/PELVIS WITH CONTRAST. HISTORY: Abdominal pain. TECHNIQUE: Computed tomography of the abdomen and pelvis was performed after the intravenous administration of iodinated contrast. One or more of the following individualized dose reduction techniques were utilized for this examination: 1. Automated exposure control. 2. Adjustment of the mA and/or kV according to patient size. 3. Use of iterative reconstruction technique. COMPARISON: 06/14/2020. FINDINGS: Lung windows through the visualized portions of the bases reveal mild atelectasis. A 1.9 cm calcified mass anterolateral to the distal esophagus most likely represents a calcified lymph node in the setting of old granulomatous disease. There is a small hiatal hernia and mild distal esophageal wall thickening. There are calcifications of the mitral valve annulus. Bone windows reveal no suspicious lesions. There are calcified granulomas in the liver and spleen. The gallbladder is surgically absent. The common duct is mildly dilated at 9 mm but tapers normally distally without evidence of an obstructing lesion. A 7 mm exophytic lesion at the left renal upper pole measures 80 Hounsfield units but is stable chronically and likely reflects a proteinaceous/hemorrhagic cyst. The right kidney, pancreas and adrenal glands are unremarkable. There are no pathologically enlarged lymph nodes. The uterus is surgically absent. Sigmoid diverticulosis is moderate to severe. Right colon is decompressed but there is suggestion of mild wall thickening. The appendix is not inflamed. There is no small bowel obstruction. IMPRESSION: 1. Mild wall thickening of the right colon may reflect only luminal decompression. Correlate clinically for mild colitis. 2. Mild extrahepatic biliary dilatation status post cholecystectomy. Correlate for cholestasis to assess significance. 3. Small hiatal hernia. Mild distal esophageal wall thickening may reflect peristalsis or esophagitis. Electronically signed by: Yesenia Licea MD (07/24/2020 6:54 PM) [facility]
--- NOTE | 2020-07-24 19:46 | PHYS DOC ---
Past Medical History Past Medical History: A-Fib, Depression, Diabetes-Type II, Hypertension, Other Additional Past Medical Histor: gastroparesis,HEART MURMUR,NEUROPATHY,VALVE REPLACE,MACULAR DEGENERATION (SABI RANGEL APRN) Past Surgical History: Angioplasty, Cholecystectomy, Coronary Bypass Surgery, Hysterectomy, Other Additional Past Surgical Histo: G-tube,CATARACT,RT SHOULDER,DEVIATED SEPTUM,LOOP RECORDER (SABI RANGEL APRN) Smoking Status: Never Smoker Alcohol Use: None Drug Use: None (SABI RANGEL APRN) General Adult EDM: Chief Complaint: WEAKNESS/GENERALIZED HPI: HPI: Patient is a 74 year old female who presents with complaints of having her dentures replaced last Friday and has been unable to eat or drink adequately because of her mouth pains. She states that her mouth pain has progressed to a headache that she rates as a 10/10 pain on a 1-10 pain scale. She describes her pain as a pounding ache at the top of her head that does not radiate. She has not taken anything for the pain. She also reports having 4 bouts of diarrhea small amount of loose watery brown stool with mild generalized abdominal ache last Friday and is worried she may have diverticulitis again. She denies abdominal pain today. She denies fever, chills, nasal congestion, cough, or shortness of breath. Denies chest pain, swelling of her extremities, constipation or blood in her stool. Denies urinary problems, back pain, pain in her joints, skin rashes, weaknesses or sensory changes. She denies increased thirst or increased urination. She denies swelling of her glands, depression, anxiety, homicidal or suicidal ideation. She denies fear of having the covid virus but is not opposed to being tested. She states she was sent her by her primary physician Dr. Lino for admission. (SABI RANGEL APRN) Review of Systems: Review of Systems: Constitutional: Denies fever or chills. [] Eyes: Denies change in visual acuity. [] HENT: Denies nasal congestion or sore throat. [] Respiratory: Denies cough or shortness of breath. [] Cardiovascular: Denies chest pain or edema. [] GI: Denies abdominal pain, nausea, vomiting, bloody stools or diarrhea at this time but reports diarrhea last Friday. : Denies dysuria. [] Musculoskeletal: Denies back pain or joint pain. [] Integument: Denies rash. [] Neurologic: Denies focal weakness or sensory changes. Reports headache. Endocrine: Denies polyuria or polydipsia. [] Lymphatic: Denies swollen glands. [] Psychiatric: Denies depression or anxiety. [] (SABI RANGEL APRN) Heart Score: Risk Factors: Risk Factors: DM, Current or recent (<one month) smoker, HTN, HLP, family history of CAD, obesity. Risk Scores: Score 0 - 3: 2.5% MACE over next 6 weeks - Discharge Home Score 4 - 6: 20.3% MACE over next 6 weeks - Admit for Clinical Observation Score 7 - 10: 72.7% MACE over next 6 weeks - Early Invasive Strategies (SABI RANGEL APRN) Current Medications: Reviewed current medication list given to nursing staff, patient denies recent medication changes. Current Medications Medications (Trade) Dose Ordered Sig/Juan Miguel Start Time Stop Time Status Last Admin Dose Admin Info (CONTRAST GIVEN -- Rx MONITORING) 1 each PRN DAILY PRN 07/24/20 18:15 07/26/20 18:14 Iohexol (Omnipaque 300 Mg/ml) 60 ml 1X ONCE 07/24/20 18:15 07/24/20 18:16 DC 07/24/20 18:09 60 ML Ketorolac Tromethamine (Toradol 15mg Vial) 15 mg 1X ONCE 07/24/20 17:00 07/24/20 17:04 DC 07/24/20 17:26 15 MG (SABI RANGEL APRN) Allergies: Allergies: Allergies Coded Allergies Type Severity Reaction Last Updated Verified adhesive tape Allergy Severe TEARS SKIN 08/30/19 Yes zolpidem Allergy Intermediate 08/30/19 Yes nitrous oxide Adverse Reaction Severe EYE DAMAGE 08/30/19 Yes (SABI RANGEL APRN) Physical Exam: PE: Constitutional: Well developed, well nourished, no acute distress, non-toxic appearance.Patients complaint of headache does not correlate with physical presentation. HENT: Normocephalic, atraumatic, bilateral external ears normal, oropharynx moist, no oral exudates, nose normal. No redness or infectious process noted in oral cavity from recent denture change. Eyes: PERRLA, EOMI, conjunctiva normal, no discharge. [] Neck: Normal range of motion, no tenderness, supple, no stridor. [] Cardiovascular:Heart rate regular rhythm, no murmur, heart sounds s!, S2 to auscultation. Lungs & Thorax: Bilateral breath sounds clear to auscultation all lung villanueva. Abdomen: Bowel sounds normal all 4 quadrants to auscultation, soft, no tenderness, no masses, no pulsatile masses. [] Skin: Warm, dry, no erythema, no rash. [] Back: No tenderness, no CVA tenderness. [] Extremities: No tenderness, no cyanosis, no clubbing, ROM intact, no edema. [] Neurologic: Alert and oriented X 3, normal motor function, normal sensory function, no focal deficits noted. [] Psychologic: Affect normal, judgement normal, mood normal. [] (SABI RANGEL APRN) Current Patient Data: Labs: Laboratory Tests Test 07/24/20 16:00 07/24/20 18:00 White Blood Count 10.1 x10^3/uL (4.0-11.0) Red Blood Count 5.43 x10^6/uL (3.50-5.40) H Hemoglobin 15.9 g/dL (12.0-15.5) H Hematocrit 47.2 % (36.0-47.0) H Mean Corpuscular Volume 87 fL (79-100) Mean Corpuscular Hemoglobin 29 pg (25-35) Mean Corpuscular Hemoglobin Concent 34 g/dL (31-37) Red Cell Distribution Width 13.0 % (11.5-14.5) Platelet Count 134 x10^3/uL (140-400) L Neutrophils (%) (Auto) 60 % (31-73) Lymphocytes (%) (Auto) 33 % (24-48) Monocytes (%) (Auto) 6 % (0-9) Eosinophils (%) (Auto) 0 % (0-3) Basophils (%) (Auto) 1 % (0-3) Neutrophils # (Auto) 6.1 x10^3/uL (1.8-7.7) Lymphocytes # (Auto) 3.3 x10^3/uL (1.0-4.8) Monocytes # (Auto) 0.6 x10^3/uL (0.0-1.1) Eosinophils # (Auto) 0.0 x10^3/uL (0.0-0.7) Basophils # (Auto) 0.1 x10^3/uL (0.0-0.2) Sodium Level 136 mmol/L (136-145) Potassium Level 3.8 mmol/L (3.5-5.1) Chloride Level 97 mmol/L (98-107) L Carbon Dioxide Level 31 mmol/L (21-32) Anion Gap 8 (6-14) Blood Urea Nitrogen 21 mg/dL (7-20) H Creatinine 1.0 mg/dL (0.6-1.0) Estimated GFR (Cockcroft-Gault) 54.5 BUN/Creatinine Ratio 21 (6-20) H Glucose Level 342 mg/dL (70-99) H Calcium Level 10.1 mg/dL (8.5-10.1) Total Bilirubin 0.9 mg/dL (0.2-1.0) Aspartate Amino Transferase (AST) 23 U/L (15-37) Alanine Aminotransferase (ALT) 25 U/L (14-59) Alkaline Phosphatase 103 U/L (46-116) Total Protein 6.9 g/dL (6.4-8.2) Albumin 3.6 g/dL (3.4-5.0) Albumin/Globulin Ratio 1.1 (1.0-1.7) Lipase 73 U/L (73-393) Urine Collection Type Void Urine Color Yellow Urine Clarity Clear Urine pH 5.0 (<5.0-8.0) Urine Specific Coden >=1.030 (1.000-1.030) Urine Protein 100 mg/dL (NEG-TRACE) Urine Glucose (UA) >=1000 mg/dL (NEG) Urine Ketones (Stick) 15 mg/dL (NEG) Urine Blood Trace (NEG) Urine Nitrite Negative (NEG) Urine Bilirubin Small (NEG) Urine Urobilinogen Dipstick 1.0 mg/dL (0.2 mg/dL) Urine Leukocyte Esterase Trace (NEG) Urine RBC 3-5 /HPF (0-2) Urine WBC 11-20 /HPF (0-4) Urine Squamous Epithelial Cells Few /LPF Urine Bacteria Few /HPF (0-FEW) Laboratory Tests 07/24/20 16:00 Laboratory Tests 07/24/20 16:00 Vital Signs: Vital Signs Date Time Temp Pulse Resp B/P (MAP) Pulse Ox O2 Delivery O2 Flow Rate FiO2 07/24/20 17:09 74 195/93 (127) 99 Room Air 07/24/20 15:48 98.1 20 98.1 (SABI RANGEL APRN) EKG: EKG: EKG performed at 15:46 showed NSR without ectopy, No STEMI or Coronary syndrome noted, interpreted by ED attending Dr. Lucio. (SABI RANGEL APRN) Radiology/Procedures: Radiology/Procedures: PATIENT: TEJAS RICE AACCOUNT: [id number] : 1945 LOCATION: ER AGE: 74 SEX: F EXAM STATUS: REG ER ORD. PHYSICIAN: SABI RANGEL APRN REASON: DIARRHEA, ABDOMINAL PAIN PROCEDURE: CT ABD PELV W/ IV CONTRST ONLY EXAM: CT ABDOMEN/PELVIS WITH CONTRAST. HISTORY: Abdominal pain. TECHNIQUE: Computed tomography of the abdomen and pelvis was performed after the intravenous administration of iodinated contrast. One or more of the following individualized dose reduction techniques were utilized for this examination: 1. Automated exposure control. 2. Adjustment of the mA and/or kV according to patient size. 3. Use of iterative reconstruction technique. COMPARISON: 06/14/2020. FINDINGS: Lung windows through the visualized portions of the bases reveal mild atelectasis. A 1.9 cm calcified mass anterolateral to the distal esophagus most likely represents a calcified lymph node in the setting of old granulomatous disease. There is a small hiatal hernia and mild distal esophageal wall thickening. There are calcifications of the mitral valve annulus. Bone windows reveal no suspicious lesions. There are calcified granulomas in the liver and spleen. The gallbladder is surgically absent. The common duct is mildly dilated at 9 mm but tapers normally distally without evidence of an obstructing lesion. A 7 mm exophytic lesion at the left renal upper pole measures 80 Hounsfield units but is stable chronically and likely reflects a proteinaceous/hemorrhagic cyst. The right kidney, pancreas and adrenal glands are unremarkable. There are no pathologically enlarged lymph nodes. The uterus is surgically absent. Sigmoid diverticulosis is moderate to severe. Right colon is decompressed but there is suggestion of mild wall thickening. The appendix is not inflamed. There is no small bowel obstruction. IMPRESSION: 1. Mild wall thickening of the right colon may reflect only luminal decompression. Correlate clinically for mild colitis. 2. Mild extrahepatic biliary dilatation status post cholecystectomy. Correlate for cholestasis to assess significance. 3. Small hiatal hernia. Mild distal esophageal wall thickening may reflect peristalsis or esophagitis. Electronically signed by: Yesenia Licea MD (07/24/2020 6:54 PM) [facility] DICTATED and SIGNED BY: OG LICEA MD DATE: 07/24/201853 PATIENT: TEJAS RICE AACCOUNT: [id number] : 1945 LOCATION: ER AGE: 74 SEX: F EXAM STATUS: REG ER ORD. PHYSICIAN: SABI RANGEL APRN REASON: HEADACHE PROCEDURE: CT HEAD WO CONTRAST Examination: CT HEAD WO CONTRAST History: Reason: HEADACHE / Spl. Instructions: / History: Comparison/Correlation: 05/29/2020 CT head without contrast Findings: Axial images of the head were obtained without contrast. Atrophy and mild chronic ischemic change noted. No intracranial hemorrhage, midline shift, or mass effect. Postoperative findings involving the right maxillary sinus medial wall partially seen. Right-sided trevor bullosa present. Impression: No acute process. PQRS Compliance Statement: One or more of the following individualized dose reduction techniques were utilized for this examination: 1. Automated exposure control 2. Adjustment of the mA and/or kV according to patient size 3. Use of iterative reconstruction technique Electronically signed by: Jordan Vazquez MD (07/24/2020 6:20 PM) [facility] DICTATED and SIGNED BY: JORDAN VAZQUEZ MD DATE: 07/24/201819 (SABI RANGEL APRN) Course & Med Decision Making: Course & Med Decision Making Pertinent Labs and Imaging studies reviewed. (See chart for details) 74 yo female patient presented to the ER with headache and reprting she was sent her by her primary physician Dr. Lino for admission. Vital signs were stable, Labs and CT imaging ordered related to history of diverticulitis and headache. Labs were equivocal and CT head showed no acute process, her abdominal CT did not show acute process. She continued to deny abdominal pain. She was given one liter NS IV and 30mg toridol IV for headache which she stated relieved her headache to a 0/10 but thinks her headache was returning. She was given a 5/325mg [place] for pain. consulted and discussed case with Dr. Lino, Dr. Lino did not wish to admit this patient to the hospital and advised me to have the patient follow up with him at his office tomorrow if she felt she need to. Discussed findings with patient and pts daughter along with Dr. Lino's wish to see her tomorrow at his office. Pt stated she was relieved she did not have diverticulitis and stated she would make an appointment to see Dr. Lino tomorrow. Pt gave verbal understanding of D/C, return to ER instructions. Pt denied further questions or concerns, discharged to home without incident. (SABI RANGEL APRN) Course & Med Decision Making I have reviewed the PA/VEHICLE DAMAGE APPRAISER's note and Plan of Care. I was available for consult ation as needed during the patient's visit in the emergency department. I agree with the clinical impression, plans and disposition. (MARIUSZ LUCIO MD) Dragon Disclaimer: Dragon Disclaimer: This electronic medical record was generated, in whole or in part, using a voice recognition dictation system. (SABI RANGEL APRN) Departure Departure Impression: Primary Impression: Headache Qualified Codes: R51.9 - Headache, unspecified Disposition: 01 DC HOME SELF CARE/HOMELESS Condition: GOOD Referrals: ZEINA LINO MD (PCP) Patient Instructions: General Headache Without Cause Additional Instructions: I spoke with Dr. Roland, he recommended you call his office in the morning and make an appointment to see him. Return to the emergency department for worsening symptoms or further concerns. SABI RANGEL APRN Jul 24, 2020 19:46 MARIUSZ LUCIO MD Jul 26, 2020 19:41
[2020-07-24] MEDS ORDERED: HYDROcodone/APAP 5/325MG 1 TAB TABLET PO ONE (20:00)
[2020-07-24] MEDS ORDERED: IV NORMAL SALINE 1000ML BAG 1,000 ML IV ONE (20:00)
[2020-07-24 21:56] VITALS: BP 203/89
== END 2020-07-24 22:27 | disposition home or self-care (01) ==
LOC: ER 15:33
DX: R51.9 Headache, unspecified (principal); I48.91 Unspecified atrial fibrillation; E11.43 Type 2 diabetes mellitus with diabetic autonomic (poly)neuropathy; K31.84 Gastroparesis; I10 Essential (primary) hypertension; Z95.1 Presence of aortocoronary bypass graft; Z95.5 Presence of coronary angioplasty implant and graft; Z88.8 Allergy status to other drugs, medicaments and biological substances
CPT/HCPCS: 36415; 70450; 74177; 80053; 81001; 83690; 85025; 87077; 87086; 96361; 96374; 99285; J1885; J7030; Q9967

== ENCOUNTER → 2020-08-01 | Outpatient (CLI) | payer MEDICARE, OTHER ==
[2020-08-04 08:14] VITALS: BP 155/56
== END ==
LOC: LAB 12:11
PROVIDERS: ATTEND Internal Medicine Gastroenterology
DX: Z01.812 Encounter for preprocedural laboratory examination (principal); Z20.828 Contact with and (suspected) exposure to other viral communicable diseases
CPT/HCPCS: C9803; U0003

== ENCOUNTER → 2020-08-04 | Day surgery (SDC) | payer MEDICARE, OTHER ==
[~2020-08-04] MED LIST changes: +IV RINGERS,LACTATED 1000ML 1,000 ML IV SCH; +LIDOCAINE 2% PF 5 ML VIAL. ONE; +PROPOFOL 10 MG/ML (20ML) VIAL. IV ONE
--- NOTE | 2020-08-04 07:40 | HP ---
ADMIT DATE: 08/04/2020 REFERRING PHYSICIAN: Reece Lino MD REASON FOR CONSULTATION: Colorectal screening. HISTORY OF PRESENT ILLNESS: A 74-year-old female with past medical history significant for organic heart disease, atrial fibrillation, hypertension, hyperlipidemia, aortic stenosis as well as gastroparesis, gastroesophageal reflux disease, status post cholecystectomy, hysterectomy, J-tube replacement, pyloroplasty status post aortic valve replacement and bypass surgery, is seen for screening colon exam. Bowel habits are regular without constipation, occasional diarrhea. There has been no bleeding. Weight and appetite are stable. She is otherwise without additional complaints. PAST MEDICAL HISTORY: Hypertension, atrial fibrillation, hyperlipidemia, AVR for aortic stenosis, status post coronary artery bypass graft. ALLERGIES:. NITROUS OXIDE, ZOLPIDEM. MEDICATIONS: Include Abilify, aspirin, atorvastatin, Pristiq, Levomed, insulin, metformin, pregabalin, Rapidol, and sotalol. SOCIAL HISTORY: She does not drink or smoke. FAMILY HISTORY: Noncontributory. REVIEW OF SYSTEMS: Per records. PHYSICAL EXAMINATION: GENERAL: Reveals a well-nourished, well-developed female who is alert, cooperative, in no acute distress. VITAL SIGNS: Temperature 97, pulse 60, respiratory rate 18. LUNGS: Clear. CARDIOVASCULAR: Reveals an S1, S2 without S3, S4. There is a 2/6 systolic ejection murmur as well as some well-healed midline sternal incision. ABDOMEN: Reveals a soft abdomen, normal bowel sounds, without appreciable hepatosplenomegaly. IMPRESSION: Colorectal screening is warranted at this time. Risks and benefits of procedure including risk of hemorrhage and perforation have been previously discussed. The patient is willing to proceed. MARIUSZ STREETER MD DR: KENNETH/carlo JOB#: [id number] / [id number]
[2020-08-04 08:14] VITALS: BP 155/56
== END ==
LOC: SURG 06:10
PROVIDERS: ATTEND Internal Medicine Gastroenterology
DX: Z12.11 Encounter for screening for malignant neoplasm of colon (principal); I10 Essential (primary) hypertension; E78.5 Hyperlipidemia, unspecified; K21.9 Gastro-esophageal reflux disease without esophagitis; I48.91 Unspecified atrial fibrillation; F41.9 Anxiety disorder, unspecified; F32.9 Major depressive disorder, single episode, unspecified; K64.0 First degree hemorrhoids; K57.30 Diverticulosis of large intestine without perforation or abscess without bleeding; Z95.4 Presence of other heart-valve replacement; Z88.8 Allergy status to other drugs, medicaments and biological substances; Z79.82 Long term (current) use of aspirin; Z79.899 Other long term (current) drug therapy
CPT/HCPCS: 82962; G0121; J2704; 45378

== ENCOUNTER 2020-10-07 14:36 | Inpatient (IN) | payer MEDICARE, OTHER ==
[~2020-10-07] VITALS: Ht 165.1 cm; Wt 73.9 kg
[~2020-10-07 14:36] MED LIST changes: +ACET1TAB33 PO; +ARIP5TAB58 PO; +CHOL500021 PO; -IV RINGERS,LACTATED 1000ML 1,000 ML IV SCH; -LIDOCAINE 2% PF 5 ML VIAL. ONE; +PREG-9 PO; -PROPOFOL 10 MG/ML (20ML) VIAL. IV ONE; +ROPI5TAB4 PO
[2020-10-07 15:33] LABS: BILIRUBIN,URINE NEGATIVE (NEG); CLARITY,URINE CLEAR; COLOR,URINE YELLOW; NITRITE,URINE NEGATIVE (NEG); PH,URINE 6.5 (<5.0-8.0); PROTEIN,URINE 30 mg/dL (NEG-TRACE); UROBILINOGEN,URINE 0.2 mg/dL (0.2 mg/dL)
--- NOTE | 2020-10-07 15:49 | RAD ---
Exam performed: One view chest. Indication: Reason: HTN / Spl. Instructions: / History: Date of Service: 10/07/2020 3:18 PM Comparison: One view chest from 06/14/2020. Single AP upright portable view chest findings: Cardiomediastinal silhouette is within limits of normal. Previous median sternotomy. No acute infiltr ates, effusion or pneumothorax is detected. The bony structures are normal. Impression: No acute cardiopulmonary process is detected. Electronically signed by: Nohelia Bae MD (10/07/2020 3:47 PM) [id number]
[2020-10-07 15:56] LABS: BACTERIA,URINE FEW /HPF (0-FEW); RBC,URINE 0 /HPF (0-2)
[2020-10-07 16:24] LABS: CALCIUM 9.2 mg/dL (8.5-10.1); CREATININE 0.7 mg/dL (0.6-1.0); POTASSIUM 3.4 mmol/L (3.5-5.1)
[2020-10-07 16:26] LABS: BASO # 0.1 x10^3/uL (0.0-0.2); BASO % 1 % (0-3); EOS % 0 % (0-3); HEMATOCRIT 43.5 % (36.0-47.0); HEMOGLOBIN 14.6 g/dL (12.0-15.5); LYMPH # 2.5 x10^3/uL (1.0-4.8); LYMPH % 31 % (24-48); MEAN CORPUSCULAR HEMOGLOBIN 29 pg (25-35); MEAN CORPUSCULAR HGB CONC 34 g/dL (31-37); MEAN CORPUSCULAR VOLUME 86 fL (79-100); MONO # 0.4 x10^3/uL (0.0-1.1); MONO % 6 % (0-9); NEUT % 62 % (31-73); PLATELET COUNT 117 x10^3/uL (140-400); RED BLOOD COUNT 5.09 x10^6/uL (3.50-5.40); RED CELL DISTRIBUTION WIDTH 13.5 % (11.5-14.5); WHITE BLOOD COUNT 8.1 x10^3/uL (4.0-11.0)
[2020-10-07 16:30] LABS: ALBUMIN 3.4 g/dL (3.4-5.0); TOTAL BILIRUBIN 1.1 mg/dL (0.2-1.0); TOTAL PROTEIN 6.7 g/dL (6.4-8.2)
[2020-10-07] MEDS ORDERED: LABETALOL 20 MG/4 ML DISP.SYRIN. IVP ONE ×2 (17:45→19:00)
[2020-10-07] MEDS ORDERED: IV NORMAL SALINE 1000ML BAG 1,000 ML IV ONE (17:45)
--- NOTE | 2020-10-07 18:56 | ED.ADGEN ---
Past Medical History Past Medical History: A-Fib, Depression, Diabetes-Type II, Hypertension, Renal Failure, Other Additional Past Medical Histor: gastroparesis,HEART MURMUR,NEUROPATHY,VALVE REPLACE,MACULAR DEGENERATION Past Surgical History: Angioplasty, Cholecystectomy, Coronary Bypass Surgery, Hysterectomy, Other Additional Past Surgical Histo: G-tube,CATARACT,RT SHOULDER,DEVIATED SEPTUM,LOOP RECORDER Smoking Status: Never Smoker Alcohol Use: None Drug Use: None General Adult EDM: Chief Complaint: HYPERTENSION HPI: HPI: Patient 75-year-old female presents to the emergency room complaining of lower abdominal pain with diarrhea for the last 5 days. She states that she has not been able to eat or drink much because she does does not feel well. She feels generally weak. She denies any fevers. She has a history of diverticulitis and states that this feels similar. She states she has lost 6 or 7 pounds over the last week. She has also noticed that her blood pressure has been very high over the last several days despite taking her medications. She has had some lightheadedness. She denies any headaches, chest pain, shortness of breath, decreased urination. Review of Systems: Review of Systems: Complete ROS is negative unless otherwise documented in HPI Current Medications: Current Medications Medications (Trade) Dose Ordered Sig/Juan Miguel Start Time Stop Time Status Last Admin Dose Admin Hydralazine HCl (Apresoline Inj) 10 mg 1X ONCE 10/07/20 21:00 10/07/20 21:01 DC Info (CONTRAST GIVEN -- Rx MONITORING) 1 each PRN DAILY PRN 10/07/20 19:00 10/09/20 18:59 Iohexol (Omnipaque 240 Mg/ml) 30 ml 1X ONCE 10/07/20 19:00 10/07/20 19:01 DC 10/07/20 19:00 30 ML Iohexol (Omnipaque 300 Mg/ml) 75 ml 1X ONCE 10/07/20 19:30 10/07/20 19:31 DC 10/07/20 20:20 75 ML Labetalol HCl (Normodyne Iv Push) 20 mg 1X ONCE 10/07/20 19:00 10/07/20 19:01 DC 10/07/20 19:03 20 MG Levofloxacin/ Dextrose 150 ml @ 100 mls/hr 1X ONCE 10/07/20 21:00 10/07/20 22:29 Metronidazole 100 ml @ 100 mls/hr 1X ONCE 10/07/20 21:00 10/07/20 21:59 Morphine Sulfate (Morphine Sulfate) 2 mg PRN Q2HR PRN 10/07/20 21:00 10/08/20 20:59 Ondansetron HCl (Zofran) 4 mg PRN Q8HRS PRN 10/07/20 21:00 10/08/20 20:59 Sodium Chloride 1,000 ml @ 1,000 mls/hr 1X ONCE 10/07/20 17:45 10/07/20 18:44 DC Allergies: Allergies: Allergies Coded Allergies Type Severity Reaction Last Updated Verified adhesive tape Allergy Severe TEARS SKIN 08/04/20 Yes eszopiclone Allergy Intermediate Anxiety 08/04/20 Yes zolpidem Allergy Intermediate 08/04/20 Yes nitrous oxide Adverse Reaction Severe EYE DAMAGE 08/04/20 Yes Physical Exam: PE: General: Awake, alert, NAD. Well Nourished, well hydrated. Cooperative HEENT: Atraumatic, EOMI, PERRL, airway patent, moist oral mucosa Neck: Supple, trachea midline Respiratory: CTA bilaterally, normal effort, no wheezing/crackles CV: RRR, no murmur, cap refill <2 GI: Soft, nondistended, lower abdominal tenderness, no masses MSK: No obvious deformities Skin: Warm, dry, intact Neuro: A&O x3, speech NL, sensory and motor grossly intact, no focal deficits Psych: Normal affect, normal mood, not suicidal or homicidal Current Patient Data: Labs: Laboratory Tests Test 10/07/20 15:20 10/07/20 16:00 Urine Collection Type Unknown Urine Color Yellow Urine Clarity Clear Urine pH 6.5 (<5.0-8.0) Urine Specific Tuckerman 1.015 (1.000-1.030) Urine Protein 30 mg/dL (NEG-TRACE) Urine Glucose (UA) 500 mg/dL (NEG) Urine Ketones (Stick) Negative mg/dL (NEG) Urine Blood Negative (NEG) Urine Nitrite Negative (NEG) Urine Bilirubin Negative (NEG) Urine Urobilinogen Dipstick 0.2 mg/dL (0.2 mg/dL) Urine Leukocyte Esterase Trace (NEG) Urine RBC 0 /HPF (0-2) Urine WBC 1-4 /HPF (0-4) Urine Squamous Epithelial Cells Mod /LPF Urine Bacteria Few /HPF (0-FEW) Urine Mucus Slight /LPF White Blood Count 8.1 x10^3/uL (4.0-11.0) Red Blood Count 5.09 x10^6/uL (3.50-5.40) Hemoglobin 14.6 g/dL (12.0-15.5) Hematocrit 43.5 % (36.0-47.0) Mean Corpuscular Volume 86 fL (79-100) Mean Corpuscular Hemoglobin 29 pg (25-35) Mean Corpuscular Hemoglobin Concent 34 g/dL (31-37) Red Cell Distribution Width 13.5 % (11.5-14.5) Platelet Count 117 x10^3/uL (140-400) L Neutrophils (%) (Auto) 62 % (31-73) Lymphocytes (%) (Auto) 31 % (24-48) Monocytes (%) (Auto) 6 % (0-9) Eosinophils (%) (Auto) 0 % (0-3) Basophils (%) (Auto) 1 % (0-3) Neutrophils # (Auto) 5.0 x10^3/uL (1.8-7.7) Lymphocytes # (Auto) 2.5 x10^3/uL (1.0-4.8) Monocytes # (Auto) 0.4 x10^3/uL (0.0-1.1) Eosinophils # (Auto) 0.0 x10^3/uL (0.0-0.7) Basophils # (Auto) 0.1 x10^3/uL (0.0-0.2) Sodium Level 141 mmol/L (136-145) Potassium Level 3.4 mmol/L (3.5-5.1) L Chloride Level 102 mmol/L (98-107) Carbon Dioxide Level 31 mmol/L (21-32) Anion Gap 8 (6-14) Blood Urea Nitrogen 8 mg/dL (7-20) Creatinine 0.7 mg/dL (0.6-1.0) Estimated GFR (Cockcroft-Gault) 82.0 BUN/Creatinine Ratio 11 (6-20) Glucose Level 237 mg/dL (70-99) H Calcium Level 9.2 mg/dL (8.5-10.1) Total Bilirubin 1.1 mg/dL (0.2-1.0) H Aspartate Amino Transferase (AST) 21 U/L (15-37) Alanine Aminotransferase (ALT) 24 U/L (14-59) Alkaline Phosphatase 90 U/L (46-116) Total Protein 6.7 g/dL (6.4-8.2) Albumin 3.4 g/dL (3.4-5.0) Albumin/Globulin Ratio 1.0 (1.0-1.7) Lipase 284 U/L (73-393) Laboratory Tests 10/07/20 16:00 Laboratory Tests 10/07/20 16:00 Vital Signs: Vital Signs Date Time Temp Pulse Resp B/P (MAP) Pulse Ox O2 Delivery O2 Flow Rate FiO2 10/07/20 19:03 78 215/77 10/07/20 18:15 18 98 10/07/20 15:17 97.9 Room Air 97.9 EKG: EKG: [] Heart Score: Risk Factors: Risk Factors: DM, Current or recent (<one month) smoker, HTN, HLP, family history of CAD, obesity. Risk Scores: Score 0 - 3: 2.5% MACE over next 6 weeks - Discharge Home Score 4 - 6: 20.3% MACE over next 6 weeks - Admit for Clinical Observation Score 7 - 10: 72.7% MACE over next 6 weeks - Early Invasive Strategies Radiology/Procedures: Radiology/Procedures: [][facility] [address] [place] [address] IMAGING REPORT Signed PATIENT: TEJAS RICE AACCOUNT: [id number] : 1945 LOCATION: ER AGE: 75 SEX: F EXAM STATUS: REG ER ORD. PHYSICIAN: CASSANDRA SMALL MD REASON: abd pain, diarrhea, omni 240 30 ml po, OMNI 300 75 ML IV PROCEDURE: CT ABD PELV W/ORAL&IV CONTRAST Exam: CT of abdomen and pelvis with contrast INDICATION: Abdominal pain, diarrhea TECHNIQUE: Sequential axial images through the abdomen and pelvis obtained following the administration of 75 mL of Omni 300 IV contrast. Sagittal and coronal reformatted images were reconstructed from the axial data and reviewed. Comparisons: 07/24/2020 FINDINGS: Heart size is normal. No pericardial effusion. Visualized lung bases are clear. No pleural effusion. Liver demonstrates mild intrahepatic or ductal dilatation. Spleen, pancreas and adrenals are unremarkable. Gallbladder is absent. No perinephric inflammation or hydronephrosis. No renal or ureteral calculi are identified. Bladder is distended and appears thin-walled. Prostate is not enlarged. Diverticulosis is noted at the sigmoid colon without evidence of acute diverticulitis. There is mild wall thickening of the ascending colon. Appendix is normal. No free intra-abdominal air or fluid. No obstruction. Abdominal aorta has a normal course and caliber. Abdominal vasculature is patent. No enlarged intra-abdominal lymph nodes are identified. No suspicious osseous lesions or acute fractures. IMPRESSION: 1. Wall thickening at the ascending colon may relate to colitis. May be infectious or inflammatory in etiology. 2. Mild intrahepatic or ductal dilatation. This may relate to liver is were given cholecystectomy changes. Correlate with LFTs. Exposure: One or more of the following in the visualized dose reduction techniques were utilized for this examination: 1. Automated exposure control 2. Adjustment of the MA and/or KV according to patient size 3. Use of iterative of reconstructive technique Electronically signed by: Cee Denson MD (10/07/2020 8:37 PM) [facility] DICTATED and SIGNED BY: CEE DENSON MD DATE: 10/07/[id number] [facility] [address] [place] [address] IMAGING REPORT Signed PATIENT: TEJAS RICE AACCOUNT: [id number] : 1945 LOCATION: ER AGE: 75 SEX: F EXAM STATUS: REG ER ORD. PHYSICIAN: CASSANDRA SMALL MD REASON: HTN PROCEDURE: CHEST AP ONLY Exam performed: One view chest. Indication: Reason: HTN / Spl. Instructions: / History: Date of Service: 10/07/2020 3:18 PM Comparison: One view chest from 06/14/2020. Single AP upright portable view chest findings: Cardiomediastinal silhouette is within limits of normal. Previous median sternotomy. No acute infiltrates, effusion or pneumothorax is detected. The bony structures are normal. Impression: No acute cardiopulmonary process is detected. Electronically signed by: Val Bae MD (10/07/2020 3:47 PM) [id number] DICTATED and SIGNED BY: VAL BAE MD DATE: 10/07/20 [id number] Course & Med Decision Making: Course & Med Decision Making Pertinent Labs and Imaging studies reviewed. (See chart for details) Patient is a 75 year-old female with a history of diverticulitis who presents to the Emergency Room complaining of abdominal pain and diarrhea. On exam, patient has a lower abdominal tenderness and hypertension. Due to patients history, age, and exam work up will need to be done to evaluate for intra-abdominal pathology. Work up ordered includes CBC, CMP, lipase, UA, CT abdomen and pelvis. Patient's pain does not epigastric and a cardiac evaluation will not be needed for atypical pain. Ddx includes gastroenteritis, colitis, diverticulitis. Patient is also hypertensive and was given labetalol. She was given fluids as she feels dehydrated. 75-year-old female presents with headache, abdominal pain. CT reveals colitis. Patient received antibiotics. On reassessment patient still has a headache and blood pressure still over 200 after labetalol. Patient will get a dose of hydralazine. Patient need admitted for IV antibiotics as well as blood pressure management. Dr. Lino will be the admitting physician. Kitty Disclaimer: Kitty Disclaimer: This electronic medical record was generated, in whole or in part, using a voice recognition dictation system. Departure Departure Impression: Primary Impression: Hypertensive urgency Additional Impressions: Colitis Headache Disposition: ADMITTED INPT THIS HOSP Admitting Physician: Zeina Lino Condition: STABLE Referrals: ZEINA LINO MD (PCP) Problem Qualifiers CASSANDRA SMALL MD Oct 07, 2020 18:56 MARIUSZ LUCIO MD Oct 07, 2020 20:46
[2020-10-07] MEDS ORDERED: CONTRAST GIVEN. MC PRN (19:00)
[2020-10-07] MEDS ORDERED: IOHEXOL 240 MG/ML 50ML VIAL. PO ONE (19:00)
[2020-10-07] MEDS ORDERED: IOHEXOL 300 MG/ML 100ML VIAL. IV ONE (19:30)
--- NOTE | 2020-10-07 20:39 | RAD ---
Exam: CT of abdomen and pelvis with contrast INDICATION: Abdominal pain, diarrhea TECHNIQUE: Sequential axial images through the abdomen and pelvis obtained following the administrati on of 75 mL of Omni 300 IV contrast. Sagittal and coronal reformatted images were reconstructed from the axial data and reviewed. Comparisons: 07/24/2020 FINDINGS: Heart size is normal. No pericardial effusion. Visualized lung bases are clear. No pleural effusion. Liver demonstrates mild intrahepatic or ductal dilatation. Spleen, pancreas and adrenals are unremark able. Gallbladder is absent. No perinephric inflammation or hydronephrosis. No renal or ureteral calculi are identified. Bladder is distended and appears thin-walled. Prostate is not enlarged. Diverticulosis is noted at the sigmoid colon without evidence of acute diverticulitis. There is mild wall thickening of the ascending colon. Appendix is normal. No free intra-abdominal air or fluid. No obstruction. Abdominal aorta has a normal course and caliber. Abdominal vasculature is patent. No enlarged intra-abdominal lymph nodes are identified. No suspicious osseous lesions or acute fractures. IMPRESSION: 1. Wall thickening at the ascending colon may relate to colitis. May be infectious or inflammatory i n etiology. 2. Mild intrahepatic or ductal dilatation. This may relate to liver is were given cholecystectomy ch anges. Correlate with LFTs. Exposure: One or more of the following in the visualized dose reduction techniques were utilized for this examination: 1. Automated exposure control 2. Adjustment of the MA and/or KV according to patient size 3. Use of iterative of reconstructive technique Electronically signed by: Cee Drew MD (10/07/2020 8:37 PM) [facility]
[2020-10-07] MEDS ORDERED: MORPHINE SULFATE 2 MG/ML VIAL. IV PRN (21:00)
[2020-10-07] MEDS ORDERED: hydrALAZINE 20 MG/ML VIAL. IVP ONE (21:00)
[2020-10-07] MEDS: ONDANSETRON PF 4 MG/2 ML VIAL. IV PRN (22:25)
[2020-10-07] MEDS ORDERED: PROCHLORPERAZINE 10 MG/2 ML VIAL. ONE (22:30)
[2020-10-07] MEDS ORDERED: PROCHLORPERAZINE 10 MG/2 ML VIAL. IV ONE (23:45)
--- NOTE | 2020-10-08 00:53 | RAD ---
PQRS Compliance Statement: One or more of the following individualized dose reduction techniques were utilized for this examinat ion: 1. Automated exposure control 2. Adjustment of the mA and/or kV according to patient size 3. Use of iterative reconstruction technique CT head without contrast 10/07/2020 12:32 AM INDICATION: Headache COMPARISON: CT head 09/04/2020 TECHNIQUE: Multiple axial CT images of the head were obtained from skull base through the vertex with out intravenous contrast. FINDINGS: Head: Ventricles, sulci and basal cisterns are within normal limits. Low-attenuation in the periventricular white matter is suggestive of chronic small vessel ischemic changes. There is no hydrocephalus. Osei -white matter differentiation is normal. There is no acute intracranial hemorrhage. There is no mass, mass effect or midline shift. Posterior fossa is normal in appearance. Visualized portions of the orbits are normal with exception of bilateral lens replacement. Paranasal sinuses are well aerated. Mastoid air cells are well aerated. Scalp and calvaria are normal. IMPRESSION: No acute intracranial hemorrhage. Low-attenuation in the periventricular white matter is suggestive of chronic small vessel ischemic ch anges. Electronically signed by: Gayle Daniel MD (10/08/2020 12:51 AM) [facility]
[2020-10-08 02:00] VITALS: BP 177/83
[2020-10-08] MEDS ORDERED: CLOP75TA PO (04:06)
[2020-10-08] MEDS ORDERED: ONDA-84 PO (04:06)
[2020-10-08] MEDS ORDERED: INSU100V6 SQ (04:29)
[2020-10-08] MEDS ORDERED: INSU100V13 SQ (04:29)
--- NOTE | 2020-10-08 04:33 | NUR ---
Patient arrived to room 271, able to ambulate to the bathroom and her new bed with minimal one person assist and with toll gate tender socks and walker provided. She has no complaints of pain but reports nausea and patient is dry heaving upon return to bed. VSS as charted, history and medications reviewed with patient and changes in med list clarified with her [facility] pharmacy. Sinus rhythm on tele. Nausea has subsided within an hour and a half, antinausea medication on MAR unavailable as has been recently administered in ER.
[2020-10-08] MEDS: ONDANSETRON PF 4 MG/2 ML VIAL. IV PRN (06:40)
[2020-10-08 07:59] VITALS: BP 182/79
[2020-10-08] MEDS ORDERED: ACETAMINOPHEN 325 MG TABLET. PO PRN (10:30)
[2020-10-08] MEDS ORDERED: ARIP5TAB13 PO (10:41)
[2020-10-08] MEDS ORDERED: ONDANSETRON ODT 4 MG TAB.RAPDIS. PO PRN (11:00)
--- NOTE | 2020-10-08 11:28 | HP ---
ADMIT DATE: 10/08/2020 CHIEF COMPLAINT: Headache. HISTORY OF PRESENT ILLNESS: A 75-year-old white female apparently recently was admitted with hypotension. Her blood pressure meds were held and she was put on Florinef and discharged about a month ago. She came in with increasing headache and some shortness of breath. CT scan of the head looked good. She had a CT abdomen, which showed some possible thickening of the ascending colon, but no other significant abnormalities. She has had a decreased oral intake lately as well. PAST MEDICAL HISTORY: Multiple meds listed per the chart. No allergies are noted. No other acute findings. SOCIAL HISTORY: Lives with her daughter. Nonsmoker, nondrinker. FAMILY HISTORY: Unremarkable. REVIEW OF SYSTEMS: No other complaints. OBJECTIVE: ENT: All within normal limits. NECK: No masses or bruits. LUNGS: Clear, without tachypnea. CARDIOVASCULAR: Regular rate. No irregular beat or murmur. ABDOMEN: Benign, soft, nontender. Good bowel sounds. EXTREMITIES: Mildly decreased pedal pulses and skin turgor; otherwise, no focal findings. No edema. NEUROLOGIC: Physiologic. She is a little confused, but oriented and moves all extremities. No focal findings. ASSESSMENT: Hypertensive urgency, despite recent hypotension. She is now on Florinef to raise her blood pressure. Off blood pressure meds. Recent renal failure has resolved. PLAN: We will discontinue Florinef and try amlodipine this time as she apparently took losartan. She had the renal failure. Clear liquid diet, IV fluids. No antibiotics for now as her abdominal symptoms appear to be mild and does not appear to be sick enough for ischemic colitis. Discussed with daughter. FROILAN CHILDERS MD DR: JANE/carlo JOB#: [id number] / [id number]
[2020-10-08 11:59] VITALS: BP 173/74
[2020-10-08] MEDS: CHOLECALCIFEROL (VITAMIN D3) 1,000 UNIT TABLET PO SCH (12:43)
[2020-10-08] MEDS: SOTALOL 80 MG TABLET. PO SCH ×2 (12:43→22:10)
[2020-10-08] MEDS: CLOPIDOGREL BISULFATE 75 MG TABLET PO SCH (12:43)
[2020-10-08] MEDS: DESVENLAFAXINE 25 MG TAB.ER.24H PO SCH ×2 (12:43→22:06)
[2020-10-08] MEDS: ASPIRIN CHEWABLE 81 MG TABLET. PO SCH (12:44)
[2020-10-08] MEDS: ARIPiprazole 5 MG TABLET PO SCH (12:44)
[2020-10-08] MEDS: amLODIPine BESYLATE 5 MG TABLET PO SCH (12:44)
[2020-10-08] MEDS: PREGABALIN 75 MG CAPSULE PO SCH (12:44)
[2020-10-08] MEDS: POTASSIUM CL 20MEQ D5-0.45NACL 1,000 ML IV SCH ×2 (12:45→22:10)
[2020-10-08 15:59] VITALS: BP 171/70
[2020-10-08] MEDS: metFORMIN 500 MG TABLET PO SCH (17:00)
[2020-10-08 19:00] VITALS: BP 116/74
[2020-10-08] MEDS ORDERED: INSULIN GLARGINE SYRINGE. SQ SCH (21:00)
[2020-10-08] MEDS: ATORVASTATIN CALCIUM 20 MG TABLET PO SCH (22:06)
[2020-10-08] MEDS: QUEtiapine 25 MG TABLET. PO SCH (22:10)
[2020-10-08] MEDS: rOPINIRole 1 MG TABLET. PO SCH (22:10)
[2020-10-08 23:00] VITALS: BP 125/44
--- NOTE | 2020-10-09 01:18 | NUR ---
Pt. arrived from room 271 via w/c w/ colitis and HTN. She is A/O and will make needs known.
[2020-10-09 03:00] VITALS: BP 136/56
[2020-10-09 07:00] VITALS: BP 161/65
[2020-10-09] MEDS: POTASSIUM CL 20MEQ D5-0.45NACL 1,000 ML IV SCH ×2 (07:30→17:21)
[2020-10-09] MEDS: PREGABALIN 75 MG CAPSULE PO SCH (09:42)
[2020-10-09] MEDS: CLOPIDOGREL BISULFATE 75 MG TABLET PO SCH (09:42)
[2020-10-09] MEDS: SOTALOL 80 MG TABLET. PO SCH ×2 (09:42→21:00)
[2020-10-09] MEDS: amLODIPine BESYLATE 5 MG TABLET PO SCH (09:42)
[2020-10-09] MEDS: ARIPiprazole 5 MG TABLET PO SCH (09:42)
[2020-10-09] MEDS: ASPIRIN CHEWABLE 81 MG TABLET. PO SCH (09:43)
[2020-10-09] MEDS: DESVENLAFAXINE 25 MG TAB.ER.24H PO SCH ×2 (09:43→21:46)
[2020-10-09] MEDS: CHOLECALCIFEROL (VITAMIN D3) 1,000 UNIT TABLET PO SCH (09:43)
[2020-10-09] MEDS: metFORMIN 500 MG TABLET PO SCH ×2 (09:43→17:20)
[2020-10-09 11:00] VITALS: BP 136/69
--- NOTE | 2020-10-09 11:10 | NUR ---
SW following. Discussed with RN, pt from home with daughter, room air, cardiac diet. PT/OT recommending home health. Per RN, pt is wanting to use [facility] as that is who she has used in the past. SW to fax referral when more available in chart. SW will continue to follow.
[2020-10-09] MEDS ORDERED: DEXTROSE 50% 25 GM / 50ML DISP.SYRIN. IV PRN (14:00)
[2020-10-09 15:00] VITALS: BP 124/77
[2020-10-09] MEDS: INSULIN LISPRO 300 UNITS/3 ML VIAL. SQ SCH (17:30)
[2020-10-09 19:00] VITALS: BP 132/54
--- NOTE | 2020-10-09 20:31 | PN ---
DATE: 10/09/2020 SUBJECTIVE: The patient is awake, alert, sitting in bed. Headache is much better. She denies any indiscretion with medication use at home and has been taking it regularly prior to this. We discussed in detail the orthostatic problems which she has, that has been a major issue in the past and getting her blood pressures too low, would not be a good thing either. She was recently admitted with hypotension and at this time was admitted with accelerated hypertension with headache. OBJECTIVE: VITAL SIGNS: Stable. She is afebrile. Blood pressures are better and are variable with systolics anywhere from the 160-110 range over the last 24 hours. She denies any GI symptoms from the colitis noted on the admission CT at this point in time. CHEST: Clear. HEART: Regular. ABDOMEN: Benign. EXTREMITIES: Without cyanosis, clubbing or edema. NEUROLOGIC: She is intact. LABORATORY DATA: Blood sugars have been somewhat high, but was not started on the appropriate home doses of insulin and this has been remedied. IMPRESSION: 1. Accelerated hypertension with headache. 2. Recent hypotension. 3. Orthostasis. 4. Diabetes. We will be watching her blood pressures or so over the next 24 hours with the medication changes, with likely discharge. I am going to get a renal artery ultrasound for tomorrow morning prior to considering discharge. ZEINA RUBIO MD DR: MANUEL/carlo JOB#: [id number] / [id number]
[2020-10-09] MEDS ORDERED: INSULIN GLARGINE SYRINGE. SQ SCH (21:00)
[2020-10-09] MEDS: QUEtiapine 25 MG TABLET. PO SCH (21:45)
[2020-10-09] MEDS: rOPINIRole 1 MG TABLET. PO SCH (21:46)
[2020-10-09] MEDS: ATORVASTATIN CALCIUM 20 MG TABLET PO SCH (21:46)
[2020-10-09 22:50] VITALS: BP 116/55
--- NOTE | 2020-10-10 01:37 | RAD ---
US RENAL DUPLEX: 10/09/2020 7:33 PM Indication: 75 years old Female. Accelerated hypertension. Comparison: None. FINDINGS: Sonographic evaluation of the kidneys is performed utilizing grayscale, color Doppler and s pectral waveform analysis. Aorta peak systolic velocity: 109 cm/s Right renal artery to aorta ratio: 0.8 Left renal artery to aorta ratio: 0.8 Right kidney: Size: 9.7 x 4.1 cm. Collecting System: No hydronephrosis. No renal calculi detected. Parenchyma: Normal echotexture and morphology. No focal contour deforming renal mass. Right renal artery: Proximal: 81 cm/s; RI 0.6 Middle: 88 cm/s; RI 0.7 Distal: 65 cm/s; RI 0.6 Left kidney: Size: 10.2 x 5.0cm. Collecting System: No hydronephrosis. No renal calculi detected. Parenchyma: Normal echotexture and morphology. No focal contour deforming renal mass. Left renal artery: Proximal: 84 cm/s; RI 0.6 Middle: 92 cm/s; RI 0.6 Distal: 74 cm/s; RI 0.6 Urinary bladder: Unremarkable. Bilateral renal veins are patent. IMPRESSION: No sonographic evidence for obstructive uropathy. No sonographic evidence for renal artery hypertensi on. Electronically signed by: Gayle Daniel MD (10/10/2020 1:35 AM) [facility]
[2020-10-10 03:00] VITALS: BP 122/53
[2020-10-10] MEDS: POTASSIUM CL 20MEQ D5-0.45NACL 1,000 ML IV SCH (03:15)
[2020-10-10 07:00] VITALS: BP 126/45
[2020-10-10] MEDS ORDERED: AMLO-186 PO (08:05)
--- NOTE | 2020-10-10 08:07 | SNU/HH DC ---
DISCHARGE WITH HOME HEALTH DISCHARGE INFORMATION: Discharge Date: Oct 10, 2020 Final Diagnosis: Problems Medical Problems: (1) Colitis Status: Acute (2) Headache Status: Acute (3) Hypertensive urgency Status: Acute Condition on Discharge: Stable CODE STATUS: Code Status: Full HOME HEALTH: Face to Face: I certify this patient is under my care and that I, or a nurse practitioner or physician's front office assistant working with me, had a face to face encounter that meets the physician face to face encounter requirements with this patient on 10/10/20. [facility] For: Assess Cardiopulm Status, Assess/Skilled Observatio RN For Eval/Treatment: Yes Physical Therapy For: Evalulation/Treatment Occupational Therapy For: Evaluation/Treatment Pt Meets Homebound Status: Poor coordination w/ amb. POST DISCHARGE ORDERS: Activity Instructions for Disc: Activity as tolerated Weight Bearing Status after Di: No restrictions Bathing Instructions: Shower-keep dressing dry DIET AFTER DISCHARGE: ADA Wound/Incision Care: Ice to area for comfort, Keep wound/cast CDI CHECKS AFTER DISCHARGE: Checks after discharge: Check blood press - daily TREATMENT/EQUIPMENT ORDERS: Adaptive Equipment Issued: Carter Almaraz CERTIFICATION STATEMENT: Certification Statement: Certification Statement: Based on the above finding, I certify that this patient is confined to the home and needs intermittent long term care, physical therapy and/or speech therapy, or continues to need occupational therapy.~ This patient is under my care, and I have initiated the establishment of the plan of care.~ This patient will be followed by myself or a community physician who will periodically review the plan of care. Home Meds Active Scripts Amlodipine Besylate (AMLODIPINE BESYLATE) 5 Mg Tablet, 5 MG PO DAILY for hpt for 30 Days, #30 TAB Prov:ZEIAN RUBIO MD 10/10/20 Reported Medications Aripiprazole (ABILIFY) 5 Mg Tablet, 1 TAB PO DAILY for sleep for 30 Days, #30 TAB 0 Refills 10/08/20 Insulin Detemir (LEVEMIR) 100 Unit/1 Ml Vial, 42 UNIT SQ HS for DM, VIAL 10/08/20 Clopidogrel Bisulfate (CLOPIDOGREL) 75 Mg Tablet, 1 TAB PO DAILY for blood thinner 10/08/20 Ondansetron Hcl (ONDANSETRON HCL) 4 Mg Tablet, 1 TAB PO PRN Q4HRS PRN for NAUSEA/VOMITING 10/08/20 Cholecalciferol (Vitamin D3) (D3-50) 50,000 Unit Capsule, 1000 UNIT PO DAILY for supplement, CAP 09/06/20 Sotalol Hcl (SOTALOL) 80 Mg Tablet, 1 TAB PO BID for arrhythmias, #60 TAB 5 Refills 09/06/20 Ropinirole Hcl (ROPINIROLE HCL) 5 Mg Tablet, 5 MG PO HS for restless leg, TAB 09/06/20 Pregabalin (LYRICA) 75 Mg Capsule, 1 CAP PO DAILY for neuropathy, #60 CAP 1 Refill 09/06/20 Insulin Lispro (HUMALOG) 100 Unit/1 Ml Vial, 0-14 UNIT SQ TIDAC for DM, VIAL 09/06/20 Quetiapine Fumarate (SEROQUEL) 50 Mg Tablet, 50 MG PO HS for sleep, TAB 06/14/20 Desvenlafaxine Succinate (PRISTIQ ER) 100 Mg Tab.er.24h, 100 MG PO BID for Depression, TAB.SR 06/14/20 Atorvastatin Calcium (ATORVASTATIN CALCIUM) 20 Mg Tablet, 20 MG PO HS for FOR CHOLESTEROL, #30 TAB 0 Refills 02/01/19 Aspirin (ASPIRIN) 81 Mg Tab.chew, 81 MG PO DAILY for CAD, TAB.CHEW 02/01/19 Metformin Hcl (METFORMIN HCL) 500 Mg Tablet, 1 TAB PO BID for DM, #60 TAB 3 Refills 07/11/16 Discontinued Scripts Fludrocortisone Acetate (FLUDROCORTISONE ACETATE) 0.1 Mg Tablet, 0.1 MG PO DAILY for orthostasis for 30 Days, #30 TAB Prov:ZEINA RUBIO MD 06/16/20 ZEINA RUBIO MD Oct 10, 2020 08:07
[2020-10-10] MEDS: ARIPiprazole 5 MG TABLET PO SCH (08:50)
[2020-10-10] MEDS: PREGABALIN 75 MG CAPSULE PO SCH (08:50)
[2020-10-10] MEDS: ASPIRIN CHEWABLE 81 MG TABLET. PO SCH (08:50)
[2020-10-10] MEDS: CHOLECALCIFEROL (VITAMIN D3) 1,000 UNIT TABLET PO SCH (08:50)
[2020-10-10] MEDS: CLOPIDOGREL BISULFATE 75 MG TABLET PO SCH (08:50)
[2020-10-10] MEDS: DESVENLAFAXINE 25 MG TAB.ER.24H PO SCH (08:50)
[2020-10-10] MEDS: metFORMIN 500 MG TABLET PO SCH (08:50)
[2020-10-10] MEDS: amLODIPine BESYLATE 5 MG TABLET PO SCH (08:51)
[2020-10-10 08:57] VITALS: BP 126/45
[2020-10-10] MEDS: SOTALOL 80 MG TABLET. PO SCH (08:57)
[2020-10-10] MEDS: INSULIN LISPRO 300 UNITS/3 ML VIAL. SQ SCH ×2 (09:03→12:31)
--- NOTE | 2020-10-10 10:44 | NUR ---
SW following. Discussed with RN, discharge order for home with home health. Clinicals faxed to [facility] (pt is current with [facility]). [facility] verified they have pt on the schedule. RN notified. No further SW needs.
--- NOTE | 2020-10-10 12:15 | EKG ---
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
--- NOTE | 2020-10-10 12:30 | NUR ---
Discharge instructions given to patient and daughter at the bedside, questions and concerns answered, patient and daughter verbalized understanding of discharge information including taking all medications as ordered and recording her blood pressures daily and taking the results to Dr. Lino next week.
--- NOTE | 2020-10-10 12:40 | NUR ---
Patient leaves the unit per w/c and alongside this play writer and her daughter, emotional support given, follow up appointments encouraged.
== END 2020-10-10 12:40 | disposition home health service (06) | DRG 305 ==
LOC: ER 14:36 → CVICU 21:15 → 2 SOUTH 10-08 13:20 → 5 NORTH 10-09 01:04
PROVIDERS: ADMIT Family Medicine; ATTEND Family Medicine
DX: I16.0 Hypertensive urgency (principal); K52.9 Noninfective gastroenteritis and colitis, unspecified; I10 Essential (primary) hypertension; E11.43 Type 2 diabetes mellitus with diabetic autonomic (poly)neuropathy; I48.91 Unspecified atrial fibrillation; N19 Unspecified kidney failure; K31.84 Gastroparesis; F32.9 Major depressive disorder, single episode, unspecified; I95.9 Hypotension, unspecified; Z90.49 Acquired absence of other specified parts of digestive tract; Z90.710 Acquired absence of both cervix and uterus; Z95.1 Presence of aortocoronary bypass graft; Z88.8 Allergy status to other drugs, medicaments and biological substances
CPT/HCPCS: 36415; 70450; 71045; 74177; 76770; 80053; 81001; 82962; 83690; 85025; 93005; 96365; 96366; 96368; 96375; 96376; J0360; J0780; J1815; J1956; J2405; J3480; J3490; J7030; Q9966; Q9967; 97530-GO; 97530-GP; 97535-GO; 99285-25; G0378

== ENCOUNTER → 2020-10-24 | Outpatient (CLI) | payer MEDICARE, OTHER ==
[2020-10-10 08:57] VITALS: BP 126/45
[~2020-10-24] MED LIST changes: +ARIP5TAB13 PO; +ONDA-84 PO; +REGADENOSON 0.4 MG/5 ML DISP.SYRIN. IV ONE
--- NOTE | 2020-10-24 13:29 | RAD ---
MR#: [id number] Date of Study: 10/24/2020 Ordering Physician: DONALD CASTRO, Referring Physician: STEPHANIE BLAKELY Tech: RT Jeniffer (R) (N) APPROVED REPORT Test Type: Pharmacological Stress Nurse/Tech: REAL ESPARZA Test Indications: PAF Cardiac History: CABG/AVR, HTN- SEE EMR Medications: SEE EMR Medical History: SEE EMR Resting ECG: SR W/ PROLONGED QT Resting Heart Rate: 60 bpm Resting Blood Pressure: 152/65mmHg Pretest Chest Pain: No chest pain Nurse/Tech Notes S1,S2, LUNGS CTA, PT DENIES CP OR SOA. VSS. Consent: The procedure was explained to the patient in lay terms. Informed consent was witnessed. Ankur eout was entered into [employer]. History and Stress Test performed by CATHI Page, FRANKI (R) (N) Pharm. Details Pharmacologic stress testing was performed using 0.4mg per 5ml of regadenoson given intravenously ove r 7-10 seconds. Stress Symptoms Mild SOA POST EXERCISE Reason for Termination: Infusion complete Max HR: 114 bpm Max Blood Pressure: 145/67mmHg Blood Pressure response to exercise: Normal blood pressure response during stress. Heart Rate response to exercise: WNL Chest Pain: No. Arrhythmia: No. ST Change: No. NO SIGNIFICANT CHANGES FROM BASELINE EKG, SEE NOTES ABOVE INTERPRETATION Stress EKG Conclusion: No evidence of stress induced EKG changes. No ischemia. Imaging Protocol IMAGE PROTOCOL: Rest Tc-99m/stress Tc-99m 1 day Rest: Stress: Viability: Radiopharm.Tc99m TgphbpsxaPz00w Sestamibi Dose10.5mCi 30.3mCi Duration 15min. 10min. Img Date 10/24/2020 10/24/2020 Inj-Img Wrhw18nst. 60min. Rest Admin Site:IV - Right AntecubitalAdministrator:CATHI Page, FRANKI (R)(N) Stress Admin Site: IV - Right AntecubitalAdministrator: Christina Childs, NMTCB, ARRT (R)(N) STRESS DATA End Diast. Vol.74.0mlAv. Heart Rate64.0bpm End Syst. Vol.23.0mlCO Index BSA0.0L/min Myocardial Fhdh999.0gEject. Ahykzfsk77.0% Stress Rates Pk. Fill Rate2.72EDV/secLVtime Pk. Fill 200.42msec Pk. Empty Rate3.45ESV/secLVtime Pk. Ybioy014.65msec 10/15 Pk. Fill1.49EDV/sec Stress Scores Regional WT0.00Summed WT1.00 Regional WM0.00Summed WM5.00 The rest and stress images show normal perfusion, normal contraction and thickening. LV Perf. Quant 17 Seg. SSS0.00 17 Seg. SRS2.00 17 Seg. SDS0.00 Stress Defect Extent (% LAD)0.00Rest Defect Extent (% LAD)0.00Rev. Defect Extent (% LAD)0.00 Stress Defect Extent (% LCX) 0.00Rest Defect Extent (% LCX)0.00Rev. Defect Extent (% LCX)0.00 Stress Defect Extent (% RCA)0.00Rest Defect Extent (% RCA)0.00Rev. Defect Extent (% RCA)0.00 Stress Defect Extent (% RASHARD)0.00Rest Defect Extent (% RASHARD)0.00Rev. Defect Extent (% RASHARD)0.00 Other Information Quality:Good Risk Assessment: Low Risk Conclusion 1. No evidence of EKG changes with stress testing. 2. Normal perfusion at stress/rest. 3. Low risk study. 4. EF > 60%. Signed by : Joe Cardenas, Electronically Approved : 10/24/2020 13:29:31
--- NOTE | 2020-10-24 13:36 | CARD ---
MR#: [id number] Date of Study: 10/24/2020 Ordering Physician: DONALD CASTRO, Referring Physician: DONALD CASTRO Tech: Medina Lazaro [facility] APPROVED REPORT EXAM: Two-dimensional and M-mode echocardiogram with Doppler and color Doppler. Other Information Quality : GoodHR: 57bpm Rhythm : NSR INDICATION RISK FACTORS Hypertension Hyperlipidemia Diabetes 2D DIMENSIONS RVDd3.5 (2.9-3.5cm)Left Atrium(2D)4.0 (1.6-4.0cm) IVSd1.1 (0.7-1.1cm)Aortic Root(2D)2.4 (2.0-3.7cm) LVDd4.1 (3.9-5.9cm)LVOT Diameter2.0 (1.8-2.4cm) PWd1.1 (0.7-1.1cm)LVDs3.0 (2.5-4.0cm) FS (%) 28.2 %SV41.6 ml LVEF(%)55.0 (>50%) Aortic Valve AoV Peak Ralph.323.3cm/sAoV VTI89.3cm AO Peak GR.41.8mmHgLVOT Peak Ralph.124.4cm/s AO Mean GR.23mmHgAVA (VMAX)1.22cm2 Mitral Valve MV E Avcchjwp212.6cm/sMV DECEL VESR931ro MV A Esgqocgz12.5cm/sE/A Ratio1.8 Pulmonary Valve PV Peak Qqedydim40.4cm/s Tricuspid Valve TR P. Awnwthrw023qt/sTR Peak Gr.29mmHg LEFT VENTRICLE The left ventricle is normal size. There is mild concentric left ventricular hypertrophy. The left ve ntricular systolic function is normal and the ejection fraction is within normal range. Estimated eje ction fraction 60-65%. There is normal LV segmental wall motion. Transmitral Doppler flow pattern is Grade II-pseudonormal filling dynamics. RIGHT VENTRICLE The right ventricle is normal size. There is normal right ventricular wall thickness. The right ventr icular systolic function is normal. ATRIA The left atrium size is normal. The right atrium size is normal. The interatrial septum is intact wit h no evidence for an atrial septal defect or patent foramen ovale as noted on 2-D or Doppler imaging. AORTIC VALVE Doppler and Color Flow revealed trace aortic regurgitation. Peak pressure gradient calculates to be 4 1mmHg. with a mean pressure gradient of 22 mmHg. There is a bioprosthetic aortic valve prosthesis. Th e valve appears well seated. Bioprosthesis leaflets are thin and move normally. MITRAL VALVE Posterior mitral annular calcification is mild. There is no evidence of mitral valve prolapse. There is no mitral valve stenosis. Doppler and Color-flow revealed mild mitral regurgitation. TRICUSPID VALVE The tricuspid valve is normal in structure and function. Doppler and Color Flow revealed mild tricusp id regurgitation. Estimated PAP 32-35 mmHg. There is no tricuspid valve stenosis. PULMONIC VALVE Doppler and Color Flow revealed trace pulmonic valvular regurgitation. There is no pulmonic valvular stenosis. GREAT VESSELS The aortic root is normal in size. The ascending aorta is normal in size. The IVC is normal in size a nd collapses >50% with inspiration. PERICARDIAL EFFUSION There is no evidence of significant pericardial effusion. Critical Notification Critical Value: No <Conclusion> The left ventricular systolic function is normal and the ejection fraction is within normal range. E stimated ejection fraction 60-65%. There is normal LV segmental wall motion. Peak pressure gradient calculates to be 41mmHg. with a mean pressure gradient of 22 mmHg. There is a bioprosthetic aortic valve prosthesis. The valve appears well seated. Bioprosthesis leaflets are thin and move normally. Doppler and Color-flow revealed mild mitral regurgitation. Signed by : Joe Cardenas, Electronically Approved : 10/24/2020 13:35:54
== END ==
LOC: NM 08:48
PROVIDERS: ATTEND Internal Medicine Cardiovascular Disease
DX: I08.1 Rheumatic disorders of both mitral and tricuspid valves (principal); I11.9 Hypertensive heart disease without heart failure; I48.0 Paroxysmal atrial fibrillation; Z95.2 Presence of prosthetic heart valve; Z95.1 Presence of aortocoronary bypass graft
CPT/HCPCS: 78452; 93017; 93306; A9500; J2785

== ENCOUNTER → 2021-04-12 | Outpatient (CLI) | payer MEDICARE, OTHER ==
[~2021-04-12] MED LIST changes: +IV NORMAL SALINE 1000ML BAG 1,000 ML IV ONE; +MIDO5TAB4 PO; -REGADENOSON 0.4 MG/5 ML DISP.SYRIN. IV ONE
[2021-04-12 12:59] VITALS: BP 152/69
== END | disposition home or self-care (01) ==
LOC: OPS 12:33
PROVIDERS: ATTEND Family Medicine
DX: E86.0 Dehydration (principal); I10 Essential (primary) hypertension; I48.91 Unspecified atrial fibrillation; I25.10 Atherosclerotic heart disease of native coronary artery without angina pectoris; E11.42 Type 2 diabetes mellitus with diabetic polyneuropathy; E11.51 Type 2 diabetes mellitus with diabetic peripheral angiopathy without gangrene; E11.319 Type 2 diabetes mellitus with unspecified diabetic retinopathy without macular edema; F32.9 Major depressive disorder, single episode, unspecified; Z79.4 Long term (current) use of insulin; Z90.49 Acquired absence of other specified parts of digestive tract; Z90.710 Acquired absence of both cervix and uterus; Z87.891 Personal history of nicotine dependence; Z95.2 Presence of prosthetic heart valve
CPT/HCPCS: 96360; 96361; J7030

== ENCOUNTER → 2021-05-28 | Outpatient (CLI) | payer MEDICARE, OTHER ==
[2021-04-12 12:59] VITALS: BP 152/69
[~2021-05-28] MED LIST changes: -IV NORMAL SALINE 1000ML BAG 1,000 ML IV ONE
--- NOTE | 2021-05-28 15:53 | RAD ---
INDICATION: 75 years of age asymptomatic female patient presents for screening mammography. TECHNIQUE: Full field craniocaudal and mediolateral oblique images of both breasts were obtained usi ng digital technique with tomosynthesis and also analyzed with computer-aided detection software. COMPARISON: Prior mammographic imaging dating 05/25/2020, 12/22/2018, 01/29/18. BREAST COMPOSITION: Category B: There are scattered fibroglandular densities. FINDINGS: Benign calcifications are present. The parenchymal pattern appears stable. No suspicious masses, microcalcifications or architectural distortion is present to suggest malignanc y in either breast. The visualized axillae are unremarkable. IMPRESSION: No mammographic evidence of malignancy. RECOMMENDATION: Annual screening mammography is recommended, unless clinically indicated sooner based on symptoms or change in physical exam. BIRADS 2: BENIGN This study was interpreted with the benefit of Computerized Aided Detection (CAD). Patient information is entered into the reminder system with a target due date for the next screening mammogram. Mammography is the most sensitive method for finding small breast cancers, but it does not detect the m all and is not a substitute for careful clinical examination. A negative mammogram does not negate a clinically suspicious finding and should not result in delay in biopsying a clinically suspicious a bnormality. "Our facility is accredited by the [employer] Mammography Program." Electronically signed by: Berny Stover MD (05/28/2021 3:50 PM) [facility]
== END ==
LOC: MAMMO 08:00
PROVIDERS: ATTEND Family Medicine
DX: Z12.31 Encounter for screening mammogram for malignant neoplasm of breast (principal)
CPT/HCPCS: 77063; 77067

== ENCOUNTER → 2021-07-19 | Outpatient (CLI) | payer MEDICARE, OTHER ==
[~2021-07-19] MED LIST changes: -DULO60CA6 PO; +DULO60CA7 PO; +IV NORMAL SALINE 1000ML BAG 1,000 ML IV ONE
[2021-07-19 09:35] VITALS: BP 141/73
== END | disposition home or self-care (01) ==
LOC: OPS 09:08
PROVIDERS: ATTEND Family Medicine
DX: E86.0 Dehydration (principal)
CPT/HCPCS: 82962; 96360; 96361; J7030

== ENCOUNTER → 2021-11-01 | Outpatient (CLI) | payer MEDICARE, OTHER ==
[2021-10-12 11:00] VITALS: BP 184/86
[~2021-11-01] MED LIST changes: +AMIO200T53 PO; -IV NORMAL SALINE 1000ML BAG 1,000 ML IV ONE; +REGADENOSON 0.4 MG/5 ML DISP.SYRIN. IV ONE
--- NOTE | 2021-11-02 10:28 | CARD ---
MR#: [id number] Date of Study: 11/01/2021 Ordering Physician: DONALD CASTRO, Referring Physician: DONALD CASTRO Tech: Medina Lazaro [facility] APPROVED REPORT EXAM: Two-dimensional and M-mode echocardiogram with Doppler and color Doppler. Other Information Quality : AverageHR: 71bpm Rhythm : NSR INDICATION RISK FACTORS Hypertension 2D DIMENSIONS RVDd3.3 (2.9-3.5cm)Left Atrium(2D)3.8 (1.6-4.0cm) IVSd1.4 (0.7-1.1cm)Aortic Root(2D)2.6 (2.0-3.7cm) LVDd3.8 (3.9-5.9cm)LVOT Diameter1.7 (1.8-2.4cm) PWd1.3 (0.7-1.1cm)LVDs2.5 (2.5-4.0cm) FS (%) 35.7 %SV41.3 ml Aortic Valve AoV Peak Ralph.394.8cm/sAoV VTI98.5cm AO Peak GR.62.4mmHgLVOT Peak Ralph.158.4cm/s AO Mean GR.34mmHgAVA (VMAX)0.92cm2 Mitral Valve MV E Cpkwsqxe614.2cm/sMV DECEL EROY274qa MV A Qvtayhsj05.0cm/sE/A Ratio1.1 Pulmonary Valve PV Peak Aemoyfpp68.2cm/s Tricuspid Valve TR Peak Gr.28mmHg LEFT VENTRICLE The left ventricle is normal size. There is mild to moderate concentric left ventricular hypertrophy. The left ventricular systolic function is normal and the ejection fraction is within normal range. LV ejection fraction of 55 to 60%. Septal motion consistent with post-operative state. The left ventr icular diastolic function and filling is normal for age. RIGHT VENTRICLE The right ventricle is normal size. There is normal right ventricular wall thickness. The right ventr icular systolic function is normal. ATRIA The left atrium is borderline dilated. The right atrium size is normal. The interatrial septum is int act with no evidence for an atrial septal defect or patent foramen ovale as noted on 2-D or Doppler jake macedo. AORTIC VALVE Doppler and Color Flow revealed trace aortic regurgitation. There is no significant aortic valvular s tenosis. There is a bioprosthetic aortic valve prosthesis. MITRAL VALVE The mitral valve is normal in structure and function. There is no evidence of mitral valve prolapse. There is no mitral valve stenosis. Doppler and Color-flow revealed moderate mitral regurgitation. TRICUSPID VALVE The tricuspid valve is normal in structure and function. Doppler and Color Flow revealed mild tricusp id regurgitation. Estimated PAP 30-35 mmHg. There is no tricuspid valve stenosis. PULMONIC VALVE The pulmonary valve is normal in structure and function. Doppler and Color Flow revealed trace pulmon ic valvular regurgitation. GREAT VESSELS The aortic root is normal in size. The ascending aorta is normal in size. The IVC is normal in size a nd collapses >50% with inspiration. PERICARDIAL EFFUSION There is no evidence of significant pericardial effusion. Critical Notification Critical Value: No <Conclusion> The left ventricle is normal size. The left ventricular systolic function is normal and the ejection fraction is within normal range. LV ejection fraction of 55 to 60%. Septal motion consistent with post-operative state. There is mild to moderate concentric left ventricular hypertrophy. There is a bioprosthetic aortic valve prosthesis. Doppler and Color Flow revealed trace aortic regurgitation. There is no significant aortic valvular stenosis. Doppler and Color-flow revealed moderate mitral regurgitation. Doppler and Color Flow revealed mild tricuspid regurgitation. Estimated PAP 30-35 mmHg. Signed by : Raheem Villegas MD Electronically Approved : 11/02/2021 10:28:02
--- NOTE | 2021-11-02 13:14 | RAD ---
MR#: [id number] Date of Study: 11/01/2021 Ordering Physician: DONALD CASTRO, Referring Physician: STEPHANIE BLAKELY Tech: RT Jeniffer (R) (N) APPROVED REPORT Test Type: Pharmacological Stress Nurse/Tech: REAL ESPARZA Test Indications: CAD Cardiac History: CAD, CABG, AVR, HYPO/HYPERTENSION- SEE EMR Medications: SEE EMR Medical History: SEE EMR Resting ECG: SR- ABNORMAL QRS Resting Heart Rate: 76 bpm Resting Blood Pressure: 165/78mmHg Pretest Chest Pain: No chest pain Nurse/Tech Notes RRR, LUNGS CTA, VSS, DENIED CHEST PAIN OR SHORTNESS OF BREATH. Consent: The procedure was explained to the patient in lay terms. Informed consent was witnessed. Ankur eout was entered into [employer]. History and Stress Test performed by MIRIAM Nicholas Pharm. Details Pharmacologic stress testing was performed using 0.4mg per 5ml of regadenoson given intravenously ove r 7-10 seconds. Stress Symptoms PT DENIED ANY SYMPTOMS THROUGHOUT TESTING. VITAL SIGNS REMAINED STABLE. PT TOLERATED TESTING WELL. POST EXERCISE Reason for Termination: Infusion complete Max HR: 83 bpm Max Blood Pressure: 167/57mmHg Blood Pressure response to exercise: Normal blood pressure response during stress. Heart Rate response to exercise: WNL Chest Pain: No. INTERPRETATION Stress EKG Conclusion: The resting EKG shows a sinus rhythm with a nonspecific interventricular block . The stress EKG shows no significant changes from baseline. No EKG evidence of stress-induced ischemia. Imaging Protocol IMAGE PROTOCOL: Rest Tc-99m/stress Tc-99m 1 day Rest: Stress: Viability: Radiopharm.Tc99m HxdstuhvrVb20t Sestamibi Dose10.5mCi 33mCi Duration 13min. 13min. Img Date 11/01/2021 11/01/2021 Inj-Img Yily39syi. 60min. Rest Admin Site:IV - Right AntecubitalAdministrator:MIRIAM Nicholas Stress Admin Site: IV - Right AntecubitalAdministrator: MIRIAM Nicholas STRESS DATA End Diast. Vol.73.0mlLVEDV index BSA40.0ml End Syst. Vol.19.0mlLVESV index BSA11.0ml Myocardial Rvyk711.0gEject. Kleiiehk08.0% Stress Scores Regional WT1.00Summed WT10.00 Regional WM0.00Summed WM5.00 LV Perfusion The stress scans showed no significant defects. The rest scans showed no significant defects. Nuclear imaging showed no reversible ischemia or infarct. Wall Motion Normal left ventricular systolic function with an ejection fraction of greater than 70%. LV Perf. Quant 17 Seg. SSS1.00 17 Seg. SRS0.00 17 Seg. SDS1.00 Stress Defect Extent (% LAD)0.00Rest Defect Extent (% LAD)0.00Rev. Defect Extent (% LAD)0.00 Stress Defect Extent (% LCX) 10.00Rest Defect Extent (% LCX)0.00Rev. Defect Extent (% LCX)10.00 Stress Defect Extent (% RCA)0.00Rest Defect Extent (% RCA)0.00Rev. Defect Extent (% RCA)0.00 Stress Defect Extent (% RASHARD)1.70Rest Defect Extent (% RASHARD)0.00Rev. Defect Extent (% RASHARD)1.70 Conclusion 1. No EKG evidence of stress-induced ischemia. 2. Nuclear imaging shows no reversible ischemia or infarct. 3. Normal LV systolic function with an ejection fraction of greater than 70%. 4. Moderately low to low risk Lexiscan nuclear stress test. Signed by : Raheem Villegas MD Electronically Approved : 11/02/2021 13:14:07
== END ==
LOC: NM 08:47
PROVIDERS: ATTEND Internal Medicine Cardiovascular Disease
DX: I08.1 Rheumatic disorders of both mitral and tricuspid valves (principal); I48.0 Paroxysmal atrial fibrillation; I25.10 Atherosclerotic heart disease of native coronary artery without angina pectoris; Z95.2 Presence of prosthetic heart valve
CPT/HCPCS: 78452; 93017; 93306; A9500; J2785; C8929

== ENCOUNTER 2022-02-05 19:07 | Emergency (ER) | payer MEDICARE, OTHER ==
[~2022-02-05] VITALS: Ht 165.1 cm; Wt 70.0 kg
[~2022-02-05 19:07] MED LIST changes: -ACET1TAB33 PO; +ACET1TAB56 PO; -REGADENOSON 0.4 MG/5 ML DISP.SYRIN. IV ONE
[2022-02-05] MEDS ORDERED: IV NORMAL SALINE 500ML BAG 500 ML IV ONE (19:30)
[2022-02-05] MEDS ORDERED: HALOPERIDOL LACTATE 5 MG/ML VIAL. IM ONE (19:30)
[2022-02-05 20:00] LABS: BASO # 0.1 x10^3/uL (0.0-0.2); BASO % 1 % (0-3); EOS % 0 % (0-3); HEMATOCRIT 43.3 % (36.0-47.0); HEMOGLOBIN 14.7 g/dL (12.0-15.5); LYMPH # 2.8 x10^3/uL (1.0-4.8); LYMPH % 29 % (24-48); MEAN CORPUSCULAR HEMOGLOBIN 29 pg (25-35); MEAN CORPUSCULAR HGB CONC 34 g/dL (31-37); MEAN CORPUSCULAR VOLUME 86 fL (79-100); MONO # 0.6 x10^3/uL (0.0-1.1); MONO % 6 % (0-9); NEUT # 6.1 x10^3/uL (1.8-7.7); NEUT % 64 % (31-73); PLATELET COUNT 115 x10^3/uL (140-400); RED BLOOD COUNT 5.03 x10^6/uL (3.50-5.40); RED CELL DISTRIBUTION WIDTH 13.9 % (11.5-14.5); WHITE BLOOD COUNT 9.6 x10^3/uL (4.0-11.0)
[2022-02-05 20:17] LABS: ALBUMIN 3.3 g/dL (3.4-5.0); GFR 54.2; TOTAL BILIRUBIN 0.8 mg/dL (0.2-1.0); TOTAL PROTEIN 6.7 g/dL (6.4-8.2)
[2022-02-05 20:21] LABS: POTASSIUM 2.9 mmol/L (3.5-5.1)
--- NOTE | 2022-02-05 20:23 | PHYS DOC ---
Past Medical History Past Medical History: A-Fib, Depression, Diabetes-Type II, High Cholesterol, Heart Disease, Hypertension, Renal Failure, Other Additional Past Medical Histor: gastroparesis, heart murmur, neuropathy, ortho hypotension, macular degen Past Surgical History: Other Additional Past Surgical Histo: CABG AND VALVE REPLACEMENT SX 2018 Smoking Status: Never Smoker Alcohol Use: None Drug Use: None General Adult EDM: Chief Complaint: DIARRHEA HPI: HPI: Patient is a 76 year old female presents to the ER with nausea vomiting diarrhea for the last 4 days. Patient states that she gets episodes of gastroparesis. Patient has a history of insulin-dependent diabetes denies any fevers or chills. Patient states that she has had an unintentional weight loss of approximately 8 pounds and has been unable to tolerate p.o. over the last 2 days. Review of Systems: Review of Systems: Constitutional: Generalized weakness, unintentional weight loss denies fever or chills. [] Eyes: Denies change in visual acuity. [] HENT: Denies nasal congestion or sore throat. [] Respiratory: Denies cough or shortness of breath. [] Cardiovascular: Denies chest pain or edema. [] GI: Nausea vomiting diarrhea no abdominal pain, decreased p.o. intake : Denies dysuria. [] Musculoskeletal: Denies back pain or joint pain. [] Integument: Denies rash. [] Neurologic: Denies headache, focal weakness or sensory changes. [] Endocrine: Denies polyuria or polydipsia. [] Lymphatic: Denies swollen glands. [] Psychiatric: Denies depression or anxiety. [] Heart Score: C/O Chest Pain: No Risk Factors: Risk Factors: DM, Current or recent (<one month) smoker, HTN, HLP, family histo ry of CAD, obesity. Risk Scores: Score 0 - 3: 2.5% MACE over next 6 weeks - Discharge Home Score 4 - 6: 20.3% MACE over next 6 weeks - Admit for Clinical Observation Score 7 - 10: 72.7% MACE over next 6 weeks - Early Invasive Strategies Current Medications: Current Medications Medications (Trade) Dose Ordered Sig/Juan Miguel Start Time Stop Time Status Last Admin Dose Admin Haloperidol Lactate (Haldol Inj) 1 mg 1X ONCE 02/05/22 19:30 02/05/22 19:31 DC Sodium Chloride 500 ml @ 500 mls/hr 1X ONCE 02/05/22 19:30 02/05/22 20:29 02/05/22 19:30 500 MLS/HR Allergies: Allergies: Allergies Coded Allergies Type Severity Reaction Last Updated Verified adhesive tape Allergy Severe TEARS SKIN 07/19/21 Yes zolpidem Allergy Intermediate 07/19/21 Yes nitrous oxide Adverse Reaction Severe EYE DAMAGE 07/19/21 Yes eszopiclone Adverse Reaction Intermediate Anxiety 10/10/21 Yes Physical Exam: PE: Constitutional: Well developed, well nourished, no acute distress, non-toxic appearance. [] HENT: Normocephalic, atraumatic, bilateral external ears normal, oropharynx moist, no oral exudates, nose normal. [] Eyes: PERRLA, EOMI, conjunctiva normal, no discharge. [] Neck: Normal range of motion, no tenderness, supple, no stridor. [] Cardiovascular:Heart rate regular rhythm, no murmur [] Lungs & Thorax: Bilateral breath sounds clear to auscultation [] Abdomen: Bowel sounds normal, soft, no tenderness, no masses, no pulsatile masses. [] Skin: Warm, dry, no erythema, no rash. [] Back: No tenderness, no CVA tenderness. [] Extremities: No tenderness, no cyanosis, no clubbing, ROM intact, no edema. [] Neurologic: Alert and oriented X 3, normal motor function, normal sensory function, no focal deficits noted. [] Psychologic: Affect normal, judgement normal, mood normal. [] Current Patient Data: Labs: Laboratory Tests Test 02/05/22 19:53 White Blood Count 9.6 x10^3/uL (4.0-11.0) Red Blood Count 5.03 x10^6/uL (3.50-5.40) Hemoglobin 14.7 g/dL (12.0-15.5) Hematocrit 43.3 % (36.0-47.0) Mean Corpuscular Volume 86 fL (79-100) Mean Corpuscular Hemoglobin 29 pg (25-35) Mean Corpuscular Hemoglobin Concent 34 g/dL (31-37) Red Cell Distribution Width 13.9 % (11.5-14.5) Platelet Count 115 x10^3/uL (140-400) L Neutrophils (%) (Auto) 64 % (31-73) Lymphocytes (%) (Auto) 29 % (24-48) Monocytes (%) (Auto) 6 % (0-9) Eosinophils (%) (Auto) 0 % (0-3) Basophils (%) (Auto) 1 % (0-3) Neutrophils # (Auto) 6.1 x10^3/uL (1.8-7.7) Lymphocytes # (Auto) 2.8 x10^3/uL (1.0-4.8) Monocytes # (Auto) 0.6 x10^3/uL (0.0-1.1) Eosinophils # (Auto) 0.0 x10^3/uL (0.0-0.7) Basophils # (Auto) 0.1 x10^3/uL (0.0-0.2) Troponin I High Sensitivity 20 ng/L (4-50) Laboratory Tests 02/05/22 19:53 Vital Signs: Vital Signs Date Time Temp Pulse Resp B/P (MAP) Pulse Ox O2 Delivery O2 Flow Rate FiO2 02/05/22 19:27 98.4 79 16 178/80 (112) 97 98.4 EKG: EKG: [] Patient is EKG shows normal sinus rhythm with a heart rate of 79 QTC of 513 and a [place] interval of 208. Patient does have a left bundle branch. Radiology/Procedures: Radiology/Procedures: [] Course & Med Decision Making: Course & Med Decision Making Pertinent Labs and Imaging studies reviewed. (See chart for details) [] Spoke at length with family. Patient has a history of insulin-dependent diabetes and gastroparesis and this happens when patient eats too many sweets. Patient states that during Easter and around [place] time she gets this e pisode due to the fact that her intake and sugar increases. Dietary precautions were given to the patient. Patient states that she would like to go home offered observation but patient states that she feels much more comfortable at home return precautions were discussed Dragon Disclaimer: Kitty Disclaimer: This electronic medical record was generated, in whole or in part, using a voice recognition dictation system. Departure Departure Impression: Primary Impression: Gastroparesis Additional Impression: Hypokalemia Disposition: HOME / SELF CARE / HOMELESS Condition: STABLE Referrals: ZEINA RUBIO MD (PCP) Patient Instructions: Gastroparesis DREW MARTIN DO Feb 05, 2022 20:23
[2022-02-05 20:48] LABS: BACTERIA,URINE MANY /HPF (0-FEW); RBC,URINE 0 /HPF (0-2)
[2022-02-05] MEDS ORDERED: POTASSIUM CHLORIDE 20 MEQ TABLET.ER. PO ONE (21:00)
[2022-02-05 21:50] VITALS: BP 188/81
--- NOTE | 2022-02-06 00:44 | EKG ---
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
== END 2022-02-05 23:23 | disposition home or self-care (01) ==
LOC: ER 19:07
DX: E11.43 Type 2 diabetes mellitus with diabetic autonomic (poly)neuropathy (principal); K31.84 Gastroparesis; E87.6 Hypokalemia; Z79.4 Long term (current) use of insulin; I48.91 Unspecified atrial fibrillation; E78.00 Pure hypercholesterolemia, unspecified; E11.22 Type 2 diabetes mellitus with diabetic chronic kidney disease; I13.10 Hypertensive heart and chronic kidney disease without heart failure, with stage 1 through stage 4 chronic kidney disease, or unspecified chronic kidney disease; N18.9 Chronic kidney disease, unspecified; Z95.1 Presence of aortocoronary bypass graft; Z88.8 Allergy status to other drugs, medicaments and biological substances
CPT/HCPCS: 36415; 80053; 81001; 83690; 84484; 85025; 93005; 99285; J7040